=== PATIENT | female | born 1960 | race Caucasian/White ===

== ENCOUNTER 2017-06-19 13:00 | Outpatient (RCR) | payer MEDICARE, SELFPAY ==
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
--- NOTE | 2017-05-20 10:53 | HP.PTREVAL_ITS ---
Susu Walker, It has been my pleasure to treat NINA CLEVELAND over the last 6 visits for back and neck pain. Please see the progress note below for an update on the physical therapy plan of care! Subjective: Cortney has more pain in arms-8/10. Patient has injection past 2weeks . Symptoms worse with walking standing 5min.Patient has leave pain after tx Objective/Function: POSTURE: rounded shoulders head foward ,soft collar,left wrist brace. GAIT:mild foward posture head foward. PALAPTION: tender upper/ lower cervical and lumbar. NEURO: C/O PARATHESIA/TINGLING,reflexes C5-6-7 1/2, L4-5,L5-S1 1/3. MMT: BUE 3+/5 GROSSLY. CERVICAL ROM: flexion min loss , lateral flexion /rotation mod loss ,ext min less. LUMBAR ROM: flexion min loss ,ext mod loss. MMT: quads/hams 4-/5 hip 3+/5 ankle 4-/5. -SLR Plan Plan: CONT AQUATICS 2XWEEK FOR 4 WEEKS Goals Goal 1:: Decrease Aquatic therapy ex's to decrease palacios. Goal Time Frame: 4-6 Weeks Goal Progress: Progressing Goal 2:: Decrease pain cervical /lumbar legs /arms by 40% or greater to improve function and ADL''s Goal Time Frame: 4-6 Weeks Goal Progress: Progressing Goal 3:: Patient increase right arm romto improve self hygine 50% of the time Goal Time Frame: 4-6 Weeks Goal Progress: Progressing Goal 4:: Patient increase strength BLE by 1/2 grade to improve function with walking standing for ADL'S Goal Time Frame: 4-6 Weeks Goal Progress: Progressing Goal 5:: Patient to improve gait with for ADL'S community distances Goal Time Frame: 4-6 Weeks Goal Progress: Progressing Anticipated Interventions Patient/Client Instruction: Educate patient on: Condition, Plan of Care For the Purpose of:: To decrease pain, To increase ROM, To improve muscle performance and motor function, To improve ability to perform ADL's, To improve performance and independence with ADL's, To decrease level of supervision to perform tasks, To improve ability of physical actions for home/community/work/ leisure, To improve health of tissue, To decrease soft tissue restriction, To increase flexibility/ROM, To improve endurance, To improve safety with gait, To prevent re-injury, To improve ability to perform tasks related to life management Therapeutic Exercise to Include: Strength training, Body mechanics, Postural training, Flexibilty training, In an aquatic setting, Active ROM, Dynamic Lumbar Stabilization Comment: UE/LE For the Purpose of:: To decrease pain, To increase ROM, To improve nutrient delivery to tissue, To increase oxygenation perfusion, To improve muscle performance and motor function, To improve ability to perform ADL's, To increase tolerance to activity/condition/position, To improve performance and independence with ADL's, To improve ability of physical actions for home/ community/work/leisure, To improve gait and locomotor functions, To improve health of tissue, To decrease soft tissue restriction, To increase flexibility/ ROM, To improve balance, To improve safety with gait, To improve health and function, To improve ability to perform tasks related to life management Please do not hesitate to contact me at [phone] by phone or Fax: if you have questions or concerns regarding this new plan of care! Sincerely, Bandar Mariee PT,
--- NOTE | 2017-09-05 09:32 | HP.PT.NRP ---
HP - Discharge Summary (1) - Patient Information NINA CLEVELAND was seen in my office for initial evaluation on 04/18/17. The following Plan of Care was established for this patient: Initial Frequency: 2x /Week Initial Duration: 4 Weeks - Anticipated Interventions Patient/Client Instruction: Educate patient on: Condition, Plan of Care For the Purpose of:: To decrease pain, To increase ROM, To improve muscle performance and motor function, To improve ability to perform ADL's, To improve performance and independence with ADL's, To decrease level of supervision to perform tasks, To improve ability of physical actions for home/community/work/leisure, To improve health of tissue, To decrease soft tissue restriction, To increase flexibility/ROM, To improve endurance, To improve safety with gait, To prevent re-injury, To improve ability to perform tasks related to life management Therapeutic Exercise to Include: Strength training, Body mechanics, Postural training, Flexibilty training, In an aquatic setting, Active ROM, Dynamic Lumbar Stabilization For the Purpose of:: To decrease pain, To increase ROM, To improve nutrient delivery to tissue, To increase oxygenation perfusion, To improve muscle performance and motor function, To improve ability to perform ADL's, To increase tolerance to activity/condition/position, To improve performance and independence with ADL's, To improve ability of physical actions for home/community/work/leisure, To improve gait and locomotor functions, To improve health of tissue, To decrease soft tissue restriction, To increase flexibility/ROM, To improve balance, To improve safety with gait, To improve health and function, To improve ability to perform tasks related to life management This patient was last seen in our office 06/29/17. Pertinent comments regarding their Physical therapy will appear below: Patient seen for PT for Aquatic PT for neck and back pain treatment focused on lumbar/cervical ROM ,strengthening,DLS,postural ex's . Patient was progressing with decreasing pain with water ex's . Thus is d/c from PT. At this point I will be discontinuing this patient from physical therapy. I would be happy to see this patient again in the future if found appropriate by the physician. Thank you! Bandar Mariee, PT,
== END 2017-06-19 19:00 | disposition home or self-care (01) ==
LOC: PT 13:00
PROVIDERS: Family Provider Pediatrics; PCP Pediatrics; Visit Provider Anesthesiology Pain Medicine
DX: M54.9 Dorsalgia, unspecified (principal); M54.2 Cervicalgia
CPT/HCPCS: 97113; 97163; 97530; G8978; G8979

== ENCOUNTER 2017-12-24 13:49 | Emergency (ER) | payer MEDICARE, SELFPAY ==
[2017-12-24 13:51] VITALS: BP 109/79; PULSE 99; RESP 16; TEMP 37.2; O2SAT 93; BMI 32.5
--- NOTE | 2017-12-24 15:20 | RAD_ITS ---
STUDY: X-RAY CHEST REASON FOR EXAM: Female, 57 years old. Cough. Weakness. Shortness of breath. TECHNIQUE: PA and lateral views of the chest. COMPARISON: August 09, 2017. FINDINGS: Telemetry wires overlie the chest. There is elevation right hemidiaphragm. There is a stable granuloma in the lateral left midlung. There is chronic interstitial changes without new infiltrate or mass. There is no demonstrated pleural abnormality. Normal size heart. Normal mediastinum. Decreased hilar prominence. Normal visualized aortic arch and descending thoracic aorta. Normal visualized thoracic spine. Normal visualized ribs, clavicles, and shoulders. There is no demonstrated abnormality of the visualized soft tissue structures of the upper abdomen. RAD/Chest PA and Lateral IMPRESSION: 1. Chronic pulmonary changes without acute infiltrate or mass. 2. Stable elevation of right hemidiaphragm. 3. Reversal of the mild central vascular congestion seen on the prior study. Electronically Signed: Parth Jarquin DO at 16:35 EDT Tel [phone], Service support ,
[2017-12-24 15:30] VITALS: PULSE 76; RESP 18
[2017-12-24] MEDS: Ipratropium/Albuterol Sulfate 3 ML AMPUL.NEB INHALATION (15:30)
[2017-12-24 15:46] LABS: Absolute Lymphocyte Count 1.21 X10^3/ul (0.83-4.51); Basophil# 0.01 X10^3/uL; Basophil% 0.3 % (0-1); Eosinophils% 2.7 % (0-5); Hematocrit 36.3 % (37-47); Hemoglobin 11.2 g/dl (12.0-15.0); Lymphocyte # 1.21 X10^3/ul (4.0); Lymphocyte % 32.1 % (19-41); Mean Corp Hgb Conc 30.9 g/gl (32-36); Mean Corpuscular Hgb 27.9 pg (27.0-32.0); Mean Corpuscular Volume 90.5 fL (81-99); Mean Platelet Vol. 10.2 fl (6.2-12.0); Monocyte# 0.38 X10^3/uL; Monocyte% 10.1 % (0-10); Neutrophil # 2.04 X10^3/uL (2.7-7.7); Platelet Count 275 K/mm3 (150-450); RBC Distribution Width CV 18.5 % (11.6-14.6); RBC Distribution Width SD 60.2 fl (35.1-43.9); Red Blood Count 4.01 M/mm3 (4.2-5.4); White Blood Count 3.8 K/mm3 (4.4-11.0)
[2017-12-24 15:47] LABS: POSITIVE COUNT NO; POSITIVE DIFFERENTIAL NO; POSITIVE MORPHOLOGY NO
[2017-12-24 15:53] LABS: Anion Gap 7 (5-15); BUN 8 mg/dL (7-18); BUN/Creat Ratio 10.8 RATIO (10-20); Calcium,Total 8.4 mg/dL (8.5-10.1); Chloride 98 mmol/L (98-107); Creatinine, Serum 0.74 mg/dL (0.55-1.02); EST Glomerular Filtration Rate 86 mL/min (>60); Est Glom Filt Rate - Afr Amer 104 mL/min (>60); Estimated Creatinine Clearance 70.22 ml/min; Glucose 79 mg/dL (74-106); Potassium 3.2 mmol/L (3.5-5.1); Sodium Level 141 mmol/L (136-145)
[2017-12-24 16:04] VITALS: BP 93/60; PULSE 78; RESP 14; O2SAT 100
--- NOTE | 2017-12-24 16:18 | ED.VISSUMM ---
- ER Visit Summary Date of Service: 12/24/17 Chief Complaint: I need my potassium checked History of Present Illness: The patient is a [address] Stephenson. She reports that typically she is on 20 mEq of potassium twice daily. She ran out 5 days ago and was unable to get her prescription filled. She reports that she has had generalized weakness over the past 4-5 days. On review of systems patient claims a fever to 101?. She periodically has a cough that is nonproductive. She reports that she has mild shortness of breath. She denies dysuria. She has had frequency. She reports that she has a little bit of headache. Physical Examination: Vitals: Stable. Afebrile. General: Well-nourished and well-developed. Head: Normocephalic atraumatic. Neck: Supple, no lymphadenopathy. No JVD. Nontender. Cardiovascular: Regular rate and rhythm. No murmurs. Respiratory: No respiratory distress. Mild wheezing bilaterally with good air movement. Abdominal: Soft, nontender, nondistended, normal bowel sounds. No guarding, rebound, or peritoneal signs. Back: Nontender. Extremities: Nontender, no edema. Skin: Normal color, no rash. Neurologic: Alert and oriented ?3. Cranial nerves II through XII are intact. Normal strength and sensation. Psych: Normal affect. Test Results: CBC is marked for white count of 3.8 with an H&H of 11.2 and 36.3. Chem-7 is remarkable for potassium of 3.2, CO2 36, calcium of 8.4. Emergency Department Course and Treatment: Patient was given 40 mEq of K-Dur p.o. She is given albuterol Atrovent aerosol. She is resting comfortably. Treatment Plan: Patient be discharged instructions to take her potassium as previously prescribed. Follow-up with Dr. Stephenson in 1-2 days if not improving. Return to the emergency department for any worsening symptoms. Disposition: To home in improved and stable condition. Impression: 1. Mild hypokalemia. This note was generated with [employer] dictation software. It may contain incorrect words, spelling, and punctuation that were not noted in review of the chart prior to signing ED Disposition - Plan for ED Patient: Disposition: Home or Assisted Living Chief Complaint: Weakness Instructions: ED Potassium Deficiency Referrals: Carson Stephenson MD [Primary Care Provider] - 3-5 Days if not improving
[2017-12-24 16:26] LABS: Bacteria 0 SEEN /hpf (None Seen); Mucous, Urine 0 SEEN /hpf (<or=2+)
[2017-12-24 16:32] VITALS: BP 100/50; PULSE 89; RESP 15; O2SAT 93
[2017-12-24 16:40] LABS: Color, Urine Yellow (Yellow); Glucose, Dipstick Normal (Normal); Ketone-Dipstick Negative (Negative); Leukocyte Esterase-Dipstick 25 /ul (Negative); Nitrite-Dipstick Negative (Negative); Occult Blood-Urine 10 /ul (Negative); Protein-Dipstick Negative (Negative); Urine Bilirubin Dipstick Negative (Negative); Urine Clarity Sl. Cloudy (Clear); Urine Urobilinogen 1 mg/dl (Normal)
[2017-12-24 16:56] LABS: Calcium Oxalate Crystals Ur RARE /hpf (<or=2+); Red Blood Cells-Urine 0-5 SEEN /hpf (0-5); Squamous Epithelial Cells - UA 0-5 SEEN /hpf (5-10); White Blood Cells 0-5 SEEN /hpf (0-5)
[2017-12-24 17:34] VITALS: BP 104/68; PULSE 91; RESP 21; O2SAT 96
[2017-12-24 17:38] VITALS: BP 104/68; PULSE 92; RESP 28; O2SAT 94
== END 2017-12-24 17:58 | disposition home or self-care (01) ==
PROVIDERS: Emergency Provider Emergency Medicine; Family Provider Family Medicine; PCP Family Medicine
DX: E87.6 Hypokalemia (principal); R06.00 Dyspnea, unspecified; R05 Cough; R35.0 Frequency of micturition; R50.9 Fever, unspecified; R51 Headache; I10 Essential (primary) hypertension; D68.59 Other primary thrombophilia; G90.50 Complex regional pain syndrome I, unspecified; F17.200 Nicotine dependence, unspecified, uncomplicated; Z79.01 Long term (current) use of anticoagulants; Z79.899 Other long term (current) drug therapy
CPT/HCPCS: 71046; 80048; 81001; 85025; 94640; 99283; A4216

== ENCOUNTER 2018-01-01 11:11 | Inpatient (IN) | payer MEDICARE, SELFPAY ==
[2018-01-01] VITALS (18 sets, daily range): BP systolic 93–139; BP diastolic 50–95; PULSE 76–128; RESP 18–24; TEMP 36.9–39.5; O2SAT 88–98; BMI 33.1; BMI 33.2; BMI 33.3
--- NOTE | 2018-01-01 11:30 | EKG12_ITS ---
Test Reason : Blood Pressure : / mmHG Vent. Rate : 129 BPM Atrial Rate : 129 BPM P-R Int : 204 ms QRS Dur : 078 ms QT Int : 260 ms P-R-T Axes : 090 011 003 degrees QTc Int : 380 ms Sinus tachycardia Leftward axis Nonspecific T wave abnormality Abnormal ECG Confirmed by FAB CASTAÑEDA, ALE ([id number]), primer expeditor and drier BAYRON WILD ([id number]) on 01/03/2018 10:51:10 AM Referred By: LUL Confirmed By:ALE SANON MD
--- NOTE | 2018-01-01 11:30 | RAD_ITS ---
STUDY: X-RAY CHEST REASON FOR EXAM: Female, 57 years old. Fever, cough, shortness of breath for several days. History of COPD. TECHNIQUE: Portable chest AP upright COMPARISON: Chest x-ray 12/24/2017. FINDINGS: Bilateral perihilar/infrahilar infiltrates, larger and of greater density on the right. Right upper lobe suprahilar infiltrate, of intermediate density. These features are consistent with acute bilateral pneumonia. Chronic elevation of the right hemidiaphragm. No apparent effusion or pneumothorax. Normal cardiomediastinal silhouette, roz and pleural margins. No acute osseous or upper abdominal process. RAD/Chest 1 View (Portable) IMPRESSION: Bilateral multilobar pneumonia. Electronically Signed: Leopoldo Barton, at 12:04 EDT Tel , Service support ,
[2018-01-01] MEDS: Albuterol 2.5 MG/3 ML VIAL.NEB. INHALATION (11:52)
[2018-01-01] MEDS: Ipratropium/Albuterol Sulfate 3 ML AMPUL.NEB INHALATION ×2 (11:52→20:24)
[2018-01-01] MEDS: Acetaminophen 325 MG Tablet 650 MG PO (11:55)
[2018-01-01 11:57] LABS: Absolute Neutrophil Count 13.7 X10^3/uL (2.0-7.7); Basophil# 0.01 X10^3/uL; Basophil% 0.1 % (0-1); Differential Indicated SCAN CRITERIA MET; Eosinophil# 0.02 X10^3/uL; Eosinophils% 0.1 % (0-5); Hematocrit 38.8 % (37-47); Hemoglobin 11.4 g/dl (12.0-15.0); Lymphocyte % 1.4 % (19-41); Mean Corp Hgb Conc 29.4 g/gl (32-36); Mean Corpuscular Hgb 26.7 pg (27.0-32.0); Mean Corpuscular Volume 90.9 fL (81-99); Mean Platelet Vol. 10.8 fl (6.2-12.0); Monocyte# 0.41 X10^3/uL; Monocyte% 2.9 % (0-10); Neutrophil # 13.71 X10^3/uL (2.7-7.7); Neutrophil % 95.4 % (47-70); POSITIVE COUNT NO; POSITIVE DIFFERENTIAL YES; POSITIVE MORPHOLOGY NO; Platelet Count 356 K/mm3 (150-450); RBC Distribution Width CV 18.1 % (11.6-14.6); RBC Distribution Width SD 60.7 fl (35.1-43.9); Red Blood Count 4.27 M/mm3 (4.2-5.4); White Blood Count 14.4 K/mm3 (4.4-11.0)
[2018-01-01 12:00] LABS: International Normalized Ratio 1.2; Partial Thromboplast Time 28.8 Seconds (24.1-36.2); Prothrombin Time (Protime)PT. 15.2 SECONDS (11.7-14.9)
[2018-01-01] MEDS: Ceftriaxone 1 GM/50 ML BAG IV (12:05)
[2018-01-01 12:08] LABS: ALB/GLOB Ratio 0.8 RATIO (0.9-2.4); AST(SGOT) 21 U/L (15-37); Alanine Aminotransfer ALT/SGPT 13 U/L (13-56); Albumin, Serum 3.4 g/dL (3.2-5.0); Alkaline Phosphatase 105 U/L (45-117); Anion Gap 4 (5-15); BUN 8 mg/dL (7-18); Calcium,Total 8.3 mg/dL (8.5-10.1); Chloride 105 mmol/L (98-107); EST Glomerular Filtration Rate 79 mL/min (>60); Est Glom Filt Rate - Afr Amer 95 mL/min (>60); Estimated Creatinine Clearance 64.95 ml/min; Globulin 4.2 g/dL (2.2-4.2); Glucose 118 mg/dL (74-106); Potassium 4.2 mmol/L (3.5-5.1); Protein, Total 7.6 g/dL (6.4-8.2); Sodium Level 140 mmol/L (136-145)
[2018-01-01 12:25] LABS: Lactic Acid 1.8 mmol/L (0.4-2.0)
[2018-01-01 12:25] LABS: Allen Test POS; Base Excess 2 mmol/L (-2 to +2); Bicarbonate 26.9 mmol/L (22-26); Blood Gas Specimen Type ART; O2 Delivery Device NRB Mask; PO2 79 mmHG (75-100); SITE R Radial; SO2 95 % (95-99); Time Given 1210; Total Carbon Dioxide 28 mmol/L; pCO2 46.8 mmHg (35-45); pH 7.37 (7.35-7.45)
[2018-01-01 12:28] LABS: Differential Comment SCANNED
--- NOTE | 2018-01-01 12:37 | ED.DCSUM_ITS ---
- ER Visit Summary Date of Service: 01/01/18 Chief Complaint: Cough History of Present Illness: The patient is a 57 F who presents with chief complaint of I think I have pneumonia. The patient has a history of esophageal cancer with a partial esophagectomy. She has a history of frequent aspiration. About 1 week ago she aspirated but states I coughed it all up. Since that time she has developed shortness of breath increased cough and green sputum. She reports sharp left-sided chest pain. She reports fevers nausea and vomiting. Physical Examination: Temperature 101.7 heart rate 128 respiratory rate 24 normal blood pressure pulse ox 88% on room air while I was in the room the patient was hypoxic between 86 and 90% even on nasal cannula and was transitioned to a nonrebreather mask Heart is regular rhythm tachycardia Patient has bilateral rales and wheezing left greater than right Abdomen soft nontender Extremities nontender Alert Test Results: EKG shows sinus tachycardia at a rate of 129 with nonspecific T- wave changes. Chest x-ray shows bilateral multilobar pneumonia. Laboratory studies notable for white blood cell count 14.4. ABG shows normal pH and lactic acid is normal. Emergency Department Course and Treatment: Patient was empirically treated with IV Rocephin and Flagyl ordered shortly after arrival due to her history of aspiration. She was treated with IV fluids. She will be discussed with the hospitalist and admitted. Treatment Plan: [] Disposition: Admit Impression: Bilateral pneumonia Sepsis syndrome This note was generated with [employer] dictation software. It may contain incorrect words, spelling, and punctuation that were not noted in review of the chart prior to signing ED Disposition - Plan for ED Patient: Chief Complaint: Cough Referrals: Carson Stephenson MD [Primary Care Provider] -
[2018-01-01] MEDS: 0.9% Normal Saline 1,000 ML 999 ML IV (12:49)
[2018-01-01] MEDS: 0.9% Normal Saline 1,000 ML 100 ML IV (14:03)
[2018-01-01] MEDS: Bisacodyl 5 MG Tablet PO (14:54)
[2018-01-01] MEDS: oxyCODONE 5 MG Tablet PO (14:54)
[2018-01-01] MEDS: DULoxetine Hcl 60 MG Capsule PO (17:06)
[2018-01-01] MEDS: Rivaroxaban 20 MG Tablet PO (17:06)
[2018-01-01] MEDS: clonazePAM 0.5 MG Tablet PO ×2 (17:06→21:18)
[2018-01-01] MEDS: Multivitamins,Therapeutic Tablet 1 TABLET PO (17:06)
[2018-01-01] MEDS: Gabapentin 300 MG Capsule PO (17:06)
[2018-01-01] MEDS: Furosemide 40 MG Tablet PO (17:06)
[2018-01-01] MEDS: Budesonide Respules 0.5 MG/2 ML AMPUL.NEB. INHALATION (20:24)
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
[2018-01-01] MEDS: Gabapentin 600 MG Tablet PO (21:17)
[2018-01-01] MEDS: Magnesium Hydroxide 30 ML UDC PO (21:17)
[2018-01-01] MEDS: Amitriptyline 100 MG Tablet 200 MG PO (21:17)
[2018-01-01] MEDS: guaiFENesin 1,200 MG Tablet 1200 MG PO (21:18)
[2018-01-01] MEDS: Famotidine 20 MG Tablet PO (21:18)
[2018-01-01] MEDS: oxyCODONE HCl Cr 10 MG Tablet PO (21:18)
[2018-01-02] VITALS (16 sets, daily range): BP systolic 94–134; BP diastolic 53–68; PULSE 62–105; RESP 14–20; TEMP 37.2–37.7; O2SAT 92–94
[2018-01-02] MEDS: 0.9% Normal Saline 1,000 ML 100 ML IV ×3 (00:44→23:10)
[2018-01-02] MEDS: Ipratropium/Albuterol Sulfate 3 ML AMPUL.NEB INHALATION ×4 (01:45→19:16)
[2018-01-02 06:52] LABS: Hematocrit 30.8 % (37-47); Hemoglobin 9.1 g/dl (12.0-15.0); Mean Corp Hgb Conc 29.5 g/gl (32-36); Mean Corpuscular Hgb 27.8 pg (27.0-32.0); Mean Corpuscular Volume 94.2 fL (81-99); Mean Platelet Vol. 10.4 fl (6.2-12.0); Platelet Count 273 K/mm3 (150-450); RBC Distribution Width CV 18.5 % (11.6-14.6); RBC Distribution Width SD 61.7 fl (35.1-43.9); Red Blood Count 3.27 M/mm3 (4.2-5.4); White Blood Count 12.8 K/mm3 (4.4-11.0)
[2018-01-02 06:53] LABS: Scan Indicated on CBC? Y/N NO
[2018-01-02] MEDS: Budesonide Respules 0.5 MG/2 ML AMPUL.NEB. INHALATION ×2 (06:56→19:16)
[2018-01-02 07:08] LABS: Anion Gap 4 (5-15); BUN 11 mg/dL (7-18); BUN/Creat Ratio 22.6 RATIO (10-20); Calcium,Total 7.8 mg/dL (8.5-10.1); Chloride 110 mmol/L (98-107); Creatinine, Serum 0.49 mg/dL (0.55-1.02); EST Glomerular Filtration Rate 139 mL/min (>60); Est Glom Filt Rate - Afr Amer 169 mL/min (>60); Estimated Creatinine Clearance 106.05 ml/min; Glucose 95 mg/dL (74-106); Potassium 4.1 mmol/L (3.5-5.1); Sodium Level 144 mmol/L (136-145)
[2018-01-02] MEDS: Gabapentin 300 MG Capsule PO ×3 (08:18→17:17)
[2018-01-02] MEDS: Multivitamins,Therapeutic Tablet 1 TABLET PO (08:18)
[2018-01-02] MEDS: oxyCODONE 5 MG Tablet PO ×2 (08:18→17:17)
[2018-01-02] MEDS: Furosemide 80 MG Tablet PO (08:19)
[2018-01-02] MEDS: DULoxetine Hcl 60 MG Capsule PO (10:33)
[2018-01-02] MEDS: clonazePAM 0.5 MG Tablet PO ×4 (10:33→21:46)
[2018-01-02] MEDS: oxyCODONE HCl Cr 10 MG Tablet PO ×2 (10:33→21:46)
[2018-01-02] MEDS: Rivaroxaban 20 MG Tablet PO (10:34)
[2018-01-02] MEDS: Famotidine 20 MG Tablet PO ×2 (10:34→21:45)
[2018-01-02] MEDS: guaiFENesin 1,200 MG Tablet 1200 MG PO ×2 (10:34→21:46)
[2018-01-02] MEDS: Magnesium Hydroxide 30 ML UDC PO ×2 (10:38→21:45)
--- NOTE | 2018-01-02 12:52 | CASEMGMT ---
Face to Face with patient for initial transition planning/care coordination assessment. RN FILIBERTO introduced self and role at [facility], pt voices understanding and consents to assessment at this time. Pt is sitting up in bed in no distress at this time. Pt is A/O x4 at this time and answers all questions appropriately at this time. Care providers, pharmacy, and demographics verified. See attached link. Pt voices no further concerns/needs at this time. Advised pt to ask for CM if any further questions/concerns/needs arise, voices understanding. CM to follow for any further discharge planning/needs. [place]
--- NOTE | 2018-01-02 15:59 | PCM.PROGNOTE ---
Patient Problems: Active and Suspected Problems Aspiration pneumonia (Acute) History of esophageal cancer (Acute) Chronic upper back pain (Acute) Subjective: She feels somewhat better. Afebrile, except for low grade temp. Complaining of headache. +Discolored sputum. - Physical Exam General: Alert, Oriented x3, Cooperative HEENT: Atraumatic, PERRLA Oral: Moist Mucosa, No Gingival or Mucosal Lesions/ Ulcerations Neck: Supple, No JVD, Negative Carotid Bruits, Negative Hepatojugular Reflux, No Nodes, No Nuchal Rigidity Lungs: Rhonchi - Mid lung fileds bilaterally. Diffuse wheezing. Cardiovascular: Regular rate, Regular Rhythm, Normal S1, Normal S2, No murmurs, No Ectopic Activity Abdomen: Bowel Sounds Present, Soft, Non Tender, Non-Distended, No Hepato-splenomegaly Extremities: No clubbing, No cyanosis, No edema Skin: No rashes, No breakdown Musculoskeletal: No Tenderness to Palpation of Joints or Extremities, No Muscle Wasting Lymphatic: No Cervical, Supraclavicular, or Inguinal Adenopathy Neurological: Cranial nerves II-XII grossly intact, Neuro grossly intact Psych/Mental Status: Normal Affect Vital Signs Temp Pulse Resp BP Pulse Ox 99.8 F H 62 16 111/58 L 92 01/02/18 10:28 01/02/18 12:59 01/02/18 12:59 01/02/18 10:28 01/02/18 10:28 Oxygen Flow Rate (L/min) 4 Oxygen Delivery Method Nasal Cannula Weight: 190 lb 11.198 oz Body Mass Index (BMI) 33.2 Intake and Output for Last 24 Hours 12/31/17 01/01/18 01/02/18 23:59 23:59 23:59 Intake Total 1455 / 1455 1594 / 1594 Output Total 1600 / 1600 Balance 1455 / 1455 -6 / -6 Microbiology Past 72 Hours 01/01/18 14:00 Gram Stain - Final Sputum, Expectorated/Coughed Respiratory Culture - Preliminary Alpha Hemolytic Streptococcus 01/01/18 14:05 Legionella Antigen - Final Urine, Clean Catch 01/01/18 14:05 Streptococcus pneumoniae Antigen (M - Final Urine, Clean Catch Streptococcus pneumonia Ag Laboratory Tests Past 24 Hrs 01/02/18 01/02/18 06:00 06:00 WBC 12.8 H RBC 3.27 L Hgb 9.1 L Hct 30.8 L MCV 94.2 MCH 27.8 MCHC 29.5 L RDW 18.5 H RDW Differential 61.7 H Plt Count 273 MPV 10.4 Sodium 144 Potassium 4.1 Chloride 110 H Carbon Dioxide 30.0 Anion Gap 4 L BUN 11 Creatinine 0.49 L Estim Creat Clear Calc 106.05 Est GFR (MDRD) Af Amer 169 Est GFR (MDRD) Non-Af 139 BUN/Creatinine Ratio 22.6 H Glucose 95 Calcium 7.8 L Diagnostic Data Chest X-Ray 01/01/18 11:30 IMPRESSION: Bilateral multilobar pneumonia. Electronically Signed: Leopoldo Barton, at 12:04 EDT Tel , Service support , Medical Necessity - Tobacco Use Smoking Status: Current some day smoker Assessment/Plan Active and Suspected Problems Aspiration pneumonia (Acute) History of esophageal cancer (Acute) Chronic upper back pain (Acute) Patient is a 57 years old female with history of esophageal cancer, s/p resection, presents to ED with complaining of shortness of breath, cough, and fever for 2 days, admitted on 01/01/18. He has history of resection of esophageal cancer, and has problems with recurrent aspiration in the past. She presented to ED about one week ago, but CXR did not show any infiltrate at that time. CXR showed multilobe infiltrate this time with fever or 103.1 and WBC of 14.4. #1 Probable aspiration pneumonia. Rocephin and Flagyl give in ED. Urine strep antigen positive. Change to clindamycin IV. Blood culture +alpha hemolytic strep 1 out of 2. Continue bronchodilator, DuoNeb Q6 and albuterol MN prn. Oxygen supplement. Continue Current antibiotics. Repeat CBC in AM. #2 COPD. She uses nocturnal home oxygen. Bronchodilator and antibiotics as above. #3 History of coagulopathy and recurrent DVT/PE. Continue Xarelto. #4 Chronic back pain. Continue Neurontin and oxycodone ER 9 mg po bid. Add prn oxycodone IR. #5 History of esophageal cancer VTE prophylaxis: Xarelto po. GI prophylaxis: H2 frieda po. She is full code. Disposition: home in 2 to 3 days. Code Visit Inpatient E&M: 68338 Subs Hosp L2
--- NOTE | 2018-01-02 16:03 | PN_ITS ---
Patient Problems: Active and Suspected Problems Aspiration pneumonia (Acute) History of esophageal cancer (Acute) Chronic upper back pain (Acute) Subjective: She feels somewhat better. Afebrile, except for low grade temp. Complaining of headache. +Discolored sputum. - Physical Exam General: Alert, Oriented x3, Cooperative HEENT: Atraumatic, PERRLA Oral: Moist Mucosa, No Gingival or Mucosal Lesions/ Ulcerations Neck: Supple, No JVD, Negative Carotid Bruits, Negative Hepatojugular Reflux, No Nodes, No Nuchal Rigidity Lungs: Rhonchi - Mid lung fileds bilaterally. Diffuse wheezing. Cardiovascular: Regular rate, Regular Rhythm, Normal S1, Normal S2, No murmurs, No Ectopic Activity Abdomen: Bowel Sounds Present, Soft, Non Tender, Non-Distended, No Hepato- splenomegaly Extremities: No clubbing, No cyanosis, No edema Skin: No rashes, No breakdown Musculoskeletal: No Tenderness to Palpation of Joints or Extremities, No Muscle Wasting Lymphatic: No Cervical, Supraclavicular, or Inguinal Adenopathy Neurological: Cranial nerves II-XII grossly intact, Neuro grossly intact Psych/Mental Status: Normal Affect Vital Signs Temp Pulse Resp BP Pulse Ox 99.8 F H 62 16 111/58 L 92 01/02/18 10:28 01/02/18 12:59 01/02/18 12:59 01/02/18 10:28 01/02/18 10:28 Oxygen Flow Rate (L/min) 4 Oxygen Delivery Method Nasal Cannula Weight: 190 lb 11.198 oz Body Mass Index (BMI) 33.2 Intake and Output for Last 24 Hours 12/31/17 01/01/18 01/02/18 23:59 23:59 23:59 Intake Total 1455 / 1455 1594 / 1594 Output Total 1600 / 1600 Balance 1455 / 1455 -6 / -6 Microbiology Past 72 Hours 01/01/18 14:00 Gram Stain - Final Sputum, Expectorated/Coughed Respiratory Culture - Preliminary Alpha Hemolytic Streptococcus 01/01/18 14:05 Legionella Antigen - Final Urine, Clean Catch 01/01/18 14:05 Streptococcus pneumoniae Antigen (M - Final Urine, Clean Catch Streptococcus pneumonia Ag Laboratory Tests Past 24 Hrs 01/02/18 01/02/18 06:00 06:00 WBC 12.8 H RBC 3.27 L Hgb 9.1 L Hct 30.8 L MCV 94.2 MCH 27.8 MCHC 29.5 L RDW 18.5 H RDW Differential 61.7 H Plt Count 273 MPV 10.4 Sodium 144 Potassium 4.1 Chloride 110 H Carbon Dioxide 30.0 Anion Gap 4 L BUN 11 Creatinine 0.49 L Estim Creat Clear Calc 106.05 Est GFR (MDRD) Af Amer 169 Est GFR (MDRD) Non-Af 139 BUN/Creatinine Ratio 22.6 H Glucose 95 Calcium 7.8 L Diagnostic Data Chest X-Ray 01/01/18 11:30 IMPRESSION: Bilateral multilobar pneumonia. Electronically Signed: Leopoldo Barton, at 12:04 EDT Tel , Service support , Medical Necessity - Tobacco Use Smoking Status: Current some day smoker Assessment/Plan Active and Suspected Problems Aspiration pneumonia (Acute) History of esophageal cancer (Acute) Chronic upper back pain (Acute) Patient is a 57 years old female with history of esophageal cancer, s/ p resection, presents to ED with complaining of shortness of breath, cough, and fever for 2 days, admitted on 01/01/18. He has history of resection of esophageal cancer, and has problems with recurrent aspiration in the past. She presented to ED about one week ago, but CXR did not show any infiltrate at that time. CXR showed multilobe infiltrate this time with fever or 103.1 and WBC of 14.4. #1 Probable aspiration pneumonia. Rocephin and Flagyl give in ED. Urine strep antigen positive. Change to clindamycin IV. Blood culture +alpha hemolytic strep 1 out of 2. Continue bronchodilator, DuoNeb Q6 and albuterol [place] prn. Oxygen supplement. Continue Current antibiotics. Repeat CBC in AM. #2 COPD. She uses nocturnal home oxygen. Bronchodilator and antibiotics as above. #3 History of coagulopathy and recurrent DVT/PE. Continue Xarelto. #4 Chronic back pain. Continue Neurontin and oxycodone ER 9 mg po bid. Add prn oxycodone IR. #5 History of esophageal cancer VTE prophylaxis: Xarelto po. GI prophylaxis: H2 frieda po. She is full code. Disposition: home in 2 to 3 days. Code Visit Inpatient E&M: 32892 Subs Hosp L2
[2018-01-02] MEDS: Furosemide 40 MG Tablet PO (17:17)
[2018-01-02] MEDS: Acetaminophen 325 MG Tablet 650 MG PO (17:17)
[2018-01-02] MEDS: Amitriptyline 100 MG Tablet 200 MG PO (21:46)
[2018-01-02] MEDS: Clindamycin 600 MG/50 ML BAG 100 MG IV (21:47)
[2018-01-02] MEDS: Gabapentin 600 MG Tablet PO (21:53)
[2018-01-03] VITALS (27 sets, daily range): BP systolic 103–135; BP diastolic 53–69; PULSE 83–121; RESP 14–26; TEMP 36.2–37.4; O2SAT 90–97
--- NOTE | 2018-01-03 03:35 | NURSING ---
Pt. HR sustaining 120. VS 98.9, 119, 22, 77% on 4L NC. Placed pt. on 5L NC and pulse ox 81%. Then placed pt. on nonrebreather and pulse ox at 94% . Dr. Rae notified and respiratory therapy called to floor. RT talked to Dr. Rae as did this nurse. DC order on IVF. Orders obtained for ABGs. , PCXR,. Dr. Rae called back at 0422 to order IV cardizem 10 mg and agreed to have speech evaluation for possible aspiration. Keeping Pt. NPO until speech eval. Will monitor.
--- NOTE | 2018-01-03 04:05 | RAD_ITS ---
STUDY: X-RAY CHEST REASON FOR EXAM: Female, 57 years old. Shortness of breath, dyspnea TECHNIQUE: Single AP portable view of the chest. COMPARISON: 01/01/2018. 12/24/2017. FINDINGS: There are superimposed monitor leads. Persistent elevation of the right hemidiaphragm. Worsened aeration in the right upper lobe, stable opacification right base and left perihilar and infrahilar parenchyma. There is no demonstrated pleural abnormality. Normal size heart. Normal mediastinum and roz. Normal visualized pulmonary arteries. Normal visualized aortic arch and descending thoracic aorta. Obscured thoracic spine. Status post right acromioplasty. There is no demonstrated abnormality of the visualized soft tissue structures of the upper abdomen. RAD/Chest 1 View (Portable) IMPRESSION: Worsening of aeration in the right upper lobe. Bilateral perihilar airspace disease with moderate elevation of the right hemidiaphragm and in areas of hyperinflation otherwise stable. Electronically Signed: Mireya Hyde MD at 4:53 EDT , Service support ,
[2018-01-03] MEDS: 0.9% NaCl Peripheral Flush Adult/Peds IV ×3 (04:19→23:33)
[2018-01-03 04:26] LABS: Allen Test POS; Base Excess 6 mmol/L (-2 to +2); Blood Gas Specimen Type ART; O2 Delivery Device NRB Mask; PO2 74 mmHG (75-100); SITE L Radial; SO2 92 % (95-99); Time Given 410; Total Carbon Dioxide 34 mmol/L; pCO2 64.8 mmHg (35-45)
[2018-01-03] MEDS: Albuterol 2.5 MG/3 ML VIAL.NEB. INHALATION (04:26)
--- NOTE | 2018-01-03 04:38 | NURSING ---
RT spoke with Dr. Rae at this time. He is ordering Bipap at 12/6 titrate oxygen to maintain above 90%. Dr. Rae also stated to hold cardizem bolus until we see how she does with bipap.
--- NOTE | 2018-01-03 04:41 | EKG12_ITS ---
Test Reason : Blood Pressure : / mmHG Vent. Rate : 118 BPM Atrial Rate : 118 BPM P-R Int : 206 ms QRS Dur : 092 ms QT Int : 328 ms P-R-T Axes : 041 000 -08 degrees QTc Int : 459 ms Sinus tachycardia Nonspecific T wave abnormality Confirmed by FAB CASTAÑEDA, ALE ([id number]), restaurant expeditor BAYRON WILD ([id number]) on 01/08/2018 2:54:36 PM Referred By: Confirmed By:ALE SANON MD
--- NOTE | 2018-01-03 04:55 | NURSING ---
Dr. Rae here to evaluated pt. Stated to hold cardizem bolus for now until we see how bipap affects HR. HR [address] Rae ordered to give cardizem bolus if after 30 minutes pt. HR is 120 or higher.
--- NOTE | 2018-01-03 05:02 | PCM.HOSP.N ---
Hospitalist Note Nurse paged me for patient having respiratory distress, sinus tachycardia, tachypnea and worsening hypoxia. Patient heart rate in 120s, blood pressure 135/69, respiratory rate 22-26/min. Patient started desaturating on 4 L of oxygen nasal cannula and put on nonrebreather. ABG and chest x-ray portable ordered. Patient is being admitted for possible aspiration pneumonia with history of esophageal cancer status post resection so probably esophageal dysphagia. Patient also has COPD history. Chest x-ray showed multilevel infiltrate with fever and leukocytosis. Urine for strep requests positive. Patient on IV clindamycin. Chest x-ray shows multilobar infiltrate with worsening of aeration in right upper lobe. Overall, reported as stable opacification of right base and left perihilar and infrahilar parenchyma although overall it seems worsening infiltrate. On exam: Air entry severely diminished bilaterally, more on right side. Bilateral rhonchi and wheezing. Tachypnea and respiratory distress. ABG shows 7.30/65/74 on 100% rebreather. Patient was started on BiPAP After about half an hour Patient is feeling better. Heart rate around 114/min. Respiratory rate 20/min and pulse ox 92% on 40% BiPAP;/07/16. I feel because of tachypnea, respiratory distress, tachycardia and worsening infiltrate; I will broaden the antibiotic and add IV Levaquin. Started on IV Solu-Medrol, discontinue Pulmicort nebulization, bronchodilator 4 hourly and continue BiPAP. Pulmonary consult in morning..
[2018-01-03] MEDS: Clindamycin 600 MG/50 ML BAG 100 MG IV ×3 (05:20→23:33)
[2018-01-03 06:25] LABS: Hematocrit 31.1 % (37-47); Hemoglobin 9.2 g/dl (12.0-15.0); Mean Corp Hgb Conc 29.6 g/gl (32-36); Mean Corpuscular Hgb 27.7 pg (27.0-32.0); Mean Corpuscular Volume 93.7 fL (81-99); Mean Platelet Vol. 10.5 fl (6.2-12.0); Platelet Count 316 K/mm3 (150-450); RBC Distribution Width CV 18.1 % (11.6-14.6); RBC Distribution Width SD 59.9 fl (35.1-43.9); Red Blood Count 3.32 M/mm3 (4.2-5.4); White Blood Count 9.7 K/mm3 (4.4-11.0)
[2018-01-03 06:33] LABS: Scan Indicated on CBC? Y/N NO
[2018-01-03 06:42] LABS: Magnesium 2.6 mg/dL (1.6-2.6)
[2018-01-03 06:44] LABS: Anion Gap 5 (5-15); BUN 9 mg/dL (7-18); BUN/Creat Ratio 18.2 RATIO (10-20); Calcium,Total 8.1 mg/dL (8.5-10.1); Chloride 105 mmol/L (98-107); EST Glomerular Filtration Rate 137 mL/min (>60); Est Glom Filt Rate - Afr Amer 166 mL/min (>60); Estimated Creatinine Clearance 103.93 ml/min; Glucose 141 mg/dL (74-106); Potassium 4.1 mmol/L (3.5-5.1); Sodium Level 143 mmol/L (136-145)
[2018-01-03] MEDS: Ipratropium/Albuterol Sulfate 3 ML AMPUL.NEB INHALATION ×3 (07:13→19:31)
--- NOTE | 2018-01-03 07:27 | PCM.CONS.GEN ---
Reason for Consult Date of Consultation: 01/03/18 Reason for Consultation: Resp acidosis, on Bipap, Multilobar Asp pneumonia History of Present Illness: The patient is a 57-year-old female, with a history as outlined below, who initially presented to the emergency department on January 01 with cough and shortness of breath in the setting of a recent aspiration event. The patient reports that she currently follows with Dr. Florez at [facility]. She has a prolonged heavy tobacco use history, but has cut back to 5 cigarettes daily. She does report having previously been diagnosed with obstructive sleep apnea, but does not currently utilize any form of nocturnal Pap therapy. She also has a known prior history of esophageal cancer. She is currently anticoagulated due to a history of VTE. She does report utilizing supplemental oxygen intermittently in her home environment. On presentation to the emergency department, the patient was noted to be febrile with a temperature of 101.7?F. She was tachycardic and tachypnea, but remained hemodynamically stable. Laboratory evaluation revealed elevated white blood cell count to 14,000. Chemistry profile was largely unremarkable. Serum lactate was within normal limits. Plain film chest x-ray revealed evidence of bilateral multilobar pneumonia. The patient was treated with IV fluids and antibiotics. She was subsequently admitted to the progressive care unit for ongoing management. The patient has a history of right hemidiaphragm paralysis and COPD. Patient has a history of protein C deficiency and DVT. The patient was last admitted to the hospital in August 2017, during which time, she was treated for a COPD exacerbation due to pneumococcal pneumonia. The patient's current hospital course has been uncomplicated until the charge loader of January 03, at which time, the patient reportedly acutely decompensated from a respiratory standpoint, requiring escalation in her supplemental oxygen flow rate. Arterial blood gas that was obtained revealed a primary respiratory acidosis with a pH of 7.30 and a corresponding PCO2 of 65. 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) COPD (chronic obstructive pulmonary disease) (Chronic) History of deep venous thrombosis or pulmonary embolus (Chronic) on xarelto IVC filter protein C deficiency Protein C deficiency (Chronic) History of recurrent pneumonia (Chronic) DVT of proximal lower limb (Chronic) Lung mass (Chronic) Kidney stones (Chronic) Allergies celecoxib Allergy (Verified 01/01/18 11:14) Swelling naproxen Allergy (Verified 01/01/18 11:14) Swelling Penicillins Allergy (Verified 01/01/18 11:14) Hives pregabalin Allergy (Verified 01/01/18 11:14) Swelling Home Medications: Ambulatory Orders Medication Instructions Recorded Amitriptyline HCl [Elavil] 200 mg PO QHS 04/26/14 Duloxetine Hcl [Cymbalta] 60 mg PO DAILY 04/26/14 Gabapentin [Neurontin] 300 mg PO TID 04/26/14 Gabapentin [Neurontin] 600 mg PO QHS 04/26/14 Clonazepam [Klonopin] 0.5 mg PO 4X/DAY 12/13/14 Furosemide [Lasix] 80 mg PO BREAKFAST 02/04/16 Albuterol Aerosols [Ventolin 2.5 mg INHALATION Q6H PRN PRN 03/04/16 Aerosols] Fluticasone 110 Mcg [Flovent 110 1 puff INHALATION BID 03/04/16 Mcg] Ipratropium/Albuterol Respimat 2 puff INHALATION 4X/DAY PRN 03/04/16 [Combivent Respimat Inhal [place]] Multivitamin [Daily Multiple 1 each PO DAILY 03/04/16 Vitamin] Potassium Chloride [Klor-Con] 20 meq PO BID 03/04/16 Rivaroxaban [Xarelto] 20 mg PO DAILY 02/27/17 Furosemide [Lasix] 40 mg PO DINNER 06/12/17 Dextroamphetamine/Amphetamine 30 mg PO DAILY 08/09/17 [Adderall 30 mg Tablet] Magnesium Hydroxide [Milk Of 30 ml PO BID 08/09/17 Magnesia] Oxycodone Myristate [Xtampza ER] 9 mg PO BID 12/24/17 Surgical History: appendectomy, cholecystectomy, hysterectomy, tonsillectomy Psychiatric History: Anxiety 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 Denies: Head Aches, Sinus Congestion, Sinus Drainage Cardiovascular: Denies: Chest Pain, Palpitations Respiratory: Reports: Cough, Shortness of Breath, Wheezing Gastrointestinal: Denies: Abdominal Pain, Nausea, Vomiting Genitourinary: Denies: Dysuria Musculoskeletal: Denies: Joint Pain, Joint Tenderness Skin: Denies: Rash, Wounds Neurological: Denies: Numbness, Tingling, Focal weakness Psychiatric: Denies: Anxiety, Depression, Homicidal Ideations, Suicidal Ideations Hematologic/ Lymphatic: Denies: Easy Bruising, Easy Bleeding Patient Problems: Active and Suspected Problems Aspiration pneumonia (Acute) History of esophageal cancer (Acute) Chronic upper back pain (Acute) Objective: The patient's most recent lab work, culture data and imaging studies have all been personally reviewed. Blood cultures are currently pending. Legionella antigen was negative. Strep pneumoniae urinary antigen was positive. Sputum culture is growing Streptococcus. - Physical Exam General: Alert, Cooperative, - - Currently tolerating BiPAP without issue HEENT: Atraumatic, PERRLA, Normocephalic Oral: Dry Mucosa Neck: Supple, No Nodes, Trachea Midline Lungs: Diminished, Rhonchi, Wheezes Cardiovascular: Regular rate, Regular Rhythm, Normal S1, Normal S2, No murmurs Abdomen: Bowel Sounds Present, Soft, Non Tender Extremities: No clubbing, No cyanosis, No edema Skin: No rashes, No breakdown Musculoskeletal: No Muscle Wasting Lymphatic: No Cervical, Supraclavicular, or Inguinal Adenopathy Neurological: Neuro grossly intact Psych/Mental Status: Flat Affect Vital Signs Temp Pulse Resp BP Pulse Ox 98.8 F 107 H 20 H 128/63 H 94 01/03/18 05:44 01/03/18 05:44 01/03/18 05:44 01/03/18 05:44 01/03/18 05:44 Oxygen Flow Rate (L/min) 15 Oxygen Delivery Method Bi-pap Weight: 190 lb 11.198 oz Body Mass Index (BMI) 33.2 Intake and Output for Last 24 Hours 01/01/18 01/02/18 01/03/18 23:59 23:59 23:59 Intake Total 1455 / 1455 3680 / 3680 296 / 296 Output Total 3200 / 3200 0 / 0 Balance 1455 / 1455 480 / 480 296 / 296 Microbiology Past 72 Hours 01/01/18 14:00 Gram Stain - Final Sputum, Expectorated/Coughed Respiratory Culture - Preliminary Alpha Hemolytic Streptococcus 01/01/18 14:05 Legionella Antigen - Final Urine, Clean Catch 01/01/18 14:05 Streptococcus pneumoniae Antigen (M - Final Urine, Clean Catch Streptococcus pneumonia Ag Laboratory Tests Past 24 Hrs 01/03/18 01/03/18 01/03/18 04:20 05:50 05:50 WBC 9.7 RBC 3.32 L Hgb 9.2 L Hct 31.1 L MCV 93.7 MCH 27.7 MCHC 29.6 L RDW 18.1 H RDW Differential 59.9 H Plt Count 316 MPV 10.5 Specimen Type ART Sample Site L Radial pH 7.30 L Bicarbonate Actual 32.0 H POC Total CO2 34 Base Excess 6 H O2 Saturation 92 L ABG pCO2 64.8 H ABG pO2 74 L Rayray Test POS O2 Delivery Device NRB Mask Liter Flow 15.0 Blood Gas Notified Whom [facility] Blood Gas Notified Time 410 Sodium 143 Potassium 4.1 Chloride 105 Carbon Dioxide 33.0 H Anion Gap 5 BUN 9 Creatinine 0.50 L Estim Creat Clear Calc 103.93 Est GFR (MDRD) Af Amer 166 Est GFR (MDRD) Non-Af 137 BUN/Creatinine Ratio 18.2 Glucose 141 H Calcium 8.1 L Magnesium 01/03/18 05:50 WBC RBC Hgb Hct MCV MCH MCHC RDW RDW Differential Plt Count MPV Specimen Type Sample Site pH Bicarbonate Actual POC Total CO2 Base Excess O2 Saturation ABG pCO2 ABG pO2 Rayray Test O2 Delivery Device Liter Flow Blood Gas Notified Whom Blood Gas Notified Time Sodium Potassium Chloride Carbon Dioxide Anion Gap BUN Creatinine Estim Creat Clear Calc Est GFR (MDRD) Af Amer Est GFR (MDRD) Non-Af BUN/Creatinine Ratio Glucose Calcium Magnesium 2.6 Clinical Impression(s) from Imaging Studies Chest X-Ray 01/01/18 11:30 IMPRESSION: Bilateral multilobar pneumonia. Electronically Signed: Leopoldo Barton, at 12:04 EDT Tel , Service support , Chest X-Ray 01/03/18 04:05 IMPRESSION: Worsening of aeration in the right upper lobe. Bilateral perihilar airspace disease with moderate elevation of the right hemidiaphragm and in areas of hyperinflation otherwise stable. Electronically Signed: Mireya Barrett, MD at 4:53 EDT , Service support , Assessment/Plan Active and Suspected Problems Aspiration pneumonia (Acute) History of esophageal cancer (Acute) Chronic upper back pain (Acute) RECOMMENDATIONS: 1. Continue BiPAP therapy 12/6 cm of water with naps and nightly. 2. Wean supplemental oxygen to maintain saturations at or above 90% 3. Continue scheduled aerosol regimen, along with antibiotics and steroids. 4. Smoking cessation is strongly advised. 5. Discontinue sedating medications 6. Continue Xarelto 7. Encourage incentive spirometer use and mobilize patient as tolerated. 8. Obtain speech therapy evaluation IMPRESSIONS: 1. Acute on chronic combined respiratory failure 2/2 presumed COPD exacerbation due to pneumococcal pneumonia The patient was initially admitted to the hospital with concerns for aspiration pneumonia. Subsequent workup is revealed the presence of pneumococcal pneumonia. The patient is now on appropriate antibiotics. Her white count and fever curve are improving. She can be weaned from BiPAP therapy and transition to nasal cannula with a goal to maintain oxygen saturations at or above 90%. She has underlying COPD of unknown severity. She will be continued on scheduled aerosol treatments along with steroids for now. The patient will require close follow-up with her primary [employer] operations consultant, Dr. Florez at [facility], upon discharge. 2. Personal history of obstructive sleep apnea and tobacco dependence Smoking cessation is strongly advised. The patient has not been seen by her primary [employer] operations consultant for quite some time. It is highly advisable that the patient follow-up closely as an outpatient and undergo a repeat polysomnogram so that her underlying CELESTINA can be addressed. For now, the patient will be maintained on BiPAP with naps and nightly. 3. Recurrent VTE/protein C deficiency Continue Xarelto as ordered. 4. History of esophageal cancer and recurrent aspiration Recommend that the patient be made n.p.o. status until formal evaluation by speech therapy is completed. 5. Chronic pain/anxiety/depression/chronically elevated right hemidiaphragm Complicates care, management, recovery and prognosis. Recommend dose de-escalation/withholding of sedating medications. Encourage incentive spirometer use and mobilize patient as tolerated. This note was generated with [email or web address] software. It may contain incorrect words, spelling, and punctuation that were not noted in checking the note before signing. Code Visit Inpatient E&M: 15126 Init Hosp L3
--- NOTE | 2018-01-03 07:39 | CON.PCM_ITS ---
Reason for Consult Date of Consultation: 01/03/18 Reason for Consultation: Resp acidosis, on Bipap, Multilobar Asp pneumonia History of Present Illness: The patient is a 57-year-old female, with a history as outlined below, who initially presented to the emergency department on January 01 with cough and shortness of breath in the setting of a recent aspiration event. The patient reports that she currently follows with Dr. Florez at [facility]. She has a prolonged heavy tobacco use history, but has cut back to 5 cigarettes daily. She does report having previously been diagnosed with obstructive sleep apnea, but does not currently utilize any form of nocturnal Pap therapy. She also has a known prior history of esophageal cancer. She is currently anticoagulated due to a history of VTE. She does report utilizing supplemental oxygen intermittently in her home environment. On presentation to the emergency department, the patient was noted to be febrile with a temperature of 101.7?F. She was tachycardic and tachypnea, but remained hemodynamically stable. Laboratory evaluation revealed elevated white blood cell count to 14,000. Chemistry profile was largely unremarkable. Serum lactate was within normal limits. Plain film chest x-ray revealed evidence of bilateral multilobar pneumonia. The patient was treated with IV fluids and antibiotics. She was subsequently admitted to the progressive care unit for ongoing management. The patient has a history of right hemidiaphragm paralysis and COPD. Patient has a history of protein C deficiency and DVT. The patient was last admitted to the hospital in August 2017, during which time, she was treated for a COPD exacerbation due to pneumococcal pneumonia. The patient's current hospital course has been uncomplicated until the italian tutor of January 03, at which time, the patient reportedly acutely decompensated from a respiratory standpoint, requiring escalation in her supplemental oxygen flow rate. Arterial blood gas that was obtained revealed a primary respiratory acidosis with a pH of 7.30 and a corresponding PCO2 of 65. 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) COPD (chronic obstructive pulmonary disease) (Chronic) History of deep venous thrombosis or pulmonary embolus (Chronic) on xarelto IVC filter protein C deficiency Protein C deficiency (Chronic) History of recurrent pneumonia (Chronic) DVT of proximal lower limb (Chronic) Lung mass (Chronic) Kidney stones (Chronic) Allergies celecoxib Allergy (Verified 01/01/18 11:14) Swelling naproxen Allergy (Verified 01/01/18 11:14) Swelling Penicillins Allergy (Verified 01/01/18 11:14) Hives pregabalin Allergy (Verified 01/01/18 11:14) Swelling Home Medications: Ambulatory Orders Medication Instructions Recorded Amitriptyline HCl [Elavil] 200 mg PO QHS 04/26/14 Duloxetine Hcl [Cymbalta] 60 mg PO DAILY 04/26/14 Gabapentin [Neurontin] 300 mg PO TID 04/26/14 Gabapentin [Neurontin] 600 mg PO QHS 04/26/14 Clonazepam [Klonopin] 0.5 mg PO 4X/DAY 12/13/14 Furosemide [Lasix] 80 mg PO BREAKFAST 02/04/16 Albuterol Aerosols [Ventolin 2.5 mg INHALATION Q6H PRN PRN 03/04/16 Aerosols] Fluticasone 110 Mcg [Flovent 110 1 puff INHALATION BID 03/04/16 Mcg] Ipratropium/Albuterol Respimat 2 puff INHALATION 4X/DAY PRN 03/04/16 [Combivent Respimat Inhal Sandy] Multivitamin [Daily Multiple 1 each PO DAILY 03/04/16 Vitamin] Potassium Chloride [Klor-Con] 20 meq PO BID 03/04/16 Rivaroxaban [Xarelto] 20 mg PO DAILY 02/27/17 Furosemide [Lasix] 40 mg PO DINNER 06/12/17 Dextroamphetamine/Amphetamine 30 mg PO DAILY 08/09/17 [Adderall 30 mg Tablet] Magnesium Hydroxide [Milk Of 30 ml PO BID 08/09/17 Magnesia] Oxycodone Myristate [Xtampza ER] 9 mg PO BID 12/24/17 Surgical History: appendectomy, cholecystectomy, hysterectomy, tonsillectomy Psychiatric History: Anxiety DIRECTOR OF FIRST IMPRESSIONS History: endometriosis, uterine fibroids Smoking Status: Current some day smoker - *Family History Maternal History Items: - Paternal History Items: Cancer - Colon and lung cancer Review of Systems Constitutional: Denies: Chills, Fever Eyes: Denies: Blurred vision, Double vision HEENT: Reports: Difficulty Swallowing. Denies: Head Aches, Sinus Congestion, Sinus Drainage Cardiovascular: Denies: Chest Pain, Palpitations Respiratory: Reports: Cough, Shortness of Breath, Wheezing Gastrointestinal: Denies: Abdominal Pain, Nausea, Vomiting Genitourinary: Denies: Dysuria Musculoskeletal: Denies: Joint Pain, Joint Tenderness Skin: Denies: Rash, Wounds Neurological: Denies: Numbness, Tingling, Focal weakness Psychiatric: Denies: Anxiety, Depression, Homicidal Ideations, Suicidal Ideations Hematologic/ Lymphatic: Denies: Easy Bruising, Easy Bleeding Patient Problems: Active and Suspected Problems Aspiration pneumonia (Acute) History of esophageal cancer (Acute) Chronic upper back pain (Acute) Objective: The patient's most recent lab work, culture data and imaging studies have all been personally reviewed. Blood cultures are currently pending. Legionella antigen was negative. Strep pneumoniae urinary antigen was positive. Sputum culture is growing Streptococcus. - Physical Exam General: Alert, Cooperative, - - Currently tolerating BiPAP without issue HEENT: Atraumatic, PERRLA, Normocephalic Oral: Dry Mucosa Neck: Supple, No Nodes, Trachea Midline Lungs: Diminished, Rhonchi, Wheezes Cardiovascular: Regular rate, Regular Rhythm, Normal S1, Normal S2, No murmurs Abdomen: Bowel Sounds Present, Soft, Non Tender Extremities: No clubbing, No cyanosis, No edema Skin: No rashes, No breakdown Musculoskeletal: No Muscle Wasting Lymphatic: No Cervical, Supraclavicular, or Inguinal Adenopathy Neurological: Neuro grossly intact Psych/Mental Status: Flat Affect Vital Signs Temp Pulse Resp BP Pulse Ox 98.8 F 107 H 20 H 128/63 H 94 01/03/18 05:44 01/03/18 05:44 01/03/18 05:44 01/03/18 05:44 01/03/18 05:44 Oxygen Flow Rate (L/min) 15 Oxygen Delivery Method Bi-pap Weight: 190 lb 11.198 oz Body Mass Index (BMI) 33.2 Intake and Output for Last 24 Hours 01/01/18 01/02/18 01/03/18 23:59 23:59 23:59 Intake Total 1455 / 1455 3680 / 3680 296 / 296 Output Total 3200 / 3200 0 / 0 Balance 1455 / 1455 480 / 480 296 / 296 Microbiology Past 72 Hours 01/01/18 14:00 Gram Stain - Final Sputum, Expectorated/Coughed Respiratory Culture - Preliminary Alpha Hemolytic Streptococcus 01/01/18 14:05 Legionella Antigen - Final Urine, Clean Catch 01/01/18 14:05 Streptococcus pneumoniae Antigen (M - Final Urine, Clean Catch Streptococcus pneumonia Ag Laboratory Tests Past 24 Hrs 01/03/18 01/03/18 01/03/18 04:20 05:50 05:50 WBC 9.7 RBC 3.32 L Hgb 9.2 L Hct 31.1 L MCV 93.7 MCH 27.7 MCHC 29.6 L RDW 18.1 H RDW Differential 59.9 H Plt Count 316 MPV 10.5 Specimen Type ART Sample Site L Radial pH 7.30 L Bicarbonate Actual 32.0 H POC Total CO2 34 Base Excess 6 H O2 Saturation 92 L ABG pCO2 64.8 H ABG pO2 74 L Rayray Test POS O2 Delivery Device NRB Mask Liter Flow 15.0 Blood Gas Notified Whom [facility] Blood Gas Notified Time 410 Sodium 143 Potassium 4.1 Chloride 105 Carbon Dioxide 33.0 H Anion Gap 5 BUN 9 Creatinine 0.50 L Estim Creat Clear Calc 103.93 Est GFR (MDRD) Af Amer 166 Est GFR (MDRD) Non-Af 137 BUN/Creatinine Ratio 18.2 Glucose 141 H Calcium 8.1 L Magnesium 01/03/18 05:50 WBC RBC Hgb Hct MCV MCH MCHC RDW RDW Differential Plt Count MPV Specimen Type Sample Site pH Bicarbonate Actual POC Total CO2 Base Excess O2 Saturation ABG pCO2 ABG pO2 Rayray Test O2 Delivery Device Liter Flow Blood Gas Notified Whom Blood Gas Notified Time Sodium Potassium Chloride Carbon Dioxide Anion Gap BUN Creatinine Estim Creat Clear Calc Est GFR (MDRD) Af Amer Est GFR (MDRD) Non-Af BUN/Creatinine Ratio Glucose Calcium Magnesium 2.6 Clinical Impression(s) from Imaging Studies Chest X-Ray 01/01/18 11:30 IMPRESSION: Bilateral multilobar pneumonia. Electronically Signed: Leopoldo Barton, at 12:04 EDT Tel , Service support , Chest X-Ray 01/03/18 04:05 IMPRESSION: Worsening of aeration in the right upper lobe. Bilateral perihilar airspace disease with moderate elevation of the right hemidiaphragm and in areas of hyperinflation otherwise stable. Electronically Signed: Mireya Barrett, MD at 4:53 EDT , Service support , Assessment/Plan Active and Suspected Problems Aspiration pneumonia (Acute) History of esophageal cancer (Acute) Chronic upper back pain (Acute) RECOMMENDATIONS: 1. Continue BiPAP therapy 12/6 cm of water with naps and nightly. 2. Wean supplemental oxygen to maintain saturations at or above 90% 3. Continue scheduled aerosol regimen, along with antibiotics and steroids. 4. Smoking cessation is strongly advised. 5. Discontinue sedating medications 6. Continue Xarelto 7. Encourage incentive spirometer use and mobilize patient as tolerated. 8. Obtain speech therapy evaluation IMPRESSIONS: 1. Acute on chronic combined respiratory failure 2/2 presumed COPD exacerbation due to pneumococcal pneumonia The patient was initially admitted to the hospital with concerns for aspiration pneumonia. Subsequent workup is revealed the presence of pneumococcal pneumonia. The patient is now on appropriate antibiotics. Her white count and fever curve are improving. She can be weaned from BiPAP therapy and transition to nasal cannula with a goal to maintain oxygen saturations at or above 90%. She has underlying COPD of unknown severity. She will be continued on scheduled aerosol treatments along with steroids for now. The patient will require close follow-up with her primary electrician maintenance, Dr. Florez at [facility], upon discharge. 2. Personal history of obstructive sleep apnea and tobacco dependence Smoking cessation is strongly advised. The patient has not been seen by her primary electrician maintenance for quite some time. It is highly advisable that the patient follow-up closely as an outpatient and undergo a repeat polysomnogram so that her underlying CELESTINA can be addressed. For now, the patient will be maintained on BiPAP with naps and nightly. 3. Recurrent VTE/protein C deficiency Continue Xarelto as ordered. 4. History of esophageal cancer and recurrent aspiration Recommend that the patient be made n.p.o. status until formal evaluation by speech therapy is completed. 5. Chronic pain/anxiety/depression/chronically elevated right hemidiaphragm Complicates care, management, recovery and prognosis. Recommend dose de- escalation/withholding of sedating medications. Encourage incentive spirometer use and mobilize patient as tolerated. This note was generated with Opbeatation software. It may contain incorrect words, spelling, and punctuation that were not noted in checking the note before signing. Code Visit Inpatient E&M: 93306 Init Hosp L3
[2018-01-03] MEDS: Famotidine 20 MG Tablet PO ×3 (09:29→23:25)
[2018-01-03] MEDS: Rivaroxaban 20 MG Tablet PO (09:29)
[2018-01-03] MEDS: Furosemide 80 MG Tablet PO (09:30)
[2018-01-03] MEDS: Gabapentin 300 MG Capsule PO ×2 (09:30→18:27)
[2018-01-03] MEDS: guaiFENesin 1,200 MG Tablet 1200 MG PO ×2 (09:30→23:25)
[2018-01-03] MEDS: Multivitamins,Therapeutic Tablet 1 TABLET PO (09:30)
[2018-01-03] MEDS: DULoxetine Hcl 60 MG Capsule PO (09:30)
--- NOTE | 2018-01-03 14:00 | RAD_ITS ---
STUDY: X-RAY - ESOPHAGUS (BARIUM SWALLOW) WITH FLUOROSCOPY REASON FOR EXAM: Female, 57 years old. Dysphagia. TECHNIQUE: 24 view(s) of the esophagus were obtained following swallowing of barium. FLUOROSCOPY TIME (if supplied): (0:27) minutes/seconds COMPARISON: Comparison is made with prior study dated September 22, 2015. FINDINGS: There is no demonstrated esophageal foreign body. There is no demonstrated stricture or mucosal abnormality. There is a small hiatal hernia of the fundus of the stomach. No gastroesophageal reflux is seen at this time. The patient is status post gastric bypass surgery. There is atherosclerotic calcification of the aortic arch with tortuosity of the descending aorta. A filter is seen in the inferior vena cava. Normal visualized osseous structures of the thorax. RAD/Esophagus Only IMPRESSION: Small sliding hiatal hernia without gastroesophageal reflux. Evidence of prior gastric bypass surgery. Electronically Signed: Robinson Sharma MD at 14:22 EDT Tel [phone], Service support ,
--- NOTE | 2018-01-03 14:26 | NURSING ---
Discussed results of barium swallow study w/ Jagjit HERNANDEZ. Pt ok to resume regular diet with thin liquids.
[2018-01-03] MEDS: oxyCODONE HCl Cr 10 MG Tablet PO ×2 (14:42→23:34)
[2018-01-03] MEDS: Magnesium Hydroxide 30 ML UDC PO (14:45)
--- NOTE | 2018-01-03 18:18 | PCM.PROGNOTE ---
Patient Problems: Active and Suspected Problems Aspiration pneumonia (Acute) History of esophageal cancer (Acute) Chronic upper back pain (Acute) Subjective: Patient had acute respiratory failure during the night with tachypnea, hypoxia, and hypercapnia. BiPAP was applied, doing well this morning. Objective: - Physical Exam General: Alert, Oriented x3, Cooperative HEENT: Atraumatic, PERRLA Oral: Moist Mucosa, No Gingival or Mucosal Lesions/ Ulcerations Neck: Supple, No JVD, Negative Carotid Bruits, Negative Hepatojugular Reflux, No Nodes, No Nuchal Rigidity Lungs: Rhonchi - Mid lung fileds bilaterally. Diffuse wheezing. Cardiovascular: Regular rate, Regular Rhythm, Normal S1, Normal S2, No murmurs, No Ectopic Activity Abdomen: Bowel Sounds Present, Soft, Non Tender, Non-Distended, No Hepato-splenomegaly Extremities: No clubbing, No cyanosis, No edema Skin: No rashes, No breakdown Musculoskeletal: No Tenderness to Palpation of Joints or Extremities, No Muscle Wasting Lymphatic: No Cervical, Supraclavicular, or Inguinal Adenopathy Neurological: Cranial nerves II-XII grossly intact, Neuro grossly intact Psych/Mental Status: Normal Affect - Physical Exam Vital Signs Temp Pulse Resp BP Pulse Ox 98.7 F 90 20 H 105/53 L 90 01/03/18 17:07 01/03/18 17:07 01/03/18 17:07 01/03/18 17:07 01/03/18 17:07 Oxygen Flow Rate (L/min) 5 Oxygen Delivery Method Nasal Cannula Weight: 190 lb 11.198 oz Body Mass Index (BMI) 33.2 Intake and Output for Last 24 Hours 01/01/18 01/02/18 01/03/18 23:59 23:59 23:59 Intake Total 1455 / 1455 3680 / 3680 671 / 671 Output Total 3200 / 3200 1850 / 1850 Balance 1455 / 1455 480 / 480 -1179 / -1179 Microbiology Past 72 Hours 01/01/18 14:00 Gram Stain - Final Sputum, Expectorated/Coughed Respiratory Culture - Preliminary Alpha Hemolytic Streptococcus 01/01/18 14:05 Legionella Antigen - Final Urine, Clean Catch 01/01/18 14:05 Streptococcus pneumoniae Antigen (M - Final Urine, Clean Catch Streptococcus pneumonia Ag Laboratory Tests Past 24 Hrs 01/03/18 01/03/1801/03/18 04:20 05:50 05:50 WBC 9.7 RBC 3.32 L Hgb 9.2 L Hct 31.1 L MCV 93.7 MCH 27.7 MCHC 29.6 L RDW 18.1 H RDW Differential 59.9 H Plt Count 316 MPV 10.5 Specimen Type ART Sample Site L Radial pH 7.30 L Bicarbonate Actual 32.0 H POC Total CO2 34 Base Excess 6 H O2 Saturation 92 L ABG pCO2 64.8 H ABG pO2 74 L Rayray Test POS O2 Delivery Device NRB Mask Liter Flow 15.0 Blood Gas Notified Whom [facility]OS[facility] Blood Gas Notified Time 410 Sodium 143 Potassium 4.1 Chloride 105 Carbon Dioxide 33.0 H Anion Gap 5 BUN 9 Creatinine 0.50 L Estim Creat Clear Calc 103.93 Est GFR (MDRD) Af Amer 166 Est GFR (MDRD) Non-Af 137 BUN/Creatinine Ratio 18.2 Glucose 141 H Calcium 8.1 L Magnesium 01/03/18 05:50 WBC RBC Hgb Hct MCV MCH MCHC RDW RDW Differential Plt Count MPV Specimen Type Sample Site pH Bicarbonate Actual POC Total CO2 Base Excess O2 Saturation ABG pCO2 ABG pO2 Rayray Test O2 Delivery Device Liter Flow Blood Gas Notified Whom Blood Gas Notified Time Sodium Potassium Chloride Carbon Dioxide Anion Gap BUN Creatinine Estim Creat Clear Calc Est GFR (MDRD) Af Amer Est GFR (MDRD) Non-Af BUN/Creatinine Ratio Glucose Calcium Magnesium 2.6 Diagnostic Data Chest X-Ray 01/03/18 04:05 IMPRESSION: Worsening of aeration in the right upper lobe. Bilateral perihilar airspace disease with moderate elevation of the right hemidiaphragm and in areas of hyperinflation otherwise stable. Electronically Signed: Mireya Hyde MD at 4:53 EDT , Service support , Barium Swallow X-Ray 01/03/18 14:00 IMPRESSION: Small sliding hiatal hernia without gastroesophageal reflux. Evidence of prior gastric bypass surgery. Electronically Signed: Robinson Sharma MD at 14:22 EDT Tel [phone], Service support , Medical Necessity - Tobacco Use Smoking Status: Current some day smoker Assessment/Plan Active and Suspected Problems Aspiration pneumonia (Acute) History of esophageal cancer (Acute) Chronic upper back pain (Acute) Patient is a 57 years old female with history of esophageal cancer, s/p resection, presents to ED with complaining of shortness of breath, cough, and fever for 2 days, admitted on 01/01/18. He has history of resection of esophageal cancer, and has problems with recurrent aspiration in the past. She presented to ED about one week ago, but CXR did not show any infiltrate at that time. CXR showed multilobe infiltrate this time with fever or 103.1 and WBC of 14.4. Patient had an episode of acute respiratory failure with hypercapnia, hypoxia, and tachypnea (01/03). BiPAP was applied, she appears to be back to baseline. #1 Probable aspiration pneumonia. Rocephin and Flagyl give in ED. Urine strep antigen positive. Change to clindamycin IV. Blood culture +alpha hemolytic strep 1 out of 2. Continue bronchodilator, DuoNeb Q6 and albuterol [place] prn. Oxygen supplement. Barium swallow was done, which was unremarkable. Continue Current antibiotics. Repeat CBC in AM. #2 Acute combined hypoxic and hypercapnic respiratory failure. Pulmonary consulted. Continue above treatment. #3 COPD. She uses nocturnal home oxygen. Bronchodilator and antibiotics as above. #4 History of coagulopathy and recurrent DVT/PE. Continue Xarelto. #5 Chronic back pain. Continue Neurontin and oxycodone ER 9 mg po bid. Add prn oxycodone IR. #6 History of esophageal cancer VTE prophylaxis: Xarelto po. GI prophylaxis: H2 frieda po. She is full code. Disposition: home in 2 to 3 days. Code Visit Inpatient E&M: 29024 Subs Hosp L2
--- NOTE | 2018-01-03 18:23 | PN_ITS ---
Patient Problems: Active and Suspected Problems Aspiration pneumonia (Acute) History of esophageal cancer (Acute) Chronic upper back pain (Acute) Subjective: Patient had acute respiratory failure during the night with tachypnea, hypoxia, and hypercapnia. BiPAP was applied, doing well this morning. Objective: - Physical Exam General: Alert, Oriented x3, Cooperative HEENT: Atraumatic, PERRLA Oral: Moist Mucosa, No Gingival or Mucosal Lesions/ Ulcerations Neck: Supple, No JVD, Negative Carotid Bruits, Negative Hepatojugular Reflux, No Nodes, No Nuchal Rigidity Lungs: Rhonchi - Mid lung fileds bilaterally. Diffuse wheezing. Cardiovascular: Regular rate, Regular Rhythm, Normal S1, Normal S2, No murmurs, No Ectopic Activity Abdomen: Bowel Sounds Present, Soft, Non Tender, Non-Distended, No Hepato- splenomegaly Extremities: No clubbing, No cyanosis, No edema Skin: No rashes, No breakdown Musculoskeletal: No Tenderness to Palpation of Joints or Extremities, No Muscle Wasting Lymphatic: No Cervical, Supraclavicular, or Inguinal Adenopathy Neurological: Cranial nerves II-XII grossly intact, Neuro grossly intact Psych/Mental Status: Normal Affect - Physical Exam Vital Signs Temp Pulse Resp BP Pulse Ox 98.7 F 90 20 H 105/53 L 90 01/03/18 17:07 01/03/18 17:07 01/03/18 17:07 01/03/18 17:07 01/03/18 17:07 Oxygen Flow Rate (L/min) 5 Oxygen Delivery Method Nasal Cannula Weight: 190 lb 11.198 oz Body Mass Index (BMI) 33.2 Intake and Output for Last 24 Hours 01/01/18 01/02/18 01/03/18 23:59 23:59 23:59 Intake Total 1455 / 1455 3680 / 3680 671 / 671 Output Total 3200 / 3200 1850 / 1850 Balance 1455 / 1455 480 / 480 -1179 / -1179 Microbiology Past 72 Hours 01/01/18 14:00 Gram Stain - Final Sputum, Expectorated/Coughed Respiratory Culture - Preliminary Alpha Hemolytic Streptococcus 01/01/18 14:05 Legionella Antigen - Final Urine, Clean Catch 01/01/18 14:05 Streptococcus pneumoniae Antigen (M - Final Urine, Clean Catch Streptococcus pneumonia Ag Laboratory Tests Past 24 Hrs 01/03/18 01/03/1801/03/18 04:20 05:50 05:50 WBC 9.7 RBC 3.32 L Hgb 9.2 L Hct 31.1 L MCV 93.7 MCH 27.7 MCHC 29.6 L RDW 18.1 H RDW Differential 59.9 H Plt Count 316 MPV 10.5 Specimen Type ART Sample Site L Radial pH 7.30 L Bicarbonate Actual 32.0 H POC Total CO2 34 Base Excess 6 H O2 Saturation 92 L ABG pCO2 64.8 H ABG pO2 74 L Rayray Test POS O2 Delivery Device NRB Mask Liter Flow 15.0 Blood Gas Notified Whom [facility]OS[facility] Blood Gas Notified Time 410 Sodium 143 Potassium 4.1 Chloride 105 Carbon Dioxide 33.0 H Anion Gap 5 BUN 9 Creatinine 0.50 L Estim Creat Clear Calc 103.93 Est GFR (MDRD) Af Amer 166 Est GFR (MDRD) Non-Af 137 BUN/Creatinine Ratio 18.2 Glucose 141 H Calcium 8.1 L Magnesium 01/03/18 05:50 WBC RBC Hgb Hct MCV MCH MCHC RDW RDW Differential Plt Count MPV Specimen Type Sample Site pH Bicarbonate Actual POC Total CO2 Base Excess O2 Saturation ABG pCO2 ABG pO2 Rayray Test O2 Delivery Device Liter Flow Blood Gas Notified Whom Blood Gas Notified Time Sodium Potassium Chloride Carbon Dioxide Anion Gap BUN Creatinine Estim Creat Clear Calc Est GFR (MDRD) Af Amer Est GFR (MDRD) Non-Af BUN/Creatinine Ratio Glucose Calcium Magnesium 2.6 Diagnostic Data Chest X-Ray 01/03/18 04:05 IMPRESSION: Worsening of aeration in the right upper lobe. Bilateral perihilar airspace disease with moderate elevation of the right hemidiaphragm and in areas of hyperinflation otherwise stable. Electronically Signed: Mireya Hyde MD at 4:53 EDT , Service support , Barium Swallow X-Ray 01/03/18 14:00 IMPRESSION: Small sliding hiatal hernia without gastroesophageal reflux. Evidence of prior gastric bypass surgery. Electronically Signed: Robinson Sharma MD at 14:22 EDT Tel [phone], Service support , Medical Necessity - Tobacco Use Smoking Status: Current some day smoker Assessment/Plan Active and Suspected Problems Aspiration pneumonia (Acute) History of esophageal cancer (Acute) Chronic upper back pain (Acute) Patient is a 57 years old female with history of esophageal cancer, s/ p resection, presents to ED with complaining of shortness of breath, cough, and fever for 2 days, admitted on 01/01/18. He has history of resection of esophageal cancer, and has problems with recurrent aspiration in the past. She presented to ED about one week ago, but CXR did not show any infiltrate at that time. CXR showed multilobe infiltrate this time with fever or 103.1 and WBC of 14.4. Patient had an episode of acute respiratory failure with hypercapnia, hypoxia, and tachypnea (01/03). BiPAP was applied, she appears to be back to baseline. #1 Probable aspiration pneumonia. Rocephin and Flagyl give in ED. Urine strep antigen positive. Change to clindamycin IV. Blood culture +alpha hemolytic strep 1 out of 2. Continue bronchodilator, DuoNeb Q6 and albuterol [place] prn. Oxygen supplement. Barium swallow was done, which was unremarkable. Continue Current antibiotics. Repeat CBC in AM. #2 Acute combined hypoxic and hypercapnic respiratory failure. Pulmonary consulted. Continue above treatment. #3 COPD. She uses nocturnal home oxygen. Bronchodilator and antibiotics as above. #4 History of coagulopathy and recurrent DVT/PE. Continue Xarelto. #5 Chronic back pain. Continue Neurontin and oxycodone ER 9 mg po bid. Add prn oxycodone IR. #6 History of esophageal cancer VTE prophylaxis: Xarelto po. GI prophylaxis: H2 frieda po. She is full code. Disposition: home in 2 to 3 days. Code Visit Inpatient E&M: 38614 Subs Hosp L2
[2018-01-03] MEDS: clonazePAM 0.5 MG Tablet PO ×2 (18:27→23:33)
[2018-01-03] MEDS: Furosemide 40 MG Tablet PO (18:29)
[2018-01-03] MEDS: Acetaminophen 325 MG Tablet 650 MG PO (20:41)
[2018-01-03] MEDS: Gabapentin 600 MG Tablet PO (23:33)
[2018-01-04] VITALS (16 sets, daily range): BP systolic 106–111; BP diastolic 55–60; PULSE 82–112; RESP 14–22; TEMP 36.9–37.5; O2SAT 93–97
[2018-01-04] MEDS: oxyCODONE 5 MG Tablet PO (02:59)
[2018-01-04] MEDS: 0.9% NaCl Peripheral Flush Adult/Peds IV ×2 (05:42→21:22)
[2018-01-04] MEDS: Clindamycin 600 MG/50 ML BAG 100 MG IV ×3 (05:42→21:18)
[2018-01-04] MEDS: Acetaminophen 325 MG Tablet 650 MG PO ×2 (05:45→12:58)
[2018-01-04 06:18] LABS: Hemoglobin 9.4 g/dl (12.0-15.0); Mean Corp Hgb Conc 29.4 g/gl (32-36); Mean Corpuscular Hgb 27.3 pg (27.0-32.0); Mean Platelet Vol. 10.9 fl (6.2-12.0); Platelet Count 360 K/mm3 (150-450); RBC Distribution Width CV 17.4 % (11.6-14.6); RBC Distribution Width SD 57.5 fl (35.1-43.9); Red Blood Count 3.44 M/mm3 (4.2-5.4); White Blood Count 9.4 K/mm3 (4.4-11.0)
[2018-01-04 06:22] LABS: Scan Indicated on CBC? Y/N NO
[2018-01-04 06:34] LABS: Anion Gap 3 (5-15); BUN 13 mg/dL (7-18); BUN/Creat Ratio 30.2 RATIO (10-20); Calcium,Total 8.4 mg/dL (8.5-10.1); Chloride 103 mmol/L (98-107); Creatinine, Serum 0.43 mg/dL (0.55-1.02); EST Glomerular Filtration Rate 161 mL/min (>60); Est Glom Filt Rate - Afr Amer 195 mL/min (>60); Estimated Creatinine Clearance 120.84 ml/min; Glucose 129 mg/dL (74-106); Magnesium 2.4 mg/dL (1.6-2.6); Potassium 4.5 mmol/L (3.5-5.1); Sodium Level 139 mmol/L (136-145)
[2018-01-04] MEDS: Ipratropium/Albuterol Sulfate 3 ML AMPUL.NEB INHALATION ×4 (07:29→18:42)
[2018-01-04] MEDS: Multivitamins,Therapeutic Tablet 1 TABLET PO (08:12)
[2018-01-04] MEDS: Gabapentin 300 MG Capsule PO ×3 (08:13→17:06)
[2018-01-04] MEDS: Furosemide 80 MG Tablet PO (08:13)
--- NOTE | 2018-01-04 08:21 | PCM.PROGNOTE ---
Patient Problems: Active and Suspected Problems Aspiration pneumonia (Acute) History of esophageal cancer (Acute) Chronic upper back pain (Acute) Subjective: The patient was seen and examined at the bedside this morning. Events from the last 24 hours have been reviewed. The patient is currently afebrile, hemodynamically stable and maintaining appropriate oxygen saturations on 6 L/min via nasal cannula. The patient was seen by speech therapy and is currently recommended to be on a regular diet with thin liquids. The patient continues to experience shortness of breath. Objective: The patient's most recent lab work, culture data and imaging studies have all been personally reviewed. Blood cultures are currently pending. Legionella antigen was negative. Strep pneumoniae urinary antigen was positive. Sputum culture is growing Streptococcus. - Physical Exam General: Alert, Cooperative, No apparent distress HEENT: Atraumatic, PERRLA, Normocephalic Oral: No Gingival or Mucosal Lesions/ Ulcerations Neck: Supple, No Nodes, Trachea Midline Lungs: No rales, Diminished, Rhonchi, Wheezes Cardiovascular: Regular rate, Regular Rhythm, Normal S1, Normal S2, No murmurs Abdomen: Bowel Sounds Present, Soft, Non Tender, Non-Distended Extremities: No clubbing, No cyanosis, No edema Skin: No breakdown Musculoskeletal: No Tenderness to Palpation of Joints or Extremities Lymphatic: No Cervical, Supraclavicular, or Inguinal Adenopathy Neurological: Neuro grossly intact Psych/Mental Status: Normal Affect, Appropriate Vital Signs Temp Pulse Resp BP Pulse Ox 98.6 F 82 18 110/60 94 01/04/18 05:38 01/04/18 06:56 01/04/18 05:38 01/04/18 05:38 01/04/18 05:38 Oxygen Flow Rate (L/min) 6 Oxygen Delivery Method Nasal Cannula Weight: 190 lb 11.198 oz Body Mass Index (BMI) 33.2 Intake and Output for Last 24 Hours 01/02/18 01/03/18 01/04/18 23:59 23:59 23:59 Intake Total 3680 / 3680 1244 / 1244 293 / 293 Output Total 3200 / 3200 2225 / 2225 Balance 480 / 480 -981 / -981 293 / 293 Microbiology Past 72 Hours 01/01/18 14:00 Gram Stain - Final Sputum, Expectorated/Coughed Respiratory Culture - Final Streptococcus pneumoniae 01/01/18 14:05 Legionella Antigen - Final Urine, Clean Catch 01/01/18 14:05 Streptococcus pneumoniae Antigen (M - Final Urine, Clean Catch Streptococcus pneumonia Ag Laboratory Tests Past 24 Hrs 01/04/18 01/04/18 05:40 05:40 WBC 9.4 RBC 3.44 L Hgb 9.4 L Hct 32.0 L MCV 93.0 MCH 27.3 MCHC 29.4 L RDW 17.4 H RDW Differential 57.5 H Plt Count 360 MPV 10.9 Sodium 139 Potassium 4.5 Chloride 103 Carbon Dioxide 33.0 H Anion Gap 3 L BUN 13 Creatinine 0.43 L Estim Creat Clear Calc 120.84 Est GFR (MDRD) Af Amer 195 Est GFR (MDRD) Non-Af 161 BUN/Creatinine Ratio 30.2 H Glucose 129 H Calcium 8.4 L Magnesium 2.4 Clinical Impression(s) from Imaging Studies Chest X-Ray 01/01/18 11:30 IMPRESSION: Bilateral multilobar pneumonia. Electronically Signed: Leopoldo Barton at 12:04 EDT Tel , Service support , Chest X-Ray 01/03/18 04:05 IMPRESSION: Worsening of aeration in the right upper lobe. Bilateral perihilar airspace disease with moderate elevation of the right hemidiaphragm and in areas of hyperinflation otherwise stable. Electronically Signed: Mireya Hyde MD at 4:53 EDT , Service support , Barium Swallow X-Ray 01/03/18 14:00 IMPRESSION: Small sliding hiatal hernia without gastroesophageal reflux. Evidence of prior gastric bypass surgery. Electronically Signed: Robinson Sharma MD at 14:22 EDT Tel [phone], Service support , Medical Necessity - Tobacco Use Smoking Status: Current some day smoker Assessment/Plan Active and Suspected Problems Aspiration pneumonia (Acute) History of esophageal cancer (Acute) Chronic upper back pain (Acute) RECOMMENDATIONS: 1. Continue BiPAP therapy 12/6 cm of water with naps and nightly. 2. Wean supplemental oxygen to maintain saturations at or above 90% 3. Continue scheduled aerosol regimen, along with antibiotics and steroids. 4. Smoking cessation is strongly advised. 5. Discontinue sedating medications 6. Continue Xarelto 7. Encourage incentive spirometer use and mobilize patient as tolerated. IMPRESSIONS: 1. Acute on chronic combined respiratory failure 2/2 presumed COPD exacerbation due to pneumococcal pneumonia The patient was initially admitted to the hospital with concerns for aspiration pneumonia. Subsequent workup is revealed the presence of pneumococcal pneumonia. The patient is now on appropriate antibiotics. Her white count and fever curves are improved. She can be weaned from BiPAP therapy and transition to nasal cannula with a goal to maintain oxygen saturations at or above 90%. She has underlying COPD of unknown severity. She will be continued on scheduled aerosol treatments along with steroids for now. The patient will require close follow-up with her primary pole frame construction worker, Dr. Florez at [facility], upon discharge. 2. Personal history of obstructive sleep apnea and tobacco dependence Smoking cessation is strongly advised. The patient has not been seen by her primary pole frame construction worker for quite some time. It is highly advisable that the patient follow-up closely as an outpatient and undergo a repeat polysomnogram so that her underlying CELESTINA can be addressed. For now, the patient will be maintained on BiPAP with naps and nightly. 3. Recurrent VTE/protein C deficiency Continue Xarelto as ordered. 4. History of esophageal cancer and recurrent aspiration The patient has been evaluated by speech therapy with a diet initiated per their recommendations. 5. Chronic pain/anxiety/depression/chronically elevated right hemidiaphragm Complicates care, management, recovery and prognosis. Recommend dose de-escalation/withholding of sedating medications. Encourage incentive spirometer use and mobilize patient as tolerated. This note was generated with [employer] dictation software. It may contain incorrect words, spelling, and punctuation that were not noted in checking the note before signing. Code Visit Inpatient E&M: 47416 Subs Hosp L2
--- NOTE | 2018-01-04 08:27 | PN_ITS ---
Patient Problems: Active and Suspected Problems Aspiration pneumonia (Acute) History of esophageal cancer (Acute) Chronic upper back pain (Acute) Subjective: The patient was seen and examined at the bedside this morning. Events from the last 24 hours have been reviewed. The patient is currently afebrile, hemodynamically stable and maintaining appropriate oxygen saturations on 6 L/ min via nasal cannula. The patient was seen by speech therapy and is currently recommended to be on a regular diet with thin liquids. The patient continues to experience shortness of breath. Objective: The patient's most recent lab work, culture data and imaging studies have all been personally reviewed. Blood cultures are currently pending. Legionella antigen was negative. Strep pneumoniae urinary antigen was positive. Sputum culture is growing Streptococcus. - Physical Exam General: Alert, Cooperative, No apparent distress HEENT: Atraumatic, PERRLA, Normocephalic Oral: No Gingival or Mucosal Lesions/ Ulcerations Neck: Supple, No Nodes, Trachea Midline Lungs: No rales, Diminished, Rhonchi, Wheezes Cardiovascular: Regular rate, Regular Rhythm, Normal S1, Normal S2, No murmurs Abdomen: Bowel Sounds Present, Soft, Non Tender, Non-Distended Extremities: No clubbing, No cyanosis, No edema Skin: No breakdown Musculoskeletal: No Tenderness to Palpation of Joints or Extremities Lymphatic: No Cervical, Supraclavicular, or Inguinal Adenopathy Neurological: Neuro grossly intact Psych/Mental Status: Normal Affect, Appropriate Vital Signs Temp Pulse Resp BP Pulse Ox 98.6 F 82 18 110/60 94 01/04/18 05:38 01/04/18 06:56 01/04/18 05:38 01/04/18 05:38 01/04/18 05:38 Oxygen Flow Rate (L/min) 6 Oxygen Delivery Method Nasal Cannula Weight: 190 lb 11.198 oz Body Mass Index (BMI) 33.2 Intake and Output for Last 24 Hours 01/02/18 01/03/18 01/04/18 23:59 23:59 23:59 Intake Total 3680 / 3680 1244 / 1244 293 / 293 Output Total 3200 / 3200 2225 / 2225 Balance 480 / 480 -981 / -981 293 / 293 Microbiology Past 72 Hours 01/01/18 14:00 Gram Stain - Final Sputum, Expectorated/Coughed Respiratory Culture - Final Streptococcus pneumoniae 01/01/18 14:05 Legionella Antigen - Final Urine, Clean Catch 01/01/18 14:05 Streptococcus pneumoniae Antigen (M - Final Urine, Clean Catch Streptococcus pneumonia Ag Laboratory Tests Past 24 Hrs 01/04/18 01/04/18 05:40 05:40 WBC 9.4 RBC 3.44 L Hgb 9.4 L Hct 32.0 L MCV 93.0 MCH 27.3 MCHC 29.4 L RDW 17.4 H RDW Differential 57.5 H Plt Count 360 MPV 10.9 Sodium 139 Potassium 4.5 Chloride 103 Carbon Dioxide 33.0 H Anion Gap 3 L BUN 13 Creatinine 0.43 L Estim Creat Clear Calc 120.84 Est GFR (MDRD) Af Amer 195 Est GFR (MDRD) Non-Af 161 BUN/Creatinine Ratio 30.2 H Glucose 129 H Calcium 8.4 L Magnesium 2.4 Clinical Impression(s) from Imaging Studies Chest X-Ray 01/01/18 11:30 IMPRESSION: Bilateral multilobar pneumonia. Electronically Signed: Leopoldo Barton at 12:04 EDT Tel , Service support , Chest X-Ray 01/03/18 04:05 IMPRESSION: Worsening of aeration in the right upper lobe. Bilateral perihilar airspace disease with moderate elevation of the right hemidiaphragm and in areas of hyperinflation otherwise stable. Electronically Signed: Mireya Hyde MD at 4:53 EDT , Service support , Barium Swallow X-Ray 01/03/18 14:00 IMPRESSION: Small sliding hiatal hernia without gastroesophageal reflux. Evidence of prior gastric bypass surgery. Electronically Signed: Robinson Sharma MD at 14:22 EDT Tel [phone], Service support , Medical Necessity - Tobacco Use Smoking Status: Current some day smoker Assessment/Plan Active and Suspected Problems Aspiration pneumonia (Acute) History of esophageal cancer (Acute) Chronic upper back pain (Acute) RECOMMENDATIONS: 1. Continue BiPAP therapy 12/6 cm of water with naps and nightly. 2. Wean supplemental oxygen to maintain saturations at or above 90% 3. Continue scheduled aerosol regimen, along with antibiotics and steroids. 4. Smoking cessation is strongly advised. 5. Discontinue sedating medications 6. Continue Xarelto 7. Encourage incentive spirometer use and mobilize patient as tolerated. IMPRESSIONS: 1. Acute on chronic combined respiratory failure 2/2 presumed COPD exacerbation due to pneumococcal pneumonia The patient was initially admitted to the hospital with concerns for aspiration pneumonia. Subsequent workup is revealed the presence of pneumococcal pneumonia. The patient is now on appropriate antibiotics. Her white count and fever curves are improved. She can be weaned from BiPAP therapy and transition to nasal cannula with a goal to maintain oxygen saturations at or above 90%. She has underlying COPD of unknown severity. She will be continued on scheduled aerosol treatments along with steroids for now. The patient will require close follow-up with her primary registered appraiser, Dr. Florez at [facility], upon discharge. 2. Personal history of obstructive sleep apnea and tobacco dependence Smoking cessation is strongly advised. The patient has not been seen by her primary registered appraiser for quite some time. It is highly advisable that the patient follow-up closely as an outpatient and undergo a repeat polysomnogram so that her underlying CELESTINA can be addressed. For now, the patient will be maintained on BiPAP with naps and nightly. 3. Recurrent VTE/protein C deficiency Continue Xarelto as ordered. 4. History of esophageal cancer and recurrent aspiration The patient has been evaluated by speech therapy with a diet initiated per their recommendations. 5. Chronic pain/anxiety/depression/chronically elevated right hemidiaphragm Complicates care, management, recovery and prognosis. Recommend dose de- escalation/withholding of sedating medications. Encourage incentive spirometer use and mobilize patient as tolerated. This note was generated with [employer] dictation software. It may contain incorrect words, spelling, and punctuation that were not noted in checking the note before signing. Code Visit Inpatient E&M: 87225 Subs Hosp L2
[2018-01-04] MEDS: clonazePAM 0.5 MG Tablet PO ×4 (10:14→21:18)
[2018-01-04] MEDS: DULoxetine Hcl 60 MG Capsule PO (10:14)
[2018-01-04] MEDS: guaiFENesin 1,200 MG Tablet 1200 MG PO ×2 (10:14→21:19)
[2018-01-04] MEDS: oxyCODONE HCl Cr 10 MG Tablet PO ×2 (10:14→21:19)
[2018-01-04] MEDS: Rivaroxaban 20 MG Tablet PO (10:14)
[2018-01-04] MEDS: Magnesium Hydroxide 30 ML UDC PO ×2 (10:16→21:19)
[2018-01-04] MEDS: Furosemide 40 MG Tablet PO (17:06)
--- NOTE | 2018-01-04 20:00 | PN_ITS ---
Patient Problems: Active and Suspected Problems Aspiration pneumonia (Acute) History of esophageal cancer (Acute) Chronic upper back pain (Acute) Subjective: She is feeling better today. C/O hoarseness. Objective: - Physical Exam General: Alert, Oriented x3, Cooperative HEENT: Atraumatic, PERRLA Oral: Moist Mucosa, No Gingival or Mucosal Lesions/ Ulcerations Neck: Supple, No JVD, Negative Carotid Bruits, Negative Hepatojugular Reflux, No Nodes, No Nuchal Rigidity Lungs: Rhonchi - Mid lung fileds bilaterally. Diffuse wheezing. Cardiovascular: Regular rate, Regular Rhythm, Normal S1, Normal S2, No murmurs, No Ectopic Activity Abdomen: Bowel Sounds Present, Soft, Non Tender, Non-Distended, No Hepato- splenomegaly Extremities: No clubbing, No cyanosis, No edema Skin: No rashes, No breakdown Musculoskeletal: No Tenderness to Palpation of Joints or Extremities, No Muscle Wasting Lymphatic: No Cervical, Supraclavicular, or Inguinal Adenopathy Neurological: Cranial nerves II-XII grossly intact, Neuro grossly intact Psych/Mental Status: Normal Affect - Physical Exam Vital Signs Temp Pulse Resp BP Pulse Ox 98.4 F 112 H 18 111/57 L 95 01/04/18 15:50 01/04/18 18:51 01/04/18 18:43 01/04/18 15:50 01/04/18 15:50 Oxygen Flow Rate (L/min) 6 Oxygen Delivery Method Nasal Cannula Weight: 190 lb 11.198 oz Body Mass Index (BMI) 33.2 Intake and Output for Last 24 Hours 01/02/18 01/03/18 01/04/18 23:59 23:59 23:59 Intake Total 3680 / 3680 1244 / 1244 2375 / 2375 Output Total 3200 / 3200 2225 / 2225 1500 / 1500 Balance 480 / 480 -981 / -981 875 / 875 Microbiology Past 72 Hours 01/01/18 14:00 Gram Stain - Final Sputum, Expectorated/Coughed Respiratory Culture - Final Streptococcus pneumoniae Laboratory Tests Past 24 Hrs 01/04/18 01/04/18 05:40 05:40 WBC 9.4 RBC 3.44 L Hgb 9.4 L Hct 32.0 L MCV 93.0 MCH 27.3 MCHC 29.4 L RDW 17.4 H RDW Differential 57.5 H Plt Count 360 MPV 10.9 Sodium 139 Potassium 4.5 Chloride 103 Carbon Dioxide 33.0 H Anion Gap 3 L BUN 13 Creatinine 0.43 L Estim Creat Clear Calc 120.84 Est GFR (MDRD) Af Amer 195 Est GFR (MDRD) Non-Af 161 BUN/Creatinine Ratio 30.2 H Glucose 129 H Calcium 8.4 L Magnesium 2.4 Diagnostic Data Chest X-Ray 01/03/18 04:05 IMPRESSION: Worsening of aeration in the right upper lobe. Bilateral perihilar airspace disease with moderate elevation of the right hemidiaphragm and in areas of hyperinflation otherwise stable. Electronically Signed: Mireya Hyde MD at 4:53 EDT , Service support , Barium Swallow X-Ray 01/03/18 14:00 IMPRESSION: Small sliding hiatal hernia without gastroesophageal reflux. Evidence of prior gastric bypass surgery. Electronically Signed: Robinson Sharma MD at 14:22 EDT Tel [phone], Service support , Medical Necessity - Tobacco Use Smoking Status: Current some day smoker Assessment/Plan Active and Suspected Problems Aspiration pneumonia (Acute) History of esophageal cancer (Acute) Chronic upper back pain (Acute) Patient is a 57 years old female with history of esophageal cancer, s/ p resection, presents to ED with complaining of shortness of breath, cough, and fever for 2 days, admitted on 01/01/18. He has history of resection of esophageal cancer, and has problems with recurrent aspiration in the past. She presented to ED about one week ago, but CXR did not show any infiltrate at that time. CXR showed multilobe infiltrate this time with fever or 103.1 and WBC of 14.4. Patient had an episode of acute respiratory failure with hypercapnia, hypoxia, and tachypnea (01/03). BiPAP was applied, she appears to be back to baseline. #1 Probable aspiration pneumonia. Rocephin and Flagyl give in ED. Urine strep antigen positive. Change to clindamycin IV. Levaquin was added on 01/03. Blood culture +alpha hemolytic strep 1 out of 2. Continue bronchodilator, DuoNeb Q6 and albuterol [place] prn. Oxygen supplement. Barium swallow was done, which was unremarkable. Continue Current antibiotics. Repeat CBC in AM. #2 Acute combined hypoxic and hypercapnic respiratory failure. Pulmonary consulted. Continue above treatment. #3 COPD. She uses nocturnal home oxygen. Bronchodilator and antibiotics as above. #4 History of coagulopathy and recurrent DVT/PE. Continue Xarelto. #5 Chronic back pain. Continue Neurontin and oxycodone ER 9 mg po bid. Add prn oxycodone IR. #6 History of esophageal cancer VTE prophylaxis: Xarelto po. GI prophylaxis: H2 frieda po. She is full code. Disposition: home in 1 to 2 days. Code Visit Inpatient E&M: 32983 Subs Hosp L2
[2018-01-04] MEDS: Amitriptyline 100 MG Tablet 200 MG PO (21:18)
[2018-01-04] MEDS: Famotidine 20 MG Tablet PO (21:20)
[2018-01-04] MEDS: Gabapentin 600 MG Tablet PO (21:21)
[2018-01-05] VITALS (10 sets, daily range): BP systolic 93–107; BP diastolic 61–67; PULSE 80–110; RESP 14–20; TEMP 36.5–36.8; O2SAT 92–96
[2018-01-05] MEDS: Clindamycin 600 MG/50 ML BAG 100 MG IV ×2 (05:06→12:59)
[2018-01-05] MEDS: 0.9% NaCl Peripheral Flush Adult/Peds IV (05:06)
[2018-01-05 06:55] LABS: Hematocrit 30.1 % (37-47); Hemoglobin 9.2 g/dl (12.0-15.0); Mean Corp Hgb Conc 30.6 g/gl (32-36); Mean Corpuscular Hgb 28.2 pg (27.0-32.0); Mean Corpuscular Volume 92.3 fL (81-99); Mean Platelet Vol. 10.8 fl (6.2-12.0); Platelet Count 358 K/mm3 (150-450); RBC Distribution Width CV 17.6 % (11.6-14.6); RBC Distribution Width SD 57.7 fl (35.1-43.9); Red Blood Count 3.26 M/mm3 (4.2-5.4); White Blood Count 8.1 K/mm3 (4.4-11.0)
[2018-01-05 07:13] LABS: Scan Indicated on CBC? Y/N NO
[2018-01-05 07:23] LABS: Anion Gap 3 (5-15); BUN 15 mg/dL (7-18); BUN/Creat Ratio 30.5 RATIO (10-20); Calcium,Total 7.8 mg/dL (8.5-10.1); Chloride 103 mmol/L (98-107); Creatinine, Serum 0.49 mg/dL (0.55-1.02); EST Glomerular Filtration Rate 138 mL/min (>60); Est Glom Filt Rate - Afr Amer 167 mL/min (>60); Estimated Creatinine Clearance 106.05 ml/min; Glucose 154 mg/dL (74-106); Potassium 4.3 mmol/L (3.5-5.1); Sodium Level 138 mmol/L (136-145)
[2018-01-05] MEDS: Ipratropium/Albuterol Sulfate 3 ML AMPUL.NEB INHALATION ×2 (07:32→11:04)
[2018-01-05] MEDS: DULoxetine Hcl 60 MG Capsule PO (08:59)
[2018-01-05] MEDS: Furosemide 80 MG Tablet PO (08:59)
[2018-01-05] MEDS: oxyCODONE HCl Cr 10 MG Tablet PO (08:59)
[2018-01-05] MEDS: Famotidine 20 MG Tablet PO (08:59)
[2018-01-05] MEDS: Multivitamins,Therapeutic Tablet 1 TABLET PO (08:59)
[2018-01-05] MEDS: Rivaroxaban 20 MG Tablet PO (08:59)
[2018-01-05] MEDS: guaiFENesin 1,200 MG Tablet 1200 MG PO (09:00)
[2018-01-05] MEDS: Magnesium Hydroxide 30 ML UDC PO (09:00)
[2018-01-05] MEDS: clonazePAM 0.5 MG Tablet PO ×2 (09:00→12:59)
[2018-01-05] MEDS: Gabapentin 300 MG Capsule PO ×2 (09:00→12:59)
--- NOTE | 2018-01-05 09:27 | PCM.PROGNOTE ---
Patient Problems: Active and Suspected Problems Aspiration pneumonia (Acute) History of esophageal cancer (Acute) Chronic upper back pain (Acute) Subjective: The patient was seen and examined at the bedside this morning. Events from the last 24 hours have been reviewed. The patient is currently afebrile, hemodynamically stable and maintaining appropriate oxygen saturations on 3 L/min via nasal cannula. The patient has been tolerant of nocturnal Pap therapy. She does report subjective improvement in her breathing quality and cough. Objective: The patient's most recent lab work, culture data and imaging studies have all been personally reviewed. Blood cultures are currently pending. Legionella antigen was negative. Strep pneumoniae urinary antigen was positive. Sputum culture is growing Streptococcus. - Physical Exam General: Alert, Cooperative, No apparent distress HEENT: Atraumatic, PERRLA, Normocephalic Oral: No Gingival or Mucosal Lesions/ Ulcerations Neck: Supple, No Nodes, Trachea Midline Lungs: No wheeze, No rales, Diminished, Rhonchi Cardiovascular: Regular rate, Regular Rhythm, Normal S1, Normal S2, No murmurs Abdomen: Bowel Sounds Present, Soft, Non Tender, Non-Distended Extremities: No clubbing, No cyanosis, No edema Skin: No breakdown Musculoskeletal: No Tenderness to Palpation of Joints or Extremities, No Muscle Wasting Lymphatic: No Cervical, Supraclavicular, or Inguinal Adenopathy Neurological: Neuro grossly intact Psych/Mental Status: Normal Affect, Appropriate Vital Signs Temp Pulse Resp BP Pulse Ox 98.3 F 84 16 107/62 94 01/05/18 08:58 01/05/18 08:58 01/05/18 08:58 01/05/18 08:58 01/05/18 08:58 Oxygen Flow Rate (L/min) 3 Oxygen Delivery Method Nasal Cannula Weight: 190 lb 11.198 oz Body Mass Index (BMI) 33.2 Intake and Output for Last 24 Hours 01/03/18 01/04/18 01/05/18 23:59 23:59 23:59 Intake Total 1244 / 1244 3037 / 3037 122 / 122 Output Total 2225 / 2225 2300 / 2300 Balance -981 / -981 737 / 737 122 / 122 Microbiology Past 72 Hours 01/01/18 14:00 Gram Stain - Final Sputum, Expectorated/Coughed Respiratory Culture - Final Streptococcus pneumoniae Laboratory Tests Past 24 Hrs 01/05/18 01/05/18 05:48 05:48 WBC 8.1 RBC 3.26 L Hgb 9.2 L Hct 30.1 L MCV 92.3 MCH 28.2 MCHC 30.6 L RDW 17.6 H RDW Differential 57.7 H Plt Count 358 MPV 10.8 Sodium 138 Potassium 4.3 Chloride 103 Carbon Dioxide 32.0 Anion Gap 3 L BUN 15 Creatinine 0.49 L Estim Creat Clear Calc 106.05 Est GFR (MDRD) Af Amer 167 Est GFR (MDRD) Non-Af 138 BUN/Creatinine Ratio 30.5 H Glucose 154 H Calcium 7.8 L Clinical Impression(s) from Imaging Studies Chest X-Ray 01/01/18 11:30 IMPRESSION: Bilateral multilobar pneumonia. Electronically Signed: Leopoldo Barton at 12:04 EDT Tel , Service support , Chest X-Ray 01/03/18 04:05 IMPRESSION: Worsening of aeration in the right upper lobe. Bilateral perihilar airspace disease with moderate elevation of the right hemidiaphragm and in areas of hyperinflation otherwise stable. Electronically Signed: Mireya Hyde MD at 4:53 EDT , Service support , Barium Swallow X-Ray 01/03/18 14:00 IMPRESSION: Small sliding hiatal hernia without gastroesophageal reflux. Evidence of prior gastric bypass surgery. Electronically Signed: Robinson Sharma MD at 14:22 EDT Tel [phone], Service support , Medical Necessity - Tobacco Use Smoking Status: Current some day smoker Assessment/Plan Active and Suspected Problems Aspiration pneumonia (Acute) History of esophageal cancer (Acute) Chronic upper back pain (Acute) RECOMMENDATIONS: 1. Continue BiPAP therapy 12/6 cm of water with naps and nightly. 2. Wean supplemental oxygen to maintain saturations at or above 90% 3. Continue scheduled aerosol regimen, along with antibiotics and steroids. 4. Smoking cessation is strongly advised. 5. Discontinue sedating medications 6. Continue Xarelto 7. Encourage incentive spirometer use and mobilize patient as tolerated. IMPRESSIONS: 1. Acute on chronic combined respiratory failure 2/2 presumed COPD exacerbation due to pneumococcal pneumonia The patient was initially admitted to the hospital with concerns for aspiration pneumonia. Subsequent workup is revealed the presence of pneumococcal pneumonia. The patient is now on appropriate antibiotics. Her white count and fever curves are improved. She has underlying COPD of unknown severity. She will be continued on scheduled aerosol treatments along with steroids for now. The patient will require close follow-up with her primary lithographed plate inspector, Dr. Florez at [facility], upon discharge. 2. Personal history of obstructive sleep apnea and tobacco dependence Smoking cessation is strongly advised. The patient has not been seen by her primary lithographed plate inspector for quite some time. It is highly advisable that the patient follow-up closely as an outpatient and undergo a repeat polysomnogram so that her underlying CELESTINA can be addressed. For now, the patient will be maintained on BiPAP with naps and nightly. 3. Recurrent VTE/protein C deficiency Continue Xarelto as ordered. 4. History of esophageal cancer and recurrent aspiration The patient has been evaluated by speech therapy with a diet initiated per their recommendations. 5. Chronic pain/anxiety/depression/chronically elevated right hemidiaphragm Complicates care, management, recovery and prognosis. Recommend dose de-escalation/withholding of sedating medications. Encourage incentive spirometer use and mobilize patient as tolerated. This note was generated with [email or web address] dictation software. It may contain incorrect words, spelling, and punctuation that were not noted in checking the note before signing. Code Visit Inpatient E&M: 46471 Subs Hosp L2
--- NOTE | 2018-01-05 09:30 | PN_ITS ---
Patient Problems: Active and Suspected Problems Aspiration pneumonia (Acute) History of esophageal cancer (Acute) Chronic upper back pain (Acute) Subjective: The patient was seen and examined at the bedside this morning. Events from the last 24 hours have been reviewed. The patient is currently afebrile, hemodynamically stable and maintaining appropriate oxygen saturations on 3 L/ min via nasal cannula. The patient has been tolerant of nocturnal Pap therapy. She does report subjective improvement in her breathing quality and cough. Objective: The patient's most recent lab work, culture data and imaging studies have all been personally reviewed. Blood cultures are currently pending. Legionella antigen was negative. Strep pneumoniae urinary antigen was positive. Sputum culture is growing Streptococcus. - Physical Exam General: Alert, Cooperative, No apparent distress HEENT: Atraumatic, PERRLA, Normocephalic Oral: No Gingival or Mucosal Lesions/ Ulcerations Neck: Supple, No Nodes, Trachea Midline Lungs: No wheeze, No rales, Diminished, Rhonchi Cardiovascular: Regular rate, Regular Rhythm, Normal S1, Normal S2, No murmurs Abdomen: Bowel Sounds Present, Soft, Non Tender, Non-Distended Extremities: No clubbing, No cyanosis, No edema Skin: No breakdown Musculoskeletal: No Tenderness to Palpation of Joints or Extremities, No Muscle Wasting Lymphatic: No Cervical, Supraclavicular, or Inguinal Adenopathy Neurological: Neuro grossly intact Psych/Mental Status: Normal Affect, Appropriate Vital Signs Temp Pulse Resp BP Pulse Ox 98.3 F 84 16 107/62 94 01/05/18 08:58 01/05/18 08:58 01/05/18 08:58 01/05/18 08:58 01/05/18 08:58 Oxygen Flow Rate (L/min) 3 Oxygen Delivery Method Nasal Cannula Weight: 190 lb 11.198 oz Body Mass Index (BMI) 33.2 Intake and Output for Last 24 Hours 01/03/18 01/04/18 01/05/18 23:59 23:59 23:59 Intake Total 1244 / 1244 3037 / 3037 122 / 122 Output Total 2225 / 2225 2300 / 2300 Balance -981 / -981 737 / 737 122 / 122 Microbiology Past 72 Hours 01/01/18 14:00 Gram Stain - Final Sputum, Expectorated/Coughed Respiratory Culture - Final Streptococcus pneumoniae Laboratory Tests Past 24 Hrs 01/05/18 01/05/18 05:48 05:48 WBC 8.1 RBC 3.26 L Hgb 9.2 L Hct 30.1 L MCV 92.3 MCH 28.2 MCHC 30.6 L RDW 17.6 H RDW Differential 57.7 H Plt Count 358 MPV 10.8 Sodium 138 Potassium 4.3 Chloride 103 Carbon Dioxide 32.0 Anion Gap 3 L BUN 15 Creatinine 0.49 L Estim Creat Clear Calc 106.05 Est GFR (MDRD) Af Amer 167 Est GFR (MDRD) Non-Af 138 BUN/Creatinine Ratio 30.5 H Glucose 154 H Calcium 7.8 L Clinical Impression(s) from Imaging Studies Chest X-Ray 01/01/18 11:30 IMPRESSION: Bilateral multilobar pneumonia. Electronically Signed: Leopoldo Barton at 12:04 EDT Tel , Service support , Chest X-Ray 01/03/18 04:05 IMPRESSION: Worsening of aeration in the right upper lobe. Bilateral perihilar airspace disease with moderate elevation of the right hemidiaphragm and in areas of hyperinflation otherwise stable. Electronically Signed: Mireya Hyde MD at 4:53 EDT , Service support , Barium Swallow X-Ray 01/03/18 14:00 IMPRESSION: Small sliding hiatal hernia without gastroesophageal reflux. Evidence of prior gastric bypass surgery. Electronically Signed: Robinson Sharma MD at 14:22 EDT Tel [phone], Service support , Medical Necessity - Tobacco Use Smoking Status: Current some day smoker Assessment/Plan Active and Suspected Problems Aspiration pneumonia (Acute) History of esophageal cancer (Acute) Chronic upper back pain (Acute) RECOMMENDATIONS: 1. Continue BiPAP therapy 12/6 cm of water with naps and nightly. 2. Wean supplemental oxygen to maintain saturations at or above 90% 3. Continue scheduled aerosol regimen, along with antibiotics and steroids. 4. Smoking cessation is strongly advised. 5. Discontinue sedating medications 6. Continue Xarelto 7. Encourage incentive spirometer use and mobilize patient as tolerated. IMPRESSIONS: 1. Acute on chronic combined respiratory failure 2/2 presumed COPD exacerbation due to pneumococcal pneumonia The patient was initially admitted to the hospital with concerns for aspiration pneumonia. Subsequent workup is revealed the presence of pneumococcal pneumonia. The patient is now on appropriate antibiotics. Her white count and fever curves are improved. She has underlying COPD of unknown severity. She will be continued on scheduled aerosol treatments along with steroids for now. The patient will require close follow-up with her primary television news video editor, Dr. Florez at [facility], upon discharge. 2. Personal history of obstructive sleep apnea and tobacco dependence Smoking cessation is strongly advised. The patient has not been seen by her primary television news video editor for quite some time. It is highly advisable that the patient follow-up closely as an outpatient and undergo a repeat polysomnogram so that her underlying CELESTINA can be addressed. For now, the patient will be maintained on BiPAP with naps and nightly. 3. Recurrent VTE/protein C deficiency Continue Xarelto as ordered. 4. History of esophageal cancer and recurrent aspiration The patient has been evaluated by speech therapy with a diet initiated per their recommendations. 5. Chronic pain/anxiety/depression/chronically elevated right hemidiaphragm Complicates care, management, recovery and prognosis. Recommend dose de- escalation/withholding of sedating medications. Encourage incentive spirometer use and mobilize patient as tolerated. This note was generated with [employer] dictation software. It may contain incorrect words, spelling, and punctuation that were not noted in checking the note before signing. Code Visit Inpatient E&M: 02776 Subs Hosp L2
[2018-01-05] MEDS: Acetaminophen 325 MG Tablet 650 MG PO (12:59)
--- NOTE | 2018-01-05 14:19 | PCM.DC ---
- Discharge Diagnoses Current Active Problems: Current Active and Chronic Problems Aspiration pneumonia (Acute) History of esophageal cancer (Acute) Chronic upper back pain (Acute) You will use the following diet at home:: Other - Low sodium diet Discharge Activity: Return to Normal Activity Additional Instructions: Oxygen at night and as needed during daytime. Allergies/Adverse Reactions: Allergies celecoxib Allergy (Verified 01/01/18 11:14) Swelling naproxen Allergy (Verified 01/01/18 11:14) Swelling Penicillins Allergy (Verified 01/01/18 11:14) Hives pregabalin Allergy (Verified 01/01/18 11:14) Swelling Medications to take at Discharge Amitriptyline HCl [Elavil] 200 mg PO QHS 04/26/14 Duloxetine Hcl [Cymbalta] 60 mg PO DAILY 04/26/14 Gabapentin [Neurontin] 300 mg PO TID 04/26/14 Gabapentin [Neurontin] 600 mg PO QHS 04/26/14 Clonazepam [Klonopin] 0.5 mg PO 4X/DAY 12/13/14 Furosemide [Lasix] 80 mg PO BREAKFAST 02/04/16 Albuterol Aerosols [Ventolin Aerosols] 2.5 mg INHALATION Q6H PRN PRN 03/04/16 Fluticasone 110 Mcg [Flovent 110 Mcg] 1 puff INHALATION BID 03/04/16 Ipratropium/Albuterol Respimat [Combivent Respimat Inhal [place]] 2 puff INHALATION 4X/DAY PRN 03/04/16 Multivitamin [Daily Multiple Vitamin] 1 each PO DAILY 03/04/16 Potassium Chloride [Klor-Con] 20 meq PO BID 03/04/16 Rivaroxaban [Xarelto] 20 mg PO DAILY 02/27/17 Furosemide [Lasix] 40 mg PO DINNER 06/12/17 Dextroamphetamine/Amphetamine [Adderall 30 mg Tablet] 30 mg PO DAILY 08/09/17 Magnesium Hydroxide [Milk Of Magnesia] 30 ml PO BID 08/09/17 Oxycodone Myristate [Xtampza ER] 9 mg PO BID 12/24/17 Prednisone 10 mg PO UD #21 tab 01/05/18 levoFLOXacin tablet [Levaquin tablet] 750 mg PO DAILY #5 tab 01/05/18 The following prescriptions were given: levoFLOXacin tablet [Levaquin tablet] 750 mg PO DAILY #5 tab Prednisone 10 mg PO UD #21 tab Primary Care Physician: Carson Stephenson MD [Primary Care Provider] - Please follow up with your Primary Care Physician in: 5 to 7 days. Please Follow Up With: Franck Hurst, DO When: in 2 weeks
--- NOTE | 2018-01-05 14:22 | PCM.DC.SUM ---
Discharge Date and Diagnosis - Problem List Patient Problems: Active and Suspected Problems History of esophageal cancer (Acute) Chronic upper back pain (Acute) Pneumococcal pneumonia (streptococcus pneumoniae pneumonia) (Acute) Date of Admission: 01/01/18 Date of Discharge: 01/05/18 - Primary Discharge Diagnosis Active and Suspected Problems Probable Aspiration pneumonia (Acute) History of esophageal cancer (Acute) Chronic upper back pain (Acute) Acute combined respiratory failure with hypoxia and hypercapnia. 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 Bilateral perihilar airspace disease with moderate elevation of the right hemidiaphragm and in areas of hyperinflation otherwise stable. Electronically Signed: Mireya Hyde MD at 4:53 EDT , Service support , Barium Swallow X-Ray 01/03/18 14:00 IMPRESSION: Small sliding hiatal hernia without gastroesophageal reflux. Evidence of prior gastric bypass surgery. Electronically Signed: Robinson Sharma MD at 14:22 EDT Tel [phone], Service support , CLOTHING DESIGNER: Dr. Hurst, pulmonary. Operations: None Procedures: None Summary of Care Provided: Patient is a 57 years old female with history of esophageal cancer, s/p resection, presents to ED with complaining of shortness of breath, cough, and fever for 2 days, admitted on 01/01/18. He has history of resection of esophageal cancer, and has problems with recurrent aspiration in the past. She presented to ED about one week ago, but CXR did not show any infiltrate at that time. CXR showed multilobe infiltrate this time with fever or 103.1 and WBC of 14.4. Patient had an episode of acute respiratory failure with hypercapnia, hypoxia, and tachypnea (01/03). BiPAP was applied, she appears to be back to baseline. Etiology is not clear. Swallowing evaluation was done, which was unremarkable. Possibly due to respiratory depression with narcotic pain medication and benzodiazepine sedative effect. #1 pneumonia with streptococci. Rocephin and Flagyl give in ED. Urine strep antigen positive. Change to clindamycin IV. Levaquin was added on 01/03. Blood culture +alpha hemolytic strep 1 out of 2. Continue bronchodilator, DuoNeb Q6 and albuterol [place] prn. Oxygen supplement. Barium swallow was done, which was unremarkable. She is afebrile, WBC is normal. She has oxygen at home already. Continue to use QHS and should wear as needed during the day. Discharge with prednisone 10 mg po 4 tabs qd x 3d, 2 tabs po qd x 3d, then 1 tab po qd. Levaquin 750 mg po qd x 5 days. #2 Acute combined hypoxic and hypercapnic respiratory failure. Pulmonary consulted. Patient had an episode of acute respiratory failure with hypercapnia, hypoxia, and tachypnea (01/03). BiPAP was applied, she appears to be back to baseline. Etiology is not clear. Swallowing evaluation was done, which was unremarkable. Possibly due to respiratory depression with narcotic pain medication and benzodiazepine sedative effect. #3 COPD. She uses nocturnal home oxygen. Bronchodilator and antibiotics as above. #4 History of coagulopathy and recurrent DVT/PE. Continue Xarelto. #5 Chronic back pain. Continue Neurontin and oxycodone ER 9 mg po bid. Add prn oxycodone IR. #6 History of esophageal cancer VTE prophylaxis: Xarelto po. GI prophylaxis: H2 frieda po. She is full code. Disposition: home Discharge Activity: Return to Normal Activity Home Medications: Medications to take at Discharge Amitriptyline HCl [Elavil] 200 mg PO QHS 04/26/14 Duloxetine Hcl [Cymbalta] 60 mg PO DAILY 04/26/14 Gabapentin [Neurontin] 300 mg PO TID 04/26/14 Gabapentin [Neurontin] 600 mg PO QHS 04/26/14 Clonazepam [Klonopin] 0.5 mg PO 4X/DAY 05/04/15 Furosemide [Lasix] 80 mg PO BREAKFAST 02/04/16 Albuterol Aerosols [Ventolin Aerosols] 2.5 mg INHALATION Q6H PRN PRN 03/04/16 Fluticasone 110 Mcg [Flovent 110 Mcg] 1 puff INHALATION BID 03/04/16 Ipratropium/Albuterol Respimat [Combivent Respimat Inhal [place]] 2 puff INHALATION 4X/DAY PRN 03/04/16 Multivitamin [Daily Multiple Vitamin] 1 each PO DAILY 03/04/16 Potassium Chloride [Klor-Con] 20 meq PO BID 03/04/16 Rivaroxaban [Xarelto] 20 mg PO DAILY 02/27/17 Furosemide [Lasix] 40 mg PO DINNER 06/12/17 Dextroamphetamine/Amphetamine [Adderall 30 mg Tablet] 30 mg PO DAILY 08/09/17 Magnesium Hydroxide [Milk Of Magnesia] 30 ml PO BID 08/09/17 Oxycodone Myristate [Xtampza ER] 9 mg PO BID 12/24/17 Prednisone 10 mg PO UD #21 tab 01/05/18 levoFLOXacin tablet [Levaquin tablet] 750 mg PO DAILY #5 tab 01/05/18 Following Prescrptions Were Given to Patient: levoFLOXacin tablet [Levaquin tablet] 750 mg PO DAILY #5 tab Prednisone 10 mg PO UD #21 tab Primary Care Physician: Carson Stephenson MD [Primary Care Provider] - Please follow up with your Primary Care Physician in: 5 to 7 days. Please Follow Up With: Franck Hurst DO When: in 2 weeks Medical Necessity - Tobacco Use Smoking Status: Current some day smoker Meaningful Use Info Meaningful Use Diagnoses (Choose all that apply): None applicable Code Visit Inpatient E&M: 17977 Disch Hosp
--- NOTE | 2018-01-05 14:31 | DS.PCM_ITS ---
Discharge Date and Diagnosis - Problem List Patient Problems: Active and Suspected Problems History of esophageal cancer (Acute) Chronic upper back pain (Acute) Pneumococcal pneumonia (streptococcus pneumoniae pneumonia) (Acute) Date of Admission: 01/01/18 Date of Discharge: 01/05/18 - Primary Discharge Diagnosis Active and Suspected Problems Probable Aspiration pneumonia (Acute) History of esophageal cancer (Acute) Chronic upper back pain (Acute) Acute combined respiratory failure with hypoxia and hypercapnia. 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 Bilateral perihilar airspace disease with moderate elevation of the right hemidiaphragm and in areas of hyperinflation otherwise stable. Electronically Signed: Mireya Hyde MD at 4:53 EDT , Service support , Barium Swallow X-Ray 01/03/18 14:00 IMPRESSION: Small sliding hiatal hernia without gastroesophageal reflux. Evidence of prior gastric bypass surgery. Electronically Signed: Robinson Sharma MD at 14:22 EDT Tel [phone], Service support , PARKER: Dr. Hurst, pulmonary. Operations: None Procedures: None Summary of Care Provided: Patient is a 57 years old female with history of esophageal cancer, s/ p resection, presents to ED with complaining of shortness of breath, cough, and fever for 2 days, admitted on 01/01/18. He has history of resection of esophageal cancer, and has problems with recurrent aspiration in the past. She presented to ED about one week ago, but CXR did not show any infiltrate at that time. CXR showed multilobe infiltrate this time with fever or 103.1 and WBC of 14.4. Patient had an episode of acute respiratory failure with hypercapnia, hypoxia, and tachypnea (01/03). BiPAP was applied, she appears to be back to baseline. Etiology is not clear. Swallowing evaluation was done, which was unremarkable. Possibly due to respiratory depression with narcotic pain medication and benzodiazepine sedative effect. #1 pneumonia with streptococci. Rocephin and Flagyl give in ED. Urine strep antigen positive. Change to clindamycin IV. Levaquin was added on 01/03. Blood culture +alpha hemolytic strep 1 out of 2. Continue bronchodilator, DuoNeb Q6 and albuterol [place] prn. Oxygen supplement. Barium swallow was done, which was unremarkable. She is afebrile, WBC is normal. She has oxygen at home already. Continue to use QHS and should wear as needed during the day. Discharge with prednisone 10 mg po 4 tabs qd x 3d, 2 tabs po qd x 3d, then 1 tab po qd. Levaquin 750 mg po qd x 5 days. #2 Acute combined hypoxic and hypercapnic respiratory failure. Pulmonary consulted. Patient had an episode of acute respiratory failure with hypercapnia, hypoxia, and tachypnea (01/03). BiPAP was applied, she appears to be back to baseline. Etiology is not clear. Swallowing evaluation was done, which was unremarkable. Possibly due to respiratory depression with narcotic pain medication and benzodiazepine sedative effect. #3 COPD. She uses nocturnal home oxygen. Bronchodilator and antibiotics as above. #4 History of coagulopathy and recurrent DVT/PE. Continue Xarelto. #5 Chronic back pain. Continue Neurontin and oxycodone ER 9 mg po bid. Add prn oxycodone IR. #6 History of esophageal cancer VTE prophylaxis: Xarelto po. GI prophylaxis: H2 frieda po. She is full code. Disposition: home Discharge Activity: Return to Normal Activity Home Medications: Medications to take at Discharge Amitriptyline HCl [Elavil] 200 mg PO QHS 04/26/14 Duloxetine Hcl [Cymbalta] 60 mg PO DAILY 04/26/14 Gabapentin [Neurontin] 300 mg PO TID 04/26/14 Gabapentin [Neurontin] 600 mg PO QHS 04/26/14 Clonazepam [Klonopin] 0.5 mg PO 4X/DAY 05/04/15 Furosemide [Lasix] 80 mg PO BREAKFAST 02/04/16 Albuterol Aerosols [Ventolin Aerosols] 2.5 mg INHALATION Q6H PRN PRN 03/04/16 Fluticasone 110 Mcg [Flovent 110 Mcg] 1 puff INHALATION BID 03/04/16 Ipratropium/Albuterol Respimat [Combivent Respimat Inhal [place]] 2 puff INHALATION 4X/DAY PRN 03/04/16 Multivitamin [Daily Multiple Vitamin] 1 each PO DAILY 03/04/16 Potassium Chloride [Klor-Con] 20 meq PO BID 03/04/16 Rivaroxaban [Xarelto] 20 mg PO DAILY 02/27/17 Furosemide [Lasix] 40 mg PO DINNER 06/12/17 Dextroamphetamine/Amphetamine [Adderall 30 mg Tablet] 30 mg PO DAILY 08/09/17 Magnesium Hydroxide [Milk Of Magnesia] 30 ml PO BID 08/09/17 Oxycodone Myristate [Xtampza ER] 9 mg PO BID 12/24/17 Prednisone 10 mg PO UD #21 tab 01/05/18 levoFLOXacin tablet [Levaquin tablet] 750 mg PO DAILY #5 tab 01/05/18 Following Prescrptions Were Given to Patient: levoFLOXacin tablet [Levaquin tablet] 750 mg PO DAILY #5 tab Prednisone 10 mg PO UD #21 tab Primary Care Physician: Carson Stephenson MD [Primary Care Provider] - Please follow up with your Primary Care Physician in: 5 to 7 days. Please Follow Up With: Franck Hurst DO When: in 2 weeks Medical Necessity - Tobacco Use Smoking Status: Current some day smoker Meaningful Use Info Meaningful Use Diagnoses (Choose all that apply): None applicable Code Visit Inpatient E&M: 91260 Disch Hosp
--- NOTE | 2018-01-09 15:44 | CASEMGMT ---
CAROLINA DE LOS SANTOS Discharge F/U phone call Lace: 13 Strata: 4 Call date: 01/09/18 Discharge Date: 01/05/18 Time of Call: [id number] Attempted to reach pt without success and unable to leave message at this time d/t 'mailbox full.' [place] CAROLINA DE LOS SANTOS
== END 2018-01-05 14:46 | disposition home or self-care (01) | DRG 177 ==
LOC: ED 13:18 → PCU 13:33
PROVIDERS: Internal Medicine; Admitting Provider Hospitalist; Emergency Provider Emergency Medicine; Family Provider Family Medicine; PCP Family Medicine; Visit Provider Hospitalist
DX: J69.0 Pneumonitis due to inhalation of food and vomit (principal); J96.22 Acute and chronic respiratory failure with hypercapnia; J96.21 Acute and chronic respiratory failure with hypoxia; D68.9 Coagulation defect, unspecified; J44.0 Chronic obstructive pulmonary disease with (acute) lower respiratory infection; D68.59 Other primary thrombophilia; G90.529 Complex regional pain syndrome I of unspecified lower limb; E87.2 Acidosis; J44.1 Chronic obstructive pulmonary disease with (acute) exacerbation; J13 Pneumonia due to Streptococcus pneumoniae; F41.9 Anxiety disorder, unspecified; F32.9 Major depressive disorder, single episode, unspecified; M79.7 Fibromyalgia; K58.9 Irritable bowel syndrome, unspecified; I10 Essential (primary) hypertension; M54.6 Pain in thoracic spine; F17.200 Nicotine dependence, unspecified, uncomplicated; F60.4 Histrionic personality disorder; Z85.01 Personal history of malignant neoplasm of esophagus; Z86.711 Personal history of pulmonary embolism; Z86.718 Personal history of other venous thrombosis and embolism; Z99.81 Dependence on supplemental oxygen; Z79.01 Long term (current) use of anticoagulants; G47.33 Obstructive sleep apnea (adult) (pediatric)
CPT/HCPCS: 36415; 36600; 71045; 74220; 80048; 80053; 82803; 83605; 83735; 85025; 85027; 85610; 85730; 87040; 87070; 87077; 87186; 87205; 87449; 92611; 93005; 94002; 94003; 94640; 97802; 99285; 99406; J7030; A4216

== ENCOUNTER 2018-03-26 19:06 | Emergency (ER) | payer MEDICARE, SELFPAY ==
[2018-03-26 19:10] VITALS: BP 95/56; PULSE 102; RESP 20; TEMP 37.2; O2SAT 94; BMI 36.3
[2018-03-26] MEDS: HYDROmorphone 1 MG/ML Syringe IV (19:37)
[2018-03-26 19:54] VITALS: BP 96/67; PULSE 95; RESP 20; O2SAT 97
[2018-03-26 21:52] VITALS: BP 103/64; PULSE 84; RESP 16; O2SAT 97
--- NOTE | 2018-03-26 22:15 | ED.VISSUMM ---
- ER Visit Summary Date of Service: 03/26/18 Chief Complaint: Left hip pain History of Present Illness: The patient is a [address] Stephenson. Patient reports that she fell 3-4 weeks ago and landed on her left hip. She has not sought medical attention since that time. However, she reports that her hip is been popping out since then. Patient reports that in the past she had been able to reduce her hip and that today she is unable to. She reports she has pain is 10 out of 10 with movement and 7 out of 10 at rest. She describes this as sharp and aching. She reports that she has paresthesias in her toes that come and go. She denies any weakness or loss of function. She denies any other injuries or complaints. Physical Examination: Vitals: Stable. Afebrile. Neck: No vertebral tenderness. Full ROM without difficulty. Cleared by NEXUS criteria. Back: No vertebral tenderness. General: A&O x 3. NAD. Cardiovascular exam: Regular rate and rhythm, no murmur, rub or gallop. Respiratory exam: Chest nontender. No crepitus. Clear to auscultation bilaterally. No wheezes or stridor. Abdominal exam: Soft, nontender, nondistended, normal bowel sounds. No pain in RUQ or LUQ specifically. No peritoneal signs. Extremity: Soft tissue swelling and moderate tenderness palpation over the posterior portion of her greater trochanter. She has pain with internal and external rotation. There is no obvious deformity.. Test Results: Left hip/pelvis x-ray shows moderate to severe degenerative changes without fracture or dislocation. CT left hip shows no fracture dislocation. However, it shows a 1.3 cm calcified area lateral to the proximal femoral metaphysis which may represent a small focus of fat necrosis. Emergency Department Course and Treatment: Patient was given a dose of Dilaudid IV and is resting comfortably. She refused crutches. Treatment Plan: Had a prolonged discussion with the patient that this area of calcification is likely from the trauma 3-4 weeks ago. I feel it is very unlikely that her hip is actually dislocating and that she is able to reduce it. I suspect that she is moving this area of calcified fat necrosis. She will be discharged with Percocet for pain. Conservative measures. Instructed to follow-up with Dr. Blue in 1 week if not improving. Return to the emergency department for any worsening symptoms. Disposition: To home in improved and stable condition. Impression: 1. Calcified fat necrosis left hip. This note was generated with [employer] dictation software. It may contain incorrect words, spelling, and punctuation that were not noted in review of the chart prior to signing ED Disposition - Plan for ED Patient: Disposition: Home or Assisted Living Chief Complaint: Lower Extremity Injury Instructions: ED Contusion Hip Prescriptions: Hydrocodone/Acetaminophen [[place] 5-325 Tablet] 1 - 2 each PO 4X/DAY PRN PRN 3 Days #12 tablet PRN Reason: Pain Referrals: Audelia Blue DO [STAFF PHYSICIAN] - 10-14 Days if not better Additional Instructions: speak with Dr. Blue about further management of fat necrosis with calcium deposition.
[2018-03-26] MEDS: HYDROcodone Bitartrate/Apap 5/325 Tablet PO (22:42)
[2018-03-26 22:46] VITALS: BP 106/57; PULSE 86; RESP 20; O2SAT 98
--- NOTE | 2018-03-26 22:47 | ED.RN ---
THIS NURSE REVIEWED D/C INSTRUCTIONS WITH PT AND VISITOR. PT VERBALIZED UNDERSTANDING OF INSTRUCTIONS. PT ASSISTED TO AMBULATE TO BATHROOM. PT SLOW BUT STEADY WITH AMBULATION. PT IV D/C. IV CATHETER INTACT. PT TOLERATED WELL. PT DENIES FURTHER NEEDS OR QUESTIONS AT THIS TIME.
== END 2018-03-26 22:48 | disposition home or self-care (01) ==
LOC: ED 19:49
PROVIDERS: Emergency Provider Emergency Medicine; Family Provider Family Medicine; PCP Family Medicine
DX: M79.89 Other specified soft tissue disorders (principal); J44.9 Chronic obstructive pulmonary disease, unspecified; G90.50 Complex regional pain syndrome I, unspecified; G62.9 Polyneuropathy, unspecified; I73.9 Peripheral vascular disease, unspecified; Z90.49 Acquired absence of other specified parts of digestive tract; Z79.01 Long term (current) use of anticoagulants; Z79.899 Other long term (current) drug therapy; F17.200 Nicotine dependence, unspecified, uncomplicated
CPT/HCPCS: 72170; 73700; 96374; 99284; J7030

== ENCOUNTER 2018-04-24 18:49 | Emergency (ER) | payer MEDICARE, SELFPAY ==
[2018-04-24 18:50] VITALS: BP 107/78; PULSE 101; RESP 17; TEMP 36.7; O2SAT 94; BMI 31.8
--- NOTE | 2018-04-24 19:25 | RAD_ITS ---
STUDY: X-RAY CHEST REASON FOR EXAM: Female, 58 years old. Pain. TECHNIQUE: Inspiration and expiration views. COMPARISON: 01/03/2018. FINDINGS: The lungs are clear and expanded. No pneumothorax. Elevated right hemidiaphragm. Stable small calcified granuloma of the mid left lung. There is no demonstrated pleural abnormality. Normal size heart. Normal mediastinum and roz. Normal visualized pulmonary arteries. Normal visualized aortic arch and descending thoracic aorta. Normal visualized thoracic spine. Previous right shoulder surgery. There is no demonstrated abnormality of the visualized soft tissue structures of the upper abdomen. RAD/Chest Insp/Exp 2 View IMPRESSION: No acute chest disease. No evidence for pneumothorax. Electronically Signed: William Velasquez MD at 19:40 EDT , Service support ,
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
[2018-04-24] MEDS: HYDROcodone Bitartrate/Apap 5/325 Tablet PO (20:24)
[2018-04-24 20:28] VITALS: BP 97/45; PULSE 83; RESP 16; O2SAT 97
== END 2018-04-24 20:29 | disposition home or self-care (01) ==
PROVIDERS: Emergency Provider Emergency Medicine; Family Provider Family Medicine; PCP Family Medicine
DX: S20.212A Contusion of left front wall of thorax, initial encounter (principal); X58.XXXA Exposure to other specified factors, initial encounter; Y93.9 Activity, unspecified; Y92.9 Unspecified place or not applicable; J44.9 Chronic obstructive pulmonary disease, unspecified; I10 Essential (primary) hypertension; K58.9 Irritable bowel syndrome, unspecified; F32.9 Major depressive disorder, single episode, unspecified; F41.9 Anxiety disorder, unspecified; Z79.01 Long term (current) use of anticoagulants; Z79.899 Other long term (current) drug therapy; Z72.0 Tobacco use
CPT/HCPCS: 71046; 99283

== ENCOUNTER 2018-05-30 00:17 | Emergency (ER) | payer MEDICARE, SELFPAY ==
[2018-05-30 00:18] VITALS: BP 122/68; PULSE 100; RESP 18; TEMP 36.7; O2SAT 95; BMI 31.8
--- NOTE | 2018-05-30 00:23 | CT_ITS ---
STUDY: CT LUMBAR SPINE WITHOUT CONTRAST REASON FOR EXAM: Female, 58 years old. Low back pain status post fall RADIATION DOSAGE (If Supplied By Facility): CTDIvol = ( ) mGy, DLP = ( ) mGycm TECHNIQUE: The patient was scanned in a multi detector CT scanner. High resolution transaxial imaging was performed. Images were obtained from to . Sagittal and coronal images were reconstructed. # of Images: 406 Individualized dose optimization techniques were used for this CT. COMPARISON: None FINDINGS: Normal lumbar lordosis. Minimal levoscoliosis centered at L4. No vertebral body fracture. No pars defect mild loss of height with endplate change and spur formation noted within the intervertebral disc spaces at L3-4, L4-5, and L5 disc spaces. There is mild associated degenerative change, to a lesser degree, seen at L1-L2 and L2-L3. L1-2: Normal endplates. Normal disc height and morphology. Normal bilateral facet joints. Normal central canal and bilateral lateral recesses. Normal bilateral intervertebral neural foramina. L2-3: Normal endplates. Normal disc height and morphology. Normal bilateral facet joints. Normal central canal and bilateral lateral recesses. Normal bilateral intervertebral neural foramina. L3-4: Mild endplate change. Mild loss of disc height. Mild facet hypertrophy. No significant neural foraminal canal or spinal canal narrowing. L4-5: Mild endplate change. Mild to moderate facet hypertrophy. No neural foraminal canal narrowing. Mild spinal canal stenosis. L5-S1: Mild diffuse disc bulge. Moderate facet hypertrophy. No significant neural foraminal canal or spinal canal narrowing.. Normal visualized paraspinous soft tissue structures. Inferior vena caval filter is in place. CT/Spine Lumbar without Contrast IMPRESSION: 1. No evidence of acute injury to the lumbar spine. 2. Mild degenerative disc and facet disease of the lower lumbar spine. Electronically Signed: Fermín Sun MD at 1:36 EDT Tel , Service support ,
--- NOTE | 2018-05-30 00:23 | CT_ITS ---
STUDY: CT CERVICAL SPINE WITHOUT CONTRAST REASON FOR EXAM: Female, 58 years old. Neck pain status post fall RADIATION DOSAGE (If Supplied By Facility): CTDIvol = ( 25.93 ) mGy, DLP = ( 577.96 ) mGycm TECHNIQUE: High resolution transaxial imaging was performed without contrast material. Sagittal and coronal images were reconstructed. # of Images: 478 Individualized dose optimization techniques were used for this CT. COMPARISON: None FINDINGS: Normal craniovertebral junction. There are degenerative changes of the anterior atlantoaxial articulation. Normal odontoid process. Patient's head is mildly rotated to the right. Normal cervical lordosis. No vertebral body or posterior element fracture. There is preservation of the intervertebral disc spaces with mild annular calcification at C2-C3 and C5-C6. C2-3: Normal endplates. Normal disc height and morphology. Normal central canal and intervertebral neuroforamina. C3-4: Normal endplates. Normal disc height and morphology. Normal central canal and intervertebral neuroforamina. C4-5: Normal endplates. Normal disc height and morphology. Normal central canal and intervertebral neuroforamina. C5-6: Normal endplates. Normal disc height and morphology. Normal central canal and intervertebral neuroforamina. C6-7: Normal endplates. Normal disc height and morphology. Normal central canal and intervertebral neuroforamina. C7-T1: Normal endplates. Normal disc height and morphology. Normal central canal and intervertebral neuroforamina. Normal visualized soft tissue structures. Mild centrilobular groundglass infiltrate at the lung apices. CT/Spine Cervical without Contras IMPRESSION: 1. No evidence of acute injury to the cervical spine. 2. Mild centrilobular edema at the apices. Electronically Signed: Fermín Sun MD at 2:07 EDT Tel , Service support ,
--- NOTE | 2018-05-30 00:23 | RAD_ITS ---
STUDY: X-RAY - RIGHT CLAVICLE REASON FOR EXAM: Female, 58 years old. Right shoulder pain status post fall TECHNIQUE: 2 view(s) of the clavicle. # of Images: 2 COMPARISON: None. FINDINGS: Normal clavicle. Normal alignment of the acromioclavicular articulation. Normal visualized sternoclavicular articulation. Glenohumeral joint is in normal alignment. There is mild nonuniform joint space narrowing of the glenohumeral and acromioclavicular joints. Surgical clips overlying the glenoid suture anchors overlie the glenoid Normal visualized upper ribs and pulmonary apex. RAD/Clavicle IMPRESSION: 1. No evidence of acute injury to the right clavicle and shoulder. 2. 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
--- NOTE | 2018-05-30 00:23 | CT_ITS ---
STUDY: CT BRAIN WITHOUT CONTRAST REASON FOR EXAM: Female, 58 years old. Headache status post fall RADIATION DOSAGE (If Supplied By Facility): CTDIvol = ( 44.99 ) mGy, DLP = ( 779.24 ) mGycm TECHNIQUE: Transaxial CT imaging of the brain was performed without administration of intravenous contrast material. # of Images: 240 Individualized dose optimization techniques were used for this CT. COMPARISON: None. FINDINGS: Normal soft tissue structures. Normal calvarium. There is mild cerebral atrophy with widening of the extra-axial spaces and ventricular dilatation. There is mild bilateral periventricular and subcortical white matter hypoattenuation which is symmetric in distribution. Normal basal ganglia and thalami. Normal brainstem. Normal cerebellum. There is no intracranial hemorrhage. There are no findings of an acute ischemic infarction. Normal visualized paranasal sinuses. CT/Brain/Head without Contrast IMPRESSION: 1. No evidence of an acute intracranial abnormality. 2. Mild bilateral periventricular and subcortical white matter chronic small vessel disease with age appropriate cerebral atrophy. Electronically Signed: Fermín Sun MD at 1:31 EDT Tel , Service support ,
--- NOTE | 2018-05-30 00:23 | CT_ITS ---
STUDY: CT THORACIC SPINE WITHOUT CONTRAST REASON FOR EXAM: Female, 58 years old. Back pain status post fall RADIATION DOSAGE (If Supplied By Facility): CTDIvol = ( 27.32 ) mGy, DLP = ( 1155.84 ) mGycm TECHNIQUE: The patient was scanned in a multi detector CT scanner. High resolution imaging was performed. Sagittal and coronal images were reconstructed. # of Images: 444 Individualized dose optimization techniques were used for this CT. COMPARISON: None. FINDINGS: Normal visualized cervical spine. Mild exaggerated kyphosis of the thoracic spine. No significant scoliosis. No acute vertebral body fracture. No posterior element fracture. Mild loss of height with endplate change and spur formation noted within the intervertebral disc spaces throughout the thoracic spine. Visualized ribs are unremarkable. Patchy bilateral centrilobular groundglass opacities within the visualized lungs. No paraspinal soft tissue abnormality. CT/Spine Thoracic without Contras IMPRESSION: 1. No evidence of acute injury to the thoracic spine. 2. Multilevel degenerative disc disease 3. Mild centrilobular pulmonary edema. Electronically Signed: Fermín Sun MD at 2:10 EDT Tel , Service support ,
--- NOTE | 2018-05-30 00:23 | RAD_ITS ---
STUDY: X-RAY - RIGHT RADIUS AND ULNA REASON FOR EXAM: Female, 58 years old. Right forearm pain status post fall TECHNIQUE: AP and lateral view(s) of the forearm. # of Images: 2 COMPARISON: None. FINDINGS: There is no demonstrated soft tissue swelling. Normal visualized radius. Normal visualized ulna. Joints are in normal alignment. RAD/Forearm 2 Views IMPRESSION: Normal x-ray examination of the radius and ulna. Electronically Signed: Fermín Sun MD at 2:12 EDT Tel , Service support ,
[2018-05-30] MEDS: HYDROcodone Bitartrate/Apap 5/325 Tablet PO (00:30)
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
--- NOTE | 2018-05-30 02:20 | ED.DEP ---
ED Disposition - Plan for ED Patient: Disposition: Home or Assisted Living Chief Complaint: Fall Instructions: ED Mechanical Fall Referrals: Carson Stephenson MD [Primary Care Provider] -
[2018-05-30 02:33] VITALS: BP 108/71; PULSE 85; RESP 18; O2SAT 99
== END 2018-05-30 02:34 | disposition home or self-care (01) ==
PROVIDERS: Emergency Provider Emergency Medicine; Family Provider Family Medicine; PCP Family Medicine
DX: S09.90XA Unspecified injury of head, initial encounter (principal); S50.11XA Contusion of right forearm, initial encounter; S40.011A Contusion of right shoulder, initial encounter; S30.0XXA Contusion of lower back and pelvis, initial encounter; S20.229A Contusion of unspecified back wall of thorax, initial encounter; M54.2 Cervicalgia; R40.2410 Glasgow coma scale score 13-15, unspecified time; W10.9XXA Fall (on) (from) unspecified stairs and steps, initial encounter; Y93.9 Activity, unspecified; Y92.9 Unspecified place or not applicable; D68.59 Other primary thrombophilia; Z87.81 Personal history of (healed) traumatic fracture; Z79.01 Long term (current) use of anticoagulants; Z79.899 Other long term (current) drug therapy
CPT/HCPCS: 70450; 72125; 72128; 72131; 73000; 73090; 99283

== ENCOUNTER 2018-05-31 04:55 | Emergency (ER) | payer MEDICARE, SELFPAY ==
[2018-05-31 04:57] VITALS: BP 157/85; PULSE 94; RESP 20; TEMP 36.6; O2SAT 97; BMI 33.0
[2018-05-31 05:38] VITALS: BP 143/72; PULSE 78; RESP 18; O2SAT 98
--- NOTE | 2018-05-31 05:39 | ED.VISSUMM ---
- ER Visit Summary Date of Service: 05/31/18 Chief Complaint: Pain History of Present Illness: The patient is a 58 F who states that she fell downstairs yesterday. She was seen in the emergency department and had extensive radiologic imaging. Patient states that despite the Percocet that she gets from pain management she just is in severe pain to the point where she cannot breathe. She has bruising her back and pain in her clavicles. Please review prior medical history which includes fibromyalgia and personality disorder. Physical Examination: Afebrile vital signs are stable Patient has bilateral lower back purple contusions. She is diffusely tender throughout her body particularly over the clavicles. Lung sounds are clear and equal. Emergency Department Course and Treatment: The patient will receive a dose of Toradol and morphine. I do not see that the patient needs to be reimaged. I think the patient's histrionic personality is highly contributing to her report of excessive pain. Impression: 1. Back contusion 2. Generalized pain This note was generated with [employer] dictation software. It may contain incorrect words, spelling, and punctuation that were not noted in review of the chart prior to signing ED Disposition - Plan for ED Patient: Disposition: Home or Assisted Living Chief Complaint: Back Instructions: ED Low Back Pain Injury Referrals: Carson Stephenson MD [Primary Care Provider] - 3-5 Days if not improving
--- NOTE | 2018-05-31 05:43 | ED.DCSUM_ITS ---
- ER Visit Summary Date of Service: 05/31/18 Chief Complaint: Pain History of Present Illness: The patient is a 58 F who states that she fell downstairs yesterday. She was seen in the emergency department and had extensive radiologic imaging. Patient states that despite the Percocet that she gets from pain management she just is in severe pain to the point where she cannot breathe. She has bruising her back and pain in her clavicles. Please review prior medical history which includes fibromyalgia and personality disorder. Physical Examination: Afebrile vital signs are stable Patient has bilateral lower back purple contusions. She is diffusely tender throughout her body particularly over the clavicles. Lung sounds are clear and equal. Emergency Department Course and Treatment: The patient will receive a dose of Toradol and morphine. I do not see that the patient needs to be reimaged. I think the patient's histrionic personality is highly contributing to her report of excessive pain. Impression: 1. Back contusion 2. Generalized pain This note was generated with [employer] dictation software. It may contain incorrect words, spelling, and punctuation that were not noted in review of the chart fabienne or to signing ED Disposition - Plan for ED Patient: Disposition: Home or Assisted Living Chief Complaint: Back Instructions: ED Low Back Pain Injury Referrals: Carson Stephenson MD [Primary Care Provider] - 3-5 Days if not improving
[2018-05-31] MEDS: Morphine 2 MG/ML Syringe IM (05:53)
[2018-05-31] MEDS: Ketorolac 60 MG/2 ML Vial IM (05:53)
== END 2018-05-31 05:59 | disposition home or self-care (01) ==
PROVIDERS: Emergency Provider Emergency Medicine; Family Provider Family Medicine; PCP Family Medicine
DX: S30.0XXA Contusion of lower back and pelvis, initial encounter (principal); R52 Pain, unspecified; M25.511 Pain in right shoulder; M25.512 Pain in left shoulder; W10.9XXA Fall (on) (from) unspecified stairs and steps, initial encounter; Y93.9 Activity, unspecified; Y92.9 Unspecified place or not applicable; M79.7 Fibromyalgia; F60.9 Personality disorder, unspecified; Z79.01 Long term (current) use of anticoagulants; Z79.899 Other long term (current) drug therapy; Z72.0 Tobacco use
CPT/HCPCS: 96372; 99282

== ENCOUNTER 2018-06-16 01:06 | Emergency (ER) | payer MEDICARE, SELFPAY ==
[2018-06-16 01:08] VITALS: BP 110/77; PULSE 92; RESP 16; TEMP 36.7; O2SAT 96; BMI 32.5
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
--- NOTE | 2018-06-16 01:13 | RAD_ITS ---
STUDY: X-RAY - RIGHT RADIUS AND ULNA REASON FOR EXAM: Female, 58 years old. Fall. Right forearm pain TECHNIQUE: 1 view(s) of the forearm. COMPARISON: None. FINDINGS: There is no demonstrated soft tissue swelling. Normal visualized radius. Normal visualized ulna. RAD/Forearm 2 Views IMPRESSION: Normal x-ray examination of the radius and ulna. Electronically Signed: Lena Marion MD at 3:04 EST Tel , Service support ,
--- NOTE | 2018-06-16 01:13 | RAD_ITS ---
STUDY: X-RAY - RIGHT HAND REASON FOR EXAM: Female, 58 years old. Fall. Right hand pain TECHNIQUE: 3 view(s) of the hand. COMPARISON: None. FINDINGS: There is joint space narrowing of the radiocarpal articulation consistent with degenerative arthrosis. Normal distal radioulnar joint. Normal visualized carpal bones. There is degenerative joint disease of the scaphotrapezium / trapezoid articulation. The remainder of the carpal articulations are normal. There is degenerative arthrosis of the carpometacarpal (CMC) articulation of the thumb. Normal second through fifth carpometacarpal joints. Normal metacarpi. Normal metacarpophalangeal joint of the thumb. Normal interphalangeal joint of the thumb. Normal proximal and distal phalanges of the thumb. Normal metacarpophalangeal joints of the second through fifth fingers. Normal proximal and distal interphalangeal joints of the second through fifth fingers. Normal phalanges of the second through fifth fingers. The soft tissue structures are unremarkable. RAD/Hand Min 3 Views IMPRESSION: Degenerative joint disease of the hand and wrist, as described above. Electronically Signed: Lena Marion MD at 3:11 EST Tel , Service support ,
--- NOTE | 2018-06-16 01:18 | ED.DCSUM_ITS ---
- ER Visit Summary Date of Service: 06/16/18 Chief Complaint: Right upper extremity injury History of Present Illness: The patient is a 58 F presenting with right upper extremity injury. Patient states she slipped on a wet floor and caught herself with her right arm. She did not hit her head or lose consciousness. She complains of persistent pain right wrist and forearm. She denies other injuries. Physical Examination: Vitals are stable. Patient is afebrile. Alert no acute distress. HEENT exam is unremarkable. Neck is nontender Lungs are clear and equal bilaterally. Heart is regular rate and rhythm. Abdomen is soft nontender nondistended. Extremities diffuse right wrist tenderness, tenderness of fifth metacarpal; elbow and shoulder are nontender. Skin is warm and dry. No focal neurologic deficit. Remainder of exam is unremarkable. Emergency Department Course and Treatment: Ice pack was applied. She was given [place] x1. X-ray of the right hand, wrist, forearm show no acute fracture. She is given a Velcro wrist splint. She advised to follow-up with her pain management physician and her primary care physician. Advised return to ED if worsening complaints. Disposition: Discharge home Impression: Right upper extremity contusion status post mechanical fall This note was generated with [employer] dictation software. It may contain incorrect words, spelling, and punctuation that were not noted in review of the chart prior to signing ED Disposition - Plan for ED Patient: Chief Complaint: Upper Extremity Injury Instructions: ED Contusion Upper Ext Referrals: Carson Stephenson MD [Primary Care Provider] -
[2018-06-16] MEDS: HYDROcodone Bitartrate/Apap 5/325 Tablet PO (01:42)
--- NOTE | 2018-06-16 03:19 | ED.DEP ---
ED Disposition - Plan for ED Patient: Chief Complaint: Upper Extremity Injury Instructions: ED Contusion Upper Ext Referrals: Carson Stehpenson MD [Primary Care Provider] -
[2018-06-16 03:36] VITALS: BP 112/74; PULSE 75; RESP 16; O2SAT 96
== END 2018-06-16 03:49 | disposition home or self-care (01) ==
LOC: ED 01:28
PROVIDERS: Emergency Provider Emergency Medicine; Family Provider Family Medicine; PCP Family Medicine
DX: S40.021A Contusion of right upper arm, initial encounter (principal); W01.0XXA Fall on same level from slipping, tripping and stumbling without subsequent striking against object, initial encounter; Y93.9 Activity, unspecified; Y92.9 Unspecified place or not applicable; J44.9 Chronic obstructive pulmonary disease, unspecified; I10 Essential (primary) hypertension; M79.7 Fibromyalgia; K58.9 Irritable bowel syndrome, unspecified; F41.9 Anxiety disorder, unspecified; F32.9 Major depressive disorder, single episode, unspecified; Z85.01 Personal history of malignant neoplasm of esophagus; Z79.01 Long term (current) use of anticoagulants; Z79.899 Other long term (current) drug therapy; Z72.0 Tobacco use
CPT/HCPCS: 73090; 73110; 73130; 99282

== ENCOUNTER 2018-06-24 01:55 | Emergency (ER) | payer MEDICARE, SELFPAY ==
[2018-06-24 01:56] VITALS: BP 129/73; PULSE 91; RESP 16; TEMP 37.2; O2SAT 93; BMI 34.9
[2018-06-24] MEDS: Diphth,Pertuss(Acell),Tet Vac 0.5 ML Vial IM (02:32)
--- NOTE | 2018-06-24 02:40 | RAD_ITS ---
STUDY: X-RAY - LEFT HAND REASON FOR EXAM: Female, 58 years old. Laceration from glass to left palm between fourth and fifth metacarpal joints. TECHNIQUE: 3 view(s) of the hand. First second and third proximal digital rings were not removable. COMPARISON: None. FINDINGS: There is demineralization of osseous structures. Normal radiocarpal articulation. Normal distal radioulnar joint. Normal visualized carpal bones. Normal carpal articulations There is degenerative arthrosis of the carpometacarpal (CMC) articulation of the thumb. Normal second through fifth carpometacarpal joints. Normal metacarpi. There is degenerative arthrosis of the metacarpophalangeal (MCP) joints. Normal interphalangeal joint of the thumb. Normal proximal and distal phalanges of the thumb. Normal metacarpophalangeal joints of the second through fifth fingers. Normal proximal and distal interphalangeal joints of the second through fifth fingers. Normal phalanges of the second through fifth fingers. The soft tissue structures are unremarkable. RAD/Hand Min 3 Views IMPRESSION: There is no radiopaque foreign body. Degenerative changes and osteopenia. Electronically Signed: Mireya Hyde MD at 3:00 EST , Service support ,
--- NOTE | 2018-06-24 02:59 | ED.DCSUM_ITS ---
- ER Visit Summary Date of Service: 06/24/18 Chief Complaint: Left hand laceration History of Present Illness: The patient is a 58 F who presents with a left hand laceration. She was holding a glass. She states it was filled up with glass and she was trying to pack the glass down into the cup when it broke. This occurred about 20 minutes before mentation. She complains of some tingling in her fourth and fifth digits. Physical Examination: Afebrile vitals normal Heart regular rate There is a 1-1/2 cm laceration over the palm of the left hand in between and just proximal to the fourth and fifth MCP joints she has normal sensation to light touch objectively, active full range of motion, brisk capillary refill Test Results: Hand x-ray on my review shows no foreign body Emergency Department Course and Treatment: Laceration was anesthetized with local 1% lidocaine without epinephrine. The wound was cleansed and irrigated with sterile saline. Laceration was closed utilizing 3 simple interrupted 4?0 nonabsorbable sutures. Patient instructed on local wound care. She was given Tylenol for pain. She was advised to have sutures removed and 7-10 days. She was discharged. Treatment Plan: [] Disposition: Discharge Impression: Hand laceration This note was generated with [employer] dictation software. It may contain incorrect words, spelling, and punctuation that were not noted in review of the chart prior to signing ED Disposition - Plan for ED Patient: Chief Complaint: Laceration Referrals: Carson Stephenson MD [Primary Care Provider] -
--- NOTE | 2018-06-24 02:59 | ED.DEP ---
ED Disposition - Plan for ED Patient: Chief Complaint: Laceration Instructions: ED Laceration Hand Referrals: Carson Stephenson MD [Primary Care Provider] -
[2018-06-24] MEDS: Acetaminophen 325 MG Tablet 650 MG PO (03:29)
[2018-06-24 03:34] VITALS: RESP 16
== END 2018-06-24 03:35 | disposition home or self-care (01) ==
LOC: ED 02:42
PROVIDERS: Emergency Provider Emergency Medicine; Family Provider Family Medicine; PCP Family Medicine
DX: S61.412A Laceration without foreign body of left hand, initial encounter (principal); W25.XXXA Contact with sharp glass, initial encounter; Y93.9 Activity, unspecified; Y92.9 Unspecified place or not applicable; J44.9 Chronic obstructive pulmonary disease, unspecified; I10 Essential (primary) hypertension; Z86.718 Personal history of other venous thrombosis and embolism; Z90.49 Acquired absence of other specified parts of digestive tract; Z79.01 Long term (current) use of anticoagulants; Z79.899 Other long term (current) drug therapy; Z72.0 Tobacco use
CPT/HCPCS: 12001; 73130; 90715; 99284

== ENCOUNTER 2018-07-08 14:41 | Inpatient (IN) | payer MEDICARE, SELFPAY ==
[2018-07-08] VITALS (9 sets, daily range): BP systolic 89–114; BP diastolic 50–71; PULSE 72–83; RESP 16–20; TEMP 36.5–37.2; O2SAT 94–97; BMI 33.5
--- NOTE | 2018-07-08 19:40 | PCM.HP.STD ---
Problem List (1) Epidural pain pump trial Status: Acute (2) Chronic low back pain with sciatica Status: Chronic (3) Pneumococcal pneumonia (streptococcus pneumoniae pneumonia) Status: Resolved (4) Aspiration pneumonia Status: Resolved Qualifiers: (5) History of esophageal cancer Status: Chronic (6) Chronic upper back pain Status: Chronic (7) Sepsis Status: Resolved (8) History of hypertension Status: Chronic (9) History of fibromyalgia Status: Chronic (10) History of IBS Status: Chronic (11) Anxiety and depression Status: Chronic (12) Histrionic personality disorder Status: Chronic (13) RSD lower limb Status: Chronic (14) COPD (chronic obstructive pulmonary disease) Status: Chronic Qualifiers: (15) History of deep venous thrombosis or pulmonary embolus Status: Chronic Comment: on xarelto IVC filter protein C deficiency (16) CAP (community acquired pneumonia) Status: Acute (17) Protein C deficiency Status: Chronic (18) History of recurrent pneumonia Status: Chronic (19) 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 Walker was directly admitted for epidural morphine intrathecal pump trial. Patient has chronic neck pain, chronic back pain, sciatica in nature which radiates to the dorsum of feet, fibromyalgia and neuropathy pain. Patient had epidural pump put in today by Dr. Walker and then directly admitted on the floor. Patient with other chronic comorbidities include COPD and is on inhalers and nebulization and still smokes about 5 cigarettes every few days as per the patient. 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) COPD (chronic obstructive pulmonary disease) (Chronic) History of deep venous thrombosis or pulmonary embolus (Chronic) on xarelto IVC filter protein C deficiency Protein C deficiency (Chronic) History of recurrent pneumonia (Chronic) DVT of proximal lower limb (Chronic) Lung mass (Chronic) Kidney stones (Chronic) Allergies celecoxib Allergy (Verified 05/31/18 05:05) Swelling naproxen Allergy (Verified 05/31/18 05:05) Swelling Penicillins Allergy (Verified 05/31/18 05:05) Hives pregabalin Allergy (Verified 05/31/18 05:05) Swelling Home Medications: Ambulatory Orders Medication Instructions Recorded Amitriptyline HCl [Elavil] 200 mg PO QHS 04/26/14 Duloxetine Hcl [Cymbalta] 60 mg PO DAILY 04/26/14 Gabapentin [Neurontin] 300 mg PO 4X/DAY 04/26/14 Clonazepam [Klonopin] 0.5 mg PO 4X/DAY PRN 12/13/14 Furosemide [Lasix] 80 mg PO BREAKFAST 02/04/16 Albuterol Aerosols [Ventolin 2.5 mg INHALATION Q6H PRN PRN 03/04/16 Aerosols] Fluticasone 110 Mcg [Flovent 110 1 puff INHALATION BID 03/04/16 Mcg] Ipratropium/Albuterol Respimat 2 puff INHALATION 4X/DAY PRN 03/04/16 [Combivent Respimat Inhal [place]] Multivitamin [Daily Multiple 1 each PO DAILY 03/04/16 Vitamin] Potassium Chloride [Klor-Con] 20 meq PO BID 03/04/16 Rivaroxaban [Xarelto] 20 mg PO DAILY 02/27/17 Furosemide [Lasix] 40 mg PO DINNER 06/12/17 Dextroamphetamine/Amphetamine 30 mg PO DAILY 08/09/17 [Adderall 30 mg Tablet] Oxycodone HCl/Acetaminophen 1 tab PO Q8H 05/30/18 [Percocet 7.5-325 mg Tablet] Surgical History: appendectomy, cholecystectomy, hysterectomy, tonsillectomy Psychiatric History: Anxiety [employer] History: endometriosis, uterine fibroids Smoking Status: Current some day smoker - *Family History Maternal History Items: - Paternal History Items: Cancer - Colon and lung cancer Review of Systems Constitutional: Denies: Chills, Fever, Weight Change HEENT: Denies: Head Aches, Sinus Congestion, Sinus Drainage Cardiovascular: Denies: Chest Pain, Palpitations Respiratory: Reports: Cough - Chronic cough, COPD. Denies: Shortness of breath at rest, Sputum production Gastrointestinal: Denies: Abdominal Pain, Nausea, Vomiting Genitourinary: Denies: Dysuria Musculoskeletal: Denies: Joint Pain, Joint Tenderness Skin: Denies: Rash, Wounds Neurological: Denies: Numbness, Tingling, Focal weakness Psychiatric: Denies: Anxiety, Depression, Homicidal Ideations, Suicidal Ideations Hematologic/ Lymphatic: Denies: Easy Bruising, Easy Bleeding VTE Information - Inpt Only VTE Present on Admission: No VTE Mechan Device Prophylaxis: SCD's VTE Pharm Prophylaxis ordered?: No Reason prophylaxis not ordered:: Medical Contraindication - on epidural pain pump Patient Problems: Active and Suspected Problems Epidural pain pump trial (Acute) - Physical Exam General: Alert, Oriented x3, Cooperative HEENT: Atraumatic, PERRLA, EOMI, Normocephalic Oral: - - History of oral and pharyngeal dysphagia. Neck: Supple, No JVD, Negative Carotid Bruits Lungs: Clear to auscultation, Normal air movement Cardiovascular: Regular rate, No murmurs Abdomen: Bowel Sounds Present, Soft, Non Tender Extremities: Capillary Refill Less than 3 Seconds, Edema Skin: No rashes, No breakdown Musculoskeletal: Arthritic Changes, Muscle Wasting, Tenderness - Lower spine tenderness Neurological: Cranial nerves II-XII grossly intact, Deep Tendon Reflexes 2+/4 and Symmetrical, Neuro grossly intact Psych/Mental Status: Normal Affect, Appropriate Vital Signs Temp Pulse Resp BP Pulse Ox 97.7 F L 74 16 95/57 L 94 07/08/18 19:02 07/08/18 19:02 07/08/18 19:02 07/08/18 19:02 07/08/18 19:02 Oxygen Delivery Method Room Air Weight: 188 lb 14.978 oz Body Mass Index (BMI) 33.5 Intake and Output for Last 24 Hours 07/06/18 07/07/18 07/08/18 23:59 23:59 23:59 Intake Total 200 / 200 Balance 200 / 200 Assessment/Plan All Active Problems Epidural pain pump trial (Acute) Pneumococcal pneumonia (streptococcus pneumoniae pneumonia) (Resolved) Aspiration pneumonia (Resolved) Sepsis (Resolved) CAP (community acquired pneumonia) (Acute) Right middle lobe/bibasilar pneumonia (Acute) COPD exacerbation (Acute) Pneumococcal pneumonia (Acute) RSV bronchitis (Acute) History of Legionnaire's disease (Resolved) The patient is a 58 year old F with multiple comorbidities as listed above including chronic back pain on multiple opioid oral medications, being managed by Dr. Walker was directly admitted for epidural morphine intrathecal pump trial. Patient has chronic neck pain, chronic back pain, sciatica in nature which radiates to the dorsum of feet, fibromyalgia and neuropathy pain. Patient had epidural pump put in today by Dr. Walker and then directly admitted on the floor. Patient with other chronic comorbidities include COPD and is on inhalers and nebulization and still smokes about 5 cigarettes every few days as per the patient. [] 1. Chronic back pain with sciatica, cervical neck pain, chronic pain disorder on epidural intrathecal morphine pain trial: Intrathecal pain pump is being managed by Dr. Walker. 2. COPD: Stable. Patient is still a smoker smoking cessation advised. Continue Combivent inhaler, and fluticasone inhalation. 3. History of protein C deficiency and DVT of proximal lower limb: Patient is on Xarelto at home. Since patient has epidural pain pump, anticoagulant is contraindicated given risk of epidural hematoma. Bilateral SCDs. 4. History of esophageal cancer with dysphagia status post resection: Continue dysphagia diet. Multiple recurrent admissions for different reasons including aspiration pneumonia, and COPD exacerbations in the past. Other chronic comorbidities include histrionic personality disorder, reflex sympathetic dystrophy of lower extremity, neuropathic pain: Home medication reconciliation done. DVT prophylaxis: Bilateral SCDs. Please see above. Multiple comorbidities complicates the present care and expect difficult and delay recovery Code Visit Inpatient E&M: 87360 Init Hosp L3
[2018-07-08 19:56] LABS: Absolute Lymphocyte Count 0.91 X10^3/ul (0.83-4.51); Absolute Neutrophil Count 1.5 X10^3/uL (2.0-7.7); Basophil# 0.01 X10^3/uL; Basophil% 0.3 % (0-1); Eosinophil# 0.14 X10^3/uL; Eosinophils% 4.8 % (0-5); Hematocrit 29.8 % (37-47); Hemoglobin 9.2 g/dl (12.0-15.0); Lymphocyte # 0.91 X10^3/ul (4.0); Lymphocyte % 31.2 % (19-41); Mean Corp Hgb Conc 30.9 g/gl (32-36); Mean Corpuscular Hgb 27.7 pg (27.0-32.0); Mean Corpuscular Volume 89.8 fL (81-99); Mean Platelet Vol. 9.6 fl (6.2-12.0); Monocyte# 0.38 X10^3/uL; Neutrophil # 1.48 X10^3/uL (2.7-7.7); Neutrophil % 50.7 % (47-70); Platelet Count 206 K/mm3 (150-450); RBC Distribution Width CV 17.2 % (11.6-14.6); RBC Distribution Width SD 56.3 fl (35.1-43.9); Red Blood Count 3.32 M/mm3 (4.2-5.4); White Blood Count 2.9 K/mm3 (4.4-11.0)
[2018-07-08 20:24] LABS: ALB/GLOB Ratio 0.9 RATIO (0.9-2.4); AST(SGOT) 18 U/L (15-37); Alanine Aminotransfer ALT/SGPT 17 U/L (13-56); Alkaline Phosphatase 103 U/L (45-117); Anion Gap 5 (5-15); BUN 9 mg/dL (7-18); BUN/Creat Ratio 11.5 RATIO (10-20); Calcium,Total 8.1 mg/dL (8.5-10.1); Chloride 102 mmol/L (98-107); Creatinine, Serum 0.78 mg/dL (0.55-1.02); EST Glomerular Filtration Rate 81 mL/min (>60); Est Glom Filt Rate - Afr Amer 98 mL/min (>60); Estimated Creatinine Clearance 65.83 ml/min; Globulin 3.2 g/dL (2.2-4.2); Glucose 62 mg/dL (74-106); Potassium 2.9 mmol/L (3.5-5.1); Protein, Total 6.2 g/dL (6.4-8.2); Sodium Level 141 mmol/L (136-145)
[2018-07-08 20:27] LABS: POSITIVE COUNT NO; POSITIVE DIFFERENTIAL NO; POSITIVE MORPHOLOGY NO
[2018-07-08] MEDS: Famotidine 20 MG Tablet PO (21:39)
[2018-07-08] MEDS: Gabapentin 300 MG Capsule PO (21:40)
[2018-07-08] MEDS: Amitriptyline 100 MG Tablet 200 MG PO (21:40)
[2018-07-09] VITALS (25 sets, daily range): BP systolic 83–125; BP diastolic 53–87; PULSE 68–97; RESP 16–18; TEMP 36.5–37.3; O2SAT 92–100
[2018-07-09] MEDS: Gabapentin 300 MG Capsule PO ×4 (05:16→22:43)
[2018-07-09] MEDS: Budesonide Respules 0.5 MG/2 ML AMPUL.NEB. INHALATION ×2 (07:24→19:15)
--- NOTE | 2018-07-09 08:37 | PCM.PN.HOSP ---
Patient Problems: Active and Suspected Problems Epidural pain pump trial (Acute) Subjective: States that her pain is a little better controlled today. No CP or SOB, no lightheadedness or dizziness Vitals/I&O's: Vital Signs Temp Pulse Resp BP Pulse Ox 97.7 F L 73 18 103/63 92 07/09/18 07:52 07/09/18 07:52 07/09/18 07:52 07/09/18 07:52 07/09/18 07:59 Oxygen Flow Rate (L/min) 1 Oxygen Delivery Method Nasal Cannula Weight: 188 lb 14.978 oz Body Mass Index (BMI) 33.5 Intake and Output for Last 24 Hours 07/07/18 07/08/18 07/09/18 23:59 23:59 23:59 Intake Total 200 / 200 793.3 / 793.3 Balance 200 / 200 793.3 / 793.3 General: Alert, Oriented x3, Cooperative, No apparent distress HEENT: Atraumatic, EOMI, Normocephalic Oral: Moist Mucosa Neck: Supple, No JVD Lungs: Clear to auscultation, Normal air movement, No rhonchi, No wheeze, No rales Cardiovascular: Regular rate, Regular Rhythm, Normal S1, Normal S2, No murmurs Abdomen: Soft, Non Tender, Non-Distended, No Hepato-splenomegaly Extremities: No edema, Capillary Refill Less than 3 Seconds Skin: No rashes, No breakdown Neurological: Neuro grossly intact, Sensory exam intact to light touch and pain Psych/Mental Status: Normal Affect, Appropriate Laboratory Results 07/08/18 19:45: WBC 2.9 L, RBC 3.32 L, Hgb 9.2 L, Hct 29.8 L, MCV 89.8, MCH 27.7, MCHC 30.9 L, RDW 17.2 H, RDW Differential 56.3 H, Plt Count 206, MPV 9.6, Immature Gran % (Auto) 0.000, Neut % (Auto) 50.7, Lymph % (Auto) 31.2, [place] % (Auto) 13.0 H, Eos % (Auto) 4.8, Baso % (Auto) 0.3, Absolute Neuts (auto) 1.5 L, Absolute Lymphs (auto) 0.91, Total Counted Not Reportable 07/08/18 19:45: Sodium 141, Potassium 2.9 L, Chloride 102, Carbon Dioxide 34.0 H, Anion Gap 5, BUN 9, Creatinine 0.78, Estim Creat Clear Calc 65.83, Est GFR (MDRD) Af Amer 98, Est GFR (MDRD) Non-Af 81, BUN/Creatinine Ratio 11.5, Glucose 62 L, Calcium 8.1 L, Total Bilirubin 0.10 L, AST 18, ALT 17, Alkaline Phosphatase 103, Total Protein 6.2 L, Albumin 3.0 L, Globulin 3.2, Albumin/Globulin Ratio 0.9 Current Medications Albuterol Sulfate (Ventolin Aerosols) 2.5 mg INHALATION Q6H PRN PRN PRN Reason: WHEEZING Amitriptyline HCl (Elavil) 200 mg PO QHS [facility] Last Admin: 07/08/18 21:40 Dose: 200 mg Bisacodyl (Dulcolax) 10 mg RECTAL DAILY PRN PRN PRN Reason: Constipation Budesonide (Pulmicort Aerosol) 0.5 mg INHALATION Q12H.RT [facility] Last Admin: 07/09/18 07:24 Dose: 0.5 mg Clonazepam (Klonopin) 0.5 mg PO 4X/DAY PRN PRN Reason: ANXIETY Diphenhydramine HCl (Benadryl) 12.5 - 25 mg IV Q6H PRN PRN PRN Reason: ITCHING Diphenhydramine HCl (Benadryl) 12.5 - 25 mg PO Q6H PRN PRN PRN Reason: ITCHING Duloxetine HCl (Cymbalta) 60 mg PO DAILY [facility] Famotidine (Pepcid) 20 mg PO BID [facility] Last Admin: 07/08/18 21:39 Dose: 20 mg Furosemide (Lasix) 40 mg PO DINNER [facility] Furosemide (Lasix) 80 mg PO BREAKFAST [facility] Gabapentin (Neurontin) 300 mg PO 4X/DAYCM [facility] Last Admin: 07/09/18 05:16 Dose: 300 mg Morphine Sulfate 25 mg/ N/A 50 mls @ 0.1 mls/hr OPERA.SITE .Q48H [facility] Last Admin: 07/08/18 17:59 Dose: 0.1 mls/hr Multivitamins (Multivitamin) 1 tablet PO DAILY@0800 [facility] Ondansetron HCl (Zofran) 4 mg IV Q6H PRN PRN PRN Reason: NAUSEA Polyethylene Glycol (Miralax) 17 gm PO DAILY [facility] Potassium Chloride (K-Dur) 20 meq PO BIDCM [facility] Promethazine HCl (Phenergan) 12.5 mg IV Q6H PRN PRN PRN Reason: NAUSEA/VOMITING Psyllium Hydrophilic Mucilloid (Metamucil) 1 packet PO DAILY PRN PRN PRN Reason: CONSTIPATION Senna/Docusate Sodium (Senokot-S, Doris-Colace) 2 tablet PO BID PRN PRN Reason: constipation Sodium Chloride () 5 - 15 ml IV UD PRN PRN Reason: SALINE FLUSH Medical Necessity - Tobacco Use Smoking Status: Current some day smoker Assessment/Plan All Active Problems Epidural pain pump trial (Acute) Pneumococcal pneumonia (streptococcus pneumoniae pneumonia) (Resolved) Aspiration pneumonia (Resolved) Sepsis (Resolved) CAP (community acquired pneumonia) (Acute) Right middle lobe/bibasilar pneumonia (Acute) COPD exacerbation (Acute) Pneumococcal pneumonia (Acute) RSV bronchitis (Acute) History of Legionnaire's disease (Resolved) 1. Chronic back pain with sciatica/Cervical neck pain/Chronic pain/RSD/S/p epidural intrathecal morphine pump/Neuropathy - Pump is infusing - Consult to Dr. Walker placed will await recommendations - C/w Elavil, Gabapentin, and cymbalta 2. COPD - currently stable without exacerbation - c/w albuterol and budesonide 3. Protein C deficiency and h.o DVT - She is on Xarelto at home - Discontinued since recent epidural pump placement - Will follow Dr. Walker's recommendations on when to restart since he inserted the pump - SCDs for now 4. H/o esophageal cancer s/p resection - stable - c/w dysphagia diet DVT: SCDs Code Visit Inpatient E&M: 52989 Subs Hosp L2
--- NOTE | 2018-07-09 08:46 | PN_ITS ---
Patient Problems: Active and Suspected Problems Epidural pain pump trial (Acute) Subjective: States that her pain is a little better controlled today. No CP or SOB, no lightheadedness or dizziness Vitals/I&O's: Vital Signs Temp Pulse Resp BP Pulse Ox 97.7 F L 73 18 103/63 92 07/09/18 07:52 07/09/18 07:52 07/09/18 07:52 07/09/18 07:52 07/09/18 07:59 Oxygen Flow Rate (L/min) 1 Oxygen Delivery Method Nasal Cannula Weight: 188 lb 14.978 oz Body Mass Index (BMI) 33.5 Intake and Output for Last 24 Hours 07/07/18 07/08/18 07/09/18 23:59 23:59 23:59 Intake Total 200 / 200 793.3 / 793.3 Balance 200 / 200 793.3 / 793.3 General: Alert, Oriented x3, Cooperative, No apparent distress HEENT: Atraumatic, EOMI, Normocephalic Oral: Moist Mucosa Neck: Supple, No JVD Lungs: Clear to auscultation, Normal air movement, No rhonchi, No wheeze, No rales Cardiovascular: Regular rate, Regular Rhythm, Normal S1, Normal S2, No murmurs Abdomen: Soft, Non Tender, Non-Distended, No Hepato-splenomegaly Extremities: No edema, Capillary Refill Less than 3 Seconds Skin: No rashes, No breakdown Neurological: Neuro grossly intact, Sensory exam intact to light touch and pain Psych/Mental Status: Normal Affect, Appropriate Laboratory Results 07/08/18 19:45: WBC 2.9 L, RBC 3.32 L, Hgb 9.2 L, Hct 29.8 L, MCV 89.8, MCH 27.7, MCHC 30.9 L, RDW 17.2 H, RDW Differential 56.3 H, Plt Count 206, MPV 9.6, Immature Gran % (Auto) 0.000, Neut % (Auto) 50.7, Lymph % (Auto) 31.2, [place] % (Auto) 13.0 H, Eos % (Auto) 4.8, Baso % (Auto) 0.3, Absolute Neuts (auto) 1.5 L, Absolute Lymphs (auto) 0.91, Total Counted Not Reportable 07/08/18 19:45: Sodium 141, Potassium 2.9 L, Chloride 102, Carbon Dioxide 34.0 H , Anion Gap 5, BUN 9, Creatinine 0.78, Estim Creat Clear Calc 65.83, Est GFR (MDRD) Af Amer 98, Est GFR (MDRD) Non-Af 81, BUN/Creatinine Ratio 11.5, Glucose 62 L, Calcium 8.1 L, Total Bilirubin 0.10 L, AST 18, ALT 17, Alkaline Phosphatase 103, Total Protein 6.2 L, Albumin 3.0 L, Globulin 3.2, Albumin/Globulin Ratio 0.9 Current Medications Albuterol Sulfate (Ventolin Aerosols) 2.5 mg INHALATION Q6H PRN PRN PRN Reason: WHEEZING Amitriptyline HCl (Elavil) 200 mg PO QHS [facility] Last Admin: 07/08/18 21:40 Dose: 200 mg Bisacodyl (Dulcolax) 10 mg RECTAL DAILY PRN PRN PRN Reason: Constipation Budesonide (Pulmicort Aerosol) 0.5 mg INHALATION Q12H.RT [facility] Last Admin: 07/09/18 07:24 Dose: 0.5 mg Clonazepam (Klonopin) 0.5 mg PO 4X/DAY PRN PRN Reason: ANXIETY Diphenhydramine HCl (Benadryl) 12.5 - 25 mg IV Q6H PRN PRN PRN Reason: ITCHING Diphenhydramine HCl (Benadryl) 12.5 - 25 mg PO Q6H PRN PRN PRN Reason: ITCHING Duloxetine HCl (Cymbalta) 60 mg PO DAILY [facility] Famotidine (Pepcid) 20 mg PO BID [facility] Last Admin: 07/08/18 21:39 Dose: 20 mg Furosemide (Lasix) 40 mg PO DINNER [facility] Furosemide (Lasix) 80 mg PO BREAKFAST [facility] Gabapentin (Neurontin) 300 mg PO 4X/DAYCM [facility] Last Admin: 07/09/18 05:16 Dose: 300 mg Morphine Sulfate 25 mg/ N/A 50 mls @ 0.1 mls/hr OPERA.SITE .Q48H [facility] Last Admin: 07/08/18 17:59 Dose: 0.1 mls/hr Multivitamins (Multivitamin) 1 tablet PO DAILY@0800 [facility] Ondansetron HCl (Zofran) 4 mg IV Q6H PRN PRN PRN Reason: NAUSEA Polyethylene Glycol (Miralax) 17 gm PO DAILY [facility] Potassium Chloride (K-Dur) 20 meq PO BIDCM [facility] Promethazine HCl (Phenergan) 12.5 mg IV Q6H PRN PRN PRN Reason: NAUSEA/VOMITING Psyllium Hydrophilic Mucilloid (Metamucil) 1 packet PO DAILY PRN PRN PRN Reason: CONSTIPATION Senna/Docusate Sodium (Senokot-S, Doris-Colace) 2 tablet PO BID PRN PRN Reason: constipation Sodium Chloride () 5 - 15 ml IV UD PRN PRN Reason: SALINE FLUSH Medical Necessity - Tobacco Use Smoking Status: Current some day smoker Assessment/Plan All Active Problems Epidural pain pump trial (Acute) Pneumococcal pneumonia (streptococcus pneumoniae pneumonia) (Resolved) Aspiration pneumonia (Resolved) Sepsis (Resolved) CAP (community acquired pneumonia) (Acute) Right middle lobe/bibasilar pneumonia (Acute) COPD exacerbation (Acute) Pneumococcal pneumonia (Acute) RSV bronchitis (Acute) History of Legionnaire's disease (Resolved) 1. Chronic back pain with sciatica/Cervical neck pain/Chronic pain/RSD/S/p epidural intrathecal morphine pump/Neuropathy - Pump is infusing - Consult to Dr. Walker placed will await recommendations - C/w Elavil, Gabapentin, and cymbalta 2. COPD - currently stable without exacerbation - c/w albuterol and budesonide 3. Protein C deficiency and h.o DVT - She is on Xarelto at home - Discontinued since recent epidural pump placement - Will follow Dr. Walker's recommendations on when to restart since he inserted the pump - SCDs for now 4. H/o esophageal cancer s/p resection - stable - c/w dysphagia diet DVT: SCDs Code Visit Inpatient E&M: 49962 Subs Hosp L2
[2018-07-09] MEDS: Polyethylene Glycol 3350 17 GM PACKET PO (09:00)
[2018-07-09] MEDS: DULoxetine Hcl 60 MG Capsule PO (09:00)
[2018-07-09] MEDS: Multivitamins,Therapeutic Tablet 1 TABLET PO (09:00)
[2018-07-09] MEDS: Furosemide 40 MG Tablet 80 MG PO (09:00)
[2018-07-09] MEDS: Famotidine 20 MG Tablet PO ×2 (09:00→22:43)
--- NOTE | 2018-07-09 12:45 | CASEMGMT ---
RN FILIBERTO Face to Face with patient for initial transition planning/care coordination assessment. RN CM introduced self and role at [facility]. Patient lying in bed, alert and oriented. Patient willing to participate in assessment and is able to answer all questions appropriately. Care providers, pharmacy, and demographics verified. Patient wishes to discharge home, denies need for home health at this time. Patient states she has no further needs or concerns at this time. CM to follow for discharge planning needs that may arise. PCP: Sachin Specialists: Aaron Preferred Pharmacy: [facility] Insurance: [facility] Prescription Benefit: Yes Living Will/HPOA: Yes, Tha Anderson LNOK: and son Living Arrangements: Patient lives with and son in 2 story home. Patient states she is independent and able to navigate stairs. Transportation: Self/family DME/HHC: Patient states she has wheelchair, oxygen at night, and nebulizer at home. Disposition Plan: Patient to discharge home with family support and follow-up plans in place. Malika MORTENSEN, RN, CM
[2018-07-09] MEDS: Furosemide 40 MG Tablet PO (16:59)
[2018-07-09] MEDS: clonazePAM 0.5 MG Tablet PO ×2 (16:59→23:02)
--- NOTE | 2018-07-09 18:10 | NURSING ---
DR MARCUM'S OFFICE CALLED IN FOR PT UPDATE.
[2018-07-09] MEDS: Amitriptyline 100 MG Tablet 200 MG PO (22:43)
[2018-07-10 02:45] VITALS: BP 113/60; PULSE 83; RESP 18; TEMP 37.1; O2SAT 95
[2018-07-10 06:00] VITALS: BP 90/53; PULSE 73; RESP 18; TEMP 36.9; O2SAT 97
[2018-07-10 06:30] LABS: Absolute Lymphocyte Count 1.14 X10^3/ul (0.83-4.51); Absolute Neutrophil Count 1.2 X10^3/uL (2.0-7.7); Basophil# 0.01 X10^3/uL; Basophil% 0.4 % (0-1); Eosinophil# 0.19 X10^3/uL; Eosinophils% 6.9 % (0-5); Hematocrit 31.2 % (37-47); Hemoglobin 9.3 g/dl (12.0-15.0); Lymphocyte # 1.14 X10^3/ul (4.0); Lymphocyte % 41.2 % (19-41); Mean Corp Hgb Conc 29.8 g/gl (32-36); Mean Corpuscular Hgb 27.8 pg (27.0-32.0); Mean Corpuscular Volume 93.4 fL (81-99); Mean Platelet Vol. 10.2 fl (6.2-12.0); Monocyte# 0.26 X10^3/uL; Monocyte% 9.4 % (0-10); Neutrophil # 1.16 X10^3/uL (2.7-7.7); Neutrophil % 41.7 % (47-70); Platelet Count 230 K/mm3 (150-450); RBC Distribution Width CV 17.5 % (11.6-14.6); RBC Distribution Width SD 57.6 fl (35.1-43.9); Red Blood Count 3.34 M/mm3 (4.2-5.4); White Blood Count 2.8 K/mm3 (4.4-11.0)
[2018-07-10 06:36] LABS: Anion Gap 6 (5-15); BUN 12 mg/dL (7-18); BUN/Creat Ratio 17.4 RATIO (10-20); Chloride 105 mmol/L (98-107); Creatinine, Serum 0.69 mg/dL (0.55-1.02); EST Glomerular Filtration Rate 93 mL/min (>60); Est Glom Filt Rate - Afr Amer 113 mL/min (>60); Estimated Creatinine Clearance 74.41 ml/min; Glucose 77 mg/dL (74-106); Magnesium 2.4 mg/dL (1.6-2.6); Phosphorus 4.7 mg/dL (2.5-4.9); Potassium 3.7 mmol/L (3.5-5.1); Sodium Level 144 mmol/L (136-145)
[2018-07-10 06:37] LABS: POSITIVE COUNT NO; POSITIVE DIFFERENTIAL NO; POSITIVE MORPHOLOGY NO
[2018-07-10] MEDS: Budesonide Respules 0.5 MG/2 ML AMPUL.NEB. INHALATION (07:07)
[2018-07-10 07:15] VITALS: BP 99/67; PULSE 86; RESP 18; TEMP 37.1; O2SAT 93
[2018-07-10] MEDS: Multivitamins,Therapeutic Tablet 1 TABLET PO (07:50)
[2018-07-10] MEDS: Gabapentin 300 MG Capsule PO ×2 (07:51→11:13)
[2018-07-10] MEDS: Furosemide 40 MG Tablet 80 MG PO (07:51)
[2018-07-10 09:40] VITALS: RESP 18
[2018-07-10] MEDS: Polyethylene Glycol 3350 17 GM PACKET PO (09:47)
[2018-07-10] MEDS: Famotidine 20 MG Tablet PO (09:47)
[2018-07-10] MEDS: DULoxetine Hcl 60 MG Capsule PO (09:47)
--- NOTE | 2018-07-10 09:54 | DCINST_ITS ---
- Discharge Diagnoses Current Active Problems: Current Active and Chronic Problems Epidural pain pump trial (Acute) 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) You will use the following diet at home:: Regular Your food should be the consistency of: Regular Your liquids should be the consistency of: Regular/Thin Discharge Activity: May not drive while taking narcotic pain medications. Call your doctor if your incision/area has: Increased Pain/ Swelling, Foul Smelling Discharge, Swelling at the incision site Call your doctor if you observe: Fever of 101 or Higher, Inability to urinate, Inability to have a bowel movement, Shortness of breath, Dizziness, Fainting spells Allergies/Adverse Reactions: Allergies celecoxib Allergy (Verified 05/31/18 05:05) Swelling naproxen Allergy (Verified 05/31/18 05:05) Swelling Penicillins Allergy (Verified 05/31/18 05:05) Hives pregabalin Allergy (Verified 05/31/18 05:05) Swelling Medications to take at Discharge Amitriptyline HCl [Elavil] 200 mg PO QHS 04/26/14 Duloxetine Hcl [Cymbalta] 60 mg PO DAILY 04/26/14 Gabapentin [Neurontin] 300 mg PO 4X/DAY 04/26/14 Clonazepam [Klonopin] 0.5 mg PO 4X/DAY PRN 12/13/14 Furosemide [Lasix] 80 mg PO BREAKFAST 02/04/16 Albuterol Aerosols [Ventolin Aerosols] 2.5 mg INHALATION Q6H PRN PRN 03/04/16 Fluticasone 110 Mcg [Flovent 110 Mcg] 1 puff INHALATION BID 03/04/16 Ipratropium/Albuterol Respimat [Combivent Respimat Inhal [place]] 2 puff INHALATION 4X/DAY PRN 03/04/16 Multivitamin [Daily Multiple Vitamin] 1 each PO DAILY 03/04/16 Potassium Chloride [Klor-Con] 20 meq PO BID 03/04/16 Rivaroxaban [Xarelto] 20 mg PO DAILY 02/27/17 Furosemide [Lasix] 40 mg PO DINNER 06/12/17 Dextroamphetamine/Amphetamine [Adderall 30 mg Tablet] 30 mg PO DAILY 08/09/17 Oxycodone HCl/Acetaminophen [Percocet 7.5-325 mg Tablet] 1 tab PO Q8H 05/30/18 Primary Care Physician: Carson Stephenson MD [Primary Care Provider] - Please follow up with your Primary Care Physician in: In 3-5 days Test Results: Test results from this visit will be discussed in further detail at your follow- up appointment, if applicable. Please Follow Up With: Susu Walker MD - When previously scheduled
--- NOTE | 2018-07-10 10:01 | DS.PCM_ITS ---
Discharge Date and Diagnosis - Problem List Patient Problems: Active and Suspected Problems Epidural pain pump trial (Acute) Date of Admission: 07/08/18 Date of Discharge: 07/10/18 - Primary Discharge Diagnosis Active and Suspected Problems Epidural pain pump trial (Acute) - Secondary Discharge Diagnosis Chronic Problems 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) History of esophageal cancer (Chronic) Chronic upper back pain (Chronic) History of hypertension (Chronic) History of fibromyalgia (Chronic) History of IBS (Chronic) Anxiety and depression (Chronic) Histrionic personality disorder (Chronic) RSD lower limb (Chronic) COPD (chronic obstructive pulmonary disease) (Chronic) History of deep venous thrombosis or pulmonary embolus (Chronic) on xarelto IVC filter protein C deficiency Protein C deficiency (Chronic) History of recurrent pneumonia (Chronic) DVT of proximal lower limb (Chronic) Lung mass (Chronic) Kidney stones (Chronic) Hospital Course and Treatment Imaging Results: None Consults: Pain Management Operations: None Procedures: None Summary of Care Provided: Per HPI: The patient is a 58 year old F with multiple comorbidities as listed above including chronic back pain on multiple opioid oral medications, being managed by Dr. Walker was directly admitted for epidural morphine intrathecal pump trial. Patient has chronic neck pain, chronic back pain, sciatica in nature which radiates to the dorsum of feet, fibromyalgia and neuropathy pain. Patient had epidural pump put in today by Dr. Walker and then directly admitted on the floor. Patient with other chronic comorbidities include COPD and is on inhalers and nebulization and still smokes about 5 cigarettes every few days as per the patient. Vital Signs - 24 hr Temp Pulse Resp BP Pulse Ox 07/10/18 09:40 18 07/10/18 07:15 98.8 F 86 18 99/67 93 07/10/18 06:00 98.4 F 73 18 90/53 L 97 07/10/18 02:45 98.8 F 83 18 113/60 95 07/09/18 22:31 98.8 F 85 18 125/74 H 95 07/09/18 19:15 70 18 07/09/18 18:50 99.2 F H 97 18 101/62 93 07/09/18 18:11 99.0 F 93 18 106/64 92 07/09/18 17:09 99.0 F 86 18 109/66 93 07/09/18 16:00 99.0 F 85 18 112/55 L 93 07/09/18 15:59 18 07/09/18 15:00 99.1 F 81 18 113/87 H 96 07/09/18 14:00 98.6 F 80 18 90/65 96 07/09/18 13:00 98.8 F 83 18 95/63 96 07/09/18 12:00 98.0 F 90 18 122/81 H 98 07/09/18 11:05 98.2 F 80 18 99/59 L 94 07/09/18 10:11 98.1 F 83 18 95/59 L 100 07/09/18 10:00 18 General: Alert, Oriented x3, Cooperative, No apparent distress HEENT: Atraumatic, EOMI, Normocephalic Oral: Moist Mucosa Neck: Supple, No JVD Lungs: Clear to auscultation, Normal air movement, No rhonchi, No wheeze, No rales Cardiovascular: Regular rate, Regular Rhythm, Normal S1, Normal S2, No murmurs Abdomen: Soft, Non Tender, Non-Distended, No Hepato-splenomegaly Extremities: No edema, Capillary Refill Less than 3 Seconds Skin: No rashes, No breakdown Neurological: Neuro grossly intact, Sensory exam intact to light touch and pain Psych/Mental Status: Normal Affect, Appropriate Hospital Course: 1. Chronic back pain with sciatica/Cervical neck pain/Chronic pain/RSD/S/p epidural intrathecal morphine pump/Neuropathy - She was admitted after having an epidural pain pump inserted for better pain control. She was not having any relief so he had her admitted for further monitoring. The system ended up having a clog and when he adjusted it, she received the infusion like she was supposed to and had significant pain relief. The pump was removed on the day of discharge and she is to have a permanent pump placed in August. She is on Xarelto for protein C deficiency, so she is to wait for 48 hours prior to restarting her xarelto. 2. Her other medical diagnoses were evaluated and her home medications were continued where appropriate Patient Problems: Active and Suspected Problems Epidural pain pump trial (Acute) - Physical Exam Vital Signs Temp Pulse Resp BP Pulse Ox 98.8 F 86 18 99/67 93 07/10/18 07:15 07/10/18 07:15 07/10/18 09:40 07/10/18 07:15 07/10/18 07:15 Oxygen Flow Rate (L/min) 2 Oxygen Delivery Method Nasal Cannula Weight: 188 lb 14.978 oz Body Mass Index (BMI) 33.5 Intake and Output for Last 24 Hours 07/08/18 07/09/18 07/10/18 23:59 23:59 23:59 Intake Total 200 / 200 2073.3 / 2073.3 1240 / 1240 Balance 200 / 200 2073.3 / 2073.3 1240 / 1240 Laboratory Tests Past 24 Hrs 07/10/18 07/10/18 05:54 05:54 WBC 2.8 L RBC 3.34 L Hgb 9.3 L Hct 31.2 L MCV 93.4 MCH 27.8 MCHC 29.8 L RDW 17.5 H RDW Differential 57.6 H Plt Count 230 MPV 10.2 Immature Gran % (Auto) 0.400 Neut % (Auto) 41.7 L Lymph % (Auto) 41.2 H [place] % (Auto) 9.4 Eos % (Auto) 6.9 H Baso % (Auto) 0.4 Absolute Neuts (auto) 1.2 L Absolute Lymphs (auto) 1.14 Total Counted Not Reportable Sodium 144 Potassium 3.7 Chloride 105 Carbon Dioxide 33.0 H Anion Gap 6 BUN 12 Creatinine 0.69 Estim Creat Clear Calc 74.41 Est GFR (MDRD) Af Amer 113 Est GFR (MDRD) Non-Af 93 BUN/Creatinine Ratio 17.4 Glucose 77 Calcium 8.0 L Phosphorus 4.7 Magnesium 2.4 Discharge Activity: May not drive while taking narcotic pain medications. Call your doctor if your incision/area has: Increased Pain/ Swelling, Foul Smelling Discharge, Swelling at the incision site Call your doctor if you observe: Fever of 101 or Higher, Inability to urinate, Inability to have a bowel movement, Shortness of breath, Dizziness, Fainting spe lls Home Medications: Medications to take at Discharge Amitriptyline HCl [Elavil] 200 mg PO QHS 04/26/14 Duloxetine Hcl [Cymbalta] 60 mg PO DAILY 04/26/14 Gabapentin [Neurontin] 300 mg PO 4X/DAY 04/26/14 Clonazepam [Klonopin] 0.5 mg PO 4X/DAY PRN 12/13/14 Furosemide [Lasix] 80 mg PO BREAKFAST 02/04/16 Albuterol Aerosols [Ventolin Aerosols] 2.5 mg INHALATION Q6H PRN PRN 03/04/16 Fluticasone 110 Mcg [Flovent 110 Mcg] 1 puff INHALATION BID 03/04/16 Ipratropium/Albuterol Respimat [Combivent Respimat Inhal [place]] 2 puff INHALATION 4X/DAY PRN 03/04/16 Multivitamin [Daily Multiple Vitamin] 1 each PO DAILY 03/04/16 Potassium Chloride [Klor-Con] 20 meq PO BID 03/04/16 Rivaroxaban [Xarelto] 20 mg PO DAILY 02/27/17 Furosemide [Lasix] 40 mg PO DINNER 06/12/17 Dextroamphetamine/Amphetamine [Adderall 30 mg Tablet] 30 mg PO DAILY 08/09/17 Oxycodone HCl/Acetaminophen [Percocet 7.5-325 mg Tablet] 1 tab PO Q8H 05/30/18 Primary Care Physician: Carson Stephenson MD [Primary Care Provider] - Please follow up with your Primary Care Physician in: In 3-5 days Please Follow Up With: Susu Walker MD - When previously scheduled Disposition: Home Minutes spent on discharge:: 35 Patient Condition:: Good Medical Necessity - Tobacco Use Smoking Status: Current some day smoker Meaningful Use Info Meaningful Use Diagnoses (Choose all that apply): None applicable Code Visit Inpatient E&M: 62033 Disch Hosp
[2018-07-10 12:29] VITALS: BP 116/67; PULSE 87; RESP 17; TEMP 36.7; O2SAT 97
--- OUTSIDE RECORDS SUMMARY | 2018-09-03 06:45 | XMS RPT_ITS ---
:1960 Author Organization OHIP Support Name Relationship Address Phone POLA ANDERSON Unavailable [address] + [place] [address] ORLANDO ANDERSON Unavailable [address] + [place] [address] D Unavailable Unavailable Unavailable POLA ANDERSON Unavailable [address] + [place] [address] ANOOP ANDERSONON Unavailable [address] + [place] [address] D Unavailable Unavailable Unavailable POLA ANDERSON Unavailable [address] + [place] [address] MEGHA ORLANDO Unavailable [address] + [place] [address] D Unavailable Unavailable Unavailable POLA ANDERSON Unavailable [address] + [place] [address] ANOOP ANDERSONON Unavailable [address] + [place] [address] D Unavailable Unavailable Unavailable POLA ANDERSON Unavailable [address] + [place] [address] ANOOP ANDERSONON Unavailable [address] + [place] [address] D Unavailable Unavailable Unavailable POLA ANDERSON Unavailable [address] + [place] [address] ANOOP ANDERSONON Unavailable [address] + [place] [address] D Unavailable Unavailable Unavailable POLA ANDERSON Unavailable [address] + [place] [address] ANOOP ANDERSONON Unavailable [address] + [place] [address] D Unavailable Unavailable Unavailable POLA ANDERSON Unavailable [address] + [place] [address] MEGHA ORLANDO Unavailable [address] + [place] [address] D Unavailable Unavailable Unavailable POLA ANDERSON Unavailable [address] + [place] [address] MEGHA ORLANDO Unavailable [address] + [place] [address] D Unavailable Unavailable Unavailable POLA ANDERSON Unavailable [address] + [place] [address] MEGHA OLRANDO Unavailable [address] + [place] [address] D Unavailable Unavailable Unavailable POLA ANDERSON Unavailable [address] + [place] [address] MEGHA ORLANDO Unavailable [address] + [place] [address] D Unavailable Unavailable Unavailable POLA ANDERSON Unavailable [address] + [place] [address] MEGHA ORLANDO Unavailable [address] + [place] [address] D Unavailable Unavailable Unavailable POLA ANDERSON Unavailable [address] + [place] [address] MEGHA ORLANDO Unavailable [address] + [place] [address] D Unavailable Unavailable Unavailable POLA ANDERSON Unavailable [address] + [place] [address] MEGHA ORLANDO Unavailable [address] + [place] [address] D Unavailable Unavailable Unavailable POLA ANDERSON Unavailable [address] + [place] [address] MEGHA ORLANDO Unavailable [address] + [place] [address] D Unavailable Unavailable Unavailable POLA ANDERSON Unavailable [address] + [place] [address] MEGHA, ORLANDO Unavailable [address] + [place] [address] D Unavailable Unavailable Unavailable POLA ANDERSON Unavailable [address] + [place] [address] MEGHA, ORLANDO Unavailable [address] + [place] [address] D Unavailable Unavailable Unavailable MEGHA POLA Unavailable [address] + [place] [address] MEGHA, ORLANDO Unavailable [address] + [place] [address] D Unavailable Unavailable Unavailable MEGHA POLA Unavailable [address] + [place] [address] MEGHA ORLANDO Unavailable [address] + [place] [address] D Unavailable Unavailable Unavailable MEGHA POLA Unavailable [address] + [place] [address] MEGHA, ORLANDO Unavailable [address] + [place] [address] D Unavailable Unavailable Unavailable MEGHA POLA Unavailable [address] + [place] [address] MEGHA ORLANDO Unavailable [address] + [place] [address] D Unavailable Unavailable Unavailable MEGHA POLA Unavailable [address] + [place] [address] MEGHA ORLANDO Unavailable [address] + [place] [address] D Unavailable Unavailable Unavailable MEGHA POLA Unavailable [address] + [place] [address] MEGHA ORLANDO Unavailable [address] + [place] [address] D Unavailable Unavailable Unavailable POLA ANDERSON Unavailable [address] + [place] [address] MEGHA ORLANDO Unavailable [address] + [place] [address] D Unavailable Unavailable Unavailable POLA ANDERSON Unavailable [address] + [place] [address] MEGHA, ORLANDO Unavailable [address] + [place] [address] D Unavailable Unavailable Unavailable POLA ANDERSON Unavailable [address] + [place] [address] MEGHA, ORLANDO Unavailable [address] + [place] [address] D Unavailable Unavailable Unavailable MEGHA POLA Unavailable [address] [facility] + [place] [address] MEGHAORLANDO Unavailable [address] [phone] [place] [address] D Unavailable Unavailable Unavailable Care Team Providers Name Role Phone CARSON ELLIS Referring Unavailable JEANETTE BARTON (PA) Referring Unavailable CARSON ELLIS Attending Unavailable JEANETTE BARTON (PA) Referring Unavailable JEANETTE BARTON (PA) Attending Unavailable JEANETTE BARTON (PA) Referring Unavailable JEANETTE BARTON (ENOC) Attending Unavailable CARSON ELLIS A Referring Unavailable CARSON ELLIS A Referring Unavailable Basali, Ayman Referring Unavailable Sachin, Carson Primary Care Unavailable Basali, Ayman Consulting Unavailable Butch, Mohamud Admitting Unavailable Richy Maldonado Attending Unavailable Boyd Kingsley Attending Unavailable Imamura, Yoichi Referring Unavailable Imamura, Yoichi Admitting Unavailable Sachin, Carson Primary Care Unavailable Franck Hurst D.O. Consulting Unavailable [place]sil, [place] Attending Unavailable Imamura, Yoichi Consulting Unavailable Imamura, Yoichi Admitting Unavailable Franck Hurst D.O. Attending Unavailable Sachin, Carson Primary Care Unavailable Franck Hurst D.O. Consulting Unavailable Imamura, Yoichi Consulting Unavailable Imamura, Yoichi Admitting Unavailable Sachin, Carson Primary Care Unavailable Imamura, Yoichi Consulting Unavailable [place], [place] Attending Unavailable Imamura, Yoichi Admitting Unavailable Sachin, Carson Primary Care Unavailable Imamura, Yoichi Consulting Unavailable [place], [place] Attending Unavailable Sachin, Carson Primary Care Unavailable Imamura, Yoichi Admitting Unavailable Imamura, Yoichi Attending Unavailable Franck Hurst D.O. Consulting Unavailable Sachin, Carson Primary Care Unavailable Francis Segura Attending Unavailable Hieu Ferraro Attending Unavailable Lincoln Kaplan Attending Unavailable Lincoln Kaplan Attending Unavailable Butch, Mohamud Attending Unavailable Sachin, Carson Primary Care Unavailable Butch, Mohamud Admitting Unavailable Hieu Ferraro Attending Unavailable Butch, Mohamud Admitting Unavailable Richy Maldonado Attending Unavailable Basali, Ayman Referring Unavailable Sachin, Carson Primary Care Unavailable Basali, Ayman Consulting Unavailable Richy Maldonado Consulting Unavailable Butch, Mohamud Admitting Unavailable Butch, Mohamud Attending Unavailable Basali, Ayman Referring Unavailable Sachin, Carson Primary Care Unavailable Basali, Ayman Consulting Unavailable Butch, Mohamud Consulting Unavailable Sachin, Carson Primary Care Unavailable Dao Billy Attending Unavailable Sachin, Carson Primary Care Unavailable Kevon Rangel Attending Unavailable Sachin, Carson Primary Care Unavailable Rian Roy Attending Unavailable Butch, Mohamud Admitting Unavailable Richy Maldonado F Attending Unavailable Basali, Ayman Referring Unavailable Sachin, Carson Primary Care Unavailable Basali, Ayman Consulting Unavailable Carlos Enrique Maldonadoolas F Consulting Unavailable Sachin, Carson Primary Care Unavailable Ese Madrigal Attending [facility]available [facility] Unavailable Kyung Cazareso Attending Unavailable [facility] Primary Care Unavailable Francis Segura Attending Unavailable Imamura, Yoichi Admitting Unavailable Sachin, Carson Primary Care Unavailable Franck Hurst D.O. Consulting Unavailable [place], [place] Attending Unavailable Imamura, Yoichi Consulting Unavailable Imamura, Yoichi Admitting Unavailable Franck Hurst D.O. Attending Unavailable [facility] Unavailable Franck Hurst D.O. Consulting Unavailable Imamura, Yoichi Consulting Unavailable Imamura, Yoichi Admitting Unavailable Franck Hurst D.O. Attending Unavailable [facility] Unavailable Franck Hurst D.O. Consulting Unavailable Imamura, Yoichi Consulting Unavailable Imamura, Yoichi Admitting Un[facility] Unavailable Imamura, Yoichi Consulting Unavailable [place], [place] Attending Unavailable Basali, Ayman Attending Unavailable Basali, Ayman Referring Unavailable [facility] Unavailable PROBLEMS PROBLEMS DATE TYPE CONDITION / CODE ATTENDING STATUS SOURCE 04/24/2018 Unknown S22.32XA - Fracture Cazares, Desmond Active [facility] of one rib, left Community side, initial Hospital encounter for closed Repository fracture / S22.32XA(ICD-10) 03/26/2018 Unknown M79.89 - Other Francis Segura Active [place] specified soft tissue Community disorders / Hospital M79.89(ICD-10) Repository 02/14/2018 Unknown R00.0 - Tachycardia, Moodispaw, Boyd Active [facility] unspecified / Community R00.0(ICD-10) Hospital Repository 02/14/2018 Unknown I10 - Essential MoodBoyd stratton Active [facility] (primary) Community hypertension / Hospital I10(ICD-10) Repository 11/13/2017 Active Unknown / ALLIE Active [place] UNK(Unknown) JEANETTE (PA) Clinic Main [place] Repository 01/09/2017 Active Vitamin D deficiency, NA Active [place] unspecified / Clinic Main E55.9(ICD-10) [place] Repository 11/07/2016 Active Hypermagnesemia / NA Active [facility] E83.41(ICD-10) Clinic Main [place] Repository 05/17/2016 Active Vitamin a deficiency, NA Active [place] unspecified / Clinic Main E50.9(ICD-10) [place] Repository 12/18/2013 Active Deficiency of other NA Active [facility] specified B group Clinic Main vitamins / [place] E53.8(ICD-10) Repository 11/12/2017 Active Other custodial NA Active [facility] (current) drug Clinic Main therapy / [place] Z79.899(ICD-10) Repository 08/13/2017 Unknown J13 - Pneumonia due Hieu Ferraro Active [facility] to Streptococcus Community pneumoniae / Hospital J13(ICD-10) Repository PROCEDURES PROCEDURES No Procedure Records FoundRESULTS RESULTS SPINE 1 VIEW ANY Observed: 07/25/2018 Status: F Source: [place] LEVEL 4:41 PM [facility] REPOSITORY [facility] Imaging Services [address] [place] [address] Spine 1 View Any Level MR#: [id number] Acct: [id number] Name: EILEEN MULLER Rep #: [id number] : 1960 F 58 From: Brayan Villagomez MD PCP: Carson Ellis MD Status: [facility] Study: Spine 1 View Any Level Date of Exam: 07/25/18 Exam# [id number] Ordering Dr: Susu Walker MD STUDY: X-RAY - LUMBAR SPINE REASON FOR EXAM: Female, 58 years old. Pain pump insertion TECHNIQUE: Single fluoroscopic image view(s) of the lumbar spine were obtained. 21.3 seconds of fluoroscopy time. 10.52 mGy. COMPARISON: None FINDINGS: Single coned image of the thoracolumbar spine shows a procedural lead/wire extending to the lower thoracic spine. Exact level cannot be determined given coned view. RAD/Spine 1 View Any Level IMPRESSION: Fluoroscopic guidance for a pain pump insertion. Please see procedural report. Electronically Signed: Brayan Villagomez MD at 15:39 EST , Service support , CC: Susu Walker MD; Carson Ellis MD Cardiothoracic Icu Rn: Signed DISCHARGE SUMMARY Observed: 07/10/2018 Status: F Source: [place] 10:[address] [facility] REPOSITORY [facility] Medical Records Department [address] [place] [address] Discharge Summary 07/10/18 0954 MR#: [id number] Acct: [id number] Name: EILEEN MULLER Rep #: [id number] : 1960 58 From: Richy Maldonado MD PCP: Carson Ellis MD Status: [facility] Date and Diagnosis - Problem List Patient Problems: Active and Suspected Problems Epidural pain pump trial (Acute) Date of Admission: 07/08/18 Date of Discharge: 07/10/18 - Primary Discharge Diagnosis Active and Suspected Problems Epidural pain pump trial (Acute) - Secondary Discharge Diagnosis Chronic Problems 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) History of esophageal cancer (Chronic) Chronic upper back pain (Chronic) History of hypertension (Chronic) History of fibromyalgia (Chronic) History of IBS (Chronic) Anxiety and depression (Chronic) Histrionic personality disorder (Chronic) RSD lower limb (Chronic) COPD (chronic obstructive pulmonary disease) (Chronic) History of deep venous thrombosis or pulmonary embolus (Chronic) on xarelto IVC filter protein C deficiency Protein C deficiency (Chronic) History of recurrent pneumonia (Chronic) DVT of proximal lower limb (Chronic) Lung mass (Chronic) Kidney stones (Chronic) Hospital Course and Treatment Imaging Results: None Consults: Pain Management Operations: None Procedures: None Summary of Care Provided: Per HPI: The patient is a 58 year old F with multiple comorbidities as listed above including chronic back pain on multiple opioid oral medications, being managed by Dr. Walker was directly admitted for epidural morphine intrathecal pump trial. Patient has chronic neck pain, chronic back pain, sciatica in nature which radiates to the dorsum of feet, fibromyalgia and neuropathy pain. Patient had epidural pump put in today by Dr. Walker and then directly admitted on the floor. Patient with other chronic comorbidities include COPD and is on inhalers and nebulization and still smokes about 5 cigarettes every few days as per the patient. Vital Signs - 24 hr 07/10/18 09:40 18 07/10/18 07:15 98.8 F 86 18 99/67 93 07/10/18 06:00 98.4 F 73 18 90/53 L 97 07/10/18 02:45 98.8 F 83 18 113/60 95 General: Alert, Oriented x3, Cooperative, No apparent distress HEENT: Atraumatic, EOMI, Normocephalic Oral: Moist Mucosa Neck: Supple, No JVD Lungs: Clear to auscultation, Normal air movement, No rhonchi, No wheeze, No rales Cardiovascular: Regular rate, Regular Rhythm, Normal S1, Normal S2, No murmurs Abdomen: Soft, Non Tender, Non-Distended, No Hepato-splenomegaly Extremities: No edema, Capillary Refill Less than 3 Seconds Skin: No rashes, No breakdown Neurological: Neuro grossly intact, Sensory exam intact to light touch and pain Psych/Mental Status: Normal Affect, Appropriate Hospital Course: 1. Chronic back pain with sciatica/Cervical neck pain/Chronic pain/RSD/S/p epidural intrathecal morphine pump/Neuropathy - She was admitted after having an epidural pain pump inserted for better pain control. She was not having any relief so he had her admitted for further monitoring. The system ended up having a clog and when he adjusted it, she received the infusion like she was supposed to and had significant pain relief. The pump was removed on the day of discharge and she is to have a permanent pump placed in August. She is on Xarelto for protein C deficiency, so she is to wait for 48 hours prior to restarting her xarelto. 2. Her other medical diagnoses were evaluated and her home medications were continued where appropriate Patient Problems: Active and Suspected Problems Epidural pain pump trial (Acute) - Physical Exam Vital Signs Temp Pulse Resp BP Pulse Ox 98.8 F 86 18 99/67 93 07/10/18 07:15 07/10/18 07:15 07/10/18 09:40 07/10/18 07:15 07/10/18 07:15 Oxygen Flow Rate (L/min) 2 Oxygen Delivery Method Nasal Cannula Weight: 188 lb 14.978 oz Body Mass Index (BMI) 33.5 Intake and Output for Last 24 Hours Intake Total 200 / 200 2073.3 / 2073.3 1240 / 1240 Balance 200 / 200 2073.3 / 2073.3 1240 / 1240 Laboratory Tests Past 24 Hrs WBC 2.8 L RBC 3.34 L Hgb 9.3 L Hct 31.2 L MCV 93.4 MCH 27.8 MCHC 29.8 L RDW 17.5 H RDW Differential 57.6 H Discharge Activity: May not drive while taking narcotic pain medications. Call your doctor if your incision/area has: Increased Pain/ Swelling, Foul Smelling Discharge, Swelling at the incision site Call your doctor if you observe: Fever of 101 or Higher, Inability to urinate, Inability to have a bowel movement, Shortness of breath, Dizziness, Fainting spells Home Medications: Medications to take at Discharge Amitriptyline HCl [Elavil] 200 mg PO QHS 04/26/14 Duloxetine Hcl [Cymbalta] 60 mg PO DAILY 04/26/14 Gabapentin [Neurontin] 300 mg PO 4X/DAY 04/26/14 Clonazepam [Klonopin] 0.5 mg PO 4X/DAY PRN 12/13/14 Furosemide [Lasix] 80 mg PO BREAKFAST 02/04/16 Albuterol Aerosols [Ventolin Aerosols] 2.5 mg INHALATION Q6H PRN PRN 03/04/16 Fluticasone 110 Mcg [Flovent 110 Mcg] 1 puff INHALATION BID 03/04/16 Ipratropium/Albuterol Respimat [Combivent Respimat Inhal Riddle] 2 puff INHALATION 4X/DAY PRN 03/04/16 Multivitamin [Daily Multiple Vitamin] 1 each PO DAILY 03/04/16 Potassium Chloride [Klor-Con] 20 meq PO BID 03/04/16 Rivaroxaban [Xarelto] 20 mg PO DAILY 02/27/17 Furosemide [Lasix] 40 mg PO DINNER 06/12/17 Dextroamphetamine/Amphetamine [Adderall 30 mg Tablet] 30 mg PO DAILY 08/09/17 Oxycodone HCl/Acetaminophen [Percocet 7.5-325 mg Tablet] 1 tab PO Q8H 05/30/18 Primary Care Physician: Carson Ellis MD [Primary Care Provider] - Please follow up with your Primary Care Physician in: In 3- 5 days Please Follow Up With: Susu Walker MD - When previously scheduled Disposition: Home Minutes spent on discharge:: 35 Patient Condition:: Good Medical Necessity - Tobacco Use Smoking Status: Current some day smoker Meaningful Use Info Meaningful Use Diagnoses (Choose all that apply): None applicable Code Visit Inpatient E AND M: [id number] Disch Hosp 07/10/18 1003 <Electronically signed by Richy Maldonado MD> Date Richy Maldonado MD Cosigner Signature (if applicable): Date CC: Carson Ellis MD; Richy Maldonado MD Signed DISCHARGE INSTRUCTION Observed: 07/10/2018 Status: F Source: [place] 9:[address] [facility] REPOSITORY [facility] Medical Records Department [address] [place] [address] Instructions for Home/Discharge Instructions 07/10/18 0952 MR#: [id number] Acct: [id number] Name: EILEEN MULLER Rep #: [id number] : 1960 58 From: Richy Maldonado MD PCP: Carson Ellis MD Status: ADM IN - Discharge Diagnoses Current Active Problems: Current Active and Chronic Problems Epidural pain pump trial (Acute) 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) You will use the following diet at home:: Regular Your food should be the consistency of: Regular Your liquids should be the consistency of: Regular/Thin Discharge Activity: May not drive while taking narcotic pain medications. Call your doctor if your incision/area has: Increased Pain/ Swelling, Foul Smelling Discharge, Swelling at the incision site Call your doctor if you observe: Fever of 101 or Higher, Inability to urinate, Inability to have a bowel movement, Shortness of breath, Dizziness, Fainting spells Allergies/Adverse Reactions: Allergies celecoxib Allergy (Verified 05/31/18 05:05) Swelling naproxen Allergy (Verified 05/31/18 05:05) Swelling Penicillins Allergy (Verified 05/31/18 05:05) Hives pregabalin Allergy (Verified 05/31/18 05:05) Swelling Medications to take at Discharge Amitriptyline HCl [Elavil] 200 mg PO QHS 04/26/14 Duloxetine Hcl [Cymbalta] 60 mg PO DAILY 04/26/14 Gabapentin [Neurontin] 300 mg PO 4X/DAY 04/26/14 Clonazepam [Klonopin] 0.5 mg PO 4X/DAY PRN 12/13/14 Furosemide [Lasix] 80 mg PO BREAKFAST 02/04/16 Albuterol Aerosols [Ventolin Aerosols] 2.5 mg INHALATION Q6H PRN PRN 03/04/16 Fluticasone 110 Mcg [Flovent 110 Mcg] 1 puff INHALATION BID 03/04/16 Ipratropium/Albuterol Respimat [Combivent Respimat Inhal Riddle] 2 puff INHALATION 4X/DAY PRN 03/04/16 Multivitamin [Daily Multiple Vitamin] 1 each PO DAILY 03/04/16 Potassium Chloride [Klor-Con] 20 meq PO BID 03/04/16 Rivaroxaban [Xarelto] 20 mg PO DAILY 02/27/17 Furosemide [Lasix] 40 mg PO DINNER 06/12/17 Dextroamphetamine/Amphetamine [Adderall 30 mg Tablet] 30 mg PO DAILY 08/09/17 Oxycodone HCl/Acetaminophen [Percocet 7.5-325 mg Tablet] 1 tab PO Q8H 05/30/18 Primary Care Physician: Carson Ellis MD [Primary Care Provider] - Please follow up with your Primary Care Physician in: In 3- 5 days Test Results: Test results from this visit will be discussed in further detail at your follow-up appointment, if applicable. Please Follow Up With: Susu Walker MD - When previously scheduled 07/10/18 0954 <Electronically signed by Richy Maldonado MD> Date Richy Maldonado MD CC: Susu Walker MD; Carson Ellis MD BASIC METABOLIC Collected: 07/10/2018 Status: F Source: [place] PROFILE ([facility]) 5:[address] [facility] REPOSITORY TYPE CODE TESTS RESULT OUT OF RANGE REFERENCE UNITS LAB L501.0100 74-106 mg/dL Normal GLU 77 Result Comment: Please note revised GLUCOSE reference range effective 2017. LAB L501.1000 7-18 mg/dL Normal BUN 12 LAB L501.1100 0.55-1.02 mg/dL Normal CREAT,SERUM 0.69 Result Comment: The validity of the calculated GFR AND GFRAA in patients over 70 years has not been determined. Clinical correlation is essential. LAB L501.1110 >60 mL/min Normal EST GFR 93 Result Comment: Non- GFR Calc LAB L501.1115 >60 mL/min Normal EST GFR - AA 113 Result Comment: GFR Calc LAB L501.1255 ml/min Normal Estimated CRCL 74.41 LAB L501.1300 10-20 RATIO Normal BUN/CRE 17.4 LAB L501.2200 8.5-10 mg/dL Low .1 CA 8.0 LAB L501.5300 136-14 mmol/L Normal 5 NA 144 LAB L501.5600 3.5-5. mmol/L Normal 1 K 3.7 LAB L501.5900 98-107 mmol/L Normal CL 105 LAB L501.6100 21.0-3 mmol/L High 2.0 CO2 33.0 LAB L501.6200 5-15 Normal GAP 6 Performed By: #### L500.2500, L501.2300, L501.5200 #### [facility] [address] [place], [address] PHOSPHORUS Collected: 07/10/2018 Status: F Source: [place] 5:[address] [facility] REPOSITORY TYPE CODE TESTS RESULT OUT OF RANGE REFERENCE UNITS LAB L501.2300 2.5-4.9 mg/dL Normal PHOS 4.7 Performed By: #### L500.2500, L501.2300, L501.5200 #### [facility] [address] [place], [address] MAGNESIUM Collected: 07/10/2018 Status: F Source: [place] 5:[address] [facility] REPOSITORY TYPE CODE TESTS RESULT OUT OF RANGE REFERENCE UNITS LAB L501.5200 1.6-2.6 mg/dL Normal MG 2.4 Performed By: #### L500.2500, L501.2300, L501.5200 #### [facility] [address] [place], [address] CBC W/DIFF, AUTOMATED Collected: 07/10/2018 Status: F Source: [place] 5:[address] [facility] REPOSITORY TYPE CODE TESTS RESULT OUT OF RANGE REFERENCE UNITS LAB L100.1000 4.4-11.0 K/mm3 Low WBC 2.8 LAB L100.1200 4.2-5.4 M/mm3 Low RBC 3.34 LAB L100.1300 12.0-15.0 g/dl Low HGB 9.3 LAB L100.1400 37-47 % Low HCT 31.2 LAB L100.1500 81-99 fL Normal MCV 93.4 LAB L100.1600 27.0-32.0 pg Normal MCH 27.8 LAB L100.1700 32-36 g/gl Low MCHC 29.8 LAB L100.1810 11.6-14.6 % High RDW CV 17.5 LAB L100.1820 35.1-43.9 fl High RDW SD 57.6 LAB L100.1900 150-450 K/mm3 Normal PLT 230 LAB L100.2000 6.2-12.0 fl Normal MPV 10.2 LAB L100.2100 47-70 % Low NEUT% 41.7 LAB L100.2200 19-41 % High LY% 41.2 LAB L100.2300 0-10 % Normal MONO% 9.4 LAB L100.2400 0-5 % High EO% 6.9 LAB L100.2500 0-1 % Normal BASO% 0.4 LAB L100.2550 0.0-0.9 % Normal IM GRAN % 0.400 Result Comment: IG% - Immature Granulocytes (promyelocytes, myelocytes and metamyelocytes) > 1% indicates that a LEFT SHIFT is Present. LAB L100.2620 2.0-7.7 X10 3/uL Low Absolute Neut 1.2 LAB L100.2720 0.83-4.51 X10 3/ul Normal Absolute Lymph 1.14 Performed By: #### L100.0100 #### [facility] [address] [facility] [place], [address] HISTORY AND PHYSICAL Observed: 07/08/2018 Status: F Source: [place] EXAM 8:[address] [facility] REPOSITORY [facility] Medical Records Department [address] [place] [address] History and Physical 07/08/181939 MR#: [id number] Acct: [id number] Name: EILEEN MULLER Rep #: [id number] : 1960 58 From: Mohamud Rae MD PCP: Carson Ellis MD Status: ADM IN Y Location: [facility]3 [id number] Problem List (1) Epidural pain pump trial Status: Acute (2) Chronic low back pain with sciatica Status: Chronic (3) Pneumococcal pneumonia (streptococcus pneumoniae pneumonia) Status: Resolved (4) Aspiration pneumonia Status: Resolved Qualifiers: (5) History of esophageal cancer Status: Chronic (6) Chronic upper back pain Status: Chronic (7) Sepsis Status: Resolved (8) History of hypertension Status: Chronic (9) History of fibromyalgia Status: Chronic (10) History of IBS Status: Chronic (11) Anxiety and depression Status: Chronic (12) Histrionic personality disorder Status: Chronic (13) RSD lower limb Status: Chronic (14) COPD (chronic obstructive pulmonary disease) Status: Chronic Qualifiers: (15) History of deep venous thrombosis or pulmonary embolus Status: Chronic Comment: on xarelto IVC filter protein C deficiency (16) CAP (community acquired pneumonia) Status: Acute (17) Protein C deficiency Status: Chronic (18) History of recurrent pneumonia Status: Chronic (19) 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 BMSBuilding:Esther Koch MS.[facility] Repository 08/09/2017 [id number] Ambulatory BMSBuilding:Esther Koch MS.[facility] Repository 08/09/2017 [id number] Ambulatory BMSBuilding:Esther Koch MS.[facility] Repository 08/09/2017 [id number] Ambulatory BMSBuilding:Esther Koch MS.[facility] Repository 08/09/2017/08/12/19 [id number] [facility], Inpatient [address] ing:LJ3Jwoa: Repository MB981Xna: 1 PAYERS PAYERS ENCOUNTER GUARANTOR PAYER SUBSCRIBER SOURCE 07/25/2018 EILEEN LITTLE Primary EILEENYESI Koch [id number] N Insurance:MEDICARE CARTERDOB: [facility], [id number] [address]Hov: Number: Repository [id number] (HP) Date:2018-07-18 07/25/2018 Secondary NOT GIVENUNK Sheryl Insurance:SELF PAY [facility] Number: Effective Repository Date:2018-07-18 07/08/2018 EILEEN LITTLE Primary EILEEN Koch [id number] N Insurance:MEDICARE CARTERDOB: [facility] [id number] Hospital [place] [address]Xrx: Number: Repository [id number] (HP) Date:2018-07-08 07/08/2018 Secondary NOT GIVENUNK Sheryl Insurance:SELF PAY [facility] Number: Effective Repository Date:2018-07-08 07/08/2018 EILEEN LITTLE Primary EILEEN Koch [id number] N Insurance:MEDICARE CARTERDOB: [facility] [id number] [place] [address]Zpt: Number: Repository [id number] (HP) Date:2018-07-08 07/08/2018 Secondary NOT GIVENUNK Sheryl Insurance:SELF PAY [facility] Number: Effective Repository Date:2018-07-08 07/08/2018 EILEEN LITTLE Primary EILEEN Ramososter [id number] N Insurance:MEDICARE [facility] [id number] [place] [address]Upv: Number: Repository [id number] (HP) Date:2018-07-08 07/08/2018 Secondary NOT GIVENUNK [place] Insurance:SELF PAY [facility] Number: Effective Repository Date:2018-07-08 07/08/2018 EILEEN LITTLE Primary EILEEN Koch [id number] N Insurance:MEDICARE CARTERDOB: [facility] [place] [place] [facility] [id number] Hospital [place] [address]Air: Number: Repository [id number] (HP) Date:2018-07-08 07/08/2018 Secondary NOT GIVENUNK Sheryl Insurance:SELF PAY [facility] Number: Effective Repository Date:2018-07-08 06/24/2018 EILEEN LITTLE Primary EILEEN Koch [id number] N Insurance:MEDICARE CARTERDOB: [place] [place] [facility] [id number] [place] [address]Wcb: Number: Repository [id number] (HP) Date:2018-06-24 06/24/2018 Secondary NOT GIVENUNK Sheryl Insurance:SELF PAY [facility] Number: Effective Repository Date:2018-06-24 06/16/2018 EILEEN LITTLE Primary EILEEN Koch [id number] N Insurance:MEDICARE CARTERDOB: [place] [facility] [id number] [place] [address]Iaj: Number: Repository [id number] (HP) Date:2018-06-16 06/16/2018 Secondary NOT GIVENUNK Sheryl Insurance:SELF PAY [facility] Number: Effective Repository Date:2018-06-16 05/31/2018 EILEEN LITTLE Primary EILEEN Koch [id number] N Insurance:MEDICARE CARTERDOB: [place] [place] [facility] [id number] [place] [address]Zdl: Number: Repository [id number] (HP) Date:2018-05-31 05/31/2018 Secondary NOT GIVENUNK Sheryl Insurance:SELF PAY [facility] Number: Effective Repository Date:2018-05-31 05/30/2018 EILEEN LITTLE Primary EILEEN Koch [id number] N Insurance:MEDICARE CARTERDOB: [place] [place] [facility] [id number] Medical Center [address]Jjj: Number: Repository [id number] (HP) Date:2018-05-30 05/30/2018 Secondary NOT GIVENUNK Sheryl Insurance:SELF PAY [facility] Number: Effective Repository Date:2018-05-30 04/24/2018 EILEEN LITTLE Primary EILEEN LITTLE Sheryl [id number] N Insurance:MEDICARE CARTERDOB: [place] [facility] [id number] Medical Center [address]Xyq: Number: Repository [id number] (HP) Date:2018-04-24 04/24/2018 Secondary NOT GIVENUNK Sheryl Insurance:SELF PAY [facility] Number: Effective Repository Date:2018-04-24 03/26/2018 EILEEN LITTLE Primary EILEEN LITTLE [place] [id number] N Insurance:MEDICARE CARTERDOB: [facility] [id number] Medical Center [address]Rxx: Number: Repository [id number] (HP) Date:2018-03-26 03/26/2018 Secondary NOT GIVENUNK Sheryl Insurance:SELF PAY [facility] Number: Effective Repository Date:2018-03-26 01/03/2018 EILEEN LITTLE Primary EILEEN LITTLE [place] [id number] N Insurance:MEDICARE [facility] [id number] [place] [address]Bnw: Number: Repository [id number] (HP) Date:2018-01-01 01/03/2018 Secondary NOT GIVENUNK Sheryl Insurance:SELF PAY [facility] Number: Effective Repository Date:2018-01-03 01/01/2018 EILEEN LITTLE Primary EILEEN LITTLE [place] [id number] N Insurance:MEDICARE [facility] [id number] Medical Center [address]Lfh: Number: Repository [id number] (HP) Date:2018-01-01 01/01/2018 Secondary NOT GIVENUNK [place] Insurance:SELF PAY [facility] Number: Effective Repository Date:2018-01-01 01/01/2018 EILEEN LITTLE Primary EILEEN LITTLE [place] [id number] N Insurance:MEDICARE CARTERDOB: [place] [place] [facility] [id number] Medical Center [address]Xce: Number: Repository [id number] () Date:2018-01-01 01/01/2018 Secondary NOT GIVENUNK Sheryl Insurance:SELF PAY [facility] Number: Effective Repository Date:2018-01-01 01/01/2018 EILEEN LITTLE Primary EILEEN LITTLE Sheryl [id number] N Insurance:MEDICARE CARTERDOB: [place] [place] [facility] [id number] Medical Center [address]Jpk: Number: Repository [id number] () Date:2018-01-01 01/01/2018 Secondary NOT GIVENUNK [place] Insurance:SELF PAY [facility] Number: Effective Repository Date:2018-01-01 01/01/2018 EILEEN LITTLE Primary EILEEN LITTLE Sheryl [id number] N Insurance:MEDICARE CARTERDOB: [place] [place] [facility] [id number] Medical Center [address]Zmp: Number: Repository [id number] () Date:2018-01-01 01/01/2018 Secondary NOT GIVENUNK [place] Insurance:SELF PAY [facility] Number: Effective Repository Date:2018-01-01 01/01/2018 EILEEN LITTLE Primary EILEEN LITTLE [place] [id number] N Insurance:MEDICARE CARTERDOB: [place] [facility] [id number] Medical Center [address]Eie: Number: Repository [id number] () Date:2018-01-01 01/01/2018 Secondary NOT GIVENUNK [place] Insurance:SELF PAY [facility] Number: Effective Repository Date:2018-01-01 01/01/2018 EILEEN LITTLE Primary EILEEN LITTLE Sheryl [id number] N Insurance:MEDICARE CARTERDOB: [place] [place] [facility] [id number] Hospital [place] [address]Dxq: Number: Repository [id number] () Date:2018-01-01 01/01/2018 Secondary NOT GIVENUNK [place] Insurance:SELF PAY [facility] Number: Effective Repository Date:2018-01-01 01/01/2018 EILEEN LITTLE Primary EILEEN LITTLE Sheryl [id number] N Insurance:MEDICARE CARTERDOB: [place] [facility] [id number] Medical Center [address]Lmq: Number: Repository [id number] () Date:2018-01-01 01/01/2018 Secondary NOT GIVENUNK Sheryl Insurance:SELF PAY [facility] Number: Effective Repository Date:2018-01-01 01/01/2018 EILEEN LITTLE Primary EILEEN LITTLE [place] [id number] N Insurance:MEDICARE CARTERDOB: [place] [place] [facility] [id number] Medical Center [address]Egk: Number: Repository [id number] () Date:2018-01-01 01/01/2018 Secondary NOT GIVENUNK [place] Insurance:SELF PAY [facility] Number: Effective Repository Date:2018-01-01 01/01/2018 EILEEN LITTLE Primary EILEEN LITTLE Sheryl [id number] N Insurance:MEDICARE CARTERDOB: [place] [facility] [id number] Medical Center [address]Jcw: Number: Repository [id number] () Date:2018-01-01 01/01/2018 Secondary NOT GIVENUNK [place] Insurance:SELF PAY [facility] Number: Effective Repository Date:2018-01-01 12/24/2017 Eileen Little Primary EILEEN LITTLE [place] [id number] N Insurance:MEDICARE CARTERDOB: [place] [facility] [id number] Medical Center [address]Seh: Number: Repository [id number] (HP) Date:2017-12-24 12/24/2017 Secondary NOT GIVENUNK Sheryl Insurance:SELF PAY [facility] Number: Effective Repository Date:2017-12-24 08/09/2017 Eileen Little Primary EILEEN LITTLE [place] [id number] N Insurance:MEDICARE CARTERDOB: [place] [place] [facility] [id number] Medical Center [address]Rnw: Number: Repository [id number] (HP) Date:2017-08-09 08/09/2017 Secondary NOT GIVENUNK [place] Insurance:SELF PAY [facility] Number: Effective Repository Date:2017-08-09 08/09/2017 Eileen Little Primary EILEEN LITTLE [place] [id number] N Insurance:MEDICARE CARTERDOB: [facility] [id number] Medical Center [address]Eyy: Number: Repository [id number] () Date:2017-08-09 08/09/2017 Secondary NOT GIVENUNK [place] Insurance:SELF PAY [facility] Number: Effective Repository Date:2017-08-09 08/09/2017 Eileen Little Primary EILEEN LITTLE Sheryl [id number] N Insurance:MEDICARE CARTERDOB: [facility] [id number] Medical Center [address]Fdo: Number: Repository [id number] (HP) Date:2017-08-09 08/09/2017 Secondary NOT GIVENUNK Sheryl Insurance:SELF PAY [facility] Number: Effective Repository Date:2017-08-09 08/09/2017 Eileen Little Primary EILEEN LITTLE Sheryl [id number] N Insurance:MEDICARE CARTERDOB: [facility] [id number] Medical Center [address]Dig: Number: Repository [id number] (HP) Date:2017-08-09 08/09/2017 Secondary NOT GIVENUNK Sheryl Insurance:SELF PAY [facility] Number: Effective Repository Date:2017-08-09 08/09/2017 Eileen Little Primary EILEEN LITTLE [place] [id number] N Insurance:MEDICARE CARTERDOB[facility] [id number] Medical Center [address]Afm: Number: Repository [id number] (HP) Date:2017-08-09 08/09/2017 Secondary NOT GIVENUNK [place] Insurance:SELF PAY [facility] Number: Effective Repository Date:2017-08-09
== END 2018-07-10 12:50 | disposition home or self-care (01) | DRG 92 ==
PROVIDERS: Admitting Provider Internal Medicine; Family Provider Family Medicine; PCP Family Medicine; Referring Provider Anesthesiology Pain Medicine; Visit Provider Family Medicine
DX: G89.29 Other chronic pain (principal); G90.529 Complex regional pain syndrome I of unspecified lower limb; D68.59 Other primary thrombophilia; M54.40 Lumbago with sciatica, unspecified side; R13.10 Dysphagia, unspecified; J44.9 Chronic obstructive pulmonary disease, unspecified; F17.210 Nicotine dependence, cigarettes, uncomplicated; M54.2 Cervicalgia; M79.7 Fibromyalgia; Z85.01 Personal history of malignant neoplasm of esophagus; G62.9 Polyneuropathy, unspecified; Z79.01 Long term (current) use of anticoagulants; Z79.899 Other long term (current) drug therapy; Z86.718 Personal history of other venous thrombosis and embolism
CPT/HCPCS: 36415; 80048; 80053; 83735; 84100; 85025; 94640; 99406

== ENCOUNTER 2018-07-25 13:32 | Day surgery (SDC) | payer MEDICARE, SELFPAY ==
[2018-07-08 16:52] VITALS: BMI 33.5
[2018-07-25] VITALS (8 sets, daily range): BP systolic 89–110; BP diastolic 55–83; PULSE 54–79; RESP 16–18; TEMP 36.6–37.3; O2SAT 95–100; BMI 31.6
[2018-07-25] MEDS: Vancomycin IV 1,000 MG/200 ML BAG 200 MG IV (15:00)
--- NOTE | 2018-07-25 15:15 | RAD_ITS ---
STUDY: X-RAY - LUMBAR SPINE REASON FOR EXAM: Female, 58 years old. Pain pump insertion TECHNIQUE: Single fluoroscopic image view(s) of the lumbar spine were obtained. 21.3 seconds of fluoroscopy time. 10.52 mGy. COMPARISON: None FINDINGS: Single coned image of the thoracolumbar spine shows a procedural lead/wire extending to the lower thoracic spine. Exact level cannot be determined given coned view. RAD/Spine 1 View Any Level IMPRESSION: Fluoroscopic guidance for a pain pump insertion. Please see procedural report. Electronically Signed: Brayan Villagomze MD at 15:39 EST , Service support ,
[2018-07-25] MEDS: Bupiv/Epi 0.5% Mpf 30 ML Vial (16:45)
--- OUTSIDE RECORDS SUMMARY | 2018-10-29 03:58 | XMS RPT_ITS ---
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 BASIC METABOLIC Collected: 01/03/2018 Status: F Source: [place] PROFILE (BMP) 5:50 AM [facility] REPOSITORY TYPE CODE TESTS RESULT OUT [...] Normal 5 Performed By: #### L500.2500 #### [facility], [address] BLOOD GASES BY [facility] Collected: 01/03/2018 Status: F Source: [place] 4:20 AM [facility] REPOSITORY TYPE CODE TESTS RESULT OUT [...] ISTAT 92 Performed By: #### L9000.0800 #### [facility] [address] [facility] [place] [address] CHEST 1 VIEW Observed: 01/03/2018 Status: F Source: [place] (PORTABLE) 4:05 AM [facility] REPOSITORY [facility] Imaging Services [address] [place] [address] Chest 1 View (Portable) MR#: [id number] Acct: [id number] Name: EILEEN MULLER Rep #: [id number] : 1960 F 57 From: Mireya Hyde MD PCP: Carson Ellis MD Status: ADM IN Study: Chest 1 View (Portable) Date of Exam: 01/03/18 Exam# [id number] Ordering Dr: Mohamud Rae MD STUDY: X-RAY [...] CC: Carson Ellis MD; Mohamud Rae MD Test Data Developer: Signed CBC-COMPLETE BLOOD CNT Collected: 01/02/2018 Status: F Source: [place] NO DIFF 6:00 AM [facility] REPOSITORY TYPE CODE TESTS RESULT OUT [...] MPV 10.4 Performed By: #### L100.0500 #### [facility] [address] [place], [address] BASIC METABOLIC Collected: 01/02/2018 Status: F Source: [place] PROFILE (BMP) 6:00 AM [facility] REPOSITORY TYPE CODE TESTS RESULT OUT [...] GAP 4 Performed By: #### L500.2500 #### [facility] [address] [facility] 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 Code Visit Inpatient E AND M: 62491 Init Hosp L3 01/01/182 <Electronically signed by Timur Robles MD> Date Timur Robles MD Cosigner Signature: Date (if applicable) CC: Carson Ellis MD; Timur Robles M.D. Signed STREP Observed: 01/01/2018 Status: F Source: [place] PNEUMONIAE ANTIG(UR,CSF) 2:05 PM [facility] REPOSITORY S pneumo Ag URINE INTERPRETATION Positive [...] pneumonia Ag Performed By: #### M300.4600 #### [facility] [address] [facility] [place], [place], [address] Observed: 01/01/2018 Status: F Source: [place] LEGIONELLA ANTIGEN 2:05 PM [facility] URINE REPOSITORY Legionella, UR Legionella Antigen result interpretation: Negative Presumptive negative for Legionella pneumophila serogroup 1 antigen in urine, suggesting no recent or current infection. Legionella Ag, Urine Negative (See interpretation below) Performed By: #### M300.4500 #### [facility] [address] [facility] [place], [address] Observed: 01/01/2018 Status: F Source: [place] CULTURE, SPUTUM 2:00 PM [facility] REPOSITORY Order Date: 01/01/18 Has pt arrived? [...] 0.5 S (NF) indicates non-formulary drug at [facility]. Approval by Infectious Disease Specialist required before non-formulary drugs may be ordered and/or dispensed. * CLSI guidelines does not recommend testing of cephalosporins. This interpretation is deduced from Beta-lactam/penicillin results. Performed By: #### M100.0800 #### [facility] [address] [place], [address] EMERGENCY DEPARTMENT Observed: 01/01/2018 Status: F Source: [place] SUMMARY 12:41 PM [facility] REPOSITORY [facility] Medical Records Department [address] [place] [address] Emergency Department Summary 01/01/18 1235 MR#: [id number] Acct: [id number] Name: EILEEN MULLER Rep #: [id number] : 1960 57 From: Dao Billy MD [...] Sepsis syndrome This note was generated with UXFLIP dictation software. It may contain incorrect words, [...] problems, contact your Primary Care Provider. Call [facility] ([phone]) or report to the closest Emergency Room. Call 911 if necessary. 01/01/18 1241 <Electronically signed by Dao Billy MD> Date Dao Billy MD Cosigner Signature (If Indicated): Date CC: Carson Ellis MD BLOOD GASES BY [facility] Collected: 01/01/2018 Status: F Source: [place] 12:19 PM [facility] REPOSITORY TYPE CODE TESTS RESULT OUT [...] ISTAT 95 Performed By: #### L9000.0800 #### [facility] Point of Care [address] [place] [address] Observed: 01/01/2018 Status: F Source: [place] CULTURE, BLOOD (WB) 11:40 AM [facility] REPOSITORY BC No growth in 5 days. Performed By: #### M200.1000 #### [facility] [address] [place], [address] CHEST 1 VIEW Observed: 01/01/2018 Status: F Source: [place] (PORTABLE) 11:31 AM [facility] REPOSITORY [facility] Imaging Services [address] [place] [address] Chest 1 View (Portable) MR#: [id number] Acct: [id number] Name: EILEEN MULLER Rep #: [id number] : 1960 F 57 From: Leopoldo Barton MD PCP: Carson Ellis MD Status: REG ER Study: Chest 1 View (Portable) Date of Exam: 01/01/18 Exam# [id number] Ordering Dr: Dao Billy MD STUDY: X-RAY [...] CC: Carson Ellis MD; Dao Billy MD Test Data Developer: Signed CBC W/DIFF, AUTOMATED Collected: 01/01/2018 Status: F Source: [place] 11:30 AM [facility] REPOSITORY TYPE CODE TESTS RESULT OUT [...] COMMENT SCANNED Performed By: #### L100.0100 #### [facility] [address] [place], [address] PROTHROMBIN TIME W/INR Collected: 01/01/2018 Status: F Source: [place] 11:30 AM [facility] REPOSITORY TYPE CODE TESTS RESULT OUT OF RANGE REFERENCE UNITS LAB L300.4150 11.7-14.9 SECONDS High PROTIME 15.2 LAB L300.4200 Normal INR 1.2 Performed By: #### L300.3900, L300.4310 #### [facility] [address] [facility] [place], [address] PARTIAL THROMBOPLAST Collected: 01/01/2018 Status: F Source: [place] TIME 11:30 AM [facility] REPOSITORY TYPE CODE TESTS RESULT OUT OF RANGE REFERENCE UNITS LAB L300.4310 24.1-36.2 Seconds Normal PTT 28.8 Performed By: #### L300.3900, L300.4310 #### [facility] [address] [facility] [place], [place], [address] COMPREHENSIVE METABOLIC Collected: 01/01/2018 Status: F Source: [place] PROFIL 11:30 AM [facility] REPOSITORY TYPE CODE TESTS RESULT OUT [...] 4 GAP Performed By: #### L500.4050 #### [facility] [address] [place], [place], [address] LACTIC ACID Collected: 01/01/2018 Status: F Source: [place] 11:30 AM [facility] REPOSITORY Order Comment: Yes/No query for Sepsis Lactate Rule Y TYPE CODE TESTS RESULT OUT OF RANGE REFERENCE UNITS LAB L503.6005 0.4-2.0 mmol/L Normal LACTIC ACID 1.8 Performed By: #### L503.6005 #### [facility] [address] [place], [address] Observed: 01/01/2018 Status: F Source: [place] CULTURE, BLOOD (WB) 11:30 AM [facility] REPOSITORY BC No growth in 5 days. Performed By: #### M200.1000 #### [facility] [address] [place], [address] EMERGENCY DEPARTMENT Observed: 12/25/2017 Status: F Source: [place] SUMMARY 12:15 AM [facility] REPOSITORY [facility] Medical Records Department [address] [place] [address] Emergency Department Summary 12/24/17 1618 MR#: [id number] Acct: [id number] Name: EILEEN MULLER Rep #: [id number] : 1960 57 From: Francis Segura MD [...] Mild hypokalemia. This note was generated with UXFLIP dictation software. It may contain incorrect words, [...] your Primary Care Provider. Call [facility] ([phone]) or report to the closest Emergency Room. Call 911 if necessary. 12/25/17 0015 <Electronically signed by Francis Segura MD> Date Francis Segura MD Cosigner Signature (If Indicated): Date CC: Carson Ellis MD URINALYSIS, COMPLETE Collected: 12/24/2017 Status: F Source: [place] 4:15 PM [facility] REPOSITORY Order Comment: Order Date: 12/24/17 How [...] CRYSTAL RARE Performed By: #### L400.0001 #### [facility] [address] [place], [address] CBC W/DIFF, AUTOMATED Collected: 12/24/2017 Status: F Source: [place] 3:35 PM [facility] REPOSITORY TYPE CODE TESTS RESULT OUT [...] Lymph 1.21 Performed By: #### L100.0100 #### [facility] [address] [place], [address] BASIC METABOLIC Collected: 12/24/2017 Status: F Source: [place] PROFILE ([facility]) 3:35 PM [facility] REPOSITORY TYPE CODE TESTS RESULT OUT [...] GAP 7 Performed By: #### L500.2500 #### [facility] [address] [place], [address] CHEST PA AND LATERAL Observed: 12/24/2017 Status: F Source: [place] 3:21 PM [facility] REPOSITORY [facility] Imaging Services [address] [place] [address] Chest PA and Lateral MR#: [id number] Acct: [id number] Name: EILEEN MULLER Rep #: [id number] : 1960 F 57 From: Parth Jarquin DO PCP: Carson Ellis MD Status: REG ER Study: Chest PA and Lateral Date of Exam: 12/24/17 Exam# [id number] Ordering Dr: Francis Segura MD STUDY: X-RAY [...] Parth Jarquin DO at 16:35 EDT Tel [phone], Service support , CC: Carson Ellis MD; Francis Segura MD Test Data Developer: Signed PROGRESS Observed: 11/20/2017 Status: COMPLETED Source: [place] 9:51 AM [facility] REPOSITORY HNO ID: [id number] Author: Marquita Chauhan LPN Service: (none) Author Type: (none) Type: Progress Notes Filed: 11/20/2017 10:13 AM Note Text: Patient presents for B-12 injection. Denies any problems at this time. Patient instructed on any SE of medication, verbalized understanding and agreed to proceed with treatment. Tolerated injection well. Marquita Chauhan LPN CNNURSE Observed: 11/20/2017 Status: COMPLETED Source: [place] 9:45 AM [facility] Nurse Visit (FAMPWS) EILEEN MULLER ([id number]) 1960 F Date Time Provider Department 11/20/17 9:45 AM [place] NURSE FAMPWS During your visit today, we recorded the following information about you: Marquita Chauhan LPN 11/20/2017 10:13 AM Signed Patient presents for B-12 injection. Denies any problems at this time. Patient instructed on any SE of medication, verbalized understanding and agreed to proceed with treatment. Tolerated injection well. Marquita Chauhan LPN Referring Provider: JEANETTE BARTON) [[id number]] Allergies As of Date: 11/20/2017 Noted Allergy [...] Marquita Chauhan LPN 11/20/2017 10:12 AM >> MARQUITA CHAUHAN LPN SatNov 20, 2017 10:12 AM The patient is here for an injection of Vitamin B12 (Cyanocobalamin). Dose: 1000mcg/1ml Amount wasted: none. Route: Intramuscular Site: left deltoid [employer] Steward/Stewardess: [email or web address]. Lot #: [id number] Expiration Date: 04/11/2019 The date due for the next injection is one month Marquita Chauhan [facility] Problem List As Of Date 11/20/2017 Noted [...] 11/20/17 PROGRESS Observed: 11/13/2017 Status: COMPLETED Source: [place] 7:52 AM [facility] [place] REPOSITORY O ID: [id number] Author: Jeanette Barton (Pa) Service: (none) Author Type: Physician Barrer And Tacker Type: Progress Notes Filed: 11/13/2017 9:52 AM [...] - Chronic pain Dr. Couch pain mgmt [place], [place] - Dehydration - Depression - DVT (deep [...] Abs Lymph 1.00 - 4.00 k/uL 1.37 Davis% % 5.6 Abs Davis <0.87 k/uL 0.20 Eosin% % 4.2 Abs [...] to face was 30 min ENOC DUNBAR CNOV Observed: 11/13/2017 Status: COMPLETED Source: [place] 7:40 AM [facility] REPOSITORY [facility] EILEEN MULLER ([id number]) 1960 F Date Time Provider Department 11/13/17 [...] Date - Chronic pain Dr. Couch pain [place], [place] - Dehydration - Depression - DVT [...] Abs Lymph 1.00 - 4.00 k/uL 1.37 Davis% % 5.6 Abs Davis ANDlt;0.87 k/uL 0.20 Eosin% % 4.2 Abs [...] sooner as needed. Referring Provider: CARSON ELLIS [[id number]] Allergies As of Date: 11/13/2017 Noted Allergy [...] needed for Muscle Spasm.Disp: Rfl: GLENNA SCREENING [[id number]] Order #: [id number] FUTURE FECAL OCCULT BLOOD TEST [SQIFOBT] Order #: [id number] FUTURE nicotine (NICODERM) 21 mg/24 hrApply 1 Patch as directed every 24 hours.Disp: 42 PatchRfl: 0 CBC + DIFF [SQCBCDIF] Order #: [id number] FUTURE IRON + TIBC [SQIRON] Order #: [id number] FUTURE FOLATE SERUM [SQSERFOL] Order #: [id number] FUTURE cyanocobalamin 1,000 mcg/mL solnInject 1 ml [...] AND DIFFERENTIAL Collected: 11/12/2017 Status: F Source: [place] 8:44 AM [facility] REPOSITORY TYPE CODE TESTS RESULT OUT [...] k/uL Abs Lymph 1.37 LAB AMONO % Davis% 5.6 LAB AAMONO <0.87 k/uL Abs Davis 0.20 LAB AEOS % Eosin% 4.2 LAB AAEOS <0.46 k/uL Abs Eosin 0.15 LAB ABASO % Baso% 1.4 LAB AABASO <0.11 k/uL Abs Baso 0.05 LAB AUNRBC 0 /100 WBC NRBCs 0.0 LAB ABNRBC <0.01 k/uL Absolute nRBC <0.01 LAB DTYP DTYPE Auto Diff Performed By: #### CBCDIF, BMP, HBA1C #### [facility] [address] [place], [place] [address] BASIC METABOLIC PANL Collected: 11/12/2017 Status: F Source: [place] 8:44 AM [facility] REPOSITORY TYPE CODE TESTS RESULT OUT OF REFERENCE UNITS RANGE LAB GLU 74-99 mg/dL Glucose 96 Result Comment: The [place] Diabetes Association (ADA) provides guidance for cutoff [...] Standards of Medical Care in Diabetes 2016, [place] [employer] Association. Diabetes Care. 2016.39(Suppl 1). LAB [...] Performed By: #### CBCDIF, BMP, HBA1C #### [facility] [employer] [facility] [address] [place] [address] HEMOGLOBIN A1C Collected: 11/12/2017 Status: F Source: [place] 8:44 [facility] REPOSITORY TYPE CODE TESTS RESULT OUT OF REFERENCE UNITS RANGE LAB HGBA1C 4.3-5.6 % Hemoglobin A1c 5.6 LAB HBA0 mg/dL Est. Average Glucose 114 Result Comment: eAG: (Estimated average glucose) is a calculated value from HgbA1c and is billing customer service representative of the average blood glucose level in the last 2-3 month period. Performed By: #### CBCDIF, BMP, HBA1C #### [facility] [employer] [facility] [address] [place] [address] MAGNESIUM Collected: 11/12/2017 Status: F Source: [place] 8:44 [facility] REPOSITORY TYPE CODE TESTS RESULT OUT OF REFERENCE UNITS RANGE LAB MG 1.7-2.3 mg/dL High Magnesium 2.5 Performed By: #### MG1, B12, VITD, TEZ #### [facility] [employer] [facility] [address] [place] [address] VITAMIN B12 Collected: 11/12/2017 Status: F Source: [place] 8:44 [facility] REPOSITORY TYPE CODE TESTS RESULT OUT OF REFERENCE UNITS RANGE LAB B12 232-1245 pg/mL Low Vitamin B12 214 Performed By: #### MG1, B12, VITD, TEZ #### [facility] [employer] [address] [place], [place] [address] VITAMIN D 25 HYDROXY Collected: 11/12/2017 Status: F Source: [place] 8:44 [facility] REPOSITORY TYPE CODE TESTS RESULT OUT OF REFERENCE UNITS RANGE LAB VITD 31.0-80.0 ng/mL Low Vitamin D 25 29.0 Hydroxy Result Comment: Classification of 25 [place] Vitamin D status: Insufficiency/Moderate Deficiency: < or = 30 ng/mL Sufficiency/Optimal Levels: 31 to 80 ng/mL Toxicity: > 100 ng/mL Test performed by chemiluminescent immunoassay. Performed By: #### MG1, B12, VITD, TEZ #### [facility] [employer] [facility] [address] [place] [id number] VITAMIN A Collected: 11/12/2017 Status: F Source: [place] 8:44 [facility] TYPE CODE TESTS RESULT OUT OF REFERENCE UNITS RANGE LAB TEZ 0.30-1.20 mg/L Vitamin A 0.49 Result Comment: This test was developed and its performance characteristics determined by [facility]'s Rojelio Rios [facility] Pathology and Laboratory Medicine [place] ([facility]). It has not been cleared or approved by the FDA. -[facility] is regulated under CLIA as qualified to perform high-complexity testing. This test is used for clinical purposes. It should not be regarded as investigational or for research. Performed By: #### MG1, B12, VITD, TEZ #### [facility] [employer] [facility] [address] [place] [id number] CNPTOUTREACH Observed: 10/29/2017 Status: COMPLETED Source: [place] 12:00 [facility] REPOSITORY Patient Outreach (FAMPST) EILEEN MULLER ([id number]) 1960 F Date Time Provider Department 10/29/17 CARSON ELLIS FAMPST During your visit today, [...] [Z79.899] Order(s):BASIC METABOLIC PNL [SQBMP] Order #: [id number] FUTURE Prescriptions as of 10/29/2017 Sig: X [...] 05/23/18 LEEANNE Observed: 10/15/2017 Status: COMPLETED Source: [place] 12:00 AM [facility] REPOSITORY Patient Outreach (FAMPST) EILEEN MULELR ([id number]) 1960 F Date Time Provider Department 10/15/17 [facility] During your visit today, we recorded the [...] Assessed Visit Diagnosis:Medication management [Z79.899] Order(s):HGB A1C [XKLHQ5H] Order #: [id number] FUTURE CBC + DIFF [SQCBCDIF] Order #: [id number] FUTURE Prescriptions as of 10/15/2017 Sig: X [...] Encounter Status:Closed by RAFAT BUCK on 05/23/18 PROGRESS Observed: 10/09/2017 Status: COMPLETED Source: [place] 10:11 AM [facility] REPOSITORY HNO ID: [id number] Author: Zakia (Library Circulation Assistant) SAUNDRA Talley/REPERTOIRE MANAGER Service: (none) Author Type: Speech Language Pathologist Type: Progress Notes Filed: 10/09/2017 10:12 AM Note Text: No show for MBS with Speech CNTHERAPY Observed: 10/09/2017 Status: COMPLETED Source: [place] 12:00 AM [facility] REPOSITORY OT/PT/Speech Visit (TALKHB) EILEEN MULLER ([id number]) 1960 F Date Time Provider Department 10/09/17 ZAKIA TALLEY (REPERTOIRE MANAGER) TALKHB Date Time Provider Department Center 10/09/2017 556113-ODBHPAN, JOANN (REPERTOIRE MANAGER)TALKHB RADIO (MAIN Reason for Visit: Dysphagia [536] [...] instructed t* Progress Notes: Zakia Talley MA CCC-REPERTOIRE MANAGER, CCC/REPERTOIRE MANAGER 10/09/2017 10:12 AM Signed No show for MBS with Speech ALLERGIES ALLERGIES DATE TYPE / CODE NAME / CODE REACTION SEVERITY SOURCE 07/25/2018 Drug sertraline/[id number] Unknown Unknown [place] Allergy/416 615(RXNORM) [place] [id number]([facility]) Repository 07/23/2018 Drug Penicillins/T77211 Hives Unknown [place] Allergy/416 9126(RXNORM) [place] 546195([facility]) Repository 07/23/2018 Drug naproxen/[id number] Swelling Unknown [place] Allergy/416 0(RXNORM) [place] 457815([facility] ED [facility]) Repository 07/23/2018 Drug celecoxib/[id number] Swelling Unknown [place] Allergy/416 31(RXNORM) [place] 155062([facility]) Repository 07/23/2018 Drug pregabalin/Q684747 Swelling Unknown [place] Allergy/416 083(RXNORM) Community 553108([facility] ED [facility]) Repository 07/01/2017 DRUG SERTRALINE HCL SWELLING Low [facility] INGREDI/[address] [place] 534441(SNOM Repository ED CT) 07/01/2017 DRUG SERTRALINE HCL SWELLING [facility] INGREDI/419 [place] 434911(SNOM Repository ED CT) 07/12/2016 Drug PENICILLINS OTHER: SEE C Low [facility] Class/77479 [place] 1003(SNOMED Repository CT) 07/12/2016 Drug PENICILLINS OTHER: SEE [facility]/80040 [place] 1003(SNOMED Repository CT) 03/30/2015 DRUG SOAP RASH High [facility] INGREDI/419 [place] 473526(SNOM Repository ED CT) 12/18/2013 DRUG NAPROXEN SWELLING High [facility] INGREDI/419 [place] 248354(SNOM Repository ED CT) 10/23/2012 DRUG CELECOXIB SWELLING High [facility] INGREDI/419 [place] 864978(SNOM Repository ED CT) 10/23/2012 DRUG PREGABALIN SWELLING High [facility] INGREDI/419 [place] 455028(SNOM Repository ED CT) ENCOUNTERS ENCOUNTERS ADMIT/DISCHARGE ACCOUNT ADMITTING ENCOUNTER LOCATION SOURCE NUMBER CLASS 07/25/2018/07/25/20 [id number] Ambulatory [place] Sheryl 18 [facility] ing:SDCRoom: Repository [id number] 07/08/2018/07/10/20 [id number] Butch, Inpatient Sheryl Sheryl 18 Mohamud Encounter [facility] ing:ZD1Iwle: Repository [id number]: 1 07/08/2018 [id number] Butch, Ambulatory BMSBuilding:B Sheryl Mallory MS.[facility] Repository 07/08/2018 [id number] Butch, Ambulatory BMSBuilding:B Sheryl Mallory MS.[facility] Repository 07/08/2018 [id number] Butch, Ambulatory BMSBuilding:Esther Mallory MS.[facility] Repository 06/24/2018/06/24/20 [id number] Emergency [address] ing:ED Repository 06/16/2018/06/16/20 [id number] Emergency [address] ing:ED Repository 05/31/2018/05/31/20 [id number] Emergency [address] ing:ED Repository 05/30/2018/05/30/20 [id number] Emergency [address] ing:ED Repository 05/21/2018/05/22/20 [id number] Ambulatory [address] Repository 05/15/2018/05/15/20 [id number] Ambulatory [address] Repository 05/15/2018/05/16/20 [id number] Ambulatory [address] Repository 04/24/2018/04/24/20 [id number] Emergency [address] ing:ED Repository 03/26/2018/03/26/20 [id number] Emergency [address] ing:ED Repository 01/13/2018/01/14/20 [id number] Ambulatory [address] Repository 01/03/2018/01/06/20 [id number] Ambulatory BMSBuilding:W Sheryl 18 [facility] Repository 01/01/2018/01/06/20 [id number] Imamura, Inpatient [place] Sheryl 18 [facility] ing:PCURoom: Repository [id number]: 1 01/01/2018 [id number] Imamura, Ambulatory BMSBuilding:Esther Ding MS.[facility] Repository 01/01/2018 [id number] Imamura, Ambulatory BMSBuilding:Esther Ding MS.[facility] Repository 01/01/2018 [id number] Imamura, Ambulatory BMSBuilding:Esther Ding MS.[facility] Repository 01/01/2018 [id number] Imamura, Ambulatory BMSBuilding:Esther Ding [place] [place] 01/01/2018 [id number] Imamura, Ambulatory BMSBuilding:Esther Ding [place] [place] 01/01/2018 [id number] Imamura, Ambulatory BMSBuilding:Esther Ding MS.[facility] Repository 01/01/2018 [id number] Imamura, Ambulatory BMSBuilding:Esther Ding [facility] [place] 01/01/2018 [id number] Imamura, Ambulatory BMSBuilding:Esther Ding MS.[facility] Repository 12/24/2017/12/25/19 [id number] [facility] [address] [place] [address] ing:ED Repository 11/20/2017/11/22/19 [id number] Ambulatory [address] Repository 11/13/2017/11/15/19 [id number] Ambulatory [address] Repository 11/12/2017/11/13/19 [id number] Ambulatory [address] Repository PAYERS PAYERS ENCOUNTER GUARANTOR PAYER SUBSCRIBER SOURCE 07/25/2018 EILEEN LITTLE Primary EILEEN Koch [id number] N Insurance:MEDICARE CARTERDOB: [facility], PART A [facility] [id number] View [facility] [address]Aoe: Number: Repository [id number] (HP) Date:2018-07-18 07/25/2018 Secondary NOT GIVENUNK Sheryl Insurance:SELF PAY [facility] Number: Effective Repository Date:2018-07-18 07/08/2018 EILEEN LITTLE Primary EILEEN Perezoster [id number] N Insurance:MEDICARE CARTERDOB: [facility], PART A [facility] [id number] View Regional Medical Center [address]Ymw: Number: Repository [id number] (HP) Date:2018-07-08 07/08/2018 Secondary NOT GIVENUNK Sheryl Insurance:SELF PAY [facility] Number: Effective Repository Date:2018-07-08 07/08/2018 EILEEN LITTLE Primary EILEEN LITTLE [place] [id number] N Insurance:MEDICARE CARTERDOB: [facility] [place] PART [facility] [id number] View Regional Medical Center [address]Inq: Number: Repository [id number] (HP) Date:2018-07-08 07/08/2018 Secondary NOT GIVENUNK Sheryl Insurance:SELF PAY [facility] Number: Effective Repository Date:2018-07-08 07/08/2018 EILEEN LITTLE Primary EILEEN LITTLE [place] [id number] N Insurance:MEDICARE CARTERDOB: [facility] [id number] View Regional Medical Center [address]Ruo: Number: Repository [id number] (HP) Date:2018-07-08 07/08/2018 Secondary NOT GIVENUNK [place] Insurance:SELF PAY [facility] Number: Effective Repository Date:2018-07-08 07/08/2018 EILEEN LITTLE Primary EILEEN LITTLE [place] [id number] N Insurance:MEDICARE CARTERDOB: [facility] [id number] View Regional Medical Center [address]Wml: Number: Repository [id number] (HP) Date:2018-07-08 07/08/2018 Secondary NOT GIVENUNK Sheryl Insurance:SELF PAY [facility] Number: Effective Repository Date:2018-07-08 06/24/2018 EILEEN LITTLE Primary EILEEN LITTLE [place] [id number] N Insurance:MEDICARE CARTERDOB: [facility] [place], PART [facility] [id number] View Regional Medical Center [address]Qtk: Number: Repository [id number] (HP) Date:2018-06-24 06/24/2018 Secondary NOT GIVENUNK Sheryl Insurance:SELF PAY [facility] Number: Effective Repository Date:2018-06-24 06/16/2018 EILEEN GUTIERREZON Primary EILEEN LITTLE Sheryl [id number] N Insurance:MEDICARE CARTERDOB: [facility] [place], PART [facility] [id number] [facility] [place] [address]Cgn: Number: Repository [id number] () Date:2018-06-16 06/16/2018 Secondary NOT GIVENUNK [place] Insurance:SELF PAY [facility] Number: Effective Repository Date:2018-06-16 05/31/2018 EILEEN LITTLE Primary EILEEN LITTLE [place] [id number] N Insurance:MEDICARE CARTERDOB: [facility] [place], PART [facility] [id number] View Regional Medical Center [address]Zpf: Number: Repository [id number] () Date:2018-05-31 05/31/2018 Secondary NOT GIVENUNK [place] Insurance:SELF PAY [facility] Number: Effective Repository Date:2018-05-31 05/30/2018 EILEEN LITTLE Primary EILEEN LITTLE Sheryl [id number] N Insurance:MEDICARE CARTERDOB: [facility] [place], PART [facility] [id number] View Regional Medical Center [address]Ixm: Number: Repository [id number] () Date:2018-05-30 05/30/2018 Secondary NOT GIVENUNK Sheryl Insurance:SELF PAY [facility] Number: Effective Repository Date:2018-05-30 04/24/2018 EILEEN LITTLE Primary EILEEN LITTLE [place] [id number] N Insurance:MEDICARE CARTERDOB: [facility] [place], PART [facility] [id number] [place] [address]Cpe: Number: Repository [id number] (HP) Date:2018-04-24 04/24/2018 Secondary NOT GIVENUNK Sheryl Insurance:SELF PAY [facility] Number: Effective Repository Date:2018-04-24 03/26/2018 EILEEN LITTLE Primary EILEEN LITTLE [place] [id number] N Insurance:MEDICARE CARTERDOB: [facility] [place], PART A [facility] [id number] Hospital [place] [address]Ihb: Number: Repository [id number] () Date:2018-03-26 03/26/2018 Secondary NOT GIVENUNK Sheryl Insurance:SELF PAY [facility] Number: Effective Repository Date:2018-03-26 01/03/2018 EILEEN LITTLE Primary EILEEN LITTLE Sheryl [id number] N Insurance:MEDICARE CARTERDOB: [facility] [place], PART A [facility] [id number] View Regional Medical Center [address]Pzu: Number: Repository [id number] () Date:2018-01-01 01/03/2018 Secondary NOT GIVENUNK [place] Insurance:SELF PAY [facility] Number: Effective Repository Date:2018-01-03 01/01/2018 EILEEN LITTLE Primary EILEEN LITTLE Sheryl [id number] N Insurance:MEDICARE CARTERDOB: [facility] [place], PART A [facility] [id number] View Regional Medical Center [address]Gty: Number: Repository [id number] () Date:2018-01-01 01/01/2018 Secondary NOT GIVENUNK [place] Insurance:SELF PAY [facility] Number: Effective Repository Date:2018-01-01 01/01/2018 EILEEN LITTLE Primary EILEEN LITTLE Sheryl [id number] N Insurance:MEDICARE CARTERDOB: [facility] [place], PART [facility] [id number] View Regional Medical Center [address]Efc: Number: Repository [id number] (HP) Date:2018-01-01 01/01/2018 Secondary NOT GIVENUNK Sheryl Insurance:SELF PAY [facility] Number: Effective Repository Date:2018-01-01 01/01/2018 EILEEN LITTLE Primary EILEEN LITTLE [place] [id number] N Insurance:MEDICARE CARTERDOB: [facility] [place], PART [facility] [id number] View Regional Medical Center [address]Sgt: Number: Repository [id number] () Date:2018-01-01 01/01/2018 Secondary NOT GIVENUNK [place] Insurance:SELF PAY [facility] Number: Effective Repository Date:2018-01-01 01/01/2018 EILEEN LITTLE Primary EILEEN LITTLE Sheryl [id number] N Insurance:MEDICARE CARTERDOB: [facility] [place], PART [facility] [id number] View Regional Medical Center [address]Zvy: Number: Repository [id number] (HP) Date:2018-01-01 01/01/2018 Secondary NOT GIVENUNK Sheryl Insurance:SELF PAY [facility] Number: Effective Repository Date:2018-01-01 01/01/2018 EILEEN LITTLE Primary EILEEN LITTLE Sheryl [id number] N Insurance:MEDICARE CARTERDOB: [facility] [id number] View Regional Medical Center [address]Tgl: Number: Repository [id number] () Date:2018-01-01 01/01/2018 Secondary NOT GIVENUNK Sheryl Insurance:SELF PAY [facility] Number: Effective Repository Date:2018-01-01 01/01/2018 EILEEN LITTLE Primary EILEEN LITTLE [place] [id number] N Insurance:MEDICARE CARTERDOB: [facility] [id number] View Regional Medical Center [address]Lxi: Number: Repository [id number] (HP) Date:2018-01-01 01/01/2018 Secondary NOT GIVENUNK Sheryl Insurance:SELF PAY [facility] Number: Effective Repository Date:2018-01-01 01/01/2018 EILEEN LITTLE Primary EILEEN LITTLE [place] [id number] N Insurance:MEDICARE CARTERDOB: [facility] [id number] View Regional Medical Center [address]Aan: Number: Repository [id number] (HP) Date:2018-01-01 01/01/2018 Secondary NOT GIVENUNK Sheryl Insurance:SELF PAY [facility] Number: Effective Repository Date:2018-01-01 01/01/2018 EILEEN LITTLE Primary EILEEN LITTLE Sheryl [id number] N Insurance:MEDICARE CARTERDOB: [facility], PART A [facility] [id number] [place] [address]Vun: Number: Repository [id number] (HP) Date:2018-01-01 01/01/2018 Secondary NOT GIVENUNK [place] Insurance:SELF PAY [facility] Number: Effective Repository Date:2018-01-01 01/01/2018 EILEEN LITTLE Primary EILEEN LITTLE Sheryl [id number] N Insurance:MEDICARE CARTERDOB: [facility], PART A [facility] [id number] Hospital [place] [address]Xid: Number: Repository [id number] (HP) Date:2018-01-01 01/01/2018 Secondary NOT GIVENUNK Sheryl Insurance:SELF PAY [facility] Number: Effective Repository Date:2018-01-01 12/24/2017 Eileen Little Primary EILEEN LITTLE Sheryl [id number] N Insurance:MEDICARE CARTERDOB: [facility], PART A [facility] [id number] View Regional Medical Center [address]Zqa: Number: Repository [id number] (HP) Date:2017-12-24 12/24/2017 Secondary NOT GIVENUNK Sheryl Insurance:SELF PAY [facility] Number: Effective Repository Date:2017-12-24
== END 2018-07-25 19:40 | disposition home or self-care (01) ==
LOC: SDC 13:32 → AC 13:34
PROVIDERS: Family Provider Family Medicine; PCP Family Medicine; Referring Provider Anesthesiology Pain Medicine; Visit Provider Anesthesiology Pain Medicine
PROC: (CPT 62362; principal; 2018-07-25 14:45)
DX: Z45.42 Encounter for adjustment and management of neurostimulator (principal); G89.4 Chronic pain syndrome; M13.0 Polyarthritis, unspecified; Z86.718 Personal history of other venous thrombosis and embolism; Z79.01 Long term (current) use of anticoagulants; K58.9 Irritable bowel syndrome, unspecified; D68.59 Other primary thrombophilia; F41.9 Anxiety disorder, unspecified; F32.9 Major depressive disorder, single episode, unspecified; Z79.899 Other long term (current) drug therapy; I10 Essential (primary) hypertension; F17.210 Nicotine dependence, cigarettes, uncomplicated
CPT/HCPCS: 00300; 62362; 72020; 76000; J7120; J2405; J3490

== ENCOUNTER 2018-09-06 15:33 | Emergency (ER) | payer MEDICARE, SELFPAY ==
[2018-07-25 13:59] VITALS: BMI 31.6
[2018-09-06 15:34] VITALS: BP 150/83; PULSE 89; RESP 18; TEMP 36.8; O2SAT 96; BMI 32.6
--- NOTE | 2018-09-06 15:41 | EKG12_ITS ---
Test Reason : GENERAL ILLNESS Blood Pressure : / mmHG Vent. Rate : 084 BPM Atrial Rate : 084 BPM P-R Int : 168 ms QRS Dur : 092 ms QT Int : 390 ms P-R-T Axes : 028 -05 005 degrees QTc Int : 460 ms Normal sinus rhythm Normal ECG Confirmed by VADIM CASTAÑEDA, ADRIAN ([id number]), book editor BAYRON WILD ([id number]) on 09/09/2018 2:11:15 PM Referred By: VINAYAK Confirmed By:ADRIAN FIERRO MD
--- NOTE | 2018-09-06 15:41 | RAD_ITS ---
STUDY: X-RAY CHEST REASON FOR EXAM: Female, 58 years old. Shortness of breath, diffuse pain, nausea, vomiting, diarrhea, falls TECHNIQUE: AP COMPARISON: 04/24/2018 FINDINGS: There is elevation of the right hemidiaphragm. Linear fibrotic band or atelectasis adjacent to the right hilum is new since the prior study. Left lung is clear. No pleural effusion or pneumothorax seen. Granulomata in left midlung stable. Normal size heart. Normal mediastinum and roz. Normal visualized pulmonary arteries. There is atherosclerotic tortuosity of the aortic arch and descending thoracic aorta. There are operative changes of the right glenoid. Surgical clips project in the left upper abdomen. RAD/Chest 1 View (Portable) IMPRESSION: 1. No airspace consolidation. 2. Right perihilar atelectasis or scarring. Electronically Signed: Brayan Villagomez MD at 16:08 EST , Service support ,
--- NOTE | 2018-09-06 16:01 | ED.DCSUM_ITS ---
- ER Visit Summary Date of Service: 09/06/18 Chief Complaint: [] Fall right side pain, concern pain pump is not helping her generalized pain History of Present Illness: The patient is a 58 F [] has a long history of back pain neck pain extremity related to her prior injury where she required multiple surgeries and a lot of surgery in her left leg and she indicates that she believes her left leg was reattached to her body since that time she has had a pain pump installed from the right lower quadrant she slipped the other day 3 or 4 days ago struck her right side of her body and since that time she had generalized sense of fatigue, had a sense of copious diarrhea, and a sense that her diffuse pain is not improved with the pain pump, she is also allowed to take oral Tylenol as a rescue medicine for pain pump does not controlling her diffuse whole body pain, she indicates she is scheduled to undergo operative reassessment of the pain pump sometime the next few weeks, with regards to the diarrhea it has been quite copious no blood watery no antibiotics no exposures to individuals were ill or tainted food no vomiting When I asked her about the fall she has pain over her right lateral chest wall margin, no rales Physical Examination: [] All vitals are within normal range General, no distress resting comfortably HEENT is generally unremarkable The neck is supple no adenopathy Cardiovascular, regular rate and rhythm Lungs, clear bilateral she has a nonspecific pain diffusely over the right side of chest is no crepitance subcu air of the breath sounds are normal Abdomen, soft nontender, there is a metallic device in the right lower quad quadrant that is slightly mobile this area is minimally tender there is no obvious fluctuance or fluid there is no contusion or bruising no drainage Extremities, no clubbing cyanosis or edema Neurologic, awake alert answering questions appropriately moving all 4 extremities full range of motion she indicates she has pain in her back chronically her lower leg chronically she indicates 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 Schneider her pain management physician discussed the case in detail he agrees with screening labs CT pain management he will see her in the office if the studies are unremarkable she is feeling well on Saturday Patient screening labs are generally unremarkable her hemoglobin is 9 she has had hemoglobins that range in the past, her chest x-ray CT abdomen and pelvis are unremarkable with no acute gross abnormalities please see those reports, again we did have a discussion with Dr. Schneider as above I explained the above the patient she is comfortable discharge home she will see him for further management and also follow-up with her outpatient providers for her diarrhea please note she had no vomiting or diarrhea while she is in the has been in the emergency department Treatment Plan: [] Disposition: [] Home stable Impression: [] Diffuse pain syndrome diarrhea concern related to neurostimulator function This note was generated with [employer] dictation software. It may contain incorrect words, spelling, and punctuation that were not noted in review of the chart prior to signing ED Disposition - Plan for ED Patient: Chief Complaint: General Illness Referrals: Carson Stephenson MD [Primary Care Provider] -
--- NOTE | 2018-09-06 16:01 | CT_ITS ---
STUDY: CT ABDOMEN AND PELVIS WITHOUT CONTRAST REASON FOR EXAM: Female, 58 years old. Pain RADIATION DOSAGE (If Supplied By Facility): CTDIvol = ( 11.48 ) mGy, DLP = ( 665.48 ) mGycm TECHNIQUE: Transaxial images were obtained from the dome of the diaphragm to the symphysis pubis without oral contrast, and without intravenous contrast. Sagittal and coronal images were reconstructed. Individualized dose optimization techniques were used for this CT. COMPARISON: None. FINDINGS: Mild atelectasis in the lung bases. The visualized portions of the heart are within normal limits. No hepatic or splenic masses. Normal gallbladder and extrahepatic biliary system. There are multiple benign calcified granulomata of the spleen and liver. Normal pancreas. Normal bilateral adrenal glands. Normal right kidney. There is a 1.1 cm calcification of the left kidney. There are operative changes in the upper abdomen. Normal small intestine. Normal colon. The appendix is visualized and appears normal. Normal abdominal aorta. There is an IVC filter in place. Normal retroperitoneum. Normal urinary bladder. Operative changes of the anterior abdominal wall. There is a hemangioma of L1. Mild degenerative changes of the lumbar spine. There is a neurostimulator device of the right lower abdominal wall CT/Abdomen/Pelvis without Cont IMPRESSION: 1. No hydronephrosis. 2. Nonobstructing left renal calculus. 3. Chronic changes, as above. Electronically Signed: Brayan Villagomez MD at 17:52 EST , Service support ,
[2018-09-06 16:36] LABS: Absolute Lymphocyte Count 0.61 X10^3/ul (0.83-4.51); Absolute Neutrophil Count 2.5 X10^3/uL (2.0-7.7); Basophil# 0.03 X10^3/uL; Basophil% 0.9 % (0-1); Eosinophil# 0.04 X10^3/uL; Eosinophils% 1.1 % (0-5); Hematocrit 29.8 % (37-47); Lymphocyte # 0.61 X10^3/ul (4.0); Lymphocyte % 17.4 % (19-41); Mean Corp Hgb Conc 30.2 g/gl (32-36); Mean Corpuscular Hgb 25.4 pg (27.0-32.0); Mean Corpuscular Volume 83.9 fL (81-99); Mean Platelet Vol. 10.2 fl (6.2-12.0); Monocyte# 0.35 X10^3/uL; Neutrophil # 2.47 X10^3/uL (2.7-7.7); Neutrophil % 70.6 % (47-70); Platelet Count 249 K/mm3 (150-450); RBC Distribution Width CV 17.2 % (11.6-14.6); RBC Distribution Width SD 53.8 fl (35.1-43.9); Red Blood Count 3.55 M/mm3 (4.2-5.4); White Blood Count 3.5 K/mm3 (4.4-11.0)
[2018-09-06 16:40] LABS: POSITIVE COUNT NO; POSITIVE DIFFERENTIAL NO; POSITIVE MORPHOLOGY NO
[2018-09-06 16:59] LABS: AST(SGOT) 19 U/L (15-37); Alanine Aminotransfer ALT/SGPT 20 U/L (13-56); Alkaline Phosphatase 108 U/L (45-117); Anion Gap 7 (5-15); BUN 7 mg/dL (7-18); BUN/Creat Ratio 12.6 RATIO (10-20); Bilirubin, Direct 0.09 mg/dL (0.00-0.30); Calcium,Total 8.3 mg/dL (8.5-10.1); Chloride 106 mmol/L (98-107); Creatinine, Serum 0.56 mg/dL (0.55-1.02); EST Glomerular Filtration Rate 120 mL/min (>60); Est Glom Filt Rate - Afr Amer 145 mL/min (>60); Estimated Creatinine Clearance 95.71 ml/min; Globulin 3.6 g/dL (2.2-4.2); Glucose 92 mg/dL (74-106); Lipase 104 U/L (73-393); Protein, Total 6.6 g/dL (6.4-8.2); Sodium Level 143 mmol/L (136-145)
[2018-09-06 17:13] LABS: BNP,B-Type NATRIURETIC PEPTIDE 162.5 pg/mL (0-100)
[2018-09-06 17:30] LABS: Bacteria 0 SEEN /hpf (None Seen); Mucous, Urine 0 SEEN /hpf (<or=2+); White Blood Cells 0 SEEN /hpf (0-5)
[2018-09-06 17:31] LABS: Color, Urine Straw (Yellow); Glucose, Dipstick Normal (Normal); Ketone-Dipstick Negative (Negative); Leukocyte Esterase-Dipstick Negative /ul (Negative); Nitrite-Dipstick Negative (Negative); Occult Blood-Urine 50 /ul (Negative); Protein-Dipstick Negative (Negative); Specific Gravity, Urine 1.015 (1.002-1.030); Urine Bilirubin Dipstick Negative (Negative); Urine Clarity Clear (Clear); Urine Urobilinogen Normal (Normal)
[2018-09-06 18:02] LABS: Squamous Epithelial Cells - UA 0-5 SEEN /hpf (5-10)
[2018-09-06 18:04] LABS: Red Blood Cells-Urine 0-5 SEEN /hpf (0-5)
[2018-09-06 18:05] VITALS: BP 127/76
--- NOTE | 2018-09-06 18:15 | ED.DEP ---
ED Disposition - Plan for ED Patient: Chief Complaint: General Illness Instructions: Abdominal Pain, ED Diarrhea Viral Prescriptions: Hydrocodone Bitart/Apap 5-325 [[place] 5MG-325MG] 1 tab PO Q4H PRN PRN 2 Days #7 tab PRN Reason: Pain Referrals: Carson Stephenson MD [Primary Care Provider] - Additional Instructions: Follow-up with your pain management physician and all of your outpatient providers for further management of your symptoms
[2018-09-06] MEDS: Ketorolac 30 MG/ML Syringe IV (18:38)
[2018-09-06 18:55] VITALS: PULSE 78; RESP 18; O2SAT 98
== END 2018-09-06 18:55 | disposition home or self-care (01) ==
PROVIDERS: Emergency Provider Emergency Medicine; Family Provider Family Medicine; PCP Family Medicine
DX: G89.4 Chronic pain syndrome (principal); R19.7 Diarrhea, unspecified; Z97.8 Presence of other specified devices; R07.89 Other chest pain; W01.0XXA Fall on same level from slipping, tripping and stumbling without subsequent striking against object, initial encounter; Y93.9 Activity, unspecified; Y92.9 Unspecified place or not applicable; Z79.01 Long term (current) use of anticoagulants; Z79.899 Other long term (current) drug therapy; R06.02 Shortness of breath
CPT/HCPCS: 71045; 74176; 80048; 80076; 81001; 83690; 83880; 84484; 85025; 93005; 96374; 99285; A4216

== ENCOUNTER 2018-12-03 20:36 | Emergency (ER) | payer MEDICARE, SELFPAY ==
[2018-12-03 20:37] VITALS: BP 140/87; PULSE 95; PULSE 96; RESP 17; TEMP 36.3; O2SAT 97; BMI 33.1
--- NOTE | 2018-12-03 21:08 | RAD_ITS ---
STUDY: X-RAY CHEST REASON FOR EXAM: Female, 58 years old. Cough. Dizziness. TECHNIQUE: PA and lateral views of the chest. COMPARISON: September 06, 2018. FINDINGS: There is continued elevation right hemidiaphragm with right basilar atelectasis. There is coarsened interstitial markings throughout the remainder of the lungs without new mass or infiltrate. Stable granuloma in the periphery of the left midlung. There is no demonstrated pleural abnormality. Normal size heart. Normal mediastinum and roz. Normal visualized pulmonary arteries. There is atherosclerotic calcification of the aortic arch with tortuosity. There is demineralization of the osseous structures. Multiple suture anchors in the right humeral head. There are surgical clips in left upper quadrant of the abdomen as well as an IVC filter in the right abdomen. RAD/Chest PA and Lateral IMPRESSION: No acute cardiopulmonary disease or major interval change. Electronically Signed: Parth Jarquin DO at 21:33 EDT Tel [phone], Service support ,
[2018-12-03 21:26] LABS: Absolute Lymphocyte Count 1.69 X10^3/ul (0.83-4.51); Basophil# 0.05 X10^3/uL; Basophil% 0.9 % (0-1); Eosinophil# 0.12 X10^3/uL; Eosinophils% 2.2 % (0-5); Hematocrit 33.3 % (37-47); Hemoglobin 10.4 g/dl (12.0-15.0); Lymphocyte # 1.69 X10^3/ul (4.0); Lymphocyte % 31.6 % (19-41); Mean Corp Hgb Conc 31.2 g/gl (32-36); Mean Corpuscular Hgb 25.6 pg (27.0-32.0); Mean Platelet Vol. 10.7 fl (6.2-12.0); Monocyte# 0.53 X10^3/uL; Monocyte% 9.9 % (0-10); Neutrophil # 2.95 X10^3/uL (2.7-7.7); Neutrophil % 55.2 % (47-70); Platelet Count 287 K/mm3 (150-450); RBC Distribution Width CV 20.3 % (11.6-14.6); Red Blood Count 4.06 M/mm3 (4.2-5.4); White Blood Count 5.4 K/mm3 (4.4-11.0)
[2018-12-03] MEDS: 0.9% Normal Saline 1,000 ML 1000 ML IV (21:27)
[2018-12-03 21:28] LABS: Differential Indicated SCAN CRITERIA MET; POSITIVE COUNT NO; POSITIVE DIFFERENTIAL NO; POSITIVE MORPHOLOGY YES
[2018-12-03 21:47] LABS: Differential Comment SCANNED
[2018-12-03 21:48] LABS: Anion Gap 4 (5-15); BUN 11 mg/dL (7-18); BUN/Creat Ratio 15.1 RATIO (10-20); Calcium,Total 8.7 mg/dL (8.5-10.1); Chloride 103 mmol/L (98-107); Creatinine, Serum 0.73 mg/dL (0.55-1.02); EST Glomerular Filtration Rate 87 mL/min (>60); Est Glom Filt Rate - Afr Amer 106 mL/min (>60); Estimated Creatinine Clearance 73.42 ml/min; Glucose 91 mg/dL (74-106); Potassium 4.2 mmol/L (3.5-5.1); Sodium Level 138 mmol/L (136-145)
--- NOTE | 2018-12-03 22:09 | ED.RN ---
A EKG STRIP WAS PRINTED FOR DR. BLANCO JUST TO DOUBLE CHECK THE RHYTHM. HE SAID THAT IT WAS NORMAL SINUS RHYTHM.
[2018-12-03 22:13] VITALS: BP 113/73; PULSE 77; RESP 17; O2SAT 94
--- NOTE | 2018-12-03 23:10 | ED.VISSUMM ---
- ER Visit Summary Date of Service: 12/03/18 Chief Complaint: Cough History of Present Illness: The patient is a [address] Kingsley, Dr. Stephenson, and Dr. Walker. She reports that she has a cough began approximately 2 weeks ago. Is productive of white/maguire sputum. There is been no blood in the sputum. She does report the cough is actually improving. Patient reports that she has had chest pain for the past 2 days. The constant pain she states that the rate begins in her back and radiates into her chest, jaw, and neck. It is a constant pain that waxes and wanes. Zeta 10 hours and 5-10 currently. It is increased with walking or coughing. Decreased with oxygen or relaxing. She reports that she has had a fever to 99.8 degrees. Physical Examination: Vitals: Stable. Afebrile. General: Well-nourished and well-developed. Head: Normocephalic atraumatic. Neck: Supple, no lymphadenopathy. No JVD. Nontender. Cardiovascular: Regular rate and rhythm. No murmurs. Respiratory: No respiratory distress. Clear to auscultation bilaterally. Moderate tenderness palpation over the costochondral margin bilaterally does reproduce her pain. Abdominal: Soft, nontender, nondistended, normal bowel sounds. No guarding, rebound, or peritoneal signs. Back: Nontender. Extremities: Nontender, no edema. Skin: Normal color, no rash. Neurologic: Alert and oriented ?3. Cranial nerves II through XII are intact. Normal strength and sensation. Psych: Normal affect. Test Results: Chest x-ray shows chronic changes. No acute disease. CBC is marked for an H&H of 10.4 33.3. Chem-7 is normal. Troponin is negative. EKG shows no acute changes. Emergency Department Course and Treatment: Patient was treated with prednisone. She is resting comfortably. Treatment Plan: Had a prolonged discussion with patient that I suspect her pain is muscle skeletal from her cough. She will be discharged with 5-day burst of prednisone. Instructed to follow-up with her primary care physician in 3-5 days if not improving. Return to the emergency department for any worsening symptoms. Disposition: To home in improved and stable condition. Impression: 1. URI. 2. COPD. 3. Musculoskeletal chest pain. This note was generated with Dragon dictation software. It may contain incorrect words, spelling, and punctuation that were not noted in review of the chart prior to signing ED Disposition - Plan for ED Patient: Disposition: Home or Assisted Living Instructions: ED Chest Pain Atypical Unkn Cause Prescriptions: Prednisone [Deltasone] 40 mg PO DAILY #10 tablet Referrals: Carson Stephenson MD [Primary Care Provider] - 1 Week if not improving
[2018-12-03 23:16] VITALS: BP 111/70; PULSE 86; RESP 18; O2SAT 96
[2018-12-03] MEDS: predniSONE 20 MG Tablet 40 MG PO (23:16)
== END 2018-12-03 23:21 | disposition home or self-care (01) ==
LOC: ED 21:19
PROVIDERS: Emergency Provider Emergency Medicine; Family Provider Family Medicine; PCP Family Medicine
DX: J06.9 Acute upper respiratory infection, unspecified (principal); J44.9 Chronic obstructive pulmonary disease, unspecified; R07.9 Chest pain, unspecified; F17.200 Nicotine dependence, unspecified, uncomplicated
CPT/HCPCS: 71046; 80048; 84484; 85025; 93005; 96360; 96361; 99285; J7030; A4216

== ENCOUNTER 2019-01-09 08:27 | Day surgery (SDC) | payer MEDICARE, SELFPAY ==
[2019-01-09] VITALS (9 sets, daily range): BP systolic 91–148; BP diastolic 68–89; PULSE 77–91; RESP 15–18; TEMP 36.2–36.6; O2SAT 92–99; BMI 33.7
--- NOTE | 2019-01-09 09:55 | RAD_ITS ---
PROCEDURE: Pain pump revision. DATE OF EXAMINATION: January 09, 2019. INDICATION: Female, 58 years old. Pain. FLUOROSCOPY TIME (if supplied): (1:10) minutes/seconds. Single coned-down lateral view of the thoracolumbar spine was obtained intraoperatively. Imaging provided for pain pump revision. RAD/Lumbar Spine 2 or 3 Views IMPRESSION: Intraoperative imaging provided for pain pump revision. Electronically Signed: Robinson Sharma, at 13:41 EDT , Service support ,
[2019-01-09] MEDS: Cefazolin 2 GM in 0.9% Normal Saline 100 ML IV (10:43)
[2019-01-09] MEDS: Bupivacaine 0.25% 30 ML Vial (12:00)
== END 2019-01-09 14:52 | disposition home or self-care (01) ==
LOC: SDC 08:27 → AC 08:28
PROVIDERS: Family Provider Family Medicine; PCP Family Medicine; Referring Provider Anesthesiology Pain Medicine; Visit Provider Anesthesiology Pain Medicine
PROC: (CPT 62362; principal; 2019-01-09 09:40)
DX: Z45.42 Encounter for adjustment and management of neurostimulator (principal); G89.4 Chronic pain syndrome; M06.9 Rheumatoid arthritis, unspecified; D68.59 Other primary thrombophilia; K58.9 Irritable bowel syndrome, unspecified; D64.9 Anemia, unspecified; Z79.899 Other long term (current) drug therapy; F17.210 Nicotine dependence, cigarettes, uncomplicated
CPT/HCPCS: 00300; 62362; 72100; 76000; J7120; J3490

== ENCOUNTER → 2019-07-08 11:50 | Outpatient (CLI) | payer MEDICARE, SELFPAY ==
[2019-01-09 09:01] VITALS: BMI 33.7
--- NOTE | 2019-07-08 12:10 | RAD_ITS ---
STUDY: X-RAY - LUMBAR SPINE REASON FOR EXAM: Female, 59 years old. TECHNIQUE: view(s) of the lumbar spine were obtained. COMPARISON: None FINDINGS: Normal lumbar lordosis. There is no substantial scoliosis. There is a normal alignment of the vertebrae. Normal vertebral bodies and endplates. Normal disc space heights. Mild hypertrophic changes seen in the lumbar spine The soft tissue structures are unremarkable. There is IVC filter in place. There is 1 cm stone superimposing the left kidney. RAD/Lumbar Spine 2 or 3 Views IMPRESSION: Normal x-ray examination of the lumbar spine. Electronically Signed: Jesse Valdez, at 15:27 EST Tel , Service support ,
== END ==
LOC: RAD 11:52
PROVIDERS: Family Provider Family Medicine; PCP Family Medicine; Referring Provider Anesthesiology Pain Medicine; Visit Provider Anesthesiology Pain Medicine
DX: M54.5 Low back pain (principal); W19.XXXA Unspecified fall, initial encounter
CPT/HCPCS: 72100

== ENCOUNTER 2019-12-15 14:22 | Observation (INO) | payer MEDICARE, SELFPAY ==
[2019-01-09 09:01] VITALS: BMI 33.7
[2019-12-15] VITALS (10 sets, daily range): BP systolic 104–148; BP diastolic 64–81; PULSE 77–105; RESP 18–26; TEMP 36.4–36.8; O2SAT 89–100; BMI 36.7; BMI 36.6
--- NOTE | 2019-12-15 14:41 | EKG12_ITS ---
Test Reason : RIB PAIN Blood Pressure : / mmHG Vent. Rate : 098 BPM Atrial Rate : 098 BPM P-R Int : 146 ms QRS Dur : 090 ms QT Int : 352 ms P-R-T Axes : 037 004 024 degrees QTc Int : 449 ms Normal sinus rhythm Normal ECG Confirmed by ALBERT HOLDER ([id number]), school photograph editor GAUDENCIO YOUNG ([id number]) on 12/17/2019 3:04:58 PM Referred By: FELY Confirmed By:ALBERT HOLDER
--- NOTE | 2019-12-15 14:43 | ED.VISSUMM ---
- ER Visit Summary Date of Service: 12/15/19 Chief Complaint: Shortness of breath History of Present Illness: The patient is a 59 F presenting with shortness of breath and cough. Patient states that she has had the symptoms for the past 5 days. She has had productive cough, fever, and shortness of breath. She was started on Levaquin by her primary care physician 5 days ago. She finished antibiotics today. When she called the office she was advised to come to the ED because she is still not improving after finishing the course of antibiotics. On arrival to the ED her pulse ox was 84% on room air. She does wear home O2. She complains of rib pain when coughing. Denies recent travel. Denies sick contacts. Physical Examination: Vitals are stable. Heart rate 105. Pulse ox 96% on nasal cannula. Patient is afebrile. Alert no acute distress. HEENT exam is unremarkable. Neck is supple. Lungs are clear and equal bilaterally. Heart is regular rate and rhythm. Abdomen is soft nontender nondistended. Extremities are unremarkable. Skin is warm and dry. No focal neurologic deficit. Remainder of exam is unremarkable. Emergency Department Course and Treatment: EKG is sinus rhythm rate of 98 with no acute ischemic changes. Patient states that she did have oxygen in the car but walked from the car to triage without oxygen. Her oxygen saturation is 96% on her normal 2 L. She states she has not been taking her Xarelto due to expense, she does have a ramy filter in place. CBC normal except hemoglobin 11.7. Chemistries normal. Troponin is negative. Chest x-ray shows no acute process. CTA chest shows technically inadequate exam as above. Inadequate opacification of the pulmonary arteries. Pulmonary emboli are not excluded. Probable chronic pulmonary disease with areas of interstitial fibrosis and scattered nodular scarring but recommend follow-up in 6-12 months. Atelectasis or infiltrate in the right lower lobe. Patient continues to feel short of breath. She finished a course of oral antibiotics. She was given Solu-Medrol IV. Discussed with hospitalist for admission. Disposition: Admission Impression: COPD exacerbation This note was generated with Betterment dictation software. It may contain incorrect words, spelling, and punctuation that were not noted in review of the chart prior to signing ED Disposition - Plan for ED Patient: Referrals: Carson Stephenson MD [Primary Care Provider] -
--- NOTE | 2019-12-15 15:10 | RAD_ITS ---
STUDY: X-RAY CHEST REASON FOR EXAM: Female, 59 years old. SOB, COUGH AND FEVER TECHNIQUE: Single AP portable view of the chest. COMPARISON: Comparison is made with prior study dated December 03, 2018. FINDINGS: EKG electrodes are seen. Stable elevation of the right hemidiaphragm with blunting of the right costophrenic angle. Scattered calcified granulomas. No acute infiltrate is seen. Normal size heart. Normal mediastinum and roz. Normal visualized pulmonary arteries. There is atherosclerotic calcification of the aortic arch with tortuosity. Normal visualized thoracic spine. Once again, multiple suture anchors are seen overlying the right humeral head most likely secondary to prior rotator cuff surgery. Surgical clips are seen in the left upper quadrant. RAD/Chest 1 View (Portable) IMPRESSION: No acute abnormality is seen Electronically Signed: Robinson Sharma, at 15:27 EDT , Service support ,
[2019-12-15 15:22] LABS: Absolute Neutrophil Count 3.2 X10^3/uL (2.0-7.7); Basophil# 0.02 X10^3/uL; Basophil% 0.4 % (0-1); Eosinophil# 0.16 X10^3/uL; Eosinophils% 2.9 % (0-5); Hemoglobin 11.7 g/dL (12.0-15.0); Lymphocyte % 27.2 % (19-41); Mean Corp Hgb Conc 31.6 g/dL (32-36); Mean Corpuscular Hgb 29.1 pg (27.0-32.0); Mean Platelet Vol. 10.3 fl (6.2-12.0); Monocyte# 0.55 X10^3/uL; NRBC Flagged by Analyzer 0 % (0-5); Neutrophil # 3.23 X10^3/uL (2.7-7.7); Neutrophil % 58.6 % (47-70); Platelet Count 268 K/mm3 (150-450); RBC Distribution Width CV 15.1 % (11.6-14.6); RBC Distribution Width SD 51.4 fl (35.1-43.9); Red Blood Count 4.02 M/mm3 (4.2-5.4); White Blood Count 5.5 K/mm3 (4.4-11.0)
[2019-12-15 15:34] LABS: Bacteria 0 SEEN /hpf (None Seen); Mucous, Urine 0 SEEN /hpf (<or=2+); Red Blood Cells-Urine 0 SEEN /hpf (0-5)
[2019-12-15 15:40] LABS: Color, Urine Yellow (Yellow); Glucose, Dipstick Normal (Normal); Ketone-Dipstick Negative (Negative); Leukocyte Esterase-Dipstick 25 /ul (Negative); Nitrite-Dipstick Negative (Negative); Occult Blood-Urine Negative /ul (Negative); Protein-Dipstick Negative (Negative); Urine Bilirubin Dipstick Negative (Negative); Urine Clarity Sl. Cloudy (Clear); Urine Urobilinogen Normal (Normal)
[2019-12-15 15:41] LABS: Anion Gap 4 (5-15); BUN 12 mg/dL (7-18); BUN/Creat Ratio 16.3 RATIO (10-20); Calcium,Total 8.6 mg/dL (8.5-10.1); Chloride 101 mmol/L (98-107); Creatinine, Serum 0.74 mg/dL (0.55-1.02); EST Glomerular Filtration Rate 86 mL/min (>60); Est Glom Filt Rate - Afr Amer 104 mL/min (>60); Estimated Creatinine Clearance 71.56 ml/min; Glucose 91 mg/dL (74-106); Sodium Level 138 mmol/L (136-145)
[2019-12-15 15:50] LABS: Lactic Acid 1.6 mmol/L (0.4-1.9)
--- NOTE | 2019-12-15 15:50 | CT_ITS ---
STUDY: CTA CHEST REASON FOR EXAM: Female, 59 years old. FEVER,COUGH,SHORT OF BREATH X 5 DAYS, COPD, RADIATION DOSAGE (If Supplied By Facility): CTDIvol = ( 11.52 ) mGy, DLP = ( 373.69 ) mGycm TECHNIQUE: The examination was performed with the intravenous administration of IV 100mL Isovue-370. Post-processing of the angiographic images was performed, with multiplanar reformation and 3D reconstruction. Individualized dose optimization techniques were used for this CT. COMPARISON: None. FINDINGS: There is limited enhancement of the main pulmonary artery and right and left pulmonary arteries. There is limited enhancement of the bilateral peripheral pulmonary arteries. Specifically, most of the contrast is seen in the right brachiocephalic vein and SVC, and the aorta is enhanced greater than the pulmonary arteries. This indicates a much too broad contrast bolus with improper timing. Pulmonary emboli cannot be excluded beyond the pulmonary trunk. Normal thoracic aorta and visualized great vessels. There is no demonstrated aortic dissection. Normal heart and pericardium. There are calcifications of the coronary arteries. Normal mediastinum. Normal hilar regions. Normal visualized trachea and bronchi. The lungs are under expanded. There is elevation of the right hemidiaphragm. There are scattered poorly defined small opacities throughout the lungs with a nodular pattern, many which are similar to previous exam. These are most likely small focal areas of scarring. Probable scattered interstitial fibrosis. There is atelectasis or infiltrate in the right lower lobe along with probable bronchitis. No effusions. There are degenerative changes of thoracic spine. No acute abnormality in the visualized upper abdomen. CT/CTA Chest W/WO Contrast IMPRESSION: Technically inadequate exam as above. Inadequate opacification of the pulmonary arteries. Pulmonary emboli are not excluded. Probable chronic pulmonary disease with areas of interstitial fibrosis and scattered nodular scarring but recommend follow-up in 6-12 months. Atelectasis or infiltrate in the right lower lobe. Electronically Signed: William Velasquez MD at 17:21 EDT , Service support ,
[2019-12-15 15:55] LABS: Calcium Oxalate Crystals Ur 3+ /hpf (<or=2+); Squamous Epithelial Cells - UA 0-5 SEEN /hpf (5-10); White Blood Cells 0-5 SEEN /hpf (0-5)
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
[2019-12-15 18:45] LABS: International Normalized Ratio 1.1; Prothrombin Time (Protime)PT. 13.3 SECONDS (11.7-14.9)
[2019-12-15] MEDS: MethylPREDNISolone 125 MG/2 ML Vial IV (19:04)
[2019-12-15] MEDS: 0.9% Saline Lock 10 ML Syringe IV ×3 (19:05→22:29)
--- NOTE | 2019-12-15 19:34 | NURSING ---
spoke with ed charge coordinator to check if odh called for covid test, rn will check and let this nurse know
--- NOTE | 2019-12-15 19:44 | NURSING ---
cps notified of orders for resp panel and covid order. ER signed form for OD approval in chart.called nursing supervisor aluminum fabrication for additional air scrubber for pt room
[2019-12-15] MEDS: Ceftriaxone 1 GM/50 ML BAG IV (20:40)
[2019-12-15] MEDS: cycloBENZAPRine HCl 5 MG TABLET PO (20:44)
[2019-12-15] MEDS: Gabapentin 300 MG Capsule 600 MG PO (20:45)
[2019-12-15] MEDS: Ipratropium/Albuterol Sulfate 3 ML AMPUL.NEB INHALATION (20:45)
[2019-12-15] MEDS: Amitriptyline 100 MG Tablet 200 MG PO (20:45)
[2019-12-15] MEDS: HYDROcodone Bitartrate/Apap 5/325 Tablet PO (22:29)
[2019-12-16] VITALS (8 sets, daily range): BP systolic 94–117; BP diastolic 59–72; PULSE 80–106; RESP 16–20; TEMP 36.3–37; O2SAT 87–95
[2019-12-16] MEDS: Ipratropium/Albuterol Sulfate 3 ML AMPUL.NEB INHALATION ×3 (01:45→10:57)
[2019-12-16] MEDS: 0.9% Saline Lock 10 ML Syringe IV ×2 (06:32→08:21)
[2019-12-16 06:45] LABS: Absolute Lymphocyte Count 0.51 X10^3/uL (0.83-4.51); Absolute Neutrophil Count 2.6 X10^3/uL (2.0-7.7); Basophil# 0.02 X10^3/uL; Basophil% 0.6 % (0-1); Hematocrit 36.6 % (37-47); Hemoglobin 11.2 g/dL (12.0-15.0); Lymphocyte # 0.51 X10^3/ul (4.0); Lymphocyte % 15.5 % (19-41); Mean Corp Hgb Conc 30.6 g/dL (32-36); Mean Corpuscular Hgb 28.5 pg (27.0-32.0); Mean Corpuscular Volume 93.1 fL (81-99); Monocyte# 0.11 X10^3/uL; Monocyte% 3.3 % (0-10); NRBC Flagged by Analyzer 0 % (0-5); Neutrophil # 2.61 X10^3/uL (2.7-7.7); Neutrophil % 79.4 % (47-70); POSITIVE DIFFERENTIAL YES; Platelet Count 259 K/mm3 (150-450); RBC Distribution Width CV 14.6 % (11.6-14.6); RBC Distribution Width SD 50.8 fl (35.1-43.9); Red Blood Count 3.93 M/mm3 (4.2-5.4); White Blood Count 3.3 K/mm3 (4.4-11.0)
[2019-12-16 06:59] LABS: ALB/GLOB Ratio 0.7 RATIO (0.9-2.4); AST(SGOT) 10 U/L (15-37); Alanine Aminotransfer ALT/SGPT 12 U/L (13-56); Albumin, Serum 2.8 g/dL (3.2-5.0); Alkaline Phosphatase 105 U/L (45-117); Anion Gap 5 (5-15); BUN 12 mg/dL (7-18); Calcium,Total 8.8 mg/dL (8.5-10.1); Chloride 98 mmol/L (98-107); Creatinine, Serum 0.67 mg/dL (0.55-1.02); EST Glomerular Filtration Rate 96 mL/min (>60); Est Glom Filt Rate - Afr Amer 117 mL/min (>60); Estimated Creatinine Clearance 79.03 ml/min; Globulin 3.9 g/dL (2.2-4.2); Glucose 172 mg/dL (74-106); Potassium 4.4 mmol/L (3.5-5.1); Protein, Total 6.7 g/dL (6.4-8.2); Sodium Level 136 mmol/L (136-145)
[2019-12-16 07:09] LABS: International Normalized Ratio 1.1; Prothrombin Time (Protime)PT. 13.7 SECONDS (11.7-14.9)
[2019-12-16 07:16] LABS: Differential Indicated SCAN CRITERIA MET
[2019-12-16 07:20] LABS: Differential Comment SCANNED
[2019-12-16] MEDS: Furosemide 40 MG Tablet 80 MG PO (08:18)
[2019-12-16] MEDS: DULoxetine Hcl 60 MG Capsule PO (08:19)
[2019-12-16] MEDS: cycloBENZAPRine HCl 5 MG TABLET PO (08:19)
[2019-12-16] MEDS: Gabapentin 300 MG Capsule PO (08:19)
--- NOTE | 2019-12-16 11:38 | DCINST_ITS ---
- Discharge Diagnoses Current Active Problems: Current Active and Chronic Problems Chronic respiratory failure with hypoxia (Chronic) You will use the following diet at home:: Cardiac Your food should be the consistency of: Regular Your liquids should be the consistency of: Regular/Thin Discharge Activity: Return to Normal Activity Additional Instructions: You need your INR checked in 3 days, and further instructions regarding warfarin and lovenox depending on the results. Speak to your PCP in order to obtain this test. If you develop blood in your sputum again you must stop taking warfarin and lovenox and call your doctor immediately. Allergies/Adverse Reactions: Allergies celecoxib Allergy (Verified 01/08/19 12:06) Swelling naproxen Allergy (Verified 01/08/19 12:06) Swelling Penicillins Allergy (Verified 01/08/19 12:06) Hives pregabalin Allergy (Verified 01/08/19 12:06) Swelling sertraline Allergy (Verified 01/08/19 12:06) Unknown Medications to take at Discharge Amitriptyline HCl [Elavil] 200 mg PO QHS 04/26/14 Duloxetine Hcl [Cymbalta] 60 mg PO DAILY 04/26/14 Gabapentin [Neurontin] 300 mg PO TID 04/26/14 Clonazepam [Klonopin] 0.5 mg PO 4X/DAY PRN 12/13/14 Furosemide [Lasix] 80 mg PO BREAKFAST 02/04/16 Ipratropium/Albuterol Respimat [Combivent Respimat Inhal [place]] 2 puff INHALATION 4X/DAY PRN 03/04/16 Furosemide [Lasix] 40 mg PO DINNER 06/12/17 Dextroamphetamine/Amphetamine [Adderall 30 mg Tablet] 30 mg PO DAILY 08/09/17 Benzonatate [Tessalon Perle] 100 mg PO TID PRN PRN 12/15/19 Cyclobenzaprine HCl 5 mg PO BID 12/15/19 Gabapentin [Neurontin] 600 mg PO QHS 12/15/19 Potassium Chloride [Klor-Con M20] 20 meq PO BID 12/15/19 Acetaminophen [Tylenol Tablet] 650 mg PO Q6H PRN PRN tablet 12/16/19 Azithromycin [Zithromax] 500 mg PO DAILY #2 tab 12/16/19 Cefdinir [Omnicef [equiv]] 300 mg PO Q12H #8 cap 12/16/19 Enoxaparin Sodium [Lovenox] 60 mg SQ DAILY 7 Days #7 syringe 12/16/19 Prednisone 10 mg PO DAILY #30 tab 12/16/19 Warfarin [Coumadin] 5 mg PO DAILY #30 tab 12/16/19 The following prescriptions were given: Warfarin [Coumadin] 5 mg PO DAILY #30 tab Transmission Status: Pending to [facility] Enoxaparin Sodium [Lovenox] 60 mg SQ DAILY 7 Days #7 syringe Transmission Status: Pending to [facility] Cefdinir [Omnicef [equiv]] 300 mg PO Q12H #8 cap Transmission Status: Pending to [facility] Prednisone 10 mg PO DAILY #30 tab Prescription Printed Azithromycin [Zithromax] 500 mg PO DAILY #2 tab Transmission Status: Pending to [facility] Primary Care Physician: Carson Stephenson MD [Primary Care Provider] - Please follow up with your Primary Care Physician in: 1 week Test Results: Test results from this visit will be discussed in further detail at your follow- up appointment, if applicable. 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
--- NOTE | 2019-12-16 12:27 | CASEMGMT ---
RN FILIBERTO HOOKER INSPECTOR CM called pt in her room and ssessment completed via phone conversation. Care providers, pharmacy, and demographics verified/updated at this time. PCP: Dr Stephenson Specialists: Dr Walker--pain mgmt, Dr Dinah Nelson--pulmonology [facility], Dr Masters--psychiatry, Dr Andujar--GI @ [facility] Preferred Pharmacy: [facility] Retail Insurance: [employer] MCR Prescription Benefit: Yes. Pt has not been taking Xarelto d/t high cost. Pt states It's anywhere from $50-100/month and I can't afford that. Per Devante STUBBS, plan is for pt to d/c home on Warfarin w/Lovenox bridge. Call placed to [facility] Retail pharmacy for yuen check. Lovenox cost is $42.22. Total cost for all meds prescribed at d/c is $76.21. Pt made aware and states this is affordable. Pt states she is very familiar with giving herself injections and is comfortable w/this. Living Will/HPOA: Has both LW and HCPOA, who is her , Tha. Copies of both on E-file @ [facility] LNOK: , Tha Living Arrangements: Lives with her in 3-story home. Has difficulty with the stairs and assists. They are moving into a new home within the next week or so, which will be a one-story home. is supportive and assists with bathing/dressing and any other needs she may have. Transportation: Pt states drives self and states no transportation concerns at this time. also drives and will be taking pt home @ d/c DME: States has the following DME: O2 @ 2-3 L/M continuously through [employer]. Has concentrator and portability. Pt states she would like smaller tanks. [place] advised her to contact [facility] to discuss this with them. Provided with list of local DME companies in case [facility] does not have smaller portable tanks. Pt voices appreciation. Pt also has a nebulizer Pt states no need for further DME at this time. HHC/SNF: No history of either. Denies needs for HHC. Pt wishes to return home and states has no concerns with going home at time of discharge. CM to follow for home oxygen needs and any further discharge planning/needs. Pt voices no further concerns/needs at this time. Advised pt to ask for CM if any further questions/concerns/needs arise. Voices understanding. Call placed to pt's per pt's request. He was made aware of cost of new meds @ d/c of $76.21 and states this is affordable. He was advised of [facility] Retail pharmacy curb-side for medication pick-up. and pt both made aware that Warfarin prescription is for 30-days and that she will need to follow-up with her PCP for refills. PLAN: Home w/spousal support and discharge plans in place. Kulwant MORTENSEN RN CM
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
== END 2019-12-16 13:40 | disposition home or self-care (01) ==
LOC: ED 16:04 → MS2 18:54
PROVIDERS: Physician Assistant; Admitting Provider Hospitalist; Emergency Provider Emergency Medicine; PCP Family Medicine; Visit Provider Internal Medicine
DX: J44.1 Chronic obstructive pulmonary disease with (acute) exacerbation (principal); J96.11 Chronic respiratory failure with hypoxia; D68.59 Other primary thrombophilia; K58.9 Irritable bowel syndrome, unspecified; G90.529 Complex regional pain syndrome I of unspecified lower limb; M79.7 Fibromyalgia; F41.9 Anxiety disorder, unspecified; F32.9 Major depressive disorder, single episode, unspecified; I10 Essential (primary) hypertension; F60.4 Histrionic personality disorder; J98.6 Disorders of diaphragm; F17.210 Nicotine dependence, cigarettes, uncomplicated; Z86.711 Personal history of pulmonary embolism; Z79.899 Other long term (current) drug therapy; Z85.01 Personal history of malignant neoplasm of esophagus; Z86.718 Personal history of other venous thrombosis and embolism
CPT/HCPCS: 36415; 71045; 71275; 80048; 80053; 81001; 83605; 84484; 85025; 85610; 87040; 87449; 87633; 87635; 93005; 94640; 94667; 94668; 96365; 96367; 96375; 96376; 99218; 99251; 99285; G2023; Q9967; A4216; G0378; G0463; U0002; U0004

== ENCOUNTER → 2019-12-24 | Outpatient (CLI) | payer MEDICARE, SELFPAY ==
[2019-12-15 18:42] VITALS: BMI 36.6
[2019-12-24 14:51] LABS: International Normalized Ratio 1.3; Prothrombin Time (Protime)PT. 15.5 SECONDS (11.7-14.9)
== END | disposition home or self-care (01) ==
LOC: LABSPEC 14:32
PROVIDERS: PCP Family Medicine; Referring Provider Family Medicine; Visit Provider Family Medicine
DX: D68.59 Other primary thrombophilia (principal); Z79.01 Long term (current) use of anticoagulants; Z86.718 Personal history of other venous thrombosis and embolism
CPT/HCPCS: 85610

== ENCOUNTER → 2020-01-20 | Outpatient (CLI) | payer MEDICARE, SELFPAY ==
[2019-12-15 18:42] VITALS: BMI 36.6
== END | disposition home or self-care (01) ==
PROVIDERS: PCP Family Medicine; Referring Provider Family Medicine; Visit Provider Family Medicine
DX: D68.59 Other primary thrombophilia (principal); Z86.718 Personal history of other venous thrombosis and embolism; Z79.01 Long term (current) use of anticoagulants
CPT/HCPCS: 85610

== ENCOUNTER → 2020-01-22 | Outpatient (CLI) | payer MEDICARE, SELFPAY ==
[2019-12-15 18:42] VITALS: BMI 36.6
[2020-01-22 12:46] LABS: International Normalized Ratio 1.6; Prothrombin Time (Protime)PT. 18.1 SECONDS (11.7-14.9)
== END | disposition home or self-care (01) ==
LOC: LABSPEC 12:18
PROVIDERS: PCP Family Medicine; Referring Provider Family Medicine; Visit Provider Family Medicine
DX: D68.59 Other primary thrombophilia (principal); Z86.718 Personal history of other venous thrombosis and embolism; Z79.01 Long term (current) use of anticoagulants
CPT/HCPCS: 85610

== ENCOUNTER → 2020-01-26 | Outpatient (CLI) | payer MEDICARE, SELFPAY ==
[2019-12-15 18:42] VITALS: BMI 36.6
[2020-01-26 10:53] LABS: International Normalized Ratio 2.6; Prothrombin Time (Protime)PT. 27.1 SECONDS (11.7-14.9)
== END | disposition home or self-care (01) ==
LOC: LABSPEC 10:17
PROVIDERS: PCP Family Medicine; Referring Provider Family Medicine; Visit Provider Family Medicine
DX: D68.59 Other primary thrombophilia (principal); Z86.718 Personal history of other venous thrombosis and embolism; Z79.01 Long term (current) use of anticoagulants
CPT/HCPCS: 85610

== ENCOUNTER → 2020-02-04 | Outpatient (CLI) | payer MEDICARE, SELFPAY ==
[2019-12-15 18:42] VITALS: BMI 36.6
[2020-02-04 08:49] LABS: International Normalized Ratio 2.7; Prothrombin Time (Protime)PT. 28.6 SECONDS (11.7-14.9)
== END | disposition home or self-care (01) ==
LOC: LABSPEC 08:29
PROVIDERS: PCP Family Medicine; Referring Provider Family Medicine; Visit Provider Family Medicine
DX: D68.59 Other primary thrombophilia (principal); Z79.01 Long term (current) use of anticoagulants; Z86.718 Personal history of other venous thrombosis and embolism
CPT/HCPCS: 85610

== ENCOUNTER → 2020-02-11 | Outpatient (CLI) | payer MEDICARE, SELFPAY ==
[2019-12-15 18:42] VITALS: BMI 36.6
[2020-02-11 14:47] LABS: International Normalized Ratio 1.8; Prothrombin Time (Protime)PT. 20.6 SECONDS (11.7-14.9)
== END | disposition home or self-care (01) ==
LOC: LABSPEC 14:00
PROVIDERS: PCP Family Medicine; Referring Provider Family Medicine; Visit Provider Family Medicine
DX: D68.59 Other primary thrombophilia (principal); Z86.718 Personal history of other venous thrombosis and embolism; Z79.01 Long term (current) use of anticoagulants
CPT/HCPCS: 85610

== ENCOUNTER → 2020-02-19 | Outpatient (CLI) | payer MEDICARE, SELFPAY ==
[2019-12-15 18:42] VITALS: BMI 36.6
[2020-02-19 11:20] LABS: International Normalized Ratio 1.5; Prothrombin Time (Protime)PT. 17.3 SECONDS (11.7-14.9)
== END | disposition home or self-care (01) ==
LOC: LABSPEC 10:45
PROVIDERS: PCP Family Medicine; Referring Provider Family Medicine; Visit Provider Family Medicine
DX: D68.59 Other primary thrombophilia (principal); Z79.01 Long term (current) use of anticoagulants; Z86.718 Personal history of other venous thrombosis and embolism
CPT/HCPCS: 85610

== ENCOUNTER → 2020-02-26 12:09 | Outpatient (CLI) | payer MEDICARE, SELFPAY ==
[2019-12-15 18:42] VITALS: BMI 36.6
[2020-02-26 12:30] LABS: Prothrombin Time (Protime)PT. 21.9 SECONDS (11.7-14.9)
== END ==
PROVIDERS: PCP Family Medicine; Referring Provider Family Medicine; Visit Provider Family Medicine
DX: Z86.718 Personal history of other venous thrombosis and embolism (principal); Z79.01 Long term (current) use of anticoagulants; D68.59 Other primary thrombophilia
CPT/HCPCS: 85610

== ENCOUNTER → 2020-03-15 11:56 | Outpatient (CLI) | payer MEDICARE, SELFPAY ==
[2019-12-15 18:42] VITALS: BMI 36.6
[2020-03-15 12:15] LABS: International Normalized Ratio 1.8; Prothrombin Time (Protime)PT. 20.7 SECONDS (11.7-14.9)
== END ==
PROVIDERS: PCP Family Medicine; Referring Provider Family Medicine; Visit Provider Family Medicine
DX: D68.59 Other primary thrombophilia (principal); Z86.718 Personal history of other venous thrombosis and embolism; Z79.01 Long term (current) use of anticoagulants
CPT/HCPCS: 85610

== ENCOUNTER 2020-03-26 19:17 | Emergency (ER) | payer MEDICARE, SELFPAY ==
[2019-12-15 18:42] VITALS: BMI 36.6
[2020-03-26 19:18] VITALS: BP 129/87; PULSE 97; RESP 20; TEMP 37.2; O2SAT 87; BMI 36.4
--- NOTE | 2020-03-26 20:00 | EKG12_ITS ---
Test Reason : Blood Pressure : / mmHG Vent. Rate : 075 BPM Atrial Rate : 075 BPM P-R Int : 156 ms QRS Dur : 092 ms QT Int : 396 ms P-R-T Axes : 040 011 029 degrees QTc Int : 442 ms Normal sinus rhythm Low voltage QRS Borderline ECG Confirmed by ADRIAN FIERRO MD ([id number]), multimedia editor GAUDENCIO YOUNG ([id number]) on 03/28/2020 2:40:49 PM Referred By: SENDY Confirmed By:ADRIAN FIERRO MD
--- NOTE | 2020-03-26 20:02 | ED.VIS.DYS ---
History of Present Illness Chief Complaint: Fever Informant: Patient Onset: 11-14 Timing: Intermittent Quality: Dyspnea on exertion, Wheezing Current Severity: Mild Maximum Severity: Moderate Worsened by: Coughing, Exertion, Lying flat Relieved by: Albuterol, Oxygen, Rest Associated Symptoms: Bloody Sputum, Cough, Fever, Rhinorrhea. Negative for: Sore throat Chest Pain: Aching - Only when coughing Narrative: Patient states she has COPD and is on 3-4 L of oxygen at home, she has been coughing for the last 4 or 5 days, now bringing up small amount of blood, she states she is on warfarin because of blood clots in the past. She is concerned that she has pneumonia, as this has been the case in the past when she is coughing up blood. She denies bleeding from anywhere else. Patient presents during the national coronavirus emergency declaration/pandemic. She denies any known contact with anyone infected with COVID-19. She denies traveling out of the immediate area recently. She was actually tested for COVID-19 a couple months ago and was negative. States she had some nausea, vomited once or twice, with some diarrhea earlier in the week, but her had the same illness, but most of that is gone, just some residual diarrhea. Her is better. He does not have the respiratory illness. - Past Medical History (1) Fibromyalgia Status: Chronic (2) Hypertension Status: Chronic (3) Anxiety and depression Status: Chronic (4) COPD (chronic obstructive pulmonary disease) Status: Chronic (5) Chronic low back pain with sciatica Status: Chronic (6) Chronic respiratory failure with hypoxia Status: Chronic (7) Chronic upper back pain Status: Chronic (8) DVT of proximal lower limb Status: Chronic (9) History of IBS Status: Chronic (10) Kidney stones Status: Chronic (11) Protein C deficiency Status: Chronic (12) RSD lower limb Status: Chronic Past Medical History - Allergies and Home Meds Allergies/Adverse Reactions: Allergies celecoxib Allergy (Verified 03/26/20 19:22) Swelling naproxen Allergy (Verified 03/26/20 19:22) Swelling Penicillins Allergy (Verified 03/26/20 19:22) Hives pregabalin Allergy (Verified 03/26/20 19:22) Swelling sertraline Allergy (Verified 03/26/20 19:22) Unknown Primary Care Physician: Carson Stephenson MD [Primary Care Provider] - 3-5 Days (Return to the ER if getting worse) Surgical History: appendectomy, cholecystectomy, hysterectomy, tonsillectomy Lives: Spouse/ Significant Other Smoking Status: Current every day smoker - Family History Maternal Family History: Reports: - Paternal Family History: Reports: Cancer Review of Systems General: Reports: Chills, Fever, Malaise. Denies: Sweats Eyes: Denies: Visual changes - bilaterally, Diplopia ENT: Denies: Rhinorrhea, Sore throat Cardiovascular: Reports: Chest pain - Only when coughing, throughout all my ribs. Denies: Palpitations Respiratory: Reports: Dyspnea, Cough, Sputum - With minor hemoptysis, Dyspnea on exertion, Orthopnea Gastrointestinal: Reports: Nausea - Resolved, Diarrhea. Denies: Abdominal pain, Melena, Hematochezia Genitourinary: Denies: Dysuria, Hematuria, Frequency Musculoskeletal: Reports: Myalgias, Neck pain, Back pain, Extremity Pain - Chronic leg pain, no different. Denies: Swelling Skin: Denies: Rash, Wounds Neurological: Reports: Headache - mild. Denies: Weakness, Numbness Physical Exam Vital Signs/Narrative: Vital Signs Temp Pulse Resp BP Pulse Ox 03/26/20 19:18 98.9 F 97 20 H 129/87 H 87 Inital Vital Signs reviewed: Yes General: Well nourished, Well developed, No Acute Distress - Conversive in full sentences Head: Normocephalic, Atraumatic Eyes: Perrl, EOMI ENT: Moist mucous membranes, No rhinorrhea Neck: Supple, Nontender, No lymphadenopathy, No JVD Cardiovascular: Regular rate, Regular rhythm, No murmurs Respiratory: No distress, Chest nontender, Rales - Left base, Wheezing Abdomen: Soft, Nontender, Nondistended, Normal bowel sounds Back: Nontender, Normal Inspection. Negative for: CVA tenderness Extremities: Nontender, No edema Skin: Normal color, No rash, No Trauma Neurological: Alert, Oriented x3, Cranial nerves II-XII grossly intact, Normal Strength, Normal Sensation Psychological: Normal affect, Normal Mood Diagnostic/Tx/Re-eval Impressions Chest X-Ray 03/26/20 20:23 IMPRESSION: Possible left lung pneumonia versus hilar disease. Refer to CT chest with contrast. Electronically Signed: Tamy Wynn, at 20:37 EDT Tel , Service support , Chest CT 03/26/20 22:04 IMPRESSION: Moderate to marked widespread bilateral pulmonary opacities worse on the left including in the left perihilar region. Findings most consistent with nonspecific multifocal pneumonia. Electronically Signed: William Velasquez MD at 22:31 EDT , Service support , 03/26/20 20:23 Chest 1 View (Portable) [RAD] Stat 03/26/20 22:04 CT Chest [Chest WITH Contrast] [CT] Stat Laboratory Results 03/26/20 03/26/20 03/26/20 20:20 20:20 20:20 WBC 7.1 RBC 3.73 L Hgb 10.3 L Hct 34.7 L MCV 93.0 MCH 27.6 MCHC 29.7 L RDW Std Deviation 54.4 H RDW Coeff of Sean 15.9 H Plt Count 213 MPV 10.5 Immature Gran % (Auto) 0.300 Neut % (Auto) 76.5 H Lymph % (Auto) 14.2 L [place] % (Auto) 7.5 Eos % (Auto) 1.1 Baso % (Auto) 0.4 Absolute Neuts (auto) 5.4 Absolute Lymphs (auto) 1.01 Nucleated RBC % 0 PT INR Sodium 139 Potassium 3.5 Chloride 102 Carbon Dioxide 34.0 H Anion Gap 3 L BUN 9 Creatinine 0.57 Estim Creat Clear Calc 91.77 Est GFR (MDRD) Af Amer 139 Est GFR (MDRD) Non-Af 115 BUN/Creatinine Ratio 15.7 Glucose 113 H Lactic Acid 0.7 Calcium 8.2 L Troponin I < 0.015 03/26/20 20:20 WBC RBC Hgb Hct MCV MCH MCHC RDW Std Deviation RDW Coeff of Sean Plt Count MPV Immature Gran % (Auto) Neut % (Auto) Lymph % (Auto) [place] % (Auto) Eos % (Auto) Baso % (Auto) Absolute Neuts (auto) Absolute Lymphs (auto) Nucleated RBC % PT 14.5 INR 1.2 Sodium Potassium Chloride Carbon Dioxide Anion Gap BUN Creatinine Estim Creat Clear Calc Est GFR (MDRD) Af Amer Est GFR (MDRD) Non-Af BUN/Creatinine Ratio Glucose Lactic Acid Calcium Troponin I - Rhythm Strip Rhythm Strip: Sinus Rhythm Rate: 75 Ectopy: None - EKG Initial EKG Interpretation: Sinus Rhythm, No Acute Injury Pattern - Relatively low voltage, otherwise normal EKG Treatment - Dyspnea: Antibiotics, Steroid - Medical Decision Making As above, chest x-ray concerning for possible pneumonia versus noninfectious perihilar disease. An IV contrasted CT was recommended. Her INR is a little subtherapeutic 1.2, and I chose to have a CT with contrast performed as opposed to CT angiogram, I thought it would be more beneficial as I think the chances of a pulmonary embolus causing the symptoms are much lower. The CT is consistent with infectious disease, which is more consistent with the patient's presentation as well. She is offered admission but declined and prefers to go home if safe. She has been having oxygen saturations at 99% on her home oxygen, and with ambulation she did very well and was not very dyspneic, not hypoxic, and feels good about going home. She was given IV Levaquin here, as well as a prescription for that, we performed a COVID-19 swab and sent that out which will return in 3 to 5 days and the patient was given appropriate quarantine and follow-up instructions with regards to her doctor and test results. She was given Solu-Medrol as well as a prescription for prednisone too. Of note, she states the diarrhea is gone, she has had legionnaires disease before, which is in the differential but less likely, Levaquin should cover that. ED Disposition - Plan for ED Patient: Disposition: Home or Assisted Living Diagnosis: Pneumonia, COPD with exacerbation, Subtherapeutic international normalized ratio (INR) Instructions: ED COPD Flare, ED PNEUMONITIS Adult Prescriptions: Levofloxacin [Levaquin] 750 mg PO QHS #4 tab Prescription Printed Prednisone 10 mg PO UD #33 tab Prescription Printed Referrals: Carson Stephenson MD [Primary Care Provider] - 3-5 Days (Return to the ER if getting worse) Additional Instructions: You were tested for COVID-19, however it is sent to an offsite laboratory, and will likely take 3-5 days to come back. Reference the pamphlet including with your discharge papers for information on setting up an online portal account to check the results yourself. On your next dose of Coumadin, double your dose. Your INR was 1.2 today. He will need a follow-up INR test, discussed with your doctor.
[2020-03-26] MEDS: Acetaminophen 325 MG Tablet 650 MG PO (20:14)
--- NOTE | 2020-03-26 20:23 | RAD_ITS ---
STUDY: X-RAY CHEST REASON FOR EXAM: Female, 60 years old. sob with fever TECHNIQUE: Frontal view of the chest COMPARISON: Dec 14 2025 FINDINGS: There are predominantly left-sided irregular somewhat linear opacities emanating from the hilum. There is mild right perihilar opacity. There is chronic ablation of the right hemidiaphragm. Cardiac size is normal. There are no pleural effusions, pneumothorax or pulmonary edema. There are surgical clips in the left upper quadrant. RAD/Chest 1 View (Portable) IMPRESSION: Possible left lung pneumonia versus hilar disease. Refer to CT chest with contrast. Electronically Signed: Tamy Wynn, at 20:37 EDT Tel , Service support ,
[2020-03-26 20:32] LABS: Absolute Lymphocyte Count 1.01 X10^3/uL (0.83-4.51); Absolute Neutrophil Count 5.4 X10^3/uL (2.0-7.7); Basophil# 0.03 X10^3/uL; Basophil% 0.4 % (0-1); Eosinophil# 0.08 X10^3/uL; Eosinophils% 1.1 % (0-5); Hematocrit 34.7 % (37-47); Hemoglobin 10.3 g/dL (12.0-15.0); Lymphocyte # 1.01 X10^3/ul (4.0); Lymphocyte % 14.2 % (19-41); Mean Corp Hgb Conc 29.7 g/dL (32-36); Mean Corpuscular Hgb 27.6 pg (27.0-32.0); Mean Platelet Vol. 10.5 fl (6.2-12.0); Monocyte# 0.53 X10^3/uL; Monocyte% 7.5 % (0-10); NRBC Flagged by Analyzer 0 % (0-5); Neutrophil # 5.44 X10^3/uL (2.7-7.7); Neutrophil % 76.5 % (47-70); Platelet Count 213 K/mm3 (150-450); RBC Distribution Width CV 15.9 % (11.6-14.6); RBC Distribution Width SD 54.4 fl (35.1-43.9); Red Blood Count 3.73 M/mm3 (4.2-5.4); White Blood Count 7.1 K/mm3 (4.4-11.0)
[2020-03-26 20:41] LABS: International Normalized Ratio 1.2; Prothrombin Time (Protime)PT. 14.5 SECONDS (11.7-14.9)
[2020-03-26 20:45] VITALS: PULSE 75; RESP 24
[2020-03-26] MEDS: Ipratropium/Albuterol Sulfate 3 ML AMPUL.NEB INHALATION (20:45)
[2020-03-26 20:53] LABS: Anion Gap 3 (5-15); BUN 9 mg/dL (7-18); BUN/Creat Ratio 15.7 RATIO (10-20); Calcium,Total 8.2 mg/dL (8.5-10.1); Chloride 102 mmol/L (98-107); Creatinine, Serum 0.57 mg/dL (0.55-1.02); EST Glomerular Filtration Rate 115 mL/min (>60); Est Glom Filt Rate - Afr Amer 139 mL/min (>60); Estimated Creatinine Clearance 91.77 ml/min; Glucose 113 mg/dL (74-106); Potassium 3.5 mmol/L (3.5-5.1); Sodium Level 139 mmol/L (136-145)
[2020-03-26 20:58] VITALS: BP 104/69; PULSE 74; RESP 18; TEMP 37.1; O2SAT 97
[2020-03-26 21:27] LABS: Lactic Acid 0.7 mmol/L (0.4-1.9)
--- NOTE | 2020-03-26 22:04 | CT_ITS ---
STUDY: CT CHEST WITH CONTRAST REASON FOR EXAM: Female, 60 years old. FEVER. HX OF PNEUMONIA. HTN AND COPD. HAS ESOPHAGEAL CA. RADIATION DOSAGE (If Supplied By Facility): CTDIvol = ( 16.87 ) mGy, DLP = ( 620.00 ) mGycm TECHNIQUE: Transaxial imaging was performed following intravenous administration of IV 100mL Isovue-300. Individualized dose optimization techniques were used for this CT. COMPARISON: 12/15/2019. FINDINGS: Moderate lung volumes. Elevated right hemidiaphragm. Moderate to marked widespread bilateral focal pulmonary opacities, irregular in shape, worse on the left. The findings suggest areas of atelectasis and/or multifocal infiltrate. No suspicious nodules or masses. No effusions. Normal heart and pericardium. Normal mediastinum. Soft tissue density in and around the left hilum, most consistent with adjacent perihilar infiltrate, but a neoplastic process cannot be excluded. Normal enhanced pulmonary arteries. Normal aorta arch and descending thoracic aorta. There is a small hiatal hernia and postsurgical changes around the esophagogastric junction. There are multi-level degenerative changes of the thoracic spine. Stable probable hemangioma in the body of L1. There is no demonstrated abnormality of the visualized upper abdomen. CT/Chest WITH Contrast IMPRESSION: Moderate to marked widespread bilateral pulmonary opacities worse on the left including in the left perihilar region. Findings most consistent with nonspecific multifocal pneumonia. Electronically Signed: William Velasquez MD at 22:31 EDT , Service support ,
[2020-03-26 22:29] VITALS: BP 106/62; PULSE 69; RESP 15; O2SAT 100
[2020-03-26 23:30] VITALS: O2SAT 100
[2020-03-27] MEDS: levoFLOXacin IV 750 MG/150 ML BAG 100 MG IV (00:08)
[2020-03-27] MEDS: MethylPREDNISolone 125 MG/2 ML Vial IV (00:08)
[2020-03-27 00:13] VITALS: BP 104/67; PULSE 75; RESP 20; O2SAT 100
[2020-03-27 01:52] VITALS: BP 107/62; PULSE 80; RESP 18; O2SAT 100
== END 2020-03-27 01:58 | disposition home or self-care (01) ==
PROVIDERS: Emergency Provider Emergency Medicine; PCP Family Medicine
DX: J44.0 Chronic obstructive pulmonary disease with (acute) lower respiratory infection (principal); J18.9 Pneumonia, unspecified organism; R79.1 Abnormal coagulation profile; I10 Essential (primary) hypertension; K58.9 Irritable bowel syndrome, unspecified; M79.7 Fibromyalgia; F32.9 Major depressive disorder, single episode, unspecified; F41.9 Anxiety disorder, unspecified; D68.59 Other primary thrombophilia; G90.529 Complex regional pain syndrome I of unspecified lower limb; Z87.01 Personal history of pneumonia (recurrent); Z86.718 Personal history of other venous thrombosis and embolism; Z87.442 Personal history of urinary calculi; Z99.81 Dependence on supplemental oxygen; Z79.01 Long term (current) use of anticoagulants; Z79.899 Other long term (current) drug therapy; F17.200 Nicotine dependence, unspecified, uncomplicated
CPT/HCPCS: 71045; 71260; 80048; 83605; 84484; 85025; 85610; 87635; 93005; 94640; 96361; 96365; 96366; 96375; 99284; J7030; J7050; Q9967; A4216; U0003

== ENCOUNTER 2020-03-28 22:21 | Emergency (ER) | payer MEDICARE, SELFPAY ==
[2020-03-28 22:22] VITALS: BP 121/66; PULSE 97; RESP 22; TEMP 37.4; O2SAT 96; BMI 39.0
--- NOTE | 2020-03-28 23:07 | RAD_ITS ---
STUDY: X-RAY - PELVIS AND LEFT HIP REASON FOR EXAM: Female, 60 years old. chronic lt hip pain -- increased pain today TECHNIQUE: 2 views of the pelvis and hip. COMPARISON: 03/26/2018 FINDINGS: There is a non-specific bowel gas pattern. Pain pump on the right. IVC filter. Left lower quadrant clips. Normal bilateral iliac wings, sacroiliac joints and visualized sacrum. Normal bilateral superior and inferior pubic rami. Normal pubic symphysis. Normal bilateral ischial tuberosities. Normal visualized femoral head. Normal acetabulum. Normal hip joint. RAD/HIP, UNI W/ Pelvis 2-3 Views IMPRESSION: No significant osseous abnormality is evident. Electronically Signed: Benedict Ray MD at 0:09 EDT Tel , Service support ,
--- NOTE | 2020-03-28 23:08 | ED.VIS.GEN ---
History of Present Illness Chief Complaint: Lower Extremity Injury Informant: Patient Narrative: She stated she started having pain in her left hip approximately a few hours ago at home. She stated this is happened in the past where she gets a flareup of left hip pain. No previous surgery to this hip. She stated she was taking a shower when it came on. It is a sharp and aching pain. Worse by movement. Relieved with nothing. She does have a chronic morphine pump secondary to RSD and chronic pain. She sees Dr. Walker. Patient stated she does not think she did anything to bring this on. She is also on a blood thinner for DVT in the past. Current severity is moderate. - Past Medical History (1) Anxiety and depression Status: Chronic (2) COPD (chronic obstructive pulmonary disease) Status: Chronic (3) Chronic low back pain with sciatica Status: Chronic (4) Chronic respiratory failure with hypoxia Status: Chronic (5) Chronic upper back pain Status: Chronic (6) DVT of proximal lower limb Status: Chronic (7) Fibromyalgia Status: Chronic (8) History of IBS Status: Chronic (9) History of deep venous thrombosis or pulmonary embolus Status: Chronic Comment: on xarelto IVC filter protein C deficiency (10) History of esophageal cancer Status: Chronic (11) History of fibromyalgia Status: Chronic (12) History of hypertension Status: Chronic (13) History of recurrent pneumonia Status: Chronic (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 (15) Hypertension Status: Chronic (16) Kidney stones Status: Chronic (17) Lung mass Status: Chronic (18) Protein C deficiency Status: Chronic (19) RSD lower limb Status: Chronic Past Medical History - Allergies and Home Meds Allergies/Adverse Reactions: Allergies celecoxib Allergy (Verified 03/28/20 22:22) Swelling naproxen Allergy (Verified 03/28/20 22:22) Swelling Penicillins Allergy (Verified 03/28/20 22:22) Hives pregabalin Allergy (Verified 03/28/20 22:22) Swelling sertraline Allergy (Verified 03/28/20 22:22) Unknown Primary Care Physician: Carson Stephenson MD [Primary Care Provider] - Prior records reviewed: Yes Past Medical History: - - See problem list Surgical History: appendectomy, cholecystectomy, hysterectomy, tonsillectomy Lives: With Family Smoking Status: Current every day smoker Alcohol: None Drugs: None - Family History Maternal Family History: Reports: - Paternal Family History: Reports: Cancer Review of Systems General: Denies: Chills, Fever, Sweats Eyes: Denies: Visual changes - bilaterally, Diplopia ENT: Denies: Rhinorrhea, Sore throat Cardiovascular: Denies: Chest pain, Palpitations Respiratory: Denies: Dyspnea, Cough, Dyspnea on exertion Gastrointestinal: Denies: Abdominal pain, Nausea, Vomiting, Diarrhea, Melena, Hematochezia Genitourinary: Denies: Dysuria, Hematuria, Frequency Musculoskeletal: Reports: Extremity Pain. Denies: Back pain Skin: Denies: Rash, Wounds Neurological: Denies: Headache, Weakness, Numbness Physical Exam Vital Signs/Narrative: Vital Signs Temp Pulse Resp BP Pulse Ox 03/28/20 22:22 99.3 F H 97 22 H 121/66 H 96 General: Well nourished, Well developed, No Acute Distress Head: Normocephalic, Atraumatic Eyes: Perrl, EOMI ENT: Moist mucous membranes, No rhinorrhea Neck: Supple, Nontender Cardiovascular: Regular rate, Regular rhythm, No murmurs Respiratory: No distress, CTA bilaterally, Chest nontender Abdomen: Soft, Nontender, Nondistended, Normal bowel sounds Back: Nontender, Normal Inspection Extremities: No edema, Tenderness - Tenderness in the left hip diffusely. No swelling or deformity or redness or warmth. Decreased range of motion secondary to pain Skin: Normal color, No rash Neurological: Alert, Oriented x3, Cranial nerves II-XII grossly intact, Normal Strength, Normal Sensation Psychological: Normal affect, Normal Mood Diagnostic/Tx/Re-eval - Medical Decision Making Patient was recently seen in the hospital and had a work-up for possible COVID versus pneumonia. She is on antibiotics and stated she is getting better. Her coronavirus studies are pending. She is here for nonrelated left hip pain. Patient given injection of morphine for pain. X-ray obtained of the left hip. 3- for acute fracture. There is mild arthritic changes. Patient did feel better after morphine. I feel she can be discharged home to follow-up as an outpatient. She has a wheelchair at home. This may be arthritis bursitis versus possible hip strain. I do not feel she has an emergency cause of her symptoms ED Disposition - Plan for ED Patient: Disposition: Home or Assisted Living Diagnosis: Left hip pain Instructions: How Your Hip Works Referrals: Carson Stephenson MD [Primary Care Provider] -
[2020-03-28] MEDS: Morphine 4 MG/ML Syringe IM (23:19)
[2020-03-29 00:37] VITALS: RESP 16
== END 2020-03-29 00:39 | disposition home or self-care (01) ==
PROVIDERS: Emergency Provider Emergency Medicine; PCP Family Medicine
DX: M25.552 Pain in left hip (principal); I10 Essential (primary) hypertension; F32.9 Major depressive disorder, single episode, unspecified; F41.9 Anxiety disorder, unspecified; M79.7 Fibromyalgia; K58.9 Irritable bowel syndrome, unspecified; J44.9 Chronic obstructive pulmonary disease, unspecified; D68.59 Other primary thrombophilia; G90.529 Complex regional pain syndrome I of unspecified lower limb; Z97.8 Presence of other specified devices; Z85.01 Personal history of malignant neoplasm of esophagus; Z87.01 Personal history of pneumonia (recurrent); Z87.442 Personal history of urinary calculi; Z86.718 Personal history of other venous thrombosis and embolism; Z86.711 Personal history of pulmonary embolism; Z79.01 Long term (current) use of anticoagulants; Z79.899 Other long term (current) drug therapy; F17.200 Nicotine dependence, unspecified, uncomplicated
CPT/HCPCS: 73502; 96372; 99284

== ENCOUNTER 2020-04-11 11:04 | Observation (INO) | payer MEDICARE, SELFPAY ==
[2020-04-11] VITALS (8 sets, daily range): BP systolic 101–163; BP diastolic 67–73; PULSE 70–103; RESP 18; TEMP 36.1–37; O2SAT 93–97; BMI 36.0; BMI 36.9
--- NOTE | 2020-04-11 11:30 | RAD_ITS ---
STUDY: X-RAY - PELVIS AND LEFT HIP REASON FOR EXAM: Female, 60 years old. PAIN W/ ROM TECHNIQUE: 3 views of the pelvis and hip. COMPARISON: Comparison is made with prior study dated 03/28/2020. FINDINGS: There is a non-specific bowel gas pattern. Normal visualized soft tissue structures. Normal bilateral iliac wings, sacroiliac joints and visualized sacrum. Normal bilateral superior and inferior pubic rami. Normal pubic symphysis. Normal bilateral ischial tuberosities. Normal visualized femoral head. Normal acetabulum. There is mild articular joint space narrowing of the hip. RAD/HIP, UNI W/ Pelvis 2-3 Views IMPRESSION: No acute abnormality is seen. Electronically Signed: Robinson Sharma, at 12:37 EDT , Service support ,
[2020-04-11] MEDS: Ondansetron 4 MG/2 ML Vial IV (11:49)
[2020-04-11] MEDS: morphine 8 MG/ML Syringe IV (11:49)
--- NOTE | 2020-04-11 12:24 | ED.DCSUM_ITS ---
- ER Visit Summary Date of Service: 04/11/20 Chief Complaint: Left hip pain History of Present Illness: The patient is a 60 F presenting with left hip pain. This has been a chronic issue for her but has been much worse over the past week. She sees Dr. Walker in pain management. She has a morphine pain pump in place. She was recently started on tramadol for this pain. She was seen in the ED 2 weeks ago for similar complaints and had x-rays at that time. No recent fall. Family states her pain has been uncontrolled for the past week and a half. She denies fever or other complaints. Physical Examination: Vitals are stable. Patient is afebrile. Alert no acute distress. HEENT exam is unremarkable. Neck is supple. Lungs are clear and equal bilaterally. Heart is regular rate and rhythm. Abdomen is soft nontender nondistended. Extremities diffuse left hip tenderness with no erythema or warmth. Normal DP/PT pulses. Skin is warm and dry. No focal neurologic deficit. Remainder of exam is unremarkable. Emergency Department Course and Treatment: Patient is given morphine, Zofran IV with improvement while laying still. Left hip x-ray shows no acute abnormality is seen. With any range of motion patient screams in pain. She is not able to stand. Discussed with the hospitalist for admission. Disposition: Admission Impression: Left hip pain, inability to ambulate This note was generated with [employer] dictation software. It may contain incorrect words, spelling, and punctuation that were not noted in review of the chart prior to signing ED Disposition - Plan for ED Patient: Referrals: Carson Stephenson MD [Primary Care Provider] -
--- NOTE | 2020-04-11 13:09 | HP.PCM_ITS ---
Problem List (1) Fibromyalgia Status: Chronic (2) Hypertension Status: Chronic (3) Chronic low back pain with sciatica Status: Chronic (4) Anxiety and depression Status: Chronic (5) Histrionic personality disorder Status: Chronic (6) COPD (chronic obstructive pulmonary disease) Status: Chronic Qualifiers: (7) DVT of proximal lower limb Status: Chronic (8) Kidney stones Status: Chronic History of Present Illness Date of Admission: 04/11/20 Chief Complaint: Left hip pain. The patient is a 60 year old F with past medical history as mentioned above presented to the emergency room because of left hip pain. Her symptoms started around 1 week ago with left hip pain, sharp pain, comes on mainly upon standing or moving, it goes up to 10 out of 10 in severity, aggravated by any type of movement, alleviated with rest and when she lays flat and without associated symptoms. She denied any recent trauma or mechanical fall. She does have a his tory of chronic pain syndrome with fibromyalgia and she has morphine pump implanted and she has been on tramadol. Recently, she was evaluated by Dr. Walker started him on tramadol. On March 28, 2020, she came to the emergency department because of left hip pain, had x-ray of the pelvis and left hip and showed no acute fractures. In the emergency department, her blood pressure was slight elevated, other vital signs were stable. Routine blood work was remarkable for chronic anemia with stable hemoglobin, otherwise normal. X-ray of the pelvis and left hip showed no acute fractures again. She is being admitted for intractable left hip pain for evaluation and treatment. 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) Chronic respiratory failure with hypoxia (Chronic) History of esophageal cancer (Chronic) Chronic upper back pain (Chronic) History of hypertension (Chronic) History of fibromyalgia (Chronic) History of IBS (Chronic) Anxiety and depression (Chronic) Histrionic personality disorder (Chronic) RSD lower limb (Chronic) COPD (chronic obstructive pulmonary disease) (Chronic) History of deep venous thrombosis or pulmonary embolus (Chronic) on xarelto IVC filter protein C deficiency Protein C deficiency (Chronic) History of recurrent pneumonia (Chronic) DVT of proximal lower limb (Chronic) Lung mass (Chronic) Kidney stones (Chronic) Allergies celecoxib Allergy (Verified 04/11/20 11:04) Swelling naproxen Allergy (Verified 04/11/20 11:04) Swelling Penicillins Allergy (Verified 04/11/20 11:04) Hives pregabalin Allergy (Verified 04/11/20 11:04) Swelling sertraline Allergy (Verified 04/11/20 11:04) Unknown Home Medications: Ambulatory Orders Medication Instructions Recorded Amitriptyline HCl [Elavil] 200 mg PO QHS 04/26/14 Gabapentin [Neurontin] 300 mg PO TID 04/26/14 Clonazepam [Klonopin] 0.5 mg PO 4X/DAY PRN 12/13/14 Furosemide [Lasix] 80 mg PO BREAKFAST 02/04/16 Furosemide [Lasix] 40 mg PO DINNER 06/12/17 Dextroamphetamine/Amphetamine 30 mg PO DAILY 08/09/17 [Adderall 30 mg Tablet] Cyclobenzaprine HCl 5 mg PO BID 12/15/19 Gabapentin [Neurontin] 600 mg PO QHS 12/15/19 Potassium Chloride [Klor-Con M20] 20 meq PO BID 12/15/19 Acetaminophen [Tylenol Tablet] 650 mg PO Q6H PRN PRN tab 12/16/19 Warfarin [Coumadin] 5 mg PO DAILY #30 tab 12/16/19 Levofloxacin [Levaquin] 750 mg PO QHS #4 tab 03/26/20 Prednisone 10 mg PO UD #33 tab 03/26/20 Tramadol HCl [Ultram] 50 mg PO 4X/DAY 04/11/20 Surgical History: appendectomy, cholecystectomy, hysterectomy, tonsillectomy Psychiatric History: Anxiety [employer] History: endometriosis, uterine fibroids Smoking Status: Current every day smoker Alcohol: None Drugs: None - *Family History Maternal History Items: No pertinent history, - Paternal History Items: Cancer Review of Systems Constitutional: Reports: Anorexia, Weakness. Denies: Chills, Fever Eyes: Denies: Blurred vision, Double vision, Drainage, Redness HEENT: Denies: Difficulty Hearing, Ear Pain, Eye Pain, Nasal Congestion, Sore Throat Cardiovascular: Denies: Chest Pain, Chest Tightness, Edema, Heaviness, Palpitations, Syncope Respiratory: Denies: Cough, Pleuritic Pain, Shortness of Breath, Sputum p roduction, Wheezing Gastrointestinal: Denies: Abdominal Pain, Constipation, Diarrhea, Hematochezia, Nausea, Vomiting Genitourinary: Denies: Dysuria, Frequency, Hematuria Musculoskeletal: Reports: Back Pain. Denies: Arm Pain, Foot Pain Skin: Denies: Dryness, Rash Neurological: Denies: Balance problems, Change in Speech, Slurred speech, Confusion, Incoordination, Numbness Psychiatric: Reports: Anxiety, Depression Endocrine: Denies: Change in Body Habitus, Polydipsia, Polyuria VTE Information - Inpt Only VTE Present on Admission: No VTE Mechan Device Prophylaxis: None VTE Pharm Prophylaxis ordered?: No - Physical Exam Vitals/I&O's: Vital Signs Temp Pulse Resp BP Pulse Ox 97 F L 103 H 18 163/73 H 93 04/11/20 11:05 04/11/20 11:05 04/11/20 11:05 04/11/20 11:05 04/11/20 11:05 Weight: 210 lb Body Mass Index (BMI) 36.0 General: Alert, Oriented x3, Cooperative, No apparent distress HEENT: Atraumatic, PERRLA, EOMI, Normocephalic Oral: Moist Mucosa, No Gingival or Mucosal Lesions/ Ulcerations Neck: Supple, No JVD, Negative Carotid Bruits, Trachea Midline, Thyroid Normal Size and Texture Lungs: Clear to auscultation, Normal air movement, No rhonchi, No wheeze, No rales, Diminished Cardiovascular: Regular rate, Regular Rhythm, Normal S1, Normal S2, PMI Normal Abdomen: Bowel Sounds Present, Soft, Non Tender, Non-Distended, No Hepato- splenomegaly Extremities: No clubbing, No cyanosis, No edema Skin: No rashes, No breakdown Lymphatic: No Cervical, Supraclavicular, or Inguinal Adenopathy Neurological: Cranial nerves II-XII grossly intact, Motor Exam 5/5 strength throughout Psych/Mental Status: Normal Affect, Appropriate, Alert and oriented to time, place, person, mood and affect Clinical Impression(s) from Imaging Studies Hip/Pelvis X-Ray 04/11/20 11:30 IMPRESSION: No acute abnormality is seen. Electronically Signed: Robinson Sharma, at 12:37 EDT , Service support , Assessment/Plan This is a 60 years old female patient presented to the emergency room because of intractable left hip pain, had x-ray of the pelvis and left hip today and 2 weeks ago that showed no acute fractures and she is being admitted for evaluation and treatment. #1 intractable left hip pain: Unclear etiology. X-ray was done today as well as on March 26, 2020 and showed no acute fractures. Patient still complaining of significant left hip pain. Plan: Admit to [facility] floor observation, IV Dilaudid PRN for pain, OxyIR PRN for pain, Tylenol PRN, gentle IV fluids for hydration, Zofran PRN, CT scan left hip to rule out acute fractures, PT OT evaluation and treatment. #2 COPD/chronic respiratory failure: Stable, currently on oxygen at 1 L. Denied any worsening shortness of breath. Recently, she was treated with Levaquin for pneumonia and she tested negative for COVID-19. Plan: Chest x-ray, albuterol PRN. #3 chronic anemia: Hemoglobin and hematocrit are stable at baseline. Plan to monitor. #4 history of protein C deficiency/chronic DVTs/status post IVC filter: INR is 1.7, continue Coumadin, recheck INR tomorrow morning. #5 chronic pain syndrome/fibromyalgia: She is on morphine pump implanted, continue amitriptyline, gabapentin and tramadol, IV Dilaudid PRN as above as well as OxyIR PRN. #6 anxiety/depression/personality disorder: Continue Klonopin, Adderall. #7 hypertension: Blood pressure stable, continue Lasix. #8 history of esophageal cancer: Status post treatment, in remission. #9 DVT prophylaxis: On Coumadin, INR is 1.7. This note was generated with [employer] dictation software. It may contain incorrect words, spelling, and punctuation that were not noted in checking the note before signing. OBSV E&M: 51174 Initial observation care L2
[2020-04-11 13:18] LABS: Absolute Lymphocyte Count 1.43 X10^3/uL (0.83-4.51); Absolute Neutrophil Count 2.9 X10^3/uL (2.0-7.7); Basophil# 0.04 X10^3/uL; Basophil% 0.8 % (0-1); Eosinophil# 0.09 X10^3/uL; Eosinophils% 1.8 % (0-5); Hematocrit 35.7 % (37-47); Hemoglobin 10.7 g/dL (12.0-15.0); Lymphocyte # 1.43 X10^3/ul (4.0); Lymphocyte % 28.7 % (19-41); Mean Corpuscular Hgb 27.4 pg (27.0-32.0); Mean Corpuscular Volume 91.5 fL (81-99); Mean Platelet Vol. 10.2 fl (6.2-12.0); Monocyte# 0.48 X10^3/uL; Monocyte% 9.6 % (0-10); NRBC Flagged by Analyzer 0 % (0-5); Neutrophil # 2.93 X10^3/uL (2.7-7.7); Neutrophil % 58.7 % (47-70); Platelet Count 347 K/mm3 (150-450); RBC Distribution Width CV 16.4 % (11.6-14.6); RBC Distribution Width SD 55.5 fl (35.1-43.9)
[2020-04-11 13:25] LABS: International Normalized Ratio 1.7
[2020-04-11 13:31] LABS: Anion Gap 3 (5-15); BUN 15 mg/dL (7-18); BUN/Creat Ratio 24.5 RATIO (10-20); Calcium,Total 8.2 mg/dL (8.5-10.1); Chloride 99 mmol/L (98-107); Creatinine, Serum 0.61 mg/dL (0.55-1.02); EST Glomerular Filtration Rate 106 mL/min (>60); Est Glom Filt Rate - Afr Amer 128 mL/min (>60); Estimated Creatinine Clearance 85.75 ml/min; Glucose 91 mg/dL (74-106); Potassium 4.2 mmol/L (3.5-5.1); Sodium Level 140 mmol/L (136-145)
--- NOTE | 2020-04-11 14:52 | CT_ITS ---
INDICATION: intractable left hip pain EXAMINATION: CT LEFT HIP - CT Lower Extremity W/O Contrast Injection TECHNIQUE: Routine noncontrast bone CT protocol was performed of the left hip. 2-D reformats were performed by the technologist. A radiation dose optimization technique was used for this scan. IV Contrast dosage and agent: None. COMPARISON: 03/26/2018. FINDINGS: No soft tissue swelling or gas. Subcutaneous calcification is noted of the proximal thigh laterally possibly an injection granuloma or related to previous trauma. No radiopaque foreign body. No acute fracture or subluxation. Normal alignment. Slightly narrowed hip joint space. Mild degenerative cystic changes at the femoral head. Degenerative lower lumbar changes. CT/Extremity Lower without Contra IMPRESSION: No acute bony injury. Stable degenerative changes. Electronically Signed: Brayden Bull DO at 21:40 EDT Tel [phone], Service support ,
[2020-04-11] MEDS: traMADol 50 MG Tablet PO ×3 (15:27→21:53)
[2020-04-11] MEDS: HYDROmorphone 1 MG/ML Syringe IV ×2 (15:28→23:01)
[2020-04-11] MEDS: 0.9% Saline Lock 10 ML Syringe IV ×2 (15:28→17:30)
--- NOTE | 2020-04-11 16:10 | RAD_ITS ---
STUDY: X-RAY CHEST REASON FOR EXAM: Female, 60 years old. Recent pneumonia TECHNIQUE: Frontal view COMPARISON: 03/26/2020 FINDINGS: Elevated right hemidiaphragm. The lungs are clear and expanded. Previously noted left pulmonary infiltrate has significantly reduced. Probable left mid lung granuloma. Normal size heart. Normal mediastinum and roz. Normal visualized pulmonary arteries. Calcified aortic arch and descending thoracic aorta. Normal visualized thoracic spine. Normal visualized ribs, clavicles, and shoulders. There is no demonstrated abnormality of the visualized soft tissue structures of the upper abdomen. RAD/Chest 1 View (Portable) IMPRESSION: Elevated right hemidiaphragm. Significantly reduced left infiltrate. Electronically Signed: Brayden Bull DO at 17:33 EDT Tel [phone], Service support ,
[2020-04-11] MEDS: 0.9% Normal Saline 1,000 ML 75 ML IV (17:30)
[2020-04-11] MEDS: oxyCODONE 5 MG Tablet PO (17:35)
[2020-04-11] MEDS: Gabapentin 300 MG Capsule PO (17:36)
[2020-04-11] MEDS: Furosemide 40 MG Tablet PO (17:36)
[2020-04-11] MEDS: Warfarin 2.5 MG, Warfarin 10 MG 12.5 MG PO (17:37)
[2020-04-11] MEDS: cycloBENZAPRine HCl 5 MG TABLET PO (21:49)
[2020-04-11] MEDS: Amitriptyline 100 MG Tablet 200 MG PO (21:49)
[2020-04-11] MEDS: Gabapentin 600 MG Tablet PO (21:50)
[2020-04-11] MEDS: Zolpidem Tartrate 5 MG Tablet PO (21:53)
[2020-04-12] VITALS (8 sets, daily range): BP systolic 110–120; BP diastolic 66–68; PULSE 70–97; RESP 18–19; TEMP 36.6; O2SAT 89–95
[2020-04-12] MEDS: HYDROmorphone 1 MG/ML Syringe IV (05:29)
[2020-04-12] MEDS: Senna/Docusate Sodium 1 Tablet 2 TABLET PO (05:29)
[2020-04-12] MEDS: Polyethylene Glycol 3350 17 GM PACKET PO (05:58)
[2020-04-12] MEDS: 0.9% Saline Lock 10 ML Syringe IV (06:58)
[2020-04-12] MEDS: oxyCODONE 5 MG Tablet PO ×2 (07:01→11:28)
[2020-04-12] MEDS: Budesonide Respules 0.5 MG/2 ML AMPUL.NEB. INHALATION (07:07)
[2020-04-12] MEDS: Ipratropium/Albuterol Sulfate 3 ML AMPUL.NEB INHALATION ×2 (07:07→11:35)
[2020-04-12 08:03] LABS: International Normalized Ratio 1.5; Prothrombin Time (Protime)PT. 17.3 SECONDS (11.7-14.9)
[2020-04-12] MEDS: Furosemide 40 MG Tablet 80 MG PO (08:04)
[2020-04-12] MEDS: Gabapentin 300 MG Capsule PO ×2 (08:04→11:28)
--- NOTE | 2020-04-12 08:14 | PCM.DC ---
You will use the following diet at home:: Cardiac Your food should be the consistency of: Regular Discharge Activity: Return to Normal Activity, May not drive while taking narcotic pain medications. Weight Bearing Status: Weight bearing as tolerated Call your doctor if you observe: Fever of 101 or Higher, Shortness of breath, Dizziness, Fainting spells, Chest pain, Increased palpitations (irregular heartbeat), Uncontrolled pain Additional Instructions: You will need referral to orthopedic surgery as outpatient. This can be done by your PCP. Allergies/Adverse Reactions: Allergies celecoxib Allergy (Verified 04/11/20 14:59) Swelling of arms/legs naproxen Allergy (Verified 04/11/20 14:59) Swelling arms/legs Penicillins Allergy (Verified 04/11/20 14:59) Hives/facial swelling pregabalin Allergy (Verified 04/11/20 14:59) Swelling arms/swelling sertraline Allergy (Verified 04/11/20 14:59) Swelling Medications to take at Discharge Amitriptyline HCl [Elavil] 200 mg PO QHS 04/26/14 Gabapentin [Neurontin] 300 mg PO TIDCM 04/26/14 Clonazepam [Klonopin] 0.5 mg PO 4X/DAY PRN 12/13/14 Furosemide [Lasix] 80 mg PO BREAKFAST 02/04/16 Furosemide [Lasix] 40 mg PO DINNER 06/12/17 Dextroamphetamine/Amphetamine [Adderall 30 mg Tablet] 30 mg PO DAILY 08/09/17 Cyclobenzaprine HCl 5 mg PO BID PRN 12/15/19 Gabapentin [Neurontin] 600 mg PO QHS 12/15/19 Potassium Chloride [Klor-Con M20] 20 meq PO BID 12/15/19 Acetaminophen [Tylenol Tablet] 650 mg PO Q6H PRN PRN tab 12/16/19 Budesonide Aerosol [Pulmicort Respules] 0.5 mg INHALATION BID 04/11/20 Duloxetine HCl 60 mg PO DAILY 04/11/20 Ergocalciferol [Vitamin D] 50,000 unit PO VAUGHN 04/11/20 Ipratropium/Albuterol Sulfate [Iprat-Albut 0.5-3(2.5) mg/3 ml] 3 ml IH 4X/DAY 04/11/20 No122/Iron/Folic Acid [ Multi Tablet] 1 ea PO DAILY 04/11/20 Tramadol HCl [Ultram] 50 mg PO 4X/DAY 04/11/20 Vitamin A 10,000 unit PO DAILY 04/11/20 Warfarin [Coumadin] 10 mg PO FR 04/11/20 Warfarin [Coumadin] 12.5 mg PO SUMOTUWETHSA 04/11/20 Oxycodone [Oxyir] 5 mg PO Q8H PRN PRN #20 tablet 04/12/20 The following prescriptions were given: Oxycodone [Oxyir] 5 mg PO Q8H PRN PRN #20 tablet PRN Reason: Pain Score 4-5/10 Transmission Status: Sent to [facility] Primary Care Physician: Carson Stephenson MD [Primary Care Provider] - Please follow up with your Primary Care Physician in: 1-2 weeks. Test Results: Test results from this visit will be discussed in further detail at your follow-up appointment, if applicable.
[2020-04-12] MEDS: traMADol 50 MG Tablet PO (10:41)
[2020-04-12] MEDS: cycloBENZAPRine HCl 5 MG TABLET PO (10:42)
--- NOTE | 2020-04-12 11:11 | PCM.DC.SUM ---
Discharge Date and Diagnosis Date of Admission: 04/11/20 Date of Discharge: 04/12/20 - Primary Discharge Diagnosis Acute Problems: Intractable left hip pain, attributed to osteoarthritis, no acute fractures. 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) Chronic respiratory failure with hypoxia (Chronic) History of esophageal cancer (Chronic) Chronic upper back pain (Chronic) History of IBS (Chronic) Anxiety and depression (Chronic) Histrionic personality disorder (Chronic) RSD lower limb (Chronic) COPD (chronic obstructive pulmonary disease) (Chronic) History of deep venous thrombosis or pulmonary embolus (Chronic) on xarelto IVC filter protein C deficiency Protein C deficiency (Chronic) History of recurrent pneumonia (Chronic) DVT of proximal lower limb (Chronic) Lung mass (Chronic) Kidney stones (Chronic) Hospital Course and Treatment Imaging Results: Clinical Impression(s) from Imaging Studies Hip/Pelvis X-Ray 04/11/20 11:30 IMPRESSION: No acute abnormality is seen. Electronically Signed: Robinson Sharma at 12:37 EDT , Service support , Lower Extremity CT 04/11/20 14:52 IMPRESSION: No acute bony injury. Stable degenerative changes. Electronically Signed: Brayden Bull DO at 21:40 EDT Tel [phone], Service support , Chest X-Ray 04/11/20 16:10 IMPRESSION: Elevated right hemidiaphragm. Significantly reduced left infiltrate. Electronically Signed: Brayden Bull DO at 17:33 EDT Tel [phone], Service support , Operations: None Procedures: None Summary of Care Provided: Patient seen and examined on the day of discharge and appeared to be stable to be discharged home. Left hip pain has been getting better with pain medications. She is feeling better. Her vital signs are stable. The patient is a 60 year old F presented to the emergency room because of intractable left hip pain. She had no mechanical fall or trauma. This left hip pain has been going on for almost 2 weeks. Patient came to the emergency department 2 weeks ago, had x-ray of the pelvis and left hip that showed no acute fractures. She returned back to the emergency department yesterday because of intractable pain and screaming upon ambulation. X-ray of the hip and pelvis done again and showed no acute fractures. Her routine blood work was stable at her baseline. She was admitted, started on IV Dilaudid and OxyIR PRN for pain. CT scan of the left hip done and showed no acute fractures or dislocations, revealed stable degenerative changes. Patient had recent pneumonia for which chest x-ray repeated and showed improving lung infiltrate. Patient completed course of Levaquin as outpatient. She has been afebrile, no leukocytosis and remains on room air. Patient discharged home in a stable condition, discharged on OxyIR PRN for pain, recommended referral to orthopedic surgery as outpatient, recommended physical therapy as outpatient as well. - Physical Exam Vitals/I&O's: Vital Signs Temp Pulse Resp BP Pulse Ox 97.9 F 90 18 110/68 95 04/12/20 08:00 04/12/20 08:00 04/12/20 08:00 04/12/20 08:00 04/12/20 08:00 Oxygen Flow Rate (L/min) 2 Oxygen Delivery Method Nasal Cannula Weight: 215 lb 2.738 oz Body Mass Index (BMI) 36.9 Intake and Output for Last 24 Hours 04/10/20 04/11/20 04/12/20 23:59 23:59 23:59 Intake Total 360 / 2220 3110 / 3110 Output Total 2900 / 2900 Balance 360 / 320 210 / 210 General: Alert, Oriented x3, Cooperative, No apparent distress HEENT: Atraumatic, PERRLA, EOMI, Normocephalic Oral: Moist Mucosa, No Gingival or Mucosal Lesions/ Ulcerations Neck: Supple, No JVD, Negative Carotid Bruits, Trachea Midline, Thyroid Normal Size and Texture Lungs: Clear to auscultation, No rhonchi, No wheeze, No rales, Diminished Cardiovascular: Regular rate, Regular Rhythm, Normal S1, Normal S2, PMI Normal Abdomen: Bowel Sounds Present, Soft, Non Tender, Non-Distended, No Hepato-splenomegaly Extremities: No clubbing, No cyanosis, No edema Skin: No rashes, No breakdown Lymphatic: No Cervical, Supraclavicular, or Inguinal Adenopathy Neurological: Cranial nerves II-XII grossly intact, Neuro grossly intact Psych/Mental Status: Normal Affect, Appropriate Laboratory Results 04/11/20 13:11: WBC 5.0, RBC 3.90 L, Hgb 10.7 L, Hct 35.7 L, MCV 91.5, MCH 27.4, MCHC 30.0 L, RDW Std Deviation 55.5 H, RDW Coeff of Sean 16.4 H, Plt Count 347, MPV 10.2, Immature Gran % (Auto) 0.400, Neut % (Auto) 58.7, Lymph % (Auto) 28.7, [place] % (Auto) 9.6, Eos % (Auto) 1.8, Baso % (Auto) 0.8, Absolute Neuts (auto) 2.9, Absolute Lymphs (auto) 1.43, Nucleated RBC % 0 04/11/20 13:11: Sodium 140, Potassium 4.2, Chloride 99, Carbon Dioxide 38.0 H, Anion Gap 3 L, BUN 15, Creatinine 0.61, Estim Creat Clear Calc 85.75, Est GFR (MDRD) Af Amer 128, Est GFR (MDRD) Non-Af 106, BUN/Creatinine Ratio 24.5 H, Glucose 91, Calcium 8.2 L 04/11/20 13:11: PT 19.0 H, INR 1.7 04/12/20 07:03: PT 17.3 H, INR 1.5 Current Medications Acetaminophen (Tylenol) 650 mg PO Q6H PRN PRN PRN Reason: Pain Score 1-10/Temp > 100.7 F Albuterol/Ipratropium (Duoneb) 3 ml INHALATION Q4HWA.RT DANNA Amitriptyline HCl (Elavil) 200 mg PO QHS DANNA Last Admin: 04/11/20 21:49 Dose: 200 mg Documented by: Budesonide (Pulmicort Aerosol) 0.5 mg INHALATION BID.RT ADNNA Last Admin: 04/12/20 07:07 Dose: 0.5 mg Documented by: Clonazepam (Klonopin) 0.5 mg PO 4X/DAY PRN PRN Reason: ANXIETY Cyclobenzaprine HCl (Cyclobenzaprine Hcl) 5 mg PO BID DANNA Last Admin: 04/12/20 10:42 Dose: 5 mg Documented by: Furosemide (Lasix) 40 mg PO DINNER [facility] Last Admin: 04/11/20 17:36 Dose: 40 mg Documented by: Furosemide (Lasix) 80 mg PO BREAKFAST [facility] Last Admin: 04/12/20 08:04 Dose: 80 mg Documented by: Gabapentin (Neurontin) 300 mg PO TIDCM [facility] Last Admin: 04/12/20 08:04 Dose: 300 mg Documented by: Gabapentin (Neurontin) 600 mg PO QHS [facility] Last Admin: 04/11/20 21:50 Dose: 600 mg Documented by: Hydromorphone HCl (Dilaudid Inj) 1 mg IV Q4H PRN PRN PRN Reason: Pain Score 6-10/10 Last Admin: 04/12/20 05:29 Dose: 1 mg Documented by: Nutritional Formula (Lactose Free) (Ensure Enlive) 120 ml PO 4X/DAY [facility] Last Admin: 04/12/20 10:47 Dose: 120 ml Documented by: Ondansetron HCl (Zofran) 4 mg IV Q8H PRN PRN PRN Reason: NAUSEA/VOMITING Oxycodone HCl (Oxyir) 5 mg PO Q4H PRN PRN PRN Reason: Pain Score 4-5/10 Last Admin: 04/12/20 07:01 Dose: 5 mg Documented by: Polyethylene Glycol (Miralax) 17 gm PO DAILY [facility] Last Admin: 04/12/20 05:58 Dose: 17 gm Documented by: Senna/Docusate Sodium (Senokot-S, Doris-Colace) 2 tablet PO BID PRN PRN PRN Reason: Constipation Last Admin: 04/12/20 05:29 Dose: 2 tablet Documented by: Sodium Chloride () 10 - 40 ml IV UD PRN PRN Reason: SALINE FLUSH Last Admin: 04/12/20 06:58 Dose: 10 ml Documented by: Tramadol HCl (Ultram) 50 mg PO 4X/DAY [facility] Last Admin: 04/12/20 10:41 Dose: 50 mg Documented by: Warfarin Sodium (Jantoven) 10 mg PO Fr@1700 [facility] Warfarin Sodium 2.5 mg/ (Warfarin Sodium 10 mg) 12.5 mg PO SuMoTuWeThSa@1700 [facility] Last Admin: 04/11/20 17:37 Dose: 12.5 mg Documented by: Zolpidem Tartrate (Ambien (Generic)) 5 mg PO QHS PRN PRN PRN Reason: INSOMNIA Last Admin: 04/11/20 21:53 Dose: 5 mg Documented by: Discharge Activity: Return to Normal Activity, May not drive while taking narcotic pain medications. Weight Bearing Status: Weight bearing as tolerated Call your doctor if you observe: Fever of 101 or Higher, Shortness of breath, Dizziness, Fainting spells, Chest pain, Increased palpitations (irregular heartbeat), Uncontrolled pain Home Medications: Medications to take at Discharge Amitriptyline HCl [Elavil] 200 mg PO QHS 04/26/14 Gabapentin [Neurontin] 300 mg PO TIDCM 04/26/14 Clonazepam [Klonopin] 0.5 mg PO 4X/DAY PRN 12/13/14 Furosemide [Lasix] 80 mg PO BREAKFAST 02/04/16 Furosemide [Lasix] 40 mg PO DINNER 06/12/17 Dextroamphetamine/Amphetamine [Adderall 30 mg Tablet] 30 mg PO DAILY 08/09/17 Cyclobenzaprine HCl 5 mg PO BID PRN 12/15/19 Gabapentin [Neurontin] 600 mg PO QHS 12/15/19 Potassium Chloride [Klor-Con M20] 20 meq PO BID 12/15/19 Acetaminophen [Tylenol Tablet] 650 mg PO Q6H PRN PRN tab 12/16/19 Budesonide Aerosol [Pulmicort Respules] 0.5 mg INHALATION BID 04/11/20 Duloxetine HCl 60 mg PO DAILY 04/11/20 Ergocalciferol [Vitamin D] 50,000 unit PO VAUGHN 04/11/20 Ipratropium/Albuterol Sulfate [Iprat-Albut 0.5-3(2.5) mg/3 ml] 3 ml IH 4X/DAY 04/11/20 No122/Iron/Folic Acid [ Multi Tablet] 1 ea PO DAILY 04/11/20 Tramadol HCl [Ultram] 50 mg PO 4X/DAY 04/11/20 Vitamin A 10,000 unit PO DAILY 04/11/20 Warfarin [Coumadin] 10 mg PO FR 04/11/20 Warfarin [Coumadin] 12.5 mg PO SUMOTUWETHSA 04/11/20 Oxycodone [Oxyir] 5 mg PO Q8H PRN PRN #20 tab 04/12/20 Following Prescriptions Were Given to Patient: Oxycodone [Oxyir] 5 mg PO Q8H PRN PRN #20 tab PRN Reason: Pain Score 4-5/10 Transmission Status: Received by [id number] #[id number] Primary Care Physician: Carson Stephenson MD [Primary Care Provider] - Please follow up with your Primary Care Physician in: 1-2 weeks. Disposition: Home Minutes spent on discharge:: 27 Patient Condition:: Stable Medical Necessity - Tobacco Use Smoking Status: Light Smoker (<10/day) Tobacco Use: Cigarettes Meaningful Use Info Meaningful Use Diagnoses (Choose all that apply): None applicable OBSV E&M: 82564 Observation care discharge
--- NOTE | 2020-04-12 11:51 | CASEMGMT ---
CAROLINA DE LOS SANTOS in to discuss discharge needs with patient and . Patient would like outpatient therapy. Script received from hospitalist and provided to patient. CAROLINA DE LOS SANTOS instructed patient to take script to outpatient therapy center of choice to schedule appointment. Patient and voiced understanding. No further questions or concerns at this time.
== END 2020-04-12 12:02 | disposition home or self-care (01) ==
LOC: ED 12:51 → MS3 13:32
PROVIDERS: Admitting Provider Hospitalist; Emergency Provider Emergency Medicine; PCP Family Medicine; Visit Provider Hospitalist
DX: M16.12 Unilateral primary osteoarthritis, left hip (principal); M79.7 Fibromyalgia; J96.11 Chronic respiratory failure with hypoxia; J44.9 Chronic obstructive pulmonary disease, unspecified; F41.9 Anxiety disorder, unspecified; F32.9 Major depressive disorder, single episode, unspecified; D68.59 Other primary thrombophilia; D64.9 Anemia, unspecified; K58.9 Irritable bowel syndrome, unspecified; F17.210 Nicotine dependence, cigarettes, uncomplicated; I10 Essential (primary) hypertension; G89.4 Chronic pain syndrome; Z79.899 Other long term (current) drug therapy; Z86.718 Personal history of other venous thrombosis and embolism; Z79.01 Long term (current) use of anticoagulants; Z85.01 Personal history of malignant neoplasm of esophagus
CPT/HCPCS: 36415; 71045; 73502; 73700; 80048; 85025; 85610; 94640; 96361; 96374; 96375; 96376; 97162; 97166; 97802; 99218; 99251; 99284; 99406; J7030; A4216; G0378; G0463; J2405

== ENCOUNTER 2020-04-15 00:35 | Inpatient (IN) | payer MEDICARE, SELFPAY ==
[2020-04-11 14:56] VITALS: BMI 36.9
[2020-04-15] VITALS (14 sets, daily range): BP systolic 102–133; BP diastolic 55–76; PULSE 81–104; RESP 16–24; TEMP 36.2–37.2; O2SAT 90–99; BMI 39.4; BMI 38.6
--- NOTE | 2020-04-15 01:16 | RAD_ITS ---
HISTORY: FEVER AND COUGH EXAM: XR Chest 1 View COMPARISON: April 11, 2020 FINDINGS: LINES/DEVICES: None. LUNGS: There are chronic interstitial changes. No pneumothorax. No consolidation or effusion. MEDIASTINUM AND CARDIOVASCULAR STRUCTURES: Cardiac silhouette not enlarged. Central airways and mediastinal contour are unremarkable. Athersclerotic plaque within the aortic arch. Chronic elevation of the right hemidiaphragm is similar. Clips within the left upper quadrant and right upper quadrant remain BONES AND SOFT TISSUES: Thoracic spondylosis. Anchoring devices on the anterior right glenoid likely from glenoid labral repair RAD/Chest 1 View (Portable) IMPRESSION: Chronic interestitial changes. No radiographic evidence of acute cardiopulmonary disease. Chronic changes to the right lung base with chronic elevation of the right hemidiaphragm at 0311 Reported and signed by: Dawit Cid MD Electronically Signed: Dawit Cid MD at 3:10 EDT Tel , Service support ,
--- NOTE | 2020-04-15 01:48 | ED.DCSUM_ITS ---
- ER Visit Summary Date of Service: 04/15/20 Chief Complaint: Left hip pain History of Present Illness: The patient is a 60 F presenting with left hip pain. Patient was recently admitted for similar complaint on April 11. She was discharged the next day. She states she has severe pain in her left hip which has been chronic over the past several months. She sees Dr. Tucker in pain management. She has a pain pump in place. She was discharged from the hospital on oxycodone. She had a follow-up appointment with Dr. Walker today but missed this due to fever. She states she has had a fever up to 101. She has had a cough productive of sputum. She has associated shortness of breath. She denies chest pain. She states she is having difficulty ambulating due to her chronic hip pain. Physical Examination: Vitals are stable. Temperature 99. Alert no acute distress. Pulse ox 95% on nasal cannula HEENT exam is unremarkable. Neck is supple. Lungs are diminished bilaterally. Heart is regular rate and rhythm. Abdomen is soft nontender nondistended. Extremities left hip tenderness with painful range of motion Skin is warm and dry. No focal neurologic deficit. Remainder of exam is unremarkable. Emergency Department Course and Treatment: Patient was given morphine, Zofran IV. CBC shows white count 15.4, hemoglobin 9.8. Chemistries show glucose 138. INR 1.2. Urinalysis shows 0-5 white blood cells, 0 red cells. Lactic acid is normal. Chest x-ray shows chronic interestitial changes. No radiographic evidence of acute cardiopulmonary disease. Chronic changes to the right lung base with chronic elevation of the right hemidiaphragm. Discussed with hospitalist. Due to her febrile illness and productive cough, COVID test was ordered. She does have a subtherapeutic INR and has reported hemoptysis. CTA chest was obtained and shows no pulmonary embolism, aortic aneurysm, or aortic dissection. Worsening multi lobar airspace disease consistent with worsening pneumonia. No pulmonary embolism. Hepatomegaly. Patient was given Levaquin IV. COVID is negative. Patient will be admitted. Disposition: Admission Impression: Left hip pain, inability to ambulate, febrile illness This note was generated with [employer] software. It may contain incorrect words, spelling, and punctuation that were not noted in review of the chart prior to signing ED Disposition - Plan for ED Patient:
[2020-04-15 02:02] LABS: Absolute Neutrophil Count 13.2 X10^3/uL (2.0-7.7); Basophil# 0.05 X10^3/uL; Basophil% 0.3 % (0-1); Eosinophil# 0.08 X10^3/uL; Eosinophils% 0.5 % (0-5); Hematocrit 33.5 % (37-47); Hemoglobin 9.8 g/dL (12.0-15.0); Lymphocyte % 8.4 % (19-41); Mean Corp Hgb Conc 29.3 g/dL (32-36); Mean Corpuscular Hgb 27.3 pg (27.0-32.0); Mean Corpuscular Volume 93.3 fL (81-99); Mean Platelet Vol. 10.3 fl (6.2-12.0); Monocyte# 0.75 X10^3/uL; Monocyte% 4.9 % (0-10); NRBC Flagged by Analyzer 0 % (0-5); Neutrophil % 85.5 % (47-70); Platelet Count 280 K/mm3 (150-450); RBC Distribution Width CV 16.7 % (11.6-14.6); RBC Distribution Width SD 56.6 fl (35.1-43.9); Red Blood Count 3.59 M/mm3 (4.2-5.4); White Blood Count 15.4 K/mm3 (4.4-11.0)
[2020-04-15] MEDS: Ondansetron 4 MG/2 ML Vial IV (02:07)
[2020-04-15] MEDS: Morphine 4 MG/ML Syringe IV (02:07)
[2020-04-15 02:13] LABS: International Normalized Ratio 1.2; Prothrombin Time (Protime)PT. 14.6 SECONDS (11.7-14.9)
[2020-04-15 02:15] LABS: Bacteria 0 SEEN /hpf (None Seen); Mucous, Urine 0 SEEN /hpf (<or=2+); Red Blood Cells-Urine 0 SEEN /hpf (0-5)
[2020-04-15 02:16] LABS: Anion Gap 1 (5-15); BUN 12 mg/dL (7-18); BUN/Creat Ratio 17.4 RATIO (10-20); Calcium,Total 8.3 mg/dL (8.5-10.1); Chloride 99 mmol/L (98-107); Creatinine, Serum 0.69 mg/dL (0.55-1.02); EST Glomerular Filtration Rate 93 mL/min (>60); Est Glom Filt Rate - Afr Amer 112 mL/min (>60); Estimated Creatinine Clearance 75.81 ml/min; Glucose 138 mg/dL (74-106); Potassium 3.5 mmol/L (3.5-5.1); Sodium Level 137 mmol/L (136-145)
[2020-04-15 02:16] LABS: Color, Urine Yellow (Yellow); Glucose, Dipstick Normal (Normal); Ketone-Dipstick Negative (Negative); Leukocyte Esterase-Dipstick 500 /ul (Negative); Nitrite-Dipstick Negative (Negative); Occult Blood-Urine Negative /ul (Negative); Protein-Dipstick Negative (Negative); Urine Bilirubin Dipstick Negative (Negative); Urine Clarity Clear (Clear); Urine Urobilinogen Normal (Normal)
[2020-04-15 02:21] LABS: Squamous Epithelial Cells - UA 0-5 SEEN /hpf (5-10); White Blood Cells 0-5 SEEN /hpf (0-5)
[2020-04-15 02:38] LABS: Lactic Acid 1.4 mmol/L (0.4-1.9)
--- NOTE | 2020-04-15 03:48 | PCM.HP.STD ---
Problem List (1) Left hip pain Status: Acute (2) Fibromyalgia Status: Chronic (3) Hypertension Status: Chronic (4) Chronic low back pain with sciatica Status: Chronic (5) Chronic respiratory failure with hypoxia Status: Chronic (6) History of esophageal cancer Status: Chronic (7) Chronic upper back pain Status: Chronic (8) History of IBS Status: Chronic (9) Anxiety and depression Status: Chronic (10) Histrionic personality disorder Status: Chronic (11) RSD lower limb Status: Chronic (12) COPD (chronic obstructive pulmonary disease) Status: Chronic Qualifiers: (13) History of deep venous thrombosis or pulmonary embolus Status: Chronic Comment: on xarelto IVC filter protein C deficiency (14) Protein C deficiency Status: Chronic (15) History of recurrent pneumonia Status: Chronic (16) DVT of proximal lower limb Status: Chronic (17) Lung mass Status: Chronic (18) Kidney stones Status: Chronic History of Present Illness Date of Admission: 04/15/20 Chief Complaint: Left hip pain The patient is a 60 year old F with a significant history of chronic left hip pain; histrionic disorder and hypertension who presents emergency department with excruciating left hip pain that is been going on for about 1 and half weeks. She described the pain as sharp, stabbing, and burning. The pain goes down to her left feet. The pain improves with lying still and the pain is aggravated with walking and standing. Patient supposed to going to see Dr. Walker, pain specialist. Reportedly she was going to fill her pain pump. However because she developed a temperature of 101 Fahrenheit she could not go for her appointment at pain management. Further patient reports of a productive cough. She thinks that there is blood in her sputum. Of note patient was recently admitted on 04/11/2020 and discharged on 04/12/2020. During the hospitalization she was managed for intractable left hip pain. 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) Chronic respiratory failure with hypoxia (Chronic) History of esophageal cancer (Chronic) Chronic upper back pain (Chronic) History of IBS (Chronic) Anxiety and depression (Chronic) Histrionic personality disorder (Chronic) RSD lower limb (Chronic) COPD (chronic obstructive pulmonary disease) (Chronic) History of deep venous thrombosis or pulmonary embolus (Chronic) on xarelto IVC filter protein C deficiency Protein C deficiency (Chronic) History of recurrent pneumonia (Chronic) DVT of proximal lower limb (Chronic) Lung mass (Chronic) Kidney stones (Chronic) Allergies celecoxib Allergy (Verified 04/15/20 00:40) Swelling of arms/legs naproxen Allergy (Verified 04/15/20 00:40) Swelling arms/legs Penicillins Allergy (Verified 04/15/20 00:40) Hives/facial swelling pregabalin Allergy (Verified 04/15/20 00:40) Swelling arms/swelling sertraline Allergy (Verified 04/15/20 00:40) Swelling Home Medications: Ambulatory Orders Medication Instructions Recorded Amitriptyline HCl [Elavil] 200 mg PO QHS 04/26/14 Gabapentin [Neurontin] 300 mg PO TIDCM 04/26/14 Clonazepam [Klonopin] 0.5 mg PO 4X/DAY PRN 12/13/14 Furosemide [Lasix] 80 mg PO BREAKFAST 02/04/16 Furosemide [Lasix] 40 mg PO DINNER 06/12/17 Dextroamphetamine/Amphetamine 30 mg PO DAILY 08/09/17 [Adderall 30 mg Tablet] Cyclobenzaprine HCl 5 mg PO BID PRN 12/15/19 Gabapentin [Neurontin] 600 mg PO QHS 12/15/19 Potassium Chloride [Klor-Con M20] 20 meq PO BID 12/15/19 Acetaminophen [Tylenol Tablet] 650 mg PO Q6H PRN PRN tab 12/16/19 Budesonide Aerosol [Pulmicort 0.5 mg INHALATION BID 04/11/20 Respules] Duloxetine HCl 60 mg PO DAILY 04/11/20 Ergocalciferol [Vitamin D] 50,000 unit PO VAUGHN 04/11/20 Ipratropium/Albuterol Sulfate 3 ml IH 4X/DAY 04/11/20 [Iprat-Albut 0.5-3(2.5) mg/3 ml] No122/Iron/Folic Acid 1 ea PO DAILY 04/11/20 [ Multi Tablet] Tramadol HCl [Ultram] 50 mg PO 4X/DAY 04/11/20 Vitamin A 10,000 unit PO DAILY 04/11/20 Warfarin [Coumadin] 10 mg PO FR 04/11/20 Warfarin [Coumadin] 12.5 mg PO SUMOTUWETHSA 04/11/20 Oxycodone [Oxyir] 5 mg PO Q8H PRN PRN #20 tab 04/12/20 Surgical History: appendectomy, cholecystectomy, hysterectomy, tonsillectomy Psychiatric History: Anxiety [employer] History: endometriosis, uterine fibroids Smoking Status: Current every day smoker - *Family History Maternal History Items: No pertinent history, - Paternal History Items: Cancer Review of Systems Constitutional: Reports: Chills, Fever. Denies: Weight Change HEENT: Denies: Head Aches, Sinus Congestion, Sinus Drainage Cardiovascular: Denies: Chest Pain, Palpitations Respiratory: Reports: Cough, Sputum production, Wheezing Gastrointestinal: Denies: Abdominal Pain, Nausea, Vomiting Genitourinary: Denies: Dysuria Musculoskeletal: Reports: Joint Pain, Joint Tenderness Skin: Denies: Rash, Wounds Neurological: Denies: Numbness, Tingling, Focal weakness Psychiatric: Denies: Anxiety, Depression, Homicidal Ideations, Suicidal Ideations Hematologic/ Lymphatic: Denies: Easy Bruising, Easy Bleeding VTE Information - Inpt Only VTE Present on Admission: No VTE Mechan Device Prophylaxis: None VTE Pharm Prophylaxis ordered?: No Reason prophylaxis not ordered:: Treatment Not Indicated - Coumadin for history of DVT escalated; and with Lovenox bridge. Patient Problems: Active and Suspected Problems Left hip pain (Acute) - Physical Exam Vitals/I&O's: Vital Signs Temp Pulse Resp BP Pulse Ox 99.0 F 91 18 123/76 H 93 04/15/20 00:37 04/15/20 02:50 04/15/20 02:50 04/15/20 02:50 04/15/20 02:50 Oxygen Flow Rate (L/min) 4 Oxygen Delivery Method Nasal Cannula Weight: 104.4 kg Body Mass Index (BMI) 39.4 General: Alert, Oriented x3, Cooperative HEENT: Atraumatic, PERRLA, EOMI, Normocephalic Neck: Supple, No JVD, Negative Carotid Bruits Lungs: Clear to auscultation, Normal air movement Cardiovascular: Regular rate, No murmurs Abdomen: Bowel Sounds Present, Soft, Non Tender Extremities: No edema, Capillary Refill Less than 3 Seconds, Tenderness - Left hip Skin: No rashes, No breakdown Musculoskeletal: Tenderness - Left hip Neurological: Cranial nerves II-XII grossly intact Psych/Mental Status: Anxious, - - Dramatic Laboratory Results 04/15/20 01:56: WBC 15.4 H, RBC 3.59 L, Hgb 9.8 L, Hct 33.5 L, MCV 93.3, MCH 27.3, MCHC 29.3 L, RDW Std Deviation 56.6 H, RDW Coeff of Sean 16.7 H, Plt Count 280, MPV 10.3, Immature Gran % (Auto) 0.400, Neut % (Auto) 85.5 H, Lymph % (Auto) 8.4 L, [place] % (Auto) 4.9, Eos % (Auto) 0.5, Baso % (Auto) 0.3, Absolute Neuts (auto) 13.2 H, Absolute Lymphs (auto) 1.30, Nucleated RBC % 0 04/15/20 01:56: PT 14.6, INR 1.2 04/15/20 01:56: Sodium 137, Potassium 3.5, Chloride 99, Carbon Dioxide 37.0 H, Anion Gap 1 L, BUN 12, Creatinine 0.69, Estim Creat Clear Calc 75.81, Est GFR (MDRD) Af Amer 112, Est GFR (MDRD) Non-Af 93, BUN/Creatinine Ratio 17.4, Glucose 138 H, Calcium 8.3 L 04/15/20 02:05: Lactic Acid 1.4 04/15/20 02:10: Urine Color Yellow, Urine Clarity Clear, Urine pH 6.0, Ur Specific [place] 1.020, Urine Protein Negative, Urine Glucose (UA) Normal, Urine Ketones Negative, Urine Occult Blood Negative, Urine Nitrite Negative, Urine Bilirubin Negative, Urine Urobilinogen Normal, Ur Leukocyte Esterase 500 H, Urine RBC 0 SEEN, Urine WBC 0-5 SEEN, Ur Squamous Epith Cells 0-5 SEEN, Urine Bacteria 0 SEEN, Urine Mucus 0 SEEN Assessment/Plan All Active Problems Left hip pain (Acute) The patient is a 60 year old F with a significant history of chronic left hip pain; histrionic disorder and hypertension who presents to emergency department with excruciating left hip pain that is been going on for about 1 and half weeks; with a productive cough and found to have CT chest findings of multilobar airspace disease; and if subtherapeutic INR. Intractable left hip pain Oxycodone PRN ordered. Bowel protocol and antiemetics in place. PT and OT to work with patient. Consider discussing case with Dr. Walker since patient is a known patient of Dr. Walker, Pneumonia Gram-positive or gram-negative. Reportedly patient completed a course of Levaquin outpatient. Chest CT done on this presentation showed worsening multi lobar airspace disease consistent with worsening pneumonia. Levaquin was ordered at emergency department. Per discharge summary on 04/12/2020 patient recently received Levaquin. Will change antibiotics to aztreonam and azithromycin. Of note patient has many allergies. Blood cultures x2 was obtained in the emergency department. Breathing treatment continued Sputum culture ordered Strep pneumonia antigen and Legionella urine antigen ordered Mucinex p.o. ordered. History of protein C deficiency/chronic DVTs/status post IVC filter: Although patient reports possible Hemoptysis his sputum at the emergency department appeared without any clear indication of hemoptysis. INR subtherapeutic on presentation. Escalate Coumadin dose. Bridged with Lovenox. Daily PT/INR. DVT Prophylaxis Coumadin escalated and Lovenox bridge for history of DVT but subtherapeutic INR. Inpatient E&M: 79145 Init Hosp L3
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
[2020-04-15 05:09] LABS: Probe Check PASS; Specimen Processing Control PASS
[2020-04-15] MEDS: oxyCODONE 5 MG Tablet PO (06:36)
[2020-04-15] MEDS: Gabapentin 300 MG Capsule PO ×3 (08:20→17:26)
[2020-04-15] MEDS: clonazePAM 0.5 MG Tablet PO (08:20)
[2020-04-15] MEDS: guaiFENesin 1,200 MG Tablet 1200 MG PO ×2 (08:20→22:41)
[2020-04-15] MEDS: Furosemide 80 MG Tablet PO (08:20)
[2020-04-15] MEDS: DULoxetine Hcl 60 MG Capsule PO (08:20)
[2020-04-15] MEDS: Prenatal Vits Tablet 1 TABLET PO (08:21)
[2020-04-15] MEDS: Enoxaparin 120 MG/0.8 ML Syringe 105 MG SC ×2 (09:13→22:41)
[2020-04-15] MEDS: levoFLOXacin IV 750 MG/150 ML BAG 100 MG IV (09:18)
[2020-04-15] MEDS: HYDROmorphone 0.5 MG/0.5 ML SYRINGE IV ×4 (09:18→22:32)
[2020-04-15] MEDS: Acetaminophen 325 MG Tablet 650 MG PO ×2 (11:02→20:31)
[2020-04-15] MEDS: Budesonide Respules 0.5 MG/2 ML AMPUL.NEB. INHALATION ×2 (11:10→19:41)
[2020-04-15] MEDS: Ipratropium/Albuterol Sulfate 3 ML AMPUL.NEB INHALATION ×3 (11:10→19:40)
--- NOTE | 2020-04-15 15:05 | NURSING ---
came into room and stated that he is taking her home. that insurance is not paying for anything after a few hours. case management notified and explained to pt and that she is an inpatient and insurance will pay for her stay. that if they leave that it would be ama. pt and agreed to stay and have her pneumonia treated. pt also informed that dr quinones was called and stated that her pain pump is working fine. that he will not be seeing her today and ortho has been consulted to see her for her hip pain. pt agreeable with care.
[2020-04-15] MEDS: Furosemide 40 MG Tablet PO (17:26)
--- NOTE | 2020-04-15 18:23 | CASEMGMT ---
Social Work Note ABIGAIL received call from patient advocate stating pt's Tha was at [facility] and was requesting information on community resources. SW in to speak with pt and pt's Tha. SW introduced self and role at [facility]. Pt is alert and orientated x3. ABIGAIL educated pt and Tha on resources including Palliative Care, [facility] and [facility] on Wheels. Pt and Tha agreeable to referrals being sent to [facility] and [facility] Care but denied [facility] referral. Pt and Tha denied additional needs and concerns at this time. ABIGAIL faxed referral to [facility]. ABIGAIL faxed referral to Palliative Care and called [facility] and made Palliative Referral. Malika Landis SAMPLE ROOM SUPERVISOR, LOGISTICS SUPPLY OFFICER
--- NOTE | 2020-04-15 21:00 | RAD_ITS ---
HISTORY: Low back pain. 3 views of the lumbar spine. Of the patient's 118 previous studies performed at this institution alone, the most recent comparison x-ray of the lumbar spine is dated July 08, 2019. Findings: An IVC filter remains in place. Left upper quadrant surgical clips remain. 2 surgical clips adjacent to the left inferior aspect of the SI joint remain. 5 [id number] lumbar vertebral bodies. Minimal levoscoliosis. Degenerative disc disease. Facet arthropathy. Preservation of vertebral body height within the lumbar spine. Mild wedging to the T11 vertebral body was present on the previous study as well. Both femoral heads are well-seated within their respective acetabula. RAD/Lumbar Spine 2 or 3 Views IMPRESSION: Chronic degenerative disc disease and facet arthropathy to a similar degree of severity at the previous study of July 08, 2019. at 2139 Reported and signed by: Dawit Cid MD Electronically Signed: Dawit Cid MD at 23:57 EDT Tel , Service support ,
[2020-04-15] MEDS: 0.9% Saline Lock 10 ML Syringe IV (22:32)
[2020-04-15] MEDS: Gabapentin 600 MG Tablet PO (22:41)
[2020-04-15] MEDS: Amitriptyline 100 MG Tablet 200 MG PO (22:41)
[2020-04-16] VITALS (11 sets, daily range): BP systolic 110–134; BP diastolic 61–73; PULSE 89–103; RESP 16–20; TEMP 36.9–37.7; O2SAT 91–97
[2020-04-16] MEDS: Ipratropium/Albuterol Sulfate 3 ML AMPUL.NEB INHALATION ×4 (04:09→19:17)
[2020-04-16] MEDS: oxyCODONE 5 MG Tablet PO ×4 (04:32→17:49)
[2020-04-16] MEDS: Budesonide Respules 0.5 MG/2 ML AMPUL.NEB. INHALATION ×2 (07:14→19:17)
[2020-04-16 08:23] LABS: Anion Gap 1 (5-15); BUN 9 mg/dL (7-18); BUN/Creat Ratio 17.6 RATIO (10-20); Calcium,Total 8.1 mg/dL (8.5-10.1); Chloride 96 mmol/L (98-107); Creatinine, Serum 0.51 mg/dL (0.55-1.02); EST Glomerular Filtration Rate 131 mL/min (>60); Est Glom Filt Rate - Afr Amer 158 mL/min (>60); Estimated Creatinine Clearance 102.56 ml/min; Glucose 97 mg/dL (74-106); Potassium 3.8 mmol/L (3.5-5.1); Sodium Level 136 mmol/L (136-145)
[2020-04-16 08:28] LABS: Absolute Lymphocyte Count 1.06 X10^3/uL (0.83-4.51); Absolute Neutrophil Count 5.3 X10^3/uL (2.0-7.7); Basophil# 0.02 X10^3/uL; Basophil% 0.3 % (0-1); Eosinophil# 0.09 X10^3/uL; Eosinophils% 1.3 % (0-5); Hematocrit 31.8 % (37-47); Hemoglobin 9.2 g/dL (12.0-15.0); Lymphocyte # 1.06 X10^3/ul (4.0); Lymphocyte % 15.2 % (19-41); Mean Corp Hgb Conc 28.9 g/dL (32-36); Mean Corpuscular Hgb 27.5 pg (27.0-32.0); Mean Corpuscular Volume 95.2 fL (81-99); Monocyte# 0.47 X10^3/uL; Monocyte% 6.7 % (0-10); NRBC Flagged by Analyzer 0 % (0-5); Neutrophil % 76.1 % (47-70); Platelet Count 248 K/mm3 (150-450); RBC Distribution Width CV 16.9 % (11.6-14.6); RBC Distribution Width SD 58.6 fl (35.1-43.9); Red Blood Count 3.34 M/mm3 (4.2-5.4)
[2020-04-16] MEDS: clonazePAM 0.5 MG Tablet PO ×2 (08:41→13:27)
[2020-04-16 08:42] LABS: International Normalized Ratio 1.2; Prothrombin Time (Protime)PT. 14.8 SECONDS (11.7-14.9)
--- NOTE | 2020-04-16 08:42 | PN_ITS ---
Patient Problems: Active and Suspected Problems Left hip pain (Acute) Subjective: Chief complaint: Follow-up after admission for intractable left hip pain and pneumonia. Patient seen and examined. No acute events overnight. This morning, she is feeling little bit better. She was able to ambulate to the bathroom, left hip pain is getting better. She still complaining of cough with sputum stained with some blood, pink in color. Still short of breath and on oxygen. Denied fever chills. She has been afebrile, heart rate and blood pressure are stable, pulse ox is 94% on 4 L. - Physical Exam Vitals/I&O's: Vital Signs Temp Pulse Resp BP Pulse Ox 99.4 F H 93 16 134/73 H 93 04/16/20 04:26 04/16/20 07:14 04/16/20 07:14 04/16/20 04:26 04/16/20 07:14 Oxygen Flow Rate (L/min) 4 Oxygen Delivery Method Nasal Cannula Weight: 224 lb 13.944 oz Body Mass Index (BMI) 38.6 Intake and Output for Last 24 Hours 04/14/20 04/15/20 04/16/20 23:59 23:59 23:59 Intake Total 2220.5 / 2220.5 284.5 / 284.5 Balance 2220.5 / 2220.5 284.5 / 284.5 General: Alert, Oriented x3, No apparent distress HEENT: Atraumatic, PERRLA, EOMI, Normocephalic Oral: Moist Mucosa, No Gingival or Mucosal Lesions/ Ulcerations Neck: Supple, No JVD, Negative Carotid Bruits, Trachea Midline, Thyroid Normal Size and Texture Lungs: Diminished, Rales, Rhonchi, Wheezes, - - Decreased breath sounds bilateral, bilateral basilar crackles, occasional rhonchi, wheezes. Cardiovascular: Regular rate, Regular Rhythm, Normal S1, Normal S2, PMI Normal Abdomen: Bowel Sounds Present, Soft, Non Tender, Non-Distended, No Hepato- splenomegaly Extremities: No clubbing, No cyanosis, No edema Skin: No rashes, No breakdown Lymphatic: No Cervical, Supraclavicular, or Inguinal Adenopathy Neurological: Cranial nerves II-XII grossly intact, Motor Exam 5/5 strength throughout Psych/Mental Status: Normal Affect, Impulsive, Alert and oriented to time, place, person, mood and affect Microbiology Past 72 Hours 04/15/20 02:10 Urine, Clean Catch Streptococcus pneumoniae Antigen (M - Final 04/15/20 02:10 Urine, Clean Catch Legionella Antigen - Final Laboratory Results 04/16/20 07:34: WBC 7.0, RBC 3.34 L, Hgb 9.2 L, Hct 31.8 L, MCV 95.2, MCH 27.5, MCHC 28.9 L, RDW Std Deviation 58.6 H, RDW Coeff of Sean 16.9 H, Plt Count 248, MPV 11.0, Immature Gran % (Auto) 0.400, Neut % (Auto) 76.1 H, Lymph % (Auto) 15.2 L, Davison % (Auto) 6.7, Eos % (Auto) 1.3, Baso % (Auto) 0.3, Absolute Neuts (auto) 5.3, Absolute Lymphs (auto) 1.06, Nucleated RBC % 0 04/16/20 07:34: PT Pending, INR Pending 04/16/20 07:34: Sodium 136, Potassium 3.8, Chloride 96 L, Carbon Dioxide 39.0 H, Anion Gap 1 L, BUN 9, Creatinine 0.51 L, Estim Creat Clear Calc 102.56, Est GFR (MDRD) Af Amer 158, Est GFR (MDRD) Non-Af 131, BUN/Creatinine Ratio 17.6, Glucose 97, Calcium 8.1 L Clinical Impression(s) from Imaging Studies Chest X-Ray 04/15/20 01:16 IMPRESSION: Chronic interestitial changes. No radiographic evidence of acute cardiopulmonary disease. Chronic changes to the right lung base with chronic elevation of the right hemidiaphragm at 0311 Reported and signed by: Dawit Cid MD Electronically Signed: Dawit Cid MD at 3:10 EDT Tel , Service support , Chest CTA 04/15/20 04:12 IMPRESSION: No pulmonary embolism, aortic aneurysm, or aortic dissection. Worsening multi lobar airspace disease consistent with worsening pneumonia. No pulmonary embolism. Hepatomegaly. Individualized dose optimization techniques were used for this CT. at 0516 Reported and signed by: Dawit Cid MD Electronically Signed: Dawit Cid MD at 5:15 EDT Tel , Service support , Lumbar Spine X-Ray 04/15/20 21:00 IMPRESSION: Chronic degenerative disc disease and facet arthropathy to a similar degree of severity at the previous study of July 08, 2019. at 2359 Reported and signed by: Dawit Cid MD Electronically Signed: Dawit Cid MD at 23:57 EDT Tel , Service support , Current Medications Acetaminophen (Tylenol) 650 mg PO Q6H PRN PRN PRN Reason: Pain Score 1-10/Temp > 100.7 F Last Admin: 04/15/20 20:31 Dose: 650 mg Documented by: Albuterol/Ipratropium (Duoneb) 3 ml INHALATION 4X/DAY [facility] Last Admin: 04/16/20 04:09 Dose: 3 ml Documented by: Amitriptyline HCl (Elavil) 200 mg PO QHS [facility] Last Admin: 04/15/20 22:41 Dose: 200 mg Documented by: Budesonide (Pulmicort Aerosol) 0.5 mg INHALATION BID [facility] Last Admin: 04/16/20 07:14 Dose: 0.5 mg Documented by: Clonazepam (Klonopin) 0.5 mg PO 4X/DAY PRN PRN PRN Reason: ANXIETY Last Admin: 04/16/20 08:41 Dose: 0.5 mg Documented by: Cyclobenzaprine HCl (Cyclobenzaprine Hcl) 5 mg PO BID PRN PRN PRN Reason: SPASMS Duloxetine HCl (Cymbalta) 60 mg PO DAILY [facility] Last Admin: 04/15/20 08:20 Dose: 60 mg Documented by: Enoxaparin Sodium (Lovenox) 105 mg SC Q12 [facility] Last Admin: 04/15/20 22:41 Dose: 105 mg Documented by: Ergocalciferol (Vitamin D) 50,000 unit PO VAUGHN [facility] Furosemide (Lasix) 40 mg PO DINNER [facility] Last Admin: 04/15/20 17:26 Dose: 40 mg Documented by: Furosemide (Lasix) 80 mg PO BREAKFAST [facility] Last Admin: 04/15/20 08:20 Dose: 80 mg Documented by: Gabapentin (Neurontin) 300 mg PO TIDCM [facility] Last Admin: 04/15/20 17:26 Dose: 300 mg Documented by: Gabapentin (Neurontin) 600 mg PO QHS [facility] Last Admin: 04/15/20 22:41 Dose: 600 mg Documented by: Guaifenesin (Mucinex) 1,200 mg PO BID [facility] Last Admin: 04/15/20 22:41 Dose: 1,200 mg Documented by: Hydromorphone HCl (Dilaudid Inj) 0.5 mg IV Q3H PRN PRN PRN Reason: Pain Score 6-10/10 Last Admin: 04/15/20 22:32 Dose: 0.5 mg Documented by: Aztreonam 2 gm/ Sodium (Chloride) 100 mls @ 150 mls/hr IV Q8 [facility] Last Infusion: 04/16/20 05:48 Dose: Infused Documented by: Azithromycin 500 mg/ Dextrose 255 mls @ 250 mls/hr IV Q24 [facility] Last Infusion: 04/15/20 09:15 Dose: Infused Documented by: Sodium Chloride () 250 mls @ 15 mls/hr IV .[id number] PRN PRN Reason: Saline Flush Last Infusion: 04/16/20 05:48 Dose: 15 mls/hr Documented by: Ondansetron HCl (Zofran) 4 mg IV Q8H PRN PRN PRN Reason: NAUSEA/VOMITING Oxycodone HCl (Oxyir) 5 mg PO Q4H PRN PRN PRN Reason: Pain Score 4-5/10 Last Admin: 04/16/20 08:40 Dose: 5 mg Documented by: Potassium Chloride (K-Dur) 20 meq PO BIDCM [facility] Last Admin: 04/15/20 17:26 Dose: 20 meq Documented by: Multivit/Folic Acid/Iron (Prenatabs Fa) 1 tablet PO DAILY [facility] Last Admin: 04/15/20 08:21 Dose: 1 tablet Documented by: Sodium Chloride () 10 - 40 ml IV UD PRN PRN Reason: SALINE FLUSH Last Admin: 04/15/20 22:32 Dose: 10 ml Documented by: Warfarin Sodium (Jantoven) 10 mg PO Fr@1700 [facility] Last Admin: 04/15/20 17:25 Dose: 10 mg Documented by: Warfarin Sodium (Coumadin (Pbkc)) 7.5 mg PO SuMoTuWeThSa@1700 [facility] Warfarin Sodium (Jantoven) 5 mg PO SuMoTuWeThSa@1700 [facility] Medical Necessity - Tobacco Use Smoking Status: Current every day smoker Assessment/Plan All Active Problems Left hip pain (Acute) This is a 60 years old female patient presented to the emergency room because of recurrent intractable left hip pain as well as productive cough, shortness of breath and fever and she was found to have worsening multilobar airspace disease consistent with worsening pneumonia on CTA chest and she was admitted for treatment. #1 Acute bilateral worsening community-acquired pneumonia: In the setting of recent history of pneumonia that was treated as outpatient with Levaquin. CTA chest reviewed, no PE or dissection, worsening multilobar airspace disease. Patient is on IV Zithromax and IV Azactam as well as bronchodilators. Pneumococcal and Legionella antigen were negative. Blood and sputum cultures are pending. She has been afebrile, blood pressure and heart rate are stable, pulse ox is 94% on 4 L. Leukocytosis resolved. Plan to continue same treatment, ambulate, encourage incentive spirometer. #2 intractable recurrent left hip pain: Unclear etiology, multiple x-rays and CT scan left hip done and showed no fractures, revealed degenerative changes. Patient has a history of chronic back pain, on morphine pump. X-ray of the pelvis and left hip done again and showed no fractures. Orthopedic surgery consulted and stated no fractures or infection on the left hip. Her symptoms could be due to a radiculopathy. Patient is on IV Dilaudid and OxyIR PRN for pain, pain is getting better. Plan: MRI lumbar spine without contrast. #3 COPD/chronic respiratory failure: She is on bronchodilators and IV antibiotics. She is on 4 L of oxygen. Today, patient mentioned that she never been on oxygen at home but apparently, she has been. Chart reviewed and it was recommended that patient has been on oxygen at 2 to 3 L at home at baseline. Plan to continue bronchodilators, wean off oxygen as tolerated. #4 chronic anemia: Hemoglobin has been anywhere between 9 to 11 g/dL. Today's hemoglobin is 9.2 g/dL. Hemoglobin and hematocrit are stable at baseline. Plan to monitor. #5 history of protein C deficiency/chronic DVTs/status post IVC filter: INR is 1.2. She is on Coumadin and subcu Lovenox twice daily for bridging. Her INR still 1.2, subtherapeutic. Plan to continue sentiment, recheck INR tomorrow morning. #6 chronic pain syndrome/fibromyalgia: She is on morphine pump implanted, continue amitriptyline, gabapentin and tramadol, IV Dilaudid PRN as above as well as OxyIR PRN. Yesterday, I spoke with Dr. Walker and he stated that her morphine pump has enough morphine in it for the few next months. #7 anxiety/depression/personality disorder: Continue Klonopin, Adderall. #8 hypertension: Blood pressure stable, continue Lasix. #9 history of esophageal cancer: Status post treatment, in remission. #10 DVT prophylaxis: On subcu Lovenox twice daily and Coumadin, INR is 1.2. This note was generated with [employer] dictation software. It may contain incorrect words, spelling, and punctuation that were not noted in checking the note before signing. Inpatient E&M: 55520 [facility] Hosp L2
[2020-04-16] MEDS: Gabapentin 300 MG Capsule PO ×3 (08:43→16:38)
[2020-04-16] MEDS: Furosemide 80 MG Tablet PO (08:45)
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
[2020-04-16] MEDS: guaiFENesin 1,200 MG Tablet 1200 MG PO ×2 (09:04→21:40)
[2020-04-16] MEDS: Enoxaparin 120 MG/0.8 ML Syringe 105 MG SC ×2 (09:04→21:40)
[2020-04-16] MEDS: Prenatal Vits Tablet 1 TABLET PO (09:04)
[2020-04-16] MEDS: DULoxetine Hcl 60 MG Capsule PO (09:04)
--- NOTE | 2020-04-16 09:22 | MRI_ITS ---
STUDY: MRI LUMBAR SPINE WITHOUT CONTRAST REASON FOR EXAM: Female, 60 years old. Radiculopathy chronic low back pain left leg pain TECHNIQUE: Standardized fat and water weighted pulse sequences were obtained in the sagittal and axial planes. COMPARISON: 30 May 2018 FINDINGS: lumbar spine is intact and aligned. There are subchondral marrow and endplate degenerative changes and a benign L1 hemangioma. Marrow, paraspinous soft tissues and SI joints are unremarkable. BMI is elevated. Conus medullaris terminates at the appropriate level with unremarkable cauda equina. There is mild L2-L3 thecal sac stenosis. Remainder of the levels have patent thecal sac. Lateral recesses are patent. Foramina are patent at all levels. MRI/Spine Lumbar (Routine) IMPRESSION: 1. Mild spondylotic L2-L3 thecal sac stenosis. 2. Elevated BMI. Electronically Signed: Tamy Wynn, at 16:59 EDT Tel , Service support ,
[2020-04-16] MEDS: HYDROmorphone 0.5 MG/0.5 ML SYRINGE IV ×2 (10:42→20:25)
[2020-04-16] MEDS: 0.9% Saline Lock 10 ML Syringe IV ×3 (13:34→21:39)
--- NOTE | 2020-04-16 15:35 | CM.UR ---
RN CM [employer]PECT[employer] CM met face to face with patient to perform CM assessment. Patient verb understanding of purpose and consents to assessment. Care providers, pharmacy, and demographics verified/updated at this time. PCP: Dr Stephenson Specialists: Dr Walker--pain mgmt, Dr Dinah Nelson--pulmonology [facility], Dr Masters--psychiatry, Dr Andujar--GI @ [facility] Preferred Pharmacy: [facility] Prescription Benefit: Yes. States no problem affording her medications. States has some issues with her 's though. States they have used [employer] before for assistance. Living Will/HPOA: Has both LW and HCPOA, who is her , Tha. Copies of both are scanned into medical record. LNOK: , Tha Living Arrangements: Her and have moved into a 1 story appt so that she doesn't have to worry about stairs. is supportive and assists with bathing/dressing and any other needs she may have. Transportation: Pt states drives self at times (not as much as before). Denies transportation concerns at this time. also drives and will be taking pt home @ d/c DME: Has home O2 @ 2-3 L/M continuously through [employer]. Has concentrator and portability. Patient complained of portable tanks beint too big/heavy. We have educated her in the past to talk to her oxygen supplier and her Pulmonary physician to see if she can get something smaller or maybe a portable concentrator. reinforced this. States she is aware and did talk to oxygen supplier but has not talked to pulmonary to see if she qualified/physician will order different portability. zer Patient states she also has a wheelchair and nebulizer. Denies need for further DME at this time. HHC/SNF: No history of either. Denies needs for HHC. Pt wishes to return home and states has no concerns with going home at time of discharge. CM to follow any needs that may arise. Advised patient to ask for CM if any further questions/concerns/needs arise. Voices understanding. PLAN: Home w/spousal support. . Blanca Toure RN, [facility].
[2020-04-16] MEDS: Furosemide 40 MG Tablet PO (16:38)
[2020-04-16] MEDS: Gabapentin 600 MG Tablet PO (21:40)
[2020-04-16] MEDS: Amitriptyline 100 MG Tablet 200 MG PO (21:41)
[2020-04-16] MEDS: Acetaminophen 325 MG Tablet 650 MG PO (21:47)
[2020-04-17] VITALS (9 sets, daily range): BP systolic 107–125; BP diastolic 45–80; PULSE 81–98; RESP 16–20; TEMP 36.5–37.1; O2SAT 91–98
[2020-04-17] MEDS: HYDROmorphone 0.5 MG/0.5 ML SYRINGE IV ×2 (03:36→20:32)
[2020-04-17] MEDS: Ipratropium/Albuterol Sulfate 3 ML AMPUL.NEB INHALATION ×4 (04:01→19:09)
[2020-04-17] MEDS: oxyCODONE 5 MG Tablet PO ×3 (05:39→18:12)
[2020-04-17 06:16] LABS: International Normalized Ratio 1.2
[2020-04-17] MEDS: Budesonide Respules 0.5 MG/2 ML AMPUL.NEB. INHALATION ×2 (07:32→19:09)
[2020-04-17] MEDS: Furosemide 80 MG Tablet PO (07:49)
[2020-04-17] MEDS: Gabapentin 300 MG Capsule PO ×3 (07:49→17:44)
[2020-04-17] MEDS: clonazePAM 0.5 MG Tablet PO ×2 (08:02→17:54)
--- NOTE | 2020-04-17 08:02 | PCM.PROGNOTE ---
Patient Problems: Active and Suspected Problems Left hip pain (Acute) Subjective: Chief complaint: Follow-up after admission for intractable left hip pain and pneumonia. Patient seen and examined. No acute events overnight. Today, she is feeling better. Shortness of breath has been improving, still having some cough with sputum. Left hip pain has been improving and she was able to ambulate. All over and according to her, she is doing better. She is afebrile, blood pressure and heart rate are stable, pulse ox is 94% on 2 L. Today, patient admitted that she is on home oxygen at 2 to 3 L. - Physical Exam Vitals/I&O's: Vital Signs Temp Pulse Resp BP Pulse Ox 97.7 F L 93 20 H 125/80 H 94 04/17/20 02:30 04/17/20 04:01 04/17/20 04:01 04/17/20 02:30 04/17/20 02:30 Oxygen Flow Rate (L/min) 2 Oxygen Delivery Method Nasal Cannula Weight: 224 lb 13.944 oz Body Mass Index (BMI) 38.6 Intake and Output for Last 24 Hours 04/15/20 04/16/20 04/17/20 23:59 23:59 23:59 Intake Total 2220.5 / 2220.5 817.5 / 817.5 209.25 / 209.25 Balance 2220.5 / 2220.5 817.5 / 817.5 209.25 / 209.25 General: Alert, Oriented x3, Cooperative, No apparent distress HEENT: Atraumatic, PERRLA, EOMI, Normocephalic Oral: Moist Mucosa, No Gingival or Mucosal Lesions/ Ulcerations Neck: Supple, No JVD, Negative Carotid Bruits, Trachea Midline, Thyroid Normal Size and Texture Lungs: Diminished, Rales, Rhonchi, Wheezes, - - Decreased breath sounds bilateral, bilateral rhonchi, wheezes. Cardiovascular: Regular rate, Regular Rhythm, Normal S1, Normal S2, PMI Normal Abdomen: Bowel Sounds Present, Soft, Non Tender, Non-Distended, No Hepato-splenomegaly Extremities: No clubbing, No cyanosis, No edema Skin: No rashes, No breakdown Lymphatic: No Cervical, Supraclavicular, or Inguinal Adenopathy Neurological: Cranial nerves II-XII grossly intact, Neuro grossly intact Psych/Mental Status: Normal Affect, Appropriate, Alert and oriented to time, place, person, mood and affect Microbiology Past 72 Hours 04/15/20 04:15 Blood Culture (Wb) - Left Hand Blood Culture - Preliminary No growth in 48 hours. 04/15/20 05:20 Blood Culture (Wb) - Anticubital Right Blood Culture - Preliminary No growth in 48 hours. 04/16/20 04:58 Sputum, Expectorated/Coughed Gram Stain - Final 04/15/20 02:10 Urine, Clean Catch Streptococcus pneumoniae Antigen (M - Final 04/15/20 02:10 Urine, Clean Catch Legionella Antigen - Final Laboratory Results 04/16/20 07:34: WBC 7.0, RBC 3.34 L, Hgb 9.2 L, Hct 31.8 L, MCV 95.2, MCH 27.5, MCHC 28.9 L, RDW Std Deviation 58.6 H, RDW Coeff of Sean 16.9 H, Plt Count 248, MPV 11.0, Immature Gran % (Auto) 0.400, Neut % (Auto) 76.1 H, Lymph % (Auto) 15.2 L, Rolette % (Auto) 6.7, Eos % (Auto) 1.3, Baso % (Auto) 0.3, Absolute Neuts (auto) 5.3, Absolute Lymphs (auto) 1.06, Nucleated RBC % 0 04/16/20 07:34: PT 14.8, INR 1.2 04/16/20 07:34: Sodium 136, Potassium 3.8, Chloride 96 L, Carbon Dioxide 39.0 H, Anion Gap 1 L, BUN 9, Creatinine 0.51 L, Estim Creat Clear Calc 102.56, Est GFR (MDRD) Af Amer 158, Est GFR (MDRD) Non-Af 131, BUN/Creatinine Ratio 17.6, Glucose 97, Calcium 8.1 L 04/17/20 05:34: PT 15.0 H, INR 1.2 Clinical Impression(s) from Imaging Studies Lumbar Spine MRI 04/16/20 09:22 IMPRESSION: 1. Mild spondylotic L2-L3 thecal sac stenosis. 2. Elevated BMI. Electronically Signed: Tamy Wynn, at 16:59 EDT Tel , Service support , Current Medications Acetaminophen (Tylenol) 650 mg PO Q6H PRN PRN PRN Reason: Pain Score 1-10/Temp > 100.7 F Last Admin: 04/16/20 21:47 Dose: 650 mg Documented by: Albuterol/Ipratropium (Duoneb) 3 ml INHALATION 4X/DAY [facility] Last Admin: 04/17/20 04:16 Dose: Not Given Documented by: Amitriptyline HCl (Elavil) 200 mg PO QHS [facility] Last Admin: 04/16/20 21:41 Dose: 200 mg Documented by: Budesonide (Pulmicort Aerosol) 0.5 mg INHALATION BID [facility] Last Admin: 04/17/20 07:32 Dose: 0.5 mg Documented by: Clonazepam (Klonopin) 0.5 mg PO 4X/DAY PRN PRN PRN Reason: ANXIETY Last Admin: 04/17/20 08:02 Dose: 0.5 mg Documented by: Cyclobenzaprine HCl (Cyclobenzaprine Hcl) 5 mg PO BID PRN PRN PRN Reason: SPASMS Duloxetine HCl (Cymbalta) 60 mg PO DAILY [facility] Last Admin: 04/16/20 09:04 Dose: 60 mg Documented by: Enoxaparin Sodium (Lovenox) 105 mg SC Q12 [facility] Last Admin: 04/16/20 21:40 Dose: 105 mg Documented by: Ergocalciferol (Vitamin D) 50,000 unit PO VAUGHN [facility] Furosemide (Lasix) 40 mg PO DINNER [facility] Last Admin: 04/16/20 16:38 Dose: 40 mg Documented by: Furosemide (Lasix) 80 mg PO BREAKFAST [facility] Last Admin: 04/17/20 07:49 Dose: 80 mg Documented by: Gabapentin (Neurontin) 300 mg PO TIDCM [facility] Last Admin: 04/17/20 07:49 Dose: 300 mg Documented by: Gabapentin (Neurontin) 600 mg PO QHS [facility] Last Admin: 04/16/20 21:40 Dose: 600 mg Documented by: Guaifenesin (Mucinex) 1,200 mg PO BID [facility] Last Admin: 04/16/20 21:40 Dose: 1,200 mg Documented by: Hydromorphone HCl (Dilaudid Inj) 0.5 mg IV Q3H PRN PRN PRN Reason: Pain Score 6-10/10 Last Admin: 04/17/20 03:36 Dose: 0.5 mg Documented by: Aztreonam 2 gm/ Sodium (Chloride) 100 mls @ 150 mls/hr IV Q8 [facility] Last Infusion: 04/17/20 06:17 Dose: Infused Documented by: Azithromycin 500 mg/ Dextrose 255 mls @ 250 mls/hr IV Q24 [facility] Last Infusion: 04/16/20 10:03 Dose: Infused Documented by: Sodium Chloride () 250 mls @ 15 mls/hr IV .[id number] PRN PRN Reason: Saline Flush Last Infusion: 04/17/20 06:17 Dose: 15 mls/hr Documented by: Ondansetron HCl (Zofran) 4 mg IV Q8H PRN PRN PRN Reason: NAUSEA/VOMITING Oxycodone HCl (Oxyir) 5 mg PO Q4H PRN PRN PRN Reason: Pain Score 4-5/10 Last Admin: 04/17/20 05:39 Dose: 5 mg Documented by: Potassium Chloride (K-Dur) 20 meq PO BIDCM [facility] Last Admin: 04/17/20 07:50 Dose: 20 meq Documented by: Multivit/Folic Acid/Iron (Prenatabs Fa) 1 tablet PO DAILY [facility] Last Admin: 04/16/20 09:04 Dose: 1 tablet Documented by: Sodium Chloride () 10 - 40 ml IV UD PRN PRN Reason: SALINE FLUSH Last Admin: 04/16/20 21:39 Dose: 10 ml Documented by: Warfarin Sodium (Jantoven) 10 mg PO Fr@1700 [facility] Last Admin: 04/15/20 17:25 Dose: 10 mg Documented by: Warfarin Sodium (Coumadin (Pbkc)) 7.5 mg PO SuMoTuWeThSa@1700 [facility] Last Admin: 04/16/20 16:43 Dose: 7.5 mg Documented by: Warfarin Sodium (Jantoven) 5 mg PO SuMoTuWeThSa@1700 [facility] Last Admin: 04/16/20 16:38 Dose: 5 mg Documented by: Medical Necessity - Tobacco Use Smoking Status: Current every day smoker Assessment/Plan All Active Problems Left hip pain (Acute) This is a 60 years old female patient presented to the emergency room because of recurrent intractable left hip pain as well as productive cough, shortness of breath and fever and she was found to have worsening multilobar airspace disease consistent with worsening pneumonia on CTA chest and she was admitted for treatment. #1 Acute bilateral worsening community-acquired pneumonia: She is on IV azithromycin and aztreonam. She remained afebrile, leukocytosis resolved. She had recent history of pneumonia that was treated as outpatient with Levaquin. Pneumococcal and Legionella antigen were negative. Blood culture showed no growth in 48 hours. Sputum culture is pending. Plan to continue same treatment, ambulate, encourage incentive spirometer. #2 intractable recurrent left hip pain: Unclear etiology, multiple x-rays and CT scan left hip done and showed no fractures, revealed degenerative changes. Orthopedic surgery consulted, stated that there is no fracture, no plan for interventions. MRI lumbar spine done because we thought that her pain could be due to referred pain from her back. MRI lumbar spine revealed mild spondylitic L2-L3 thecal sac stenosis, otherwise unremarkable. Her left hip pain is getting better with the current medication regimen. Plan to ambulate, PT OT. #3 COPD/chronic respiratory failure: She is on bronchodilators and IV antibiotics. Today, she is down to 2 L of oxygen, feeling better. She is on home oxygen at 2 to 3 L. Plan to continue bronchodilators, wean off oxygen as tolerated. #4 chronic anemia: Hemoglobin has been anywhere between 9 to 11 g/dL. Yesterday's hemoglobin is 9.2 g/dL. Hemoglobin and hematocrit are stable at baseline. Plan to repeat CBC tomorrow morning. #5 history of protein C deficiency/chronic DVTs/status post IVC filter: INR still subtherapeutic at 1.2. She is on Coumadin and subcu Lovenox twice daily for bridging. Continue same treatment, recheck INR tomorrow morning. #6 chronic pain syndrome/fibromyalgia: Currently, her pain is stable. She is on morphine pump implanted, continue amitriptyline, gabapentin and tramadol, IV Dilaudid PRN as above as well as OxyIR PRN. I spoke with Dr. Walker and he stated that her morphine pump has enough morphine in it for the few next months. #7 anxiety/depression/personality disorder: Continue Klonopin, Adderall. #8 hypertension: Blood pressure stable, continue Lasix. #9 history of esophageal cancer: Status post treatment, in remission. #10 DVT prophylaxis: On subcu Lovenox twice daily and Coumadin, INR is 1.2. This note was generated with [employer] dictation software. It may contain incorrect words, spelling, and punctuation that were not noted in checking the note before signing. Inpatient E&M: 73885 Subs Hosp L2
--- NOTE | 2020-04-17 08:09 | PCM.PN.ORT ---
Patient Problems: Active and Suspected Problems Left hip pain (Acute) Subjective: Pain doing about the same as yesterday - Physical Exam Vitals/I&O's: Vital Signs Temp Pulse Resp BP Pulse Ox 97.7 F L 93 20 H 125/80 H 94 04/17/20 02:30 04/17/20 04:01 04/17/20 04:01 04/17/20 02:30 04/17/20 02:30 Oxygen Flow Rate (L/min) 2 Oxygen Delivery Method Nasal Cannula Weight: 224 lb 13.944 oz Body Mass Index (BMI) 38.6 Intake and Output for Last 24 Hours 04/15/20 04/16/20 04/17/20 23:59 23:59 23:59 Intake Total 2220.5 / 2220.5 817.5 / 817.5 209.25 / 209.25 Balance 2220.5 / 2220.5 817.5 / 817.5 209.25 / 209.25 General: Alert, Cooperative, No apparent distress Extremities: - - Nation unchanged with no sign of infection swelling erythema ecchymosis Microbiology Past 72 Hours 04/15/20 04:15 Blood Culture (Wb) - Left Hand Blood Culture - Preliminary No growth in 48 hours. 04/15/20 05:20 Blood Culture (Wb) - Anticubital Right Blood Culture - Preliminary No growth in 48 hours. 04/16/20 04:58 Sputum, Expectorated/Coughed Gram Stain - Final 04/15/20 02:10 Urine, Clean Catch Streptococcus pneumoniae Antigen (M - Final 04/15/20 02:10 Urine, Clean Catch Legionella Antigen - Final Laboratory Results 04/16/20 07:34: WBC 7.0, RBC 3.34 L, Hgb 9.2 L, Hct 31.8 L, MCV 95.2, MCH 27.5, MCHC 28.9 L, RDW Std Deviation 58.6 H, RDW Coeff of Sean 16.9 H, Plt Count 248, MPV 11.0, Immature Gran % (Auto) 0.400, Neut % (Auto) 76.1 H, Lymph % (Auto) 15.2 L, Atkinson % (Auto) 6.7, Eos % (Auto) 1.3, Baso % (Auto) 0.3, Absolute Neuts (auto) 5.3, Absolute Lymphs (auto) 1.06, Nucleated RBC % 0 04/16/20 07:34: PT 14.8, INR 1.2 04/16/20 07:34: Sodium 136, Potassium 3.8, Chloride 96 L, Carbon Dioxide 39.0 H, Anion Gap 1 L, BUN 9, Creatinine 0.51 L, Estim Creat Clear Calc 102.56, Est GFR (MDRD) Af Amer 158, Est GFR (MDRD) Non-Af 131, BUN/Creatinine Ratio 17.6, Glucose 97, Calcium 8.1 L 04/17/20 05:34: PT 15.0 H, INR 1.2 Current Medications Acetaminophen (Tylenol) 650 mg PO Q6H PRN PRN PRN Reason: Pain Score 1-10/Temp > 100.7 F Last Admin: 04/16/20 21:47 Dose: 650 mg Documented by: Albuterol/Ipratropium (Duoneb) 3 ml INHALATION 4X/DAY [facility] Last Admin: 04/17/20 04:16 Dose: Not Given Documented by: Amitriptyline HCl (Elavil) 200 mg PO QHS [facility] Last Admin: 04/16/20 21:41 Dose: 200 mg Documented by: Budesonide (Pulmicort Aerosol) 0.5 mg INHALATION BID [facility] Last Admin: 04/17/20 07:32 Dose: 0.5 mg Documented by: Clonazepam (Klonopin) 0.5 mg PO 4X/DAY PRN PRN PRN Reason: ANXIETY Last Admin: 04/17/20 08:02 Dose: 0.5 mg Documented by: Cyclobenzaprine HCl (Cyclobenzaprine Hcl) 5 mg PO BID PRN PRN PRN Reason: SPASMS Duloxetine HCl (Cymbalta) 60 mg PO DAILY [facility] Last Admin: 04/16/20 09:04 Dose: 60 mg Documented by: Enoxaparin Sodium (Lovenox) 105 mg SC Q12 [facility] Last Admin: 04/16/20 21:40 Dose: 105 mg Documented by: Ergocalciferol (Vitamin D) 50,000 unit PO VAUGHN [facility] Furosemide (Lasix) 40 mg PO DINNER [facility] Last Admin: 04/16/20 16:38 Dose: 40 mg Documented by: Furosemide (Lasix) 80 mg PO BREAKFAST [facility] Last Admin: 04/17/20 07:49 Dose: 80 mg Documented by: Gabapentin (Neurontin) 300 mg PO TIDCM [facility] Last Admin: 04/17/20 07:49 Dose: 300 mg Documented by: Gabapentin (Neurontin) 600 mg PO QHS [facility] Last Admin: 04/16/20 21:40 Dose: 600 mg Documented by: Guaifenesin (Mucinex) 1,200 mg PO BID [facility] Last Admin: 04/16/20 21:40 Dose: 1,200 mg Documented by: Hydromorphone HCl (Dilaudid Inj) 0.5 mg IV Q3H PRN PRN PRN Reason: Pain Score 6-10/10 Last Admin: 04/17/20 03:36 Dose: 0.5 mg Documented by: Aztreonam 2 gm/ Sodium (Chloride) 100 mls @ 150 mls/hr IV Q8 [facility] Last Infusion: 04/17/20 06:17 Dose: Infused Documented by: Azithromycin 500 mg/ Dextrose 255 mls @ 250 mls/hr IV Q24 [facility] Last Infusion: 04/16/20 10:03 Dose: Infused Documented by: Sodium Chloride () 250 mls @ 15 mls/hr IV .[id number] PRN PRN Reason: Saline Flush Last Infusion: 04/17/20 06:17 Dose: 15 mls/hr Documented by: Ondansetron HCl (Zofran) 4 mg IV Q8H PRN PRN PRN Reason: NAUSEA/VOMITING Oxycodone HCl (Oxyir) 5 mg PO Q4H PRN PRN PRN Reason: Pain Score 4-5/10 Last Admin: 04/17/20 05:39 Dose: 5 mg Documented by: Potassium Chloride (K-Dur) 20 meq PO BIDCM [facility] Last Admin: 04/17/20 07:50 Dose: 20 meq Documented by: Multivit/Folic Acid/Iron (Prenatabs Fa) 1 tablet PO DAILY [facility] Last Admin: 04/16/20 09:04 Dose: 1 tablet Documented by: Sodium Chloride () 10 - 40 ml IV UD PRN PRN Reason: SALINE FLUSH Last Admin: 04/16/20 21:39 Dose: 10 ml Documented by: Warfarin Sodium (Jantoven) 10 mg PO Fr@1700 [facility] Last Admin: 04/15/20 17:25 Dose: 10 mg Documented by: Warfarin Sodium (Coumadin (Pbkc)) 7.5 mg PO SuMoTuWeThSa@1700 [facility] Last Admin: 04/16/20 16:43 Dose: 7.5 mg Documented by: Warfarin Sodium (Jantoven) 5 mg PO SuMoTuWeThSa@1700 [facility] Last Admin: 04/16/20 16:38 Dose: 5 mg Documented by: Medical Necessity - Tobacco Use Smoking Status: Current every day smoker Assessment/Plan All Active Problems Left hip pain (Acute) MRI lumbar spine does not reveal any mass infection or stenosis that would be to explain her radicular symptoms and intractable pain next step would be MRI of the left hip which could be prefomed on a nonemergent timeline.
[2020-04-17] MEDS: DULoxetine Hcl 60 MG Capsule PO (08:13)
[2020-04-17] MEDS: Prenatal Vits Tablet 1 TABLET PO (08:13)
[2020-04-17] MEDS: guaiFENesin 1,200 MG Tablet 1200 MG PO ×2 (08:13→21:50)
[2020-04-17] MEDS: Enoxaparin 120 MG/0.8 ML Syringe 105 MG SC ×2 (09:46→21:50)
[2020-04-17] MEDS: 0.9% Saline Lock 10 ML Syringe IV ×3 (14:11→21:49)
[2020-04-17] MEDS: Furosemide 40 MG Tablet PO (17:44)
[2020-04-17] MEDS: Acetaminophen 325 MG Tablet 650 MG PO (18:14)
[2020-04-17] MEDS: Amitriptyline 100 MG Tablet 200 MG PO (21:49)
[2020-04-17] MEDS: Gabapentin 600 MG Tablet PO (21:50)
[2020-04-18] VITALS (8 sets, daily range): BP systolic 94–128; BP diastolic 54–66; PULSE 62–95; RESP 16–20; TEMP 36.6–37.1; O2SAT 90–97
[2020-04-18] MEDS: Acetaminophen 325 MG Tablet 650 MG PO ×2 (04:30→10:41)
[2020-04-18] MEDS: oxyCODONE 5 MG Tablet PO ×2 (04:30→19:57)
[2020-04-18] MEDS: 0.9% Saline Lock 10 ML Syringe IV ×2 (06:01→08:39)
[2020-04-18 06:08] LABS: Absolute Lymphocyte Count 0.66 X10^3/uL (0.83-4.51); Absolute Neutrophil Count 4.3 X10^3/uL (2.0-7.7); Basophil# 0.01 X10^3/uL; Basophil% 0.2 % (0-1); Eosinophils% 1.8 % (0-5); Hematocrit 30.8 % (37-47); Lymphocyte # 0.66 X10^3/ul (4.0); Lymphocyte % 11.7 % (19-41); Mean Corp Hgb Conc 29.2 g/dL (32-36); Mean Corpuscular Hgb 27.2 pg (27.0-32.0); Mean Corpuscular Volume 93.1 fL (81-99); Mean Platelet Vol. 10.6 fl (6.2-12.0); Monocyte# 0.59 X10^3/uL; Monocyte% 10.4 % (0-10); NRBC Flagged by Analyzer 0 % (0-5); Neutrophil # 4.28 X10^3/uL (2.7-7.7); Neutrophil % 75.5 % (47-70); Platelet Count 231 K/mm3 (150-450); RBC Distribution Width CV 17.2 % (11.6-14.6); RBC Distribution Width SD 56.4 fl (35.1-43.9); Red Blood Count 3.31 M/mm3 (4.2-5.4); White Blood Count 5.7 K/mm3 (4.4-11.0)
[2020-04-18 06:10] LABS: International Normalized Ratio 1.6; Prothrombin Time (Protime)PT. 18.4 SECONDS (11.7-14.9)
[2020-04-18 06:43] LABS: Anion Gap 2 (5-15); BUN 9 mg/dL (7-18); Calcium,Total 8.3 mg/dL (8.5-10.1); Chloride 97 mmol/L (98-107); Creatinine, Serum 0.41 mg/dL (0.55-1.02); EST Glomerular Filtration Rate 169 mL/min (>60); Est Glom Filt Rate - Afr Amer 204 mL/min (>60); Estimated Creatinine Clearance 127.58 ml/min; Glucose 91 mg/dL (74-106); Potassium 3.5 mmol/L (3.5-5.1); Sodium Level 138 mmol/L (136-145)
[2020-04-18] MEDS: Budesonide Respules 0.5 MG/2 ML AMPUL.NEB. INHALATION ×2 (07:41→19:17)
[2020-04-18] MEDS: Ipratropium/Albuterol Sulfate 3 ML AMPUL.NEB INHALATION ×3 (07:42→19:17)
--- NOTE | 2020-04-18 08:03 | PCM.PROGNOTE ---
Patient Problems: Active and Suspected Problems Left hip pain (Acute) Subjective: Chief complaint: Follow-up after admission for intractable left hip pain and pneumonia. Patient seen and examined. No acute events overnight. Her symptoms continue to improve slowly. Shortness of breath has been getting better, still complaining of productive cough with thick dark sputum. Denied fever or chills. Left hip pain is getting better, has been able to ambulate. She is afebrile, blood pressure and heart rate are stable, pulse ox is 95% on 3 L. - Physical Exam Vitals/I&O's: Vital Signs Temp Pulse Resp BP Pulse Ox 98.7 F 89 18 109/64 95 04/18/20 02:26 04/18/20 02:26 04/18/20 02:26 04/18/20 02:26 04/18/20 02:26 Oxygen Flow Rate (L/min) 3 Oxygen Delivery Method Nasal Cannula Weight: 224 lb 13.944 oz Body Mass Index (BMI) 38.6 Intake and Output for Last 24 Hours 04/16/20 04/17/20 04/18/20 23:59 23:59 23:59 Intake Total 817.5 / 817.5 748.50 / 748.50 100 / 100 Balance 817.5 / 817.5 748.50 / 748.50 100 / 100 General: Alert, Oriented x3, Cooperative, No apparent distress HEENT: Atraumatic, PERRLA, EOMI, Normocephalic Oral: Moist Mucosa, No Gingival or Mucosal Lesions/ Ulcerations Neck: Supple, No JVD, Negative Carotid Bruits, Trachea Midline, Thyroid Normal Size and Texture Lungs: No rhonchi, Diminished, Rales, Wheezes, - - Decreased result bilateral, bilateral expiratory wheezes, basilar crackles. Cardiovascular: Regular rate, Regular Rhythm, Normal S1, Normal S2, PMI Normal Abdomen: Bowel Sounds Present, Soft, Non Tender, Non-Distended, No Hepato-splenomegaly Extremities: No clubbing, No cyanosis, No edema Skin: No rashes, No breakdown Lymphatic: No Cervical, Supraclavicular, or Inguinal Adenopathy Neurological: Cranial nerves II-XII grossly intact, Neuro grossly intact Psych/Mental Status: Normal Affect, Appropriate, Alert and oriented to time, place, person, mood and affect Microbiology Past 72 Hours 04/16/20 04:58 Sputum, Expectorated/Coughed Gram Stain - Final 04/16/20 04:58 Sputum, Expectorated/Coughed Respiratory Culture - Preliminary Staphylococcus species 04/15/20 04:15 Blood Culture (Wb) - Left Hand Blood Culture - Preliminary No growth in 48 hours. 04/15/20 05:20 Blood Culture (Wb) - Anticubital Right Blood Culture - Preliminary No growth in 48 hours. 04/15/20 02:10 Urine, Clean Catch Streptococcus pneumoniae Antigen (M - Final 04/15/20 02:10 Urine, Clean Catch Legionella Antigen - Final Laboratory Results 04/18/20 05:40: PT 18.4 H, INR 1.6 04/18/20 05:40: WBC 5.7, RBC 3.31 L, Hgb 9.0 L, Hct 30.8 L, MCV 93.1, MCH 27.2, MCHC 29.2 L, RDW Std Deviation 56.4 H, RDW Coeff of Sean 17.2 H, Plt Count 231, MPV 10.6, Immature Gran % (Auto) 0.400, Neut % (Auto) 75.5 H, Lymph % (Auto) 11.7 L, Rapides % (Auto) 10.4 H, Eos % (Auto) 1.8, Baso % (Auto) 0.2, Absolute Neuts (auto) 4.3, Absolute Lymphs (auto) 0.66 L, Nucleated RBC % 0 04/18/20 05:40: Sodium 138, Potassium 3.5, Chloride 97 L, Carbon Dioxide 39.0 H, Anion Gap 2 L, BUN 9, Creatinine 0.41 L, Estim Creat Clear Calc 127.58, Est GFR (MDRD) Af Amer 204, Est GFR (MDRD) Non-Af 169, BUN/Creatinine Ratio 22.0 H, Glucose 91, Calcium 8.3 L Current Medications Acetaminophen (Tylenol) 650 mg PO Q6H PRN PRN PRN Reason: Pain Score 1-10/Temp > 100.7 F Last Admin: 04/18/20 04:30 Dose: 650 mg Documented by: Albuterol/Ipratropium (Duoneb) 3 ml INHALATION 4X/DAY DANNA Last Admin: 04/18/20 07:42 Dose: 3 ml Documented by: Amitriptyline HCl (Elavil) 200 mg PO QHS [facility] Last Admin: 04/17/20 21:49 Dose: 200 mg Documented by: Budesonide (Pulmicort Aerosol) 0.5 mg INHALATION BID [facility] Last Admin: 04/18/20 07:41 Dose: 0.5 mg Documented by: Clonazepam (Klonopin) 0.5 mg PO 4X/DAY PRN PRN PRN Reason: ANXIETY Last Admin: 04/17/20 17:54 Dose: 0.5 mg Documented by: Cyclobenzaprine HCl (Cyclobenzaprine Hcl) 5 mg PO BID PRN PRN PRN Reason: SPASMS Duloxetine HCl (Cymbalta) 60 mg PO DAILY [facility] Last Admin: 04/17/20 08:13 Dose: 60 mg Documented by: Enoxaparin Sodium (Lovenox) 105 mg SC Q12 [facility] Last Admin: 04/17/20 21:50 Dose: 105 mg Documented by: Ergocalciferol (Vitamin D) 50,000 unit PO VAUGHN [facility] Last Admin: 04/17/20 08:13 Dose: 50,000 unit Documented by: Furosemide (Lasix) 40 mg PO DINNER [facility] Last Admin: 04/17/20 17:44 Dose: 40 mg Documented by: Furosemide (Lasix) 80 mg PO BREAKFAST [facility] Last Admin: 04/17/20 07:49 Dose: 80 mg Documented by: Gabapentin (Neurontin) 300 mg PO TIDCM [facility] Last Admin: 04/17/20 17:44 Dose: 300 mg Documented by: Gabapentin (Neurontin) 600 mg PO QHS [facility] Last Admin: 04/17/20 21:50 Dose: 600 mg Documented by: Guaifenesin (Mucinex) 1,200 mg PO BID [facility] Last Admin: 04/17/20 21:50 Dose: 1,200 mg Documented by: Hydromorphone HCl (Dilaudid Inj) 0.5 mg IV Q3H PRN PRN PRN Reason: Pain Score 6-10/10 Last Admin: 04/17/20 20:32 Dose: 0.5 mg Documented by: Aztreonam 2 gm/ Sodium (Chloride) 100 mls @ 150 mls/hr IV Q8 [facility] Last Infusion: 04/18/20 06:40 Dose: Infused Documented by: Azithromycin 500 mg/ Dextrose 255 mls @ 250 mls/hr IV Q24 [facility] Last Infusion: 04/17/20 10:49 Dose: Infused Documented by: Sodium Chloride () 250 mls @ 15 mls/hr IV .[id number] PRN PRN Reason: Saline Flush Last Infusion: 04/18/20 06:41 Dose: 15 mls/hr Documented by: Ondansetron HCl (Zofran) 4 mg IV Q8H PRN PRN PRN Reason: NAUSEA/VOMITING Oxycodone HCl (Oxyir) 5 mg PO Q4H PRN PRN PRN Reason: Pain Score 4-5/10 Last Admin: 04/18/20 04:30 Dose: 5 mg Documented by: Potassium Chloride (K-Dur) 20 meq PO BIDCM [facility] Last Admin: 04/17/20 17:44 Dose: 20 meq Documented by: Multivit/Folic Acid/Iron (Prenatabs Fa) 1 tablet PO DAILY [facility] Last Admin: 04/17/20 08:13 Dose: 1 tablet Documented by: Sodium Chloride () 10 - 40 ml IV UD PRN PRN Reason: SALINE FLUSH Last Admin: 04/18/20 06:01 Dose: 10 ml Documented by: Warfarin Sodium (Jantoven) 10 mg PO Fr@1700 [facility] Last Admin: 04/15/20 17:25 Dose: 10 mg Documented by: Warfarin Sodium (Coumadin (Pbkc)) 7.5 mg PO SuMoTuWeThSa@1700 [facility] Last Admin: 04/17/20 17:46 Dose: 7.5 mg Documented by: Warfarin Sodium (Jantoven) 5 mg PO SuMoTuWeThSa@1700 [facility] Last Admin: 04/17/20 17:48 Dose: 5 mg Documented by: Medical Necessity - Tobacco Use Smoking Status: Current every day smoker Assessment/Plan All Active Problems Left hip pain (Acute) This is a 60 years old female patient presented to the emergency room because of recurrent intractable left hip pain as well as productive cough, shortness of breath and fever and she was found to have worsening multilobar airspace disease consistent with worsening pneumonia on CTA chest and she was admitted for treatment. #1 Acute bilateral worsening community-acquired pneumonia: Remained on IV azithromycin and aztreonam. She remained afebrile, leukocytosis resolved. Her symptoms continue to improve but still having productive cough with thick sputum. She had recent history of pneumonia that was treated as outpatient with Levaquin. Pneumococcal and Legionella antigen were negative. Blood culture showed no growth in 48 hours. Sputum culture revealed staph species, final is pending. Plan to continue same treatment, awaiting sputum culture final results, ambulate, encourage incentive spirometer. #2 intractable recurrent left hip pain: Left hip pain is getting better, has been able to ambulate. She is on OxyIR PRN. Extensive work-up done as below and showed no fractures. It is of unclear etiology, could be due to arthritis and degenerative changes. Multiple x-rays and CT scan left hip done and showed no fractures, revealed degenerative changes. Orthopedic surgery consulted, stated that there is no fracture, no plan for interventions. MRI lumbar spine revealed mild spondylitic L2-L3 thecal sac stenosis, otherwise unremarkable. #3 COPD/chronic respiratory failure: She is on bronchodilators and IV antibiotics. Today, she has been on 2-3 L of oxygen, feeling better. She is on home oxygen at 2 to 3 L. continue bronchodilators, wean off oxygen as tolerated. #4 chronic anemia: Hemoglobin has been anywhere between 9 to 11 g/dL. Today's hemoglobin is 9 g/dL. Hemoglobin and hematocrit are stable at baseline. #5 history of protein C deficiency/chronic DVTs/status post IVC filter: INR still subtherapeutic at 1.6. She is on Coumadin and subcu Lovenox twice daily for bridging. Continue same treatment, recheck INR tomorrow morning. #6 chronic pain syndrome/fibromyalgia: Currently, her pain is stable. She is on morphine pump implanted, continue amitriptyline, gabapentin and tramadol, IV Dilaudid PRN as above as well as OxyIR PRN. I spoke with Dr. Walker and he stated that her morphine pump has enough morphine in it for the few next months. #7 anxiety/depression/personality disorder: Continue Klonopin, Adderall. #8 hypertension: Blood pressure stable, continue Lasix. #9 history of esophageal cancer: Status post treatment, in remission. #10 DVT prophylaxis: On subcu Lovenox twice daily and Coumadin, INR is 1.6. This note was generated with [employer] software. It may contain incorrect words, spelling, and punctuation that were not noted in checking the note before signing. Inpatient E&M: 36766 Subs Hosp L2
[2020-04-18] MEDS: Prenatal Vits Tablet 1 TABLET PO (08:34)
[2020-04-18] MEDS: Gabapentin 300 MG Capsule PO ×3 (08:34→16:31)
[2020-04-18] MEDS: Furosemide 80 MG Tablet PO (08:34)
[2020-04-18] MEDS: DULoxetine Hcl 60 MG Capsule PO (08:34)
[2020-04-18] MEDS: guaiFENesin 1,200 MG Tablet 1200 MG PO ×2 (08:34→21:22)
[2020-04-18] MEDS: HYDROmorphone 0.5 MG/0.5 ML SYRINGE IV (08:39)
[2020-04-18] MEDS: Enoxaparin 120 MG/0.8 ML Syringe 105 MG SC ×2 (10:41→21:23)
[2020-04-18] MEDS: Furosemide 40 MG Tablet PO (16:31)
[2020-04-18] MEDS: Amitriptyline 100 MG Tablet 200 MG PO (21:22)
[2020-04-18] MEDS: Gabapentin 600 MG Tablet PO (21:22)
[2020-04-19 04:30] VITALS: BP 115/62; PULSE 94; RESP 18; TEMP 36.7; O2SAT 94
[2020-04-19] MEDS: oxyCODONE 5 MG Tablet PO (04:38)
[2020-04-19 05:54] LABS: Hemoglobin 9.5 g/dL (12.0-15.0)
[2020-04-19 06:04] LABS: Prothrombin Time (Protime)PT. 22.4 SECONDS (11.7-14.9)
[2020-04-19] MEDS: Ipratropium/Albuterol Sulfate 3 ML AMPUL.NEB INHALATION (07:08)
[2020-04-19 07:34] VITALS: BP 109/62; PULSE 84; RESP 16; TEMP 36.9; O2SAT 94
[2020-04-19] MEDS: Gabapentin 300 MG Capsule PO (07:50)
[2020-04-19] MEDS: Furosemide 80 MG Tablet PO (07:50)
--- NOTE | 2020-04-19 08:07 | DCINST_ITS ---
- Discharge Diagnoses Current Active Problems: Current Active and Chronic Problems Left hip pain (Acute) You will use the following diet at home:: Regular Your food should be the consistency of: Regular Discharge Activity: Return to Normal Activity Weight Bearing Status: Weight bearing as tolerated Call your doctor if you observe: Fever of 101 or Higher, Shortness of breath, Dizziness, Fainting spells, Chest pain, Increased palpitations (irregular heartbeat), Uncontrolled pain Allergies/Adverse Reactions: Allergies celecoxib Allergy (Verified 04/15/20 00:40) Swelling of arms/legs naproxen Allergy (Verified 04/15/20 00:40) Swelling arms/legs Penicillins Allergy (Verified 04/15/20 00:40) Hives/facial swelling pregabalin Allergy (Verified 04/15/20 00:40) Swelling arms/swelling sertraline Allergy (Verified 04/15/20 00:40) Swelling Medications to take at Discharge Amitriptyline HCl [Elavil] 200 mg PO QHS 04/26/14 Gabapentin [Neurontin] 300 mg PO TIDCM 04/26/14 Clonazepam [Klonopin] 0.5 mg PO 4X/DAY PRN 12/13/14 Furosemide [Lasix] 80 mg PO BREAKFAST 02/04/16 Furosemide [Lasix] 40 mg PO DINNER 06/12/17 Dextroamphetamine/Amphetamine [Adderall 30 mg Tablet] 30 mg PO DAILY 08/09/17 Cyclobenzaprine HCl 5 mg PO BID PRN 12/15/19 Gabapentin [Neurontin] 600 mg PO QHS 12/15/19 Potassium Chloride [Klor-Con M20] 20 meq PO BID 12/15/19 Acetaminophen [Tylenol Tablet] 650 mg PO Q6H PRN PRN tab 12/16/19 Budesonide Aerosol [Pulmicort Respules] 0.5 mg INHALATION BID 04/11/20 Duloxetine HCl 60 mg PO DAILY 04/11/20 Ergocalciferol [Vitamin D] 50,000 unit PO VAUGHN 04/11/20 Ipratropium/Albuterol Sulfate [Iprat-Albut 0.5-3(2.5) mg/3 ml] 3 ml IH 4X/DAY 04/11/20 No122/Iron/Folic Acid [ Multi Tablet] 1 ea PO DAILY 04/11/20 Tramadol HCl [Ultram] 50 mg PO 4X/DAY 04/11/20 Vitamin A 10,000 unit PO DAILY 04/11/20 Warfarin [Coumadin] 10 mg PO FR 04/11/20 Warfarin [Coumadin] 12.5 mg PO SUMOTUWETHSA 04/11/20 Doxycycline 100 mg PO BID #20 cap 04/19/20 Oxycodone [Oxyir] 5 mg PO Q8H PRN PRN #14 tab 04/19/20 The following prescriptions were given: Doxycycline 100 mg PO BID #20 cap Transmission Status: Pending to [email or web address] #30 Oxycodone [Oxyir] 5 mg PO Q8H PRN PRN #14 tab PRN Reason: Pain Score 4-5/10 Transmission Status: Sent to [email or web address] #[facility] Primary Care Physician: Carson Stephenson MD [Primary Care Provider] - Please follow up with your Primary Care Physician in: 1 week. Test Results: Test results from this visit will be discussed in further detail at your follow- up appointment, if applicable.
--- NOTE | 2020-04-19 11:22 | DS.PCM_ITS ---
Discharge Date and Diagnosis Date of Admission: 04/15/20 Date of Discharge: 04/19/20 - Primary Discharge Diagnosis Acute Problems: #1 acute bilateral worsening MSSA community-acquired pneumonia. #2 intractable recurrent left hip pain with frequent admissions. #3 history of protein C deficiency/chronic DVTs/status post IVC filter, with subtherapeutic INR. 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) Chronic respiratory failure with hypoxia (Chronic) History of esophageal cancer (Chronic) Chronic upper back pain (Chronic) History of IBS (Chronic) Anxiety and depression (Chronic) Histrionic personality disorder (Chronic) RSD lower limb (Chronic) COPD (chronic obstructive pulmonary disease) (Chronic) History of deep venous thrombosis or pulmonary embolus (Chronic) on xarelto IVC filter protein C deficiency Protein C deficiency (Chronic) History of recurrent pneumonia (Chronic) DVT of proximal lower limb (Chronic) Lung mass (Chronic) Kidney stones (Chronic) Hospital Course and Treatment Imaging Results: Clinical Impression(s) from Imaging Studies Chest X-Ray 04/15/20 01:16 IMPRESSION: Chronic interestitial changes. No radiographic evidence of acute cardiopulmonary disease. Chronic changes to the right lung base with chronic elevation of the right hemidiaphragm at 0311 Reported and signed by: Dawit Cid MD Electronically Signed: Dawit Cid MD at 3:10 EDT Tel , Service support , Chest CTA 04/15/20 04:12 IMPRESSION: No pulmonary embolism, aortic aneurysm, or aortic dissection. Worsening multi lobar airspace disease consistent with worsening pneumonia. No pulmonary embolism. Hepatomegaly. Individualized dose optimization techniques were used for this CT. at 0516 Reported and signed by: Dawit Cid MD Electronically Signed: Dawit Cid MD at 5:15 EDT Tel , Service support , Lumbar Spine X-Ray 04/15/20 21:00 IMPRESSION: Chronic degenerative disc disease and facet arthropathy to a similar degree of severity at the previous study of July 08, 2019. at 7002 Reported and signed by: Dawit Cid MD Electronically Signed: Dawit Cid MD at 23:57 EDT Tel , Service support , Lumbar Spine MRI 04/16/20 09:22 IMPRESSION: 1. Mild spondylotic L2-L3 thecal sac stenosis. 2. Elevated BMI. Electronically Signed: Marajg Tianna, at 16:59 EDT Tel , Service support , Dr. Norris, orthopedic surgery. Operations: None Procedures: None Summary of Care Provided: Patient seen and examined on the day of discharge and the bed to be stable to be discharged home. Her breathing has been improving every day and she remains at her baseline of oxygen at 3 L. Left hip pain has been manageable and she has been ambulating. Her vital signs are stable. The patient is a 60 year old F presented to the emergency room because of recurrent intractable left hip pain as well as productive cough shortness of breath and fever at home. She was found to have worsening multilobar airspace disease on CTA chest consistent with worsening pneumonia. Patient had a recent history of pneumonia as outpatient that was treated with Levaquin which was completed. CTA chest showed no PE or dissection, revealed worsening multilobar airspace disease consistent with worsening pneumonia. Patient was treated with IV azithromycin and aztreonam. Pneumococcal and Legionella antigen were negative. Sputum culture revealed MSSA. Blood culture showed no growth in 48 hours. Patient had an x-ray done of her left hip again and showed no acute fractures. She continued to have intractable left hip pain. Orthopedic surgery consulted and recommended MRI of the lumbar spine to rule out radiculopathy. Lumbar spine MRI reveals mild spondylitic L2-L3 thecal sac stenosis which cannot explain her persistent left hip pain. There was no fractures on the x-ray of the lumbar spine and pelvis. Patient mentioned that her morphine pump may be running out of morphine. I spoke with Dr. Walker who stated that her morphine pump is still having enough medication for the next few months at least. Her left hip pain was treated with IV Dilaudid and OxyIR PRN. With IV antibiotics her symptoms of shortness of breath and productive cough with hemoptysis improved, she had no more hemoptysis. Patient had a history of protein C defici ency and has been on Coumadin and her INR was subtherapeutic. She was started on therapeutic Lovenox twice daily along with Coumadin for bridging and on the day of discharge, her INR was 2 which is therapeutic. Patient was able to ambulate and she did well. She states that she can go home and she refused even to talk about placement to [facility] facility. Patient discharged home in a stable medical condition, discharged on doxycycline milligram p.o. twice daily for 10 days, discharged on OxyIR PRN for pain, continued on Coumadin, INR on discharge was 2, continued on her previous home medications including home oxygen, recommended physical therapy as outpatient which was already set up for the patient, recommended follow-up with PCP in 1 week. - Physical Exam Vitals/I&O's: Vital Signs Temp Pulse Resp BP Pulse Ox 98.5 F 84 16 109/62 94 04/19/20 07:34 04/19/20 07:34 04/19/20 07:34 04/19/20 07:34 04/19/20 07:34 Oxygen Flow Rate (L/min) 4 Oxygen Delivery Method Nasal Cannula Weight: 224 lb 13.944 oz Body Mass Index (BMI) 38.6 Intake and Output for Last 24 Hours 04/17/20 04/18/20 04/19/20 23:59 23:59 23:59 Intake Total 748.50 / 748.50 2621 / 2621 262.5 / 262.5 Output Total 2500 / 3100 600 / 600 Balance 748.50 / 748.50 121 / -479 -337.5 / -337.5 General: Alert, Oriented x3, Cooperative, No apparent distress HEENT: Atraumatic, PERRLA, EOMI, Normocephalic Oral: Moist Mucosa, No Gingival or Mucosal Lesions/ Ulcerations Neck: Supple, No JVD, Negative Carotid Bruits, Trachea Midline, Thyroid Normal Size and Texture Lungs: Diminished, Rales, Wheezes, - - Diminished with sounds bilateral, occasional wheezes, Rales. Cardiovascular: Regular rate, Regular Rhythm, Normal S1, Normal S2, PMI Normal Abdomen: Bowel Sounds Present, Soft, Non Tender, Non-Distended, No Hepato- splenomegaly Extremities: No clubbing, No cyanosis, No edema Skin: No rashes, No breakdown Lymphatic: No Cervical, Supraclavicular, or Inguinal Adenopathy Neurological: Cranial nerves II-XII grossly intact, Neuro grossly intact Psych/Mental Status: Normal Affect, Appropriate Microbiology Past 72 Hours 04/16/20 04:58 Sputum, Expectorated/Coughed Gram Stain - Final 04/16/20 04:58 Sputum, Expectorated/Coughed Respiratory Culture - Final Staphylococcus aureus 04/15/20 04:15 Blood Culture (Wb) - Left Hand Blood Culture - Preliminary No growth in 48 hours. 04/15/20 05:20 Blood Culture (Wb) - Anticubital Right Blood Culture - Preliminary No growth in 48 hours. Laboratory Results 04/19/20 05:40: Hgb 9.5 L, Hct 32.0 L 04/19/20 05:40: PT 22.4 H, INR 2.0 Discharge Activity: Return to Normal Activity Weight Bearing Status: Weight bearing as tolerated Call your doctor if you observe: Fever of 101 or Higher, Shortness of breath, Dizziness, Fainting spells, Chest pain, Increased palpitations (irregular heartbeat), Uncontrolled pain Home Medications: Medications to take at Discharge Amitriptyline HCl [Elavil] 200 mg PO QHS 04/26/14 Gabapentin [Neurontin] 300 mg PO TIDCM 04/26/14 Clonazepam [Klonopin] 0.5 mg PO 4X/DAY PRN 12/13/14 Furosemide [Lasix] 80 mg PO BREAKFAST 02/04/16 Furosemide [Lasix] 40 mg PO DINNER 06/12/17 Dextroamphetamine/Amphetamine [Adderall 30 mg Tablet] 30 mg PO DAILY 08/09/17 Cyclobenzaprine HCl 5 mg PO BID PRN 12/15/19 Gabapentin [Neurontin] 600 mg PO QHS 12/15/19 Potassium Chloride [Klor-Con M20] 20 meq PO BID 12/15/19 Acetaminophen [Tylenol Tablet] 650 mg PO Q6H PRN PRN tab 12/16/19 Budesonide Aerosol [Pulmicort Respules] 0.5 mg INHALATION BID 04/11/20 Duloxetine HCl 60 mg PO DAILY 04/11/20 Ergocalciferol [Vitamin D] 50,000 unit PO VAUGHN 04/11/20 Ipratropium/Albuterol Sulfate [Iprat-Albut 0.5-3(2.5) mg/3 ml] 3 ml IH 4X/DAY 04/11/20 No122/Iron/Folic Acid [ Multi Tablet] 1 ea PO DAILY 04/11/20 Tramadol HCl [Ultram] 50 mg PO 4X/DAY 04/11/20 Vitamin A 10,000 unit PO DAILY 04/11/20 Warfarin [Coumadin] 10 mg PO FR 04/11/20 Warfarin [Coumadin] 12.5 mg PO SUMOTUWETHSA 04/11/20 Doxycycline 100 mg PO BID #20 cap 04/19/20 Oxycodone [Oxyir] 5 mg PO Q8H PRN PRN #14 tab 04/19/20 Following Prescriptions Were Given to Patient: Doxycycline 100 mg PO BID #20 cap Transmission Status: Received by [facility] #30 Oxycodone [Oxyir] 5 mg PO Q8H PRN PRN #14 tab PRN Reason: Pain Score 4-5/10 Transmission Status: Received by [facility] #30 Primary Care Physician: Carson Stephenson MD [Primary Care Provider] - Please follow up with your Primary Care Physician in: 1 week. Disposition: Home Minutes spent on discharge:: 32 Patient Condition:: Stable Medical Necessity - Tobacco Use Smoking Status: Current every day smoker Meaningful Use Info Meaningful Use Diagnoses (Choose all that apply): None applicable Inpatient E&M: 10989 Disch Hosp
--- NOTE | 2020-04-20 15:07 | CASEMGMT ---
CAROILNA DE LOS SANTOS Discharge Follow-Up Phone Call. Lace: 14 Strata: 4 Discharge Date: 04/19/20 Adm Dx: Intractable Lt Hip Pain Call to pt to inquire about how she has been doing since being discharged from the hospital. Pt states she is doing better, stating she is walking around some and that she is still having some pain, but it is improving. She states she was able to bulk picker the prescriptions: atb's and Oxyir, and has been taking her medications as prescribed. She states she has been taking her breathing treatments, is able to bring up some sputum, and it is tape transferrer in color than it had been. She states she has a phone appt with her PCP/Dr Stephenson today at 4 PM. She denies having any questions or concerns. CAROLINA DE LOS SANTOS thanked pt for choosing [facility]. Kulwant MORTENSEN RN, CM
--- NOTE | 2020-04-24 17:52 | PCA ---
PATIENT CAME AND PICKED UP [employer] AT 1750 THAT THIS PATIENT HAS LEFT HERE
== END 2020-04-19 09:26 | disposition home or self-care (01) | DRG 178 ==
LOC: ED 01:36 → MS3 07:13
PROVIDERS: Admitting Provider Hospitalist; Emergency Provider Emergency Medicine; PCP Family Medicine; Visit Provider Hospitalist
DX: J15.211 Pneumonia due to Methicillin susceptible Staphylococcus aureus (principal); J44.0 Chronic obstructive pulmonary disease with (acute) lower respiratory infection; D68.59 Other primary thrombophilia; G90.529 Complex regional pain syndrome I of unspecified lower limb; J96.11 Chronic respiratory failure with hypoxia; M25.552 Pain in left hip; Z86.718 Personal history of other venous thrombosis and embolism; Z95.828 Presence of other vascular implants and grafts; D64.9 Anemia, unspecified; I10 Essential (primary) hypertension; Z87.01 Personal history of pneumonia (recurrent); Z85.01 Personal history of malignant neoplasm of esophagus; K58.9 Irritable bowel syndrome, unspecified; F41.9 Anxiety disorder, unspecified; F32.9 Major depressive disorder, single episode, unspecified; Z87.442 Personal history of urinary calculi; Z79.899 Other long term (current) drug therapy; F17.200 Nicotine dependence, unspecified, uncomplicated; F60.4 Histrionic personality disorder; M79.7 Fibromyalgia; G89.4 Chronic pain syndrome; Z97.8 Presence of other specified devices; N80.9 Endometriosis, unspecified; M51.16 Intervertebral disc disorders with radiculopathy, lumbar region; M48.061 Spinal stenosis, lumbar region without neurogenic claudication; Z79.01 Long term (current) use of anticoagulants; G62.9 Polyneuropathy, unspecified
CPT/HCPCS: 36415; 71045; 71275; 72100; 72148; 73502; 73700; 80048; 81001; 83605; 85014; 85018; 85025; 85610; 87040; 87070; 87077; 87186; 87205; 87449; 87635; 94640; 96361; 96374; 96375; 96376; 97162; 97166; 97802; 99218; 99251; 99284; 99285; 99406; C9803; J7030; J7040; J7050; Q9967; A4216; G0378; G0463; J2405; U0003

== ENCOUNTER → 2020-05-04 | Outpatient (CLI) | payer MEDICARE, SELFPAY ==
[2020-04-15 06:02] VITALS: BMI 38.6
[2020-05-04 16:00] LABS: International Normalized Ratio 1.7; Prothrombin Time (Protime)PT. 19.6 SECONDS (11.7-14.9)
== END | disposition home or self-care (01) ==
LOC: LABSPEC 15:24
PROVIDERS: PCP Family Medicine; Visit Provider Family Medicine
DX: D68.59 Other primary thrombophilia (principal); Z86.718 Personal history of other venous thrombosis and embolism; Z79.01 Long term (current) use of anticoagulants
CPT/HCPCS: 85610

== ENCOUNTER → 2020-06-09 09:17 | Outpatient (CLI) | payer MEDICARE, SELFPAY ==
[2020-04-15 06:02] VITALS: BMI 38.6
--- NOTE | 2020-06-09 08:30 | RAD_ITS ---
PROCEDURE: Fluoroscopic guided Hip Injection DATE: 06/09/2020. INDICATION: Female, 60 years old. Chronic hip pain. PHYSICIAN: Robinson Sharma M.D. MEDICATIONS: 80 mg of KENALOG and 3 cc of 0.5% MARCAINE. 2% Lidocaine administered subcutaneously for local anesthesia. ACCESS SITE: Left hip. NEEDLE: 22-gauge spinal needle. FLUOROSCOPY TIME (if supplied): (0:33) minutes/seconds FINDINGS: The risks, benefits, and alternatives to the procedure were explained to the patient. The specific risks of bleeding, infection, and neurovascular injury were detailed and accepted. Witnessed informed consent was obtained. A 22-gauge spinal needle was positioned under radiograph fluoroscopic localization. Approximately 2 cc of [id number] instilled for localization purposes. Medication was then injected. The patient tolerated the procedure well without any immediate complications. RAD/Inj/Asp Paul Jt Should/Hip/Knee IMPRESSION: 1. Successful fluoroscopic guided hip injection. Electronically Signed: Robinson Sharma, at 8:16 EST , Service support ,
== END ==
PROVIDERS: PCP Family Medicine; Referring Provider Orthopaedic Surgery; Visit Provider Orthopaedic Surgery
DX: M25.552 Pain in left hip (principal); M16.10 Unilateral primary osteoarthritis, unspecified hip
CPT/HCPCS: 20610; 77002; Q9967

== ENCOUNTER 2020-09-14 16:36 | Emergency (ER) | payer MEDICARE, SELFPAY ==
[2020-04-15 06:02] VITALS: BMI 38.6
[2020-09-14] VITALS (11 sets, daily range): BP systolic 121–140; BP diastolic 66–91; PULSE 86–97; RESP 16–18; TEMP 36.7–37.1; O2SAT 94–98; BMI 38.1
--- NOTE | 2020-09-14 17:01 | EKG12_ITS ---
Test Reason : SOB Blood Pressure : / mmHG Vent. Rate : 088 BPM Atrial Rate : 088 BPM P-R Int : 150 ms QRS Dur : 086 ms QT Int : 378 ms P-R-T Axes : 026 006 027 degrees QTc Int : 457 ms Normal sinus rhythm Normal ECG Confirmed by FAB CASTAÑEDA, ALE ([id number]), slot editor GAUDENCIO YOUNG ([id number]) on 09/16/2020 11:09:11 AM Referred By: LUL Confirmed By:ALE SANON MD
--- NOTE | 2020-09-14 17:02 | ED.DCSUM_ITS ---
History of Present Illness Chief Complaint: Shortness of Breath Narrative: This patient is a 60-year-old female who has been ill for about 2 to 3 days. She complains of fever to 102. She complains of increased shortness of breath from baseline. She is on home oxygen 2 to 3 L. She has not had increase her oxygen requirement. She also complains of increased productive cough with green blood-tinged sputum. She states this is typical of when she has had pneumonia. She states my lungs hurt and complains of diffuse chest pain across the entire chest. She did have some nausea but attributes this to some Tylenol she had taken. She also developed diarrhea this morning. She is on warfarin due to history of protein C deficiency. Past Medical History - Allergies and Home Meds Allergies/Adverse Reactions: Allergies celecoxib Allergy (Verified 09/14/20 16:39) Swelling of arms/legs naproxen Allergy (Verified 09/14/20 16:39) Swelling arms/legs Penicillins Allergy (Verified 09/14/20 16:39) Hives/facial swelling pregabalin Allergy (Verified 09/14/20 16:39) Swelling arms/swelling sertraline Allergy (Verified 09/14/20 16:39) Swelling Primary Care Physician: Carson Stephenson MD [Primary Care Provider] - Past Medical History: - - COPD on home O2, RSD, hypertension Surgical History: appendectomy, cholecystectomy, hysterectomy, tonsillectomy, - - LEFt leg hardware from fracture. Pain pump implanted. Smoking Status: Former smoker - Family History Maternal Family History: Reports: No pertinent history, - Paternal Family History: Reports: Cancer Review of Systems All systems negative except as indicated General: Reports: Fever Eyes: Denies: Visual changes - bilaterally ENT: Denies: Bilateral ear pain Cardiovascular: Reports: Chest pain Respiratory: Reports: Dyspnea, Cough, Sputum Gastrointestinal: Reports: Nausea, Diarrhea. Denies: Abdominal pain, Vomiting Musculoskeletal: Reports: Myalgias, Arthralgias Skin: Denies: Rash Neurological: Denies: Headache Hematologic: Reports: Easy bruising, Easy bleeding Allergy: Denies: Uticaria Physical Exam Vital Signs/Narrative: Vital Signs Temp Pulse Resp BP Pulse Ox 09/14/20 16:39 98.0 F 89 18 129/66 H 98 09/14/20 16:36 98.0 F 89 18 129/66 H 98 Inital Vital Signs reviewed: Yes General: Well nourished Head: Normocephalic Eyes: EOMI ENT: Moist mucous membranes Neck: Supple Cardiovascular: Regular rate, Regular rhythm Respiratory: - - Bibasilar rales right greater than left, scattered wheezing, no distress able to speak full sentences Abdomen: Soft, Nontender Extremities: Nontender Skin: Normal color Neurological: Alert Psychological: Normal affect Diagnostic/Tx/Re-eval Impressions Chest X-Ray 09/14/20 18:14 IMPRESSION: Bilateral ill-defined opacities, nonspecific finding may be secondary to underlying multifocal pneumonia. Electronically Signed: Anitha Kim MD at 18:44 EST Tel , Service support , Chest CTA 09/14/20 22:01 IMPRESSION: No pulmonary embolus or thoracic aortic dissection or aneurysm. Acute on chronic multifocal airspace disease, similar though slightly less severe when compared to the previous studies. Differential includes chronic recurrent smoldering atypical pneumonia, versus noninfectious interstitial lung disease. Focal atherosclerosis of the left anterior descending coronary artery. The degree of narrowing is not well assessed because of cardiac motion. Electronically Signed: Shayne Mohan MD at 23:18 EST Tel , Service support , 09/14/20 18:14 Chest 1 View (Portable) [RAD] Stat 09/14/20 22:01 CTA Chest W/WO Contrast [CT] Stat 09/14/20 17:30 Mucosa - Nose SARS-CoV-2 Antigen (Rapid) - Final Laboratory Results 09/14/20 09/14/20 09/14/20 18:15 18:15 18:15 WBC 3.9 L RBC 4.18 L Hgb 10.1 L Hct 35.9 L MCV 85.9 MCH 24.2 L MCHC 28.1 L RDW Std Deviation 53.6 H RDW Coeff of Sean 17.1 H Plt Count 285 MPV 9.6 Immature Gran % (Auto) 2.800 H Neut % (Auto) 66.6 Lymph % (Auto) 20.6 [place] % (Auto) 8.5 Eos % (Auto) 1.0 Baso % (Auto) 0.5 Absolute Neuts (auto) 2.6 Absolute Lymphs (auto) 0.80 L Nucleated RBC % 0 PT 31.4 H INR 3.1 D-Dimer Quant (PE/DVT) 0.86 H* Sodium Cancelled Potassium Cancelled Chloride Cancelled Carbon Dioxide Cancelled Anion Gap Cancelled BUN Cancelled Creatinine Cancelled Estim Creat Clear Calc Cancelled Est GFR (MDRD) Af Amer Cancelled Est GFR (MDRD) Non-Af Cancelled BUN/Creatinine Ratio Cancelled Glucose Cancelled Calcium Cancelled COVID-19 (RACHEL) 09/14/20 09/14/20 19:29 21:24 WBC RBC Hgb Hct MCV MCH MCHC RDW Std Deviation RDW Coeff of Sean Plt Count MPV Immature Gran % (Auto) Neut % (Auto) Lymph % (Auto) [place] % (Auto) Eos % (Auto) Baso % (Auto) Absolute Neuts (auto) Absolute Lymphs (auto) Nucleated RBC % PT INR D-Dimer Quant (PE/DVT) Sodium 138 Potassium 3.8 Chloride 100 Carbon Dioxide 36.0 H Anion Gap 2 L BUN 8 Creatinine 0.47 L Estim Creat Clear Calc 111.29 Est GFR (MDRD) Af Amer 175 Est GFR (MDRD) Non-Af 144 BUN/Creatinine Ratio 17.1 Glucose 117 H Calcium 8.8 COVID-19 (RACHEL) Not Detected - Medical Decision Making EKG shows normal sinus rhythm at a rate of 88 with no acute ischemic changes. Labs notable for white blood cell count of 3.9 with 2.8% immature granulocytes. Covid antigen testing was negative. However chest x-ray showed bilateral infiltrates concerning for multifocal pneumonia. Given her clinical presentation chest x-ray findings and leukopenia I was still concerned for Covid so I did send off PCR. This also returned negative. D-dimer was elevated so CTA of the chest was obtained. This does show acute on chronic lung disease. Radiology notes this may be chronic recurrent smoldering atypical pneumonia versus noninfectious interstitial lung disease. 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 She was advised to follow-up with pulmonology. She was given Levaquin here as well as a prescription for the same given that she does have infectious symptoms. She does understand return for new or worsening symptoms. Her vitals are stable. She is on her baseline oxygen. I believe she can be safely follow-up as an outpatient but she was instructed on signs and symptoms to monitor for which should prompt return here to the emergency department. ED Disposition - Plan for ED Patient: Disposition: Home or Assisted Living Diagnosis: Pneumonia Instructions: ED Pneumonia (Adult) Prescriptions: Levofloxacin [Levaquin] 750 mg PO DAILY #6 tab Prescription Printed Referrals: Carson Stephenson MD [Primary Care Provider] -
[2020-09-14] MEDS: Albuterol 2.5 MG/3 ML VIAL.NEB. INHALATION (17:21)
[2020-09-14] MEDS: Ipratropium/Albuterol Sulfate 3 ML AMPUL.NEB INHALATION (17:21)
--- NOTE | 2020-09-14 18:14 | RAD_ITS ---
STUDY: X-RAY CHEST REASON FOR EXAM: Female, 60 years old. INCREASED SOB, COUGH, FEVER, DIARRHEA X 3 DAYS TECHNIQUE: Single frontal view of the chest. COMPARISON: 04/15/2020 FINDINGS: The right hemidiaphragm remains elevated. There are persistent bilateral ill-defined opacities. Normal size heart. Normal mediastinum and roz. Normal visualized pulmonary arteries. There is atherosclerotic calcification of the aortic arch with tortuosity. Normal visualized thoracic spine. Normal visualized ribs, clavicles, and shoulders. There are surgical clips projecting over the left upper abdomen. RAD/Chest 1 View (Portable) IMPRESSION: Bilateral ill-defined opacities, nonspecific finding may be secondary to underlying multifocal pneumonia. Electronically Signed: Anitha Kim MD at 18:44 EST Tel , Service support ,
[2020-09-14 18:27] LABS: Absolute Neutrophil Count 2.6 X10^3/uL (2.0-7.7); Basophil# 0.02 X10^3/uL; Basophil% 0.5 % (0-1); Eosinophil# 0.04 X10^3/uL; Hematocrit 35.9 % (37-47); Hemoglobin 10.1 g/dL (12.0-15.0); Lymphocyte % 20.6 % (19-41); Mean Corp Hgb Conc 28.1 g/dL (32-36); Mean Corpuscular Hgb 24.2 pg (27.0-32.0); Mean Corpuscular Volume 85.9 fL (81-99); Mean Platelet Vol. 9.6 fl (6.2-12.0); Monocyte# 0.33 X10^3/uL; Monocyte% 8.5 % (0-10); NRBC Flagged by Analyzer 0 % (0-5); Neutrophil # 2.58 X10^3/uL (2.7-7.7); Neutrophil % 66.6 % (47-70); Platelet Count 285 K/mm3 (150-450); RBC Distribution Width CV 17.1 % (11.6-14.6); RBC Distribution Width SD 53.6 fl (35.1-43.9); Red Blood Count 4.18 M/mm3 (4.2-5.4); White Blood Count 3.9 K/mm3 (4.4-11.0)
[2020-09-14] MEDS: MethylPREDNISolone 125 MG/2 ML Vial IV (18:28)
[2020-09-14 18:34] LABS: International Normalized Ratio 3.1; Prothrombin Time (Protime)PT. 31.4 SECONDS (11.7-14.9)
[2020-09-14 18:40] LABS: D-Dimer Quantitative (DVT/PE) 0.86 FEU/ug/m (0.27-0.49)
[2020-09-14] MEDS: 0.9% Normal Saline 1,000 ML 999 ML IV (19:46)
[2020-09-14 21:50] LABS: Anion Gap 2 (5-15); BUN 8 mg/dL (7-18); BUN/Creat Ratio 17.1 RATIO (10-20); Calcium,Total 8.8 mg/dL (8.5-10.1); Chloride 100 mmol/L (98-107); Creatinine, Serum 0.47 mg/dL (0.55-1.02); EST Glomerular Filtration Rate 144 mL/min (>60); Est Glom Filt Rate - Afr Amer 175 mL/min (>60); Estimated Creatinine Clearance 111.29 ml/min; Glucose 117 mg/dL (74-106); Potassium 3.8 mmol/L (3.5-5.1); Sodium Level 138 mmol/L (136-145)
--- NOTE | 2020-09-14 22:01 | CT_ITS ---
STUDY: CTA CHEST REASON FOR EXAM: Female, 60 years old. Shortness of breath cough and fever. Elevated d-dimer. RADIATION DOSAGE (If Supplied By Facility): CTDIvol = ( 11.95 ) mGy, DLP = ( 458.92 ) mGycm TECHNIQUE: The examination was performed with the intravenous administration of IV 100mL Isovue-370. Post-processing of the angiographic images was performed, with MIP reconstructed images. Individualized dose optimization techniques were used for this CT. COMPARISON: CTA Chest 04/15/2020 and 12/15/2019. FINDINGS: Heart and great vessels: Heart size normal. No dissection or aneurysm of the thoracic aorta. No pulmonary embolus. No evidence of right heart strain. Calcific atherosclerosis of the LAD, degree of narrowing not well assessed because of cardiac motion. Lungs, pleura: Multifocal faint bilateral groundglass opacities scattered randomly throughout both lungs, with subsegmental atelectasis of a portion of the posterior segment of the right upper lobe. No pneumothorax or pleural effusion. Central airways patent. Calcified granuloma left upper lobe. 5 mm nodule more inferiorly in the left lower lobe. Similar, though slightly worse, findings were seen on the previous CTs. Mild elevation right hemidiaphragm again demonstrated. Mediastinum: No adenopathy or mass or hematoma. Several calcified mediastinal and hilar lymph nodes similar to previous. Osseous:No fracture or acute osseous abnormality. Catheter partially visible lower thoracic spinal canal. Chest wall: No concerning findings. Upper abdomen: No acute findings. Small hiatal hernia contains portion gastric fundus. Status post gastric surgery probably [place]-en-Y gastric bypass. Calcified splenic granulomas. Status post cholecystectomy. CT/CTA Chest W/WO Contrast IMPRESSION: No pulmonary embolus or thoracic aortic dissection or aneurysm. Acute on chronic multifocal airspace disease, similar though slightly less severe when compared to the previous studies. Differential includes chronic recurrent smoldering atypical pneumonia, versus noninfectious interstitial lung disease. Focal atherosclerosis of the left anterior descending coronary artery. The degree of narrowing is not well assessed because of cardiac motion. Electronically Signed: Shayne Mohan MD at 23:18 EST Tel , Service support ,
[2020-09-14] MEDS: levoFLOXacin IV 750 MG/150 ML BAG 100 MG IV (23:31)
[2020-09-15] VITALS: BP 140/77; PULSE 88; RESP 18; O2SAT 94
[2020-09-15] MEDS: traMADol 50 MG Tablet PO (00:02)
[2020-09-15 00:04] VITALS: BP 140/77; PULSE 88; RESP 18; O2SAT 94
== END 2020-09-15 01:27 | disposition home or self-care (01) ==
PROVIDERS: Emergency Provider Emergency Medicine; PCP Family Medicine
DX: J44.0 Chronic obstructive pulmonary disease with (acute) lower respiratory infection (principal); J18.9 Pneumonia, unspecified organism; I10 Essential (primary) hypertension; D68.59 Other primary thrombophilia; G90.50 Complex regional pain syndrome I, unspecified; Z99.81 Dependence on supplemental oxygen; Z79.01 Long term (current) use of anticoagulants; Z79.899 Other long term (current) drug therapy; Z87.891 Personal history of nicotine dependence
CPT/HCPCS: 71045; 71275; 80048; 85025; 85379; 85610; 87426; 87635; 93005; 94640; 96361; 96365; 96374; 99285; J7030; J7050; Q9967; A4216; U0002

== ENCOUNTER → 2021-02-17 | Outpatient (CLI) | payer MEDICARE, SELFPAY ==
[2020-09-14 16:36] VITALS: BMI 38.1
[2021-02-17 11:32] LABS: Prothrombin Time (Protime)PT. 12.5 SECONDS (11.7-14.9)
== END | disposition home or self-care (01) ==
LOC: LABSPEC 11:04
PROVIDERS: PCP Family Medicine; Referring Provider Family Medicine; Visit Provider Family Medicine
DX: Z86.718 Personal history of other venous thrombosis and embolism (principal)
CPT/HCPCS: 85610

== ENCOUNTER 2021-02-23 05:19 | Emergency (ER) | payer MEDICARE, SELFPAY ==
[2020-09-14 16:36] VITALS: BMI 38.1
[2021-02-23 05:20] VITALS: BP 150/91; PULSE 101; RESP 18; TEMP 36.9; O2SAT 93; BMI 38.8
[2021-02-23 05:22] VITALS: O2SAT 95
--- NOTE | 2021-02-23 05:34 | RAD_ITS ---
STUDY: X-RAY CHEST REASON FOR EXAM: Female, 60 years old. Chest pain TECHNIQUE: Single AP portable view of the chest. COMPARISON: September 14, 2020 FINDINGS: There is elevation of the right hemidiaphragm. There is a hazy appearance of the right upper lobe allowing for summation of shadows. Interstitial markings are mildly prominent. There is no demonstrated pleural abnormality. Normal size heart. Normal mediastinum and roz. Normal visualized pulmonary arteries. There is atherosclerotic calcification of the aortic arch with tortuosity. Normal visualized thoracic spine. Normal visualized ribs, clavicles, and shoulders. There is no demonstrated abnormality of the visualized soft tissue structures of the upper abdomen. RAD/Chest 1 View (Portable) IMPRESSION: Chronic elevation of the right hemidiaphragm. Findings suspicious for small right upper lobe infiltrate. Consider pneumonia. Electronically Signed: Shawna Olvera MD at 7:33 EDT Tel , Service support ,
--- NOTE | 2021-02-23 05:34 | EKG12_ITS ---
Test Reason : DYSRHYTHMIA Blood Pressure : / mmHG Vent. Rate : 090 BPM Atrial Rate : 090 BPM P-R Int : 160 ms QRS Dur : 102 ms QT Int : 382 ms P-R-T Axes : 042 007 032 degrees QTc Int : 467 ms Normal sinus rhythm Normal ECG Confirmed by FREDDY CASTAÑEDA, GLEN ([id number]), digital editor AMARILIS LOZANO ([id number]) on 02/27/2021 9:24:39 AM Referred By: SAVANNAH Confirmed By:RYLEE HAYES MD
--- NOTE | 2021-02-23 05:35 | EDS_ITS ---
HPI <Dr. George Martines MD - Last Filed: 02/23/21 07:38> History of Present Illness Chief Complaint: Shortness of Breath Informant: patient Onset/Context/Timing Onset: Today Timing: Intermittent Current Severity: Mild Maximum Severity: Mild Associated Symptoms cough Narrative Narrative: 60-year-old female extensive past medical history including protein C deficiency with prior DVTs. States she is never had a PE. She is chronically short of breath from COPD on home O2 which is her baseline. States that she previously was on Coumadin has been off of it several months were restarted in the last several days. Complaining of hemoptysis now. No chest pain. Denies any fever or chills. Denies any nausea or vomiting. PE Risk Factors: Positive for Prior DVT or PE; Negative for Cancer, OCP + Smoking + > 35, Recent immobilization, Recent surgery and Recent travel Prior similar symptoms: Yes Recent Illness/Hospitalization: No PFSH <Dr. George Martines MD - Last Filed: 02/23/21 07:38> PFSH Medical History COPD (chronic obstructive pulmonary disease) DVT (deep venous thrombosis) On home oxygen therapy Home Medications amitriptyline 200 mg PO QHS 04/26/14 [History Last Taken 09/13/20] gabapentin 300 mg PO TIDCM 04/26/14 [History Last Taken 09/13/20] clonazepam 0.5 mg PO 4X/DAY PRN 12/13/14 [History Last Taken 09/14/20] furosemide 80 mg PO BREAKFAST 02/04/16 [History Last Taken 09/13/20] furosemide [Lasix] 40 mg PO DINNER 06/12/17 [History Last Taken 09/13/20] dextroamphetamine-amphetamine [Adderall] 30 mg PO DAILY 08/09/17 [History Last Taken 09/12/20] cyclobenzaprine 5 mg PO BID PRN 12/15/19 [History Last Taken 09/13/20] gabapentin 600 mg PO QHS 12/15/19 [History Last Taken 09/13/20] budesonide 0.5 mg INHALATION BID 04/11/20 [History Last Taken 09/12/20] duloxetine 60 mg PO DAILY 04/11/20 [History Last Taken 09/13/20] ipratropium-albuterol 3 ml IH 4X/DAY 04/11/20 [History Last Taken 09/12/20] warfarin 12.5 mg PO DAILY 04/11/20 [History Last Taken 09/12/20] azithromycin 500 mg PO DAILY 10 Days #9 tab 02/23/21 [Rx Last Taken Unknown] enoxaparin [Lovenox] 40 mg SUBCUT Q12H 5 Days #4 ml 02/23/21 [Rx Last Taken Unknown] potassium chloride 20 meq PO BID 02/23/21 [History Last Taken Unknown] Allergy/AdvReac Type Severity Reaction Status Date / Time celecoxib Allergy Swelling Verified 02/23/21 05:23 of arms/legs naproxen Allergy Swelling Verified 02/23/21 05:23 arms/legs Penicillins Allergy Hives/facial Verified 02/23/21 05:23 swelling pregabalin Allergy Swelling Verified 02/23/21 05:23 arms/swelling sertraline Allergy Swelling Verified 02/23/21 05:23 Surgical History History of appendectomy History of cholecystectomy Social History Smoking Status: Current every day smoker tobacco type: cigarettes ROS <Dr. George Martines MD - Last Filed: 02/23/21 07:38> ROS ED ROS Narrative Denies recent illness. Chronically short of breath. Review of Systems ROS Unobtainable: Denies due to encephalopathy Constitutional Constitutional ED: Denies chills or fever(s) Eyes Eyes: Denies change in vision ENT ENT ED: Denies ear pain or sore throat Cardiovascular Cardiovascular: Denies chest pain Respiratory/Chest Respiratory/Chest: Reports cough and dyspnea Gastrointestinal Gastrointestinal: Denies abdominal pain, diarrhea, melena, nausea or vomiting Genitourinary Genitourinary ED: Denies dysuria or hematuria Musculoskeletal Musculoskeletal: Denies myalgias Integumentary Denies rash Neurologic Neurologic: Denies headache(s) Psychiatric Psychiatric: Denies depression Endocrine Endocrinology: Denies polyuria Hematologic/Lymphatic Hematologic/Lymphatic: Denies easy bruising Allergic/Immunologic Allergic/Immunologic ED: Denies urticaria EXAM <Dr. George Martines MD - Last Filed: 02/23/21 07:38> Physical Exam Narrative Exam Narrative: Middle-aged female no acute distress pulse ox 93% on her typical 3 L. She does not look septic or toxic. HEENT exam unremarkable. Neck nontender. No JVD. No lymphadenopathy. Lungs clear to auscultation bilaterally. Heart regular rhythm rate about 100 no murmur. Chest were nontender. Abdomen soft nontender normal bowel sounds no peritoneal signs. Patient moving all 4 extremities. Calves are nontender without edema or cords. Neurologically she is awake alert moving all 4 extremities. Const Vital Signs: 02/23/21 05:20 02/23/21 05:22 02/23/21 05:40 Temperature 98.4 F Temperature Source Temporal Pulse Rate 101 H Respiratory Rate 18 Respiratory Effort Short of Breath Blood Pressure 150/91 H Blood Pressure Mean 110 Pulse Ox 93 96 Oxygen Delivery Method Nasal Cannula Nasal Cannula Nasal Cannula Oxygen Flow Rate (L/min) 3 3 3 02/23/21 07:28 02/23/21 09:00 Temperature Temperature Source Pulse Rate 80 84 Respiratory Rate 14 21 H Respiratory Effort Blood Pressure 112/75 116/67 Blood Pressure Mean 87 83 Pulse Ox 99 97 Oxygen Delivery Method Nasal Cannula Nasal Cannula Oxygen Flow Rate (L/min) 4.5 3 Positive well nourished and well developed General Appearance ED: well developed and NAD HEENT Reports moist mucous membranes atraumatic; Negative for trauma or tenderness Eyes PERRL and EOMs intact bilaterally Neck no lymphadenopathy, supple and no meningeal signs General: Negative for tenderness Resp normal respiratory effort and clear to auscultation bilaterally Auscultation: Negative for rales, rhonchi or wheezes Cardio regular rate, regular rhythm, S1 normal heart sound, S2 normal heart sound and no murmurs GI non-tender, non-distended and no masses Auscultation: normoactive bowel sounds Palpation: soft; Negative for tender or guarding Back/Spine no CVA tenderness and normal to inspection Extremity normal to inspection General Extremety ED: Negative for edema or tenderness General Extremity: Negative for edema Neuro oriented x3 Sensorium / Orientation: alert, oriented to person, oriented to place, oriented to time, orientation impaired and confused; Negative for lethargic or stuporous Psych mental status grossly normal Skin Lesions: no lesions Rashes: no rashes <Dr. Killian Muse, DO - Last Filed: 02/23/21 09:07> Physical Exam Const Vital Signs: 02/23/21 05:20 02/23/21 05:22 02/23/21 05:40 Temperature 98.4 F Temperature Source Temporal Pulse Rate 101 H Respiratory Rate 18 Respiratory Effort Short of Breath Blood Pressure 150/91 H Blood Pressure Mean 110 Pulse Ox 93 96 Oxygen Delivery Method Nasal Cannula Nasal Cannula Nasal Cannula Oxygen Flow Rate (L/min) 3 3 3 02/23/21 07:28 02/23/21 09:00 Temperature Temperature Source Pulse Rate 80 84 Respiratory Rate 14 21 H Respiratory Effort Blood Pressure 112/75 116/67 Blood Pressure Mean 87 83 Pulse Ox 99 97 Oxygen Delivery Method Nasal Cannula Nasal Cannula Oxygen Flow Rate (L/min) 4.5 3 MDM <Dr. George Martines MD - Last Filed: 02/23/21 07:38> [facility] MDM Narrative Medical decision making narrative: . Chronically short of breath on home O2 for COPD. She will undergo a work-up for dyspnea. Check her INR since she is on Coumadin.Middle-aged female complaining of hemoptysis. Has a history of protein C deficiency. Lab Data Attestation: I reviewed the patient's lab results. Lab results narrative: BMP unremarkable normal gap. Normal creatinine. High- sensitivity troponin VII. CBC unremarkable. Hemoglobin 11. Normal white count. I had difficulty drawing the labs were still waiting on her PT/INR and D-dimer. Those have been checked out to the morning physician who will evaluate those results and make final disposition. Labs: Laboratory Results - last 24 hr 02/23/21 02/23/21 02/23/21 06:03 06:03 06:03 WBC Cancelled Corrected WBC Cancelled RBC Cancelled Hgb Cancelled Hct Cancelled MCV Cancelled MCH Cancelled MCHC Cancelled RDW Std Deviation Cancelled RDW Coeff of Sean Cancelled Plt Count Cancelled MPV Cancelled Immature Gran % (Auto) Cancelled Neut % (Auto) Cancelled Lymph % (Auto) Cancelled [place] % (Auto) Cancelled Eos % (Auto) Cancelled Baso % (Auto) Cancelled Absolute Neuts (auto) Cancelled Absolute Lymphs (auto) Cancelled Total Counted Cancelled Neutrophils % (Manual) Cancelled Band Neutrophils % Cancelled Lymphocytes % (Manual) Cancelled Monocytes % (Manual) Cancelled Eosinophils % (Manual) Cancelled Basophils % (Manual) Cancelled Metamyelocytes % Cancelled Myelocytes % Cancelled Promyelocytes % Cancelled Blast Cells % Cancelled Plasma Cell % (Manual) Cancelled Other Cells % Cancelled Nucleated RBC % Cancelled Nucleated RBCs/100 WBC Cancelled Differential Comment Cancelled Diff Path Review Cancelled Hypersegmented Neuts Cancelled Atypical Lymphocytes Cancelled Reactive Lymphocytes Cancelled Smudge Cells Cancelled Toxic Granulation Cancelled Toxic Vacuolation Cancelled Dohle Bodies Cancelled Adrián Rods Cancelled Platelet Estimate Cancelled Plt Morphology Comment Cancelled RBC Morphology Cancelled Polychromasia Cancelled Hypochromasia Cancelled Poikilocytosis Cancelled Basophilic Stippling Cancelled Anisocytosis Cancelled Microcytosis Cancelled Macrocytosis Cancelled Spherocytes Cancelled Sickle Cells Cancelled Target Cells Cancelled Tear Drop Cells Cancelled Ovalocytes Cancelled Stomatocytes Cancelled [place] Bodies Cancelled Mi Cells Cancelled Bite Cells Cancelled Crenated Cell Cancelled Acanthocytes (Spur) Cancelled Rouleaux Cancelled Schistocytes Cancelled PT Cancelled INR Cancelled D-Dimer Quant (PE/DVT) Cancelled Sodium 138 Potassium 4.1 Chloride 100 Carbon Dioxide 36.0 H Anion Gap 2 L BUN 10 Creatinine 0.67 Estim Creat Clear Calc 78.07 Est GFR (MDRD) Af Amer 116 Est GFR (MDRD) Non-Af 96 BUN/Creatinine Ratio 15.0 Glucose 95 Calcium 8.0 L Troponin I High Sens 7.8 02/23/21 02/23/21 07:06 07:06 WBC 7.9 Corrected WBC RBC 4.24 Hgb 11.9 L Hct 40.0 MCV 94.3 MCH 28.1 MCHC 29.8 L RDW Std Deviation 58.8 H RDW Coeff of Sean 16.9 H Plt Count 180 MPV 10.6 Immature Gran % (Auto) 0.300 Neut % (Auto) 78.9 H Lymph % (Auto) 12.5 L [place] % (Auto) 6.0 Eos % (Auto) 1.8 Baso % (Auto) 0.5 Absolute Neuts (auto) 6.3 Absolute Lymphs (auto) 0.99 Total Counted Neutrophils % (Manual) Band Neutrophils % Lymphocytes % (Manual) Monocytes % (Manual) Eosinophils % (Manual) Basophils % (Manual) Metamyelocytes % Myelocytes % Promyelocytes % Blast Cells % Plasma Cell % (Manual) Other Cells % Nucleated RBC % 0 Nucleated RBCs/100 WBC Differential Comment Diff Path Review Hypersegmented Neuts Atypical Lymphocytes Reactive Lymphocytes Smudge Cells Toxic Granulation Toxic Vacuolation Dohle Bodies Adrián Rods Platelet Estimate Plt Morphology Comment RBC Morphology Polychromasia Hypochromasia Poikilocytosis Basophilic Stippling Anisocytosis Microcytosis Macrocytosis Spherocytes Sickle Cells Target Cells Tear Drop Cells Ovalocytes Stomatocytes [place] Bodies [place] Cells Bite Cells Crenated Cell Acanthocytes (Spur) Rouleaux Schistocytes PT 19.6 H INR 1.7 D-Dimer Quant (PE/DVT) 1.37 H* Sodium Potassium Chloride Carbon Dioxide Anion Gap BUN Creatinine Estim Creat Clear Calc Est GFR (MDRD) Af Amer Est GFR (MDRD) Non-Af BUN/Creatinine Ratio Glucose Calcium Troponin I High Sens Radiography Chest X-Ray - ED: 1 View, Read by ED Physician, Heart, Lungs, Mediastinum, Bony Structures and Chronic Changes Diagnostic Testing: Radiology Impression Chest X-Ray 02/23/21 05:34 IMPRESSION: Chronic elevation of the right hemidiaphragm. Findings suspicious for small right upper lobe infiltrate. Consider pneumonia. Electronically Signed: Shawna Olvera MD at 7:33 EDT Tel , Service support , Chest x-ray portable 1 view interpreted by myself. Patient has an elevated right hemidiaphragm. There is a density in the lung near the right hilum. Of uncertain etiology this could potentially be an infiltrate or scar tissue etc. Awaiting radiology interpretation. Rhythm Strip Rhythm Strip: Sinus Rhythm Rate: 90 Ectopy: None EKG Initial EKG: Attestation: I personally reviewed and interpreted this EKG as follows: Interpretation: Sinus Rhythm and No Acute Injury Pattern Comments: Normal sinus rhythm rate of 90 no acute signs of HI or ischemia. Prior EKG tracings: not available for review <Dr. Killian Muse, DO - Last Filed: 02/23/21 09:07> [facility] MDM Narrative Medical decision making narrative: Patient signed out to me for follow-up of INR and D-dimer. Patient's D-dimer was elevated at 1.37. Her INR was slightly subtherapeutic at 1.7. There have been multiple attempts to obtain IV access to obtain a CTA however these have failed. Given that on my interpretation of the chest x-ray shows right upper lobe infiltrate she will need to be treated as pneumonia. Patient states that she does get hemoptysis with pneumonia. I discussed this case with Dr. Stephenson and together we decided that we would keep her on her Coumadin and she will take 40 mg of Lovenox twice daily. He requested that her azithromycin be 500 mg daily x10 days. Prescriptions were provided. Patient was given the first dose of each in the ED. She is given return precautions. Impression: 1. Right upper lobe pneumonia 2. Hemoptysis?mild 3. Subtherapeutic INR Lab Data Attestation: I reviewed the patient's lab results. Labs: Laboratory Results - last 24 hr 02/23/21 02/23/21 02/23/21 06:03 06:03 06:03 WBC Cancelled Corrected WBC Cancelled RBC Cancelled Hgb Cancelled Hct Cancelled MCV Cancelled MCH Cancelled MCHC Cancelled RDW Std Deviation Cancelled RDW Coeff of Sean Cancelled Plt Count Cancelled MPV Cancelled Immature Gran % (Auto) Cancelled Neut % (Auto) Cancelled Lymph % (Auto) Cancelled [place] % (Auto) Cancelled Eos % (Auto) Cancelled Baso % (Auto) Cancelled Absolute Neuts (auto) Cancelled Absolute Lymphs (auto) Cancelled Total Counted Cancelled Neutrophils % (Manual) Cancelled Band Neutrophils % Cancelled Lymphocytes % (Manual) Cancelled Monocytes % (Manual) Cancelled Eosinophils % (Manual) Cancelled Basophils % (Manual) Cancelled Metamyelocytes % Cancelled Myelocytes % Cancelled Promyelocytes % Cancelled Blast Cells % Cancelled Plasma Cell % (Manual) Cancelled Other Cells % Cancelled Nucleated RBC % Cancelled Nucleated RBCs/100 WBC Cancelled Differential Comment Cancelled Diff Path Review Cancelled Hypersegmented Neuts Cancelled Atypical Lymphocytes Cancelled Reactive Lymphocytes Cancelled Smudge Cells Cancelled Toxic Granulation Cancelled Toxic Vacuolation Cancelled Dohle Bodies Cancelled Adrián Rods Cancelled Platelet Estimate Cancelled Plt Morphology Comment Cancelled RBC Morphology Cancelled Polychromasia Cancelled Hypochromasia Cancelled Poikilocytosis Cancelled Basophilic Stippling Cancelled Anisocytosis Cancelled Microcytosis Cancelled Macrocytosis Cancelled Spherocytes Cancelled Sickle Cells Cancelled Target Cells Cancelled Tear Drop Cells Cancelled Ovalocytes Cancelled Stomatocytes Cancelled [place] Bodies Cancelled [place] Cells Cancelled Bite Cells Cancelled Crenated Cell Cancelled Acanthocytes (Spur) Cancelled Rouleaux Cancelled Schistocytes Cancelled PT Cancelled INR Cancelled D-Dimer Quant (PE/DVT) Cancelled Sodium 138 Potassium 4.1 Chloride 100 Carbon Dioxide 36.0 H Anion Gap 2 L BUN 10 Creatinine 0.67 Estim Creat Clear Calc 78.07 Est GFR (MDRD) Af Amer 116 Est GFR (MDRD) Non-Af 96 BUN/Creatinine Ratio 15.0 Glucose 95 Calcium 8.0 L Troponin I High Sens 7.8 02/23/21 02/23/21 07:06 07:06 WBC 7.9 Corrected WBC RBC 4.24 Hgb 11.9 L Hct 40.0 MCV 94.3 MCH 28.1 MCHC 29.8 L RDW Std Deviation 58.8 H RDW Coeff of Sean 16.9 H Plt Count 180 MPV 10.6 Immature Gran % (Auto) 0.300 Neut % (Auto) 78.9 H Lymph % (Auto) 12.5 L [place] % (Auto) 6.0 Eos % (Auto) 1.8 Baso % (Auto) 0.5 Absolute Neuts (auto) 6.3 Absolute Lymphs (auto) 0.99 Total Counted Neutrophils % (Manual) Band Neutrophils % Lymphocytes % (Manual) Monocytes % (Manual) Eosinophils % (Manual) Basophils % (Manual) Metamyelocytes % Myelocytes % Promyelocytes % Blast Cells % Plasma Cell % (Manual) Other Cells % Nucleated RBC % 0 Nucleated RBCs/100 WBC Differential Comment Diff Path Review Hypersegmented Neuts Atypical Lymphocytes Reactive Lymphocytes Smudge Cells Toxic Granulation Toxic Vacuolation Dohle Bodies Adrián Rods Platelet Estimate Plt Morphology Comment RBC Morphology Polychromasia Hypochromasia Poikilocytosis Basophilic Stippling Anisocytosis Microcytosis Macrocytosis Spherocytes Sickle Cells Target Cells Tear Drop Cells Ovalocytes Stomatocytes [place] Bodies Mi Cells Bite Cells Crenated Cell Acanthocytes (Spur) Rouleaux Schistocytes PT 19.6 H INR 1.7 D-Dimer Quant (PE/DVT) 1.37 H* Sodium Potassium Chloride Carbon Dioxide Anion Gap BUN Creatinine Estim Creat Clear Calc Est GFR (MDRD) Af Amer Est GFR (MDRD) Non-Af BUN/Creatinine Ratio Glucose Calcium Troponin I High Sens Radiography Diagnostic Testing: Radiology Impression Chest X-Ray 02/23/21 05:34 IMPRESSION: Chronic elevation of the right hemidiaphragm. Findings suspicious for small right upper lobe infiltrate. Consider pneumonia. Electronically Signed: Shawna Olvera MD at 7:33 EDT Tel , Service support , Discharge Plan Triage Chief Complaint: Shortness of Breath ED Provider: Killian Muse Dx/Rx/DC Orders Instructions: ED Pneumonia (Adult) Prescriptions: New enoxaparin [Lovenox] 40 mg/0.4 mL syringe 40 mg subcut Q12H 5 Days Qty: 4 RF: 0 azithromycin 500 mg tablet 500 mg PO DAILY 10 Days Qty: 9 RF: 0 No Action gabapentin 300 MG capsule 300 mg PO TIDCM RF: 0 amitriptyline 100 MG tablet 200 mg PO QHS RF: 0 clonazepam 0.5 MG tablet 0.5 mg PO 4X/DAY PRN (Reason: Anxiety) RF: 0 furosemide 40 MG tablet 80 mg PO BREAKFAST RF: 0 furosemide [Lasix] 40 MG tablet 40 mg PO DINNER RF: 0 dextroamphetamine-amphetamine [Adderall] 30 MG tablet 30 mg PO DAILY RF: 0 gabapentin 300 MG capsule 600 mg PO QHS RF: 0 cyclobenzaprine 5 MG tablet 5 mg PO BID PRN (Reason: Spasms) RF: 0 warfarin 5 MG tablet 12.5 mg PO DAILY RF: 0 ipratropium-albuterol 3 ML solution for nebulization 3 ml IH 4X/DAY RF: 0 budesonide 0.5 MG/2 ML suspension for nebulization 0.5 mg inhalation BID RF: 0 duloxetine 60 MG capsule,delayed release(DR/EC) 60 mg PO DAILY RF: 0 potassium chloride 20 mEq tablet,ER particles/crystals 20 meq PO BID RF: 0 Primary Care Provider: Carson Stephenson Referrals: Carson Stephenson MD [Primary Care Provider] - Activity Restrictions/Additional Instructions: Your INR was low today at 1.7, and your goal should be to keep it between 2 and 3. As discussed with you we will cover you with Lovenox to get your INR to this level. You will have 40 mg twice daily. We will also cover you for pneumonia with azithromycin. I did discuss this with your primary care physician Dr. Stephenson. He will need to follow-up with him closely to recheck your INR.
[2021-02-23 05:40] VITALS: O2SAT 96
[2021-02-23 06:30] LABS: Anion Gap 2 (5-15); BUN 10 mg/dL (7-18); Chloride 100 mmol/L (98-107); Creatinine, Serum 0.67 mg/dL (0.55-1.02); EST Glomerular Filtration Rate 96 mL/min (>60); Est Glom Filt Rate - Afr Amer 116 mL/min (>60); Estimated Creatinine Clearance 78.07 ml/min; Glucose 95 mg/dL (74-106); Potassium 4.1 mmol/L (3.5-5.1); Sodium Level 138 mmol/L (136-145); Troponin-I HS 7.8 pg/mL (3.0-53.7)
[2021-02-23 07:12] LABS: Absolute Lymphocyte Count 0.99 X10^3/uL (0.83-4.51); Absolute Neutrophil Count 6.3 X10^3/uL (2.0-7.7); Basophil# 0.04 X10^3/uL; Basophil% 0.5 % (0-1); Eosinophil# 0.14 X10^3/uL; Eosinophils% 1.8 % (0-5); Hemoglobin 11.9 g/dL (12.0-15.0); Lymphocyte # 0.99 X10^3/ul (0.83-4.51); Lymphocyte % 12.5 % (19-41); Mean Corp Hgb Conc 29.8 g/dL (32-36); Mean Corpuscular Hgb 28.1 pg (27.0-32.0); Mean Corpuscular Volume 94.3 fL (81-99); Mean Platelet Vol. 10.6 fl (6.2-12.0); Monocyte# 0.48 X10^3/uL; NRBC Flagged by Analyzer 0 % (0-5); Neutrophil # 6.27 X10^3/uL (2.7-7.7); Neutrophil % 78.9 % (47-70); Platelet Count 180 K/mm3 (150-450); RBC Distribution Width CV 16.9 % (11.6-14.6); RBC Distribution Width SD 58.8 fl (35.1-43.9); Red Blood Count 4.24 M/mm3 (4.2-5.4); White Blood Count 7.9 K/mm3 (4.4-11.0)
[2021-02-23 07:28] VITALS: BP 112/75; PULSE 80; RESP 14; O2SAT 99
[2021-02-23 07:29] LABS: International Normalized Ratio 1.7; Prothrombin Time (Protime)PT. 19.6 SECONDS (11.7-14.9)
[2021-02-23 07:35] LABS: D-Dimer Quantitative (DVT/PE) 1.37 FEU/ug/m (0.27-0.49)
[2021-02-23] MEDS: Azithromycin 250 MG Tablet 500 MG PO (08:11)
[2021-02-23 09:00] VITALS: BP 116/67; PULSE 84; RESP 21; O2SAT 97
[2021-02-23] MEDS: Enoxaparin 40 MG/0.4 ML Syringe SC (09:03)
== END 2021-02-23 09:11 | disposition home or self-care (01) ==
PROVIDERS: Emergency Medicine; Emergency Provider Student in an Organized Health Care Education/Training Program; PCP Family Medicine
DX: J44.0 Chronic obstructive pulmonary disease with (acute) lower respiratory infection (principal); J18.9 Pneumonia, unspecified organism; R79.1 Abnormal coagulation profile; R04.2 Hemoptysis; D68.59 Other primary thrombophilia; Z86.718 Personal history of other venous thrombosis and embolism; Z99.81 Dependence on supplemental oxygen; Z79.01 Long term (current) use of anticoagulants; Z79.899 Other long term (current) drug therapy; F17.210 Nicotine dependence, cigarettes, uncomplicated
CPT/HCPCS: 36415; 71045; 80048; 84484; 85025; 85379; 85610; 93005; 96372; 99283; A4216

== ENCOUNTER 2021-02-28 20:10 | Emergency (ER) | payer MEDICARE, SELFPAY ==
[2021-02-28] VITALS (7 sets, daily range): BP systolic 115–132; BP diastolic 53–75; PULSE 72–88; RESP 14–20; TEMP 36.6–36.9; O2SAT 93–98; BMI 38.5
--- NOTE | 2021-02-28 20:34 | EDS_ITS ---
HPI History of Present Illness Chief Complaint: Cough Informant: patient Onset/Context/Timing Onset: Weeks (1) Context: gradual Timing: Waxes and wanes Quality: Positive for Dyspnea on exertion and Wheezing Current Severity: Mild Maximum Severity: Moderate Worsened by: Exertion and Coughing Relieved by: Rest, Oxygen and Albuterol Associated Symptoms cough Chest Pain: Positive for None Narrative Narrative: Patient has had cough shortness of breath malaise for the past week maybe a little more. She was seen here about a week ago and diagnosed with pneumonia, put on a azithromycin 10-day course, she is feeling no better and occasionally coughing up small amounts of black/dark sputum no blood. Called her doctor for follow-up, she is going to see them tomorrow but was advised to come here for testing and better antibiotics. [facility] Medical History COPD (chronic obstructive pulmonary disease) DVT (deep venous thrombosis) MRSA (methicillin resistant Staphylococcus aureus) On home oxygen therapy Pneumonia Protein C deficiency RSD (reflex sympathetic dystrophy) Home Medications amitriptyline 200 mg PO QHS 04/26/14 [History Last Taken 09/13/20] gabapentin 300 mg PO TIDCM 04/26/14 [History Last Taken 09/13/20] clonazepam 0.5 mg PO 4X/DAY PRN 12/13/14 [History Last Taken 09/14/20] furosemide 80 mg PO BREAKFAST 02/04/16 [History Last Taken 09/13/20] furosemide [Lasix] 40 mg PO DINNER 06/12/17 [History Last Taken 09/13/20] dextroamphetamine-amphetamine [Adderall] 30 mg PO DAILY 08/09/17 [History Last Taken 09/12/20] cyclobenzaprine 5 mg PO BID PRN 12/15/19 [History Last Taken 09/13/20] gabapentin 600 mg PO QHS 12/15/19 [History Last Taken 09/13/20] budesonide 0.5 mg INHALATION BID 04/11/20 [History Last Taken 09/12/20] duloxetine 60 mg PO DAILY 04/11/20 [History Last Taken 09/13/20] ipratropium-albuterol 3 ml IH 4X/DAY 04/11/20 [History Last Taken 09/12/20] warfarin 12.5 mg PO DAILY 04/11/20 [History Last Taken 09/12/20] azithromycin 500 mg PO DAILY 10 Days #9 tab 02/23/21 [Rx Last Taken Unknown] potassium chloride 20 meq PO BID 02/23/21 [History Last Taken Unknown] methylprednisolone [Medrol (Rui)] See Rx Instructions .ROUTE .COMPLEX #21 tab 02/28/21 [Rx Last Taken Unknown] Allergy/AdvReac Type Severity Reaction Status Date / Time celecoxib Allergy Swelling Verified 02/28/21 20:21 of arms/legs naproxen Allergy Swelling Verified 02/28/21 20:21 arms/legs Penicillins Allergy Hives/facial Verified 02/28/21 20:21 swelling pregabalin Allergy Swelling Verified 02/28/21 20:21 arms/swelling sertraline Allergy Swelling Verified 02/28/21 20:21 Surgical History History of appendectomy History of cholecystectomy Social History Smoking Status: Current every day smoker tobacco type: cigarettes ROS ROS ED Constitutional Constitutional ED: Reports malaise; Denies chills or fever(s) Eyes Eyes: Denies change in vision or diplopia ENT ENT ED: Denies rhinorrhea or sore throat Cardiovascular Cardiovascular: Denies chest pain or palpitations Respiratory/Chest Respiratory/Chest: Reports cough, dyspnea, dyspnea on exertion and sputum Gastrointestinal Gastrointestinal: Denies abdominal pain, diarrhea, nausea or vomiting Genitourinary Genitourinary ED: Denies dysuria or hematuria Musculoskeletal Musculoskeletal: Reports back pain, extremity pain and other Details: Chronic pain, nothing new ; Denies neck pain Integumentary Denies abscess or rash Neurologic Neurologic: Denies headache(s), numbness or weakness Psychiatric Psychiatric: Denies anxiety or suicidal thoughts EXAM Physical Exam Const Vital Signs: 02/28/21 20:11 02/28/21 20:28 02/28/21 20:48 Temperature 98.5 F 98.5 F Temperature Source Temporal Oral Pulse Rate 82 80 88 Respiratory Rate 18 14 20 H Respiratory Effort Respiratory Depth Respiratory Pattern Blood Pressure 132/68 H 127/75 H Blood Pressure Mean 89 92 Pulse Ox 97 97 Oxygen Delivery Method Nasal Cannula Nasal Cannula Oxygen Flow Rate (L/min) 3 2 02/28/21 20:55 02/28/21 20:59 Temperature 98.5 F Temperature Source Temporal Pulse Rate 75 Respiratory Rate 14 Respiratory Effort Short of Breath Respiratory Depth Normal Respiratory Pattern Normal Blood Pressure 124/71 H Blood Pressure Mean 88 Pulse Ox 93 Oxygen Delivery Method Nasal Cannula Nasal Cannula Oxygen Flow Rate (L/min) 2 2 Positive well nourished and well developed General Appearance ED: well developed and NAD HEENT Reports moist mucous membranes normocephalic and atraumatic Eyes PERRL and EOMs intact bilaterally Neck full ROM and supple Resp normal respiratory effort Resp Narrative: Conversive in full sentences Effort and Inspection: Negative for retractions Auscultation: crackles bilateral base and wheezes expiratory wheezes and throughout Cardio regular rate, regular rhythm and no murmurs GI non-tender and non-distended Auscultation: normoactive bowel sounds Palpation: soft Back/Spine no CVA tenderness General Back: other FROM Extremity normal to inspection General Extremety ED: Negative for edema, pulses abnormal or tenderness General Extremity: Negative for edema or pulses abnormal Neuro oriented x3, CN's II-XII intact bilaterally and no sensory deficits noted Sensorium / Orientation: awake and alert Motor Exam: strength 5/5 throughout Skin no rashes or lesions noted and no wounds MDM MDM MDM Narrative Medical decision making narrative: INR is 2.8 therefore the patient can stop using the enoxaparin injections to bridge herself back on the warfarin; I was not able to get a good reason why she needed to do this, but she said she needed an INR to see if she could stop enoxaparin. Her chest x-ray shows improvement in the right upper lobe infiltrate. Therefore my suspicion is that the majority of her symptoms are her COPD at this time. I gave her a covering dose of Rocephin, she is on a azithromycin 5 mg daily for 10 days which should more than cover her. We will also add a prescription for prednisone, she states she does not like the way prednisone makes her feel so we will do half dose of 20 mg/day, she is comfortable with that plan. Lab Data Attestation: I reviewed the patient's lab results. Labs: Laboratory Results - last 24 hr 02/28/21 02/28/21 02/28/21 20:50 20:50 20:50 WBC 3.1 L RBC 4.18 L Hgb 11.8 L Hct 39.5 MCV 94.5 MCH 28.2 MCHC 29.9 L RDW Std Deviation 59.3 H RDW Coeff of Sean 16.9 H Plt Count 233 MPV 10.5 Immature Gran % (Auto) 0.300 Neut % (Auto) 49.0 Lymph % (Auto) 36.8 Coles % (Auto) 9.4 Eos % (Auto) 4.2 Baso % (Auto) 0.3 Absolute Neuts (auto) 1.5 L Absolute Lymphs (auto) 1.14 Nucleated RBC % 0 PT 28.3 H INR 2.8 Sodium 136 Potassium 4.2 Chloride 97 L Carbon Dioxide 37.0 H Anion Gap 2 L BUN 11 Creatinine 0.60 Estim Creat Clear Calc 87.18 Est GFR (MDRD) Af Amer 131 Est GFR (MDRD) Non-Af 108 BUN/Creatinine Ratio 18.3 Glucose 95 Calcium 8.3 L Radiography Diagnostic Testing: Radiology Impression Chest X-Ray 02/28/21 21:40 IMPRESSION: Mild residual increased markings in the right upper lobe. This has improved as compared to prior study. Electronically Signed: Robinson Sharma MD at 22:00 EDT , Service support , Discharge Plan Triage Chief Complaint: Cough ED Provider: Maximus Flowers Dx/Rx/DC Orders Clinical Impression: Warfarin-induced coagulopathy, COPD with exacerbation, Pneumonia Instructions: ED COPD Flare Prescriptions: New methylprednisolone [Medrol (Rui)] 4 mg tablets,dose pack See Rx Instructions .ROUTE .COMPLEX Qty: 21 RF: 0 Continued gabapentin 300 MG capsule 300 mg PO TIDCM RF: 0 amitriptyline 100 MG tablet 200 mg PO QHS RF: 0 clonazepam 0.5 MG tablet 0.5 mg PO 4X/DAY PRN (Reason: Anxiety) RF: 0 furosemide 40 MG tablet 80 mg PO BREAKFAST RF: 0 furosemide [Lasix] 40 MG tablet 40 mg PO DINNER RF: 0 dextroamphetamine-amphetamine [Adderall] 30 MG tablet 30 mg PO DAILY RF: 0 gabapentin 300 MG capsule 600 mg PO QHS RF: 0 cyclobenzaprine 5 MG tablet 5 mg PO BID PRN (Reason: Spasms) RF: 0 warfarin 5 MG tablet 12.5 mg PO DAILY RF: 0 ipratropium-albuterol 3 ML solution for nebulization 3 ml IH 4X/DAY RF: 0 budesonide 0.5 MG/2 ML suspension for nebulization 0.5 mg inhalation BID RF: 0 duloxetine 60 MG capsule,delayed release(DR/EC) 60 mg PO DAILY RF: 0 potassium chloride 20 mEq tablet,ER particles/crystals 20 meq PO BID RF: 0 azithromycin 500 mg tablet 500 mg PO DAILY 10 Days Qty: 9 RF: 0 Discontinued enoxaparin [Lovenox] 40 mg/0.4 mL syringe 40 mg subcut Q12H 5 Days Qty: 4 RF: 0 Primary Care Provider: Carson Stepehnson Referrals: Carson Stephenson MD [Primary Care Provider] - [facility] appointment Disposition Disposition: Home, Self Care
[2021-02-28] MEDS: Ipratropium/Albuterol Sulfate 3 ML AMPUL.NEB INHALATION (20:47)
[2021-02-28 21:02] LABS: Absolute Lymphocyte Count 1.14 X10^3/uL (0.83-4.51); Absolute Neutrophil Count 1.5 X10^3/uL (2.0-7.7); Basophil# 0.01 X10^3/uL; Basophil% 0.3 % (0-1); Eosinophil# 0.13 X10^3/uL; Eosinophils% 4.2 % (0-5); Hematocrit 39.5 % (37-47); Hemoglobin 11.8 g/dL (12.0-15.0); Lymphocyte # 1.14 X10^3/ul (0.83-4.51); Lymphocyte % 36.8 % (19-41); Mean Corp Hgb Conc 29.9 g/dL (32-36); Mean Corpuscular Hgb 28.2 pg (27.0-32.0); Mean Corpuscular Volume 94.5 fL (81-99); Mean Platelet Vol. 10.5 fl (6.2-12.0); Monocyte# 0.29 X10^3/uL; Monocyte% 9.4 % (0-10); NRBC Flagged by Analyzer 0 % (0-5); Neutrophil # 1.52 X10^3/uL (2.7-7.7); Platelet Count 233 K/mm3 (150-450); RBC Distribution Width CV 16.9 % (11.6-14.6); RBC Distribution Width SD 59.3 fl (35.1-43.9); Red Blood Count 4.18 M/mm3 (4.2-5.4); White Blood Count 3.1 K/mm3 (4.4-11.0)
[2021-02-28 21:12] LABS: International Normalized Ratio 2.8; Prothrombin Time (Protime)PT. 28.3 SECONDS (11.7-14.9)
[2021-02-28 21:14] LABS: Anion Gap 2 (5-15); BUN 11 mg/dL (7-18); BUN/Creat Ratio 18.3 RATIO (10-20); Calcium,Total 8.3 mg/dL (8.5-10.1); Chloride 97 mmol/L (98-107); EST Glomerular Filtration Rate 108 mL/min (>60); Est Glom Filt Rate - Afr Amer 131 mL/min (>60); Estimated Creatinine Clearance 87.18 ml/min; Glucose 95 mg/dL (74-106); Potassium 4.2 mmol/L (3.5-5.1); Sodium Level 136 mmol/L (136-145)
--- NOTE | 2021-02-28 21:40 | RAD_ITS ---
STUDY: X-RAY CHEST REASON FOR EXAM: Female, 60 years old. Cough/sob; check progression of pneumonia TECHNIQUE: PA and lateral views of the chest. COMPARISON: Comparison is made with prior study dated 02/23/2021. FINDINGS: Stable elevation of the right hemidiaphragm. Residual patchy infiltrate in the right upper lobe although there has been improvement. Stable scarring at the lung bases. There is no demonstrated pleural abnormality. Normal size heart. Normal mediastinum and roz. Normal visualized pulmonary arteries. There is atherosclerotic calcification of the aortic arch with tortuosity. Normal visualized thoracic spine. Prior right rotator cuff surgery. Surgical clips are seen in the left upper quadrant. RAD/Chest PA and Lateral IMPRESSION: Mild residual increased markings in the right upper lobe. This has improved as compared to prior study. Electronically Signed: Robinson Sharma MD at 22:00 EDT , Service support ,
[2021-02-28] MEDS: Ceftriaxone 1 GM/50 ML BAG IV (22:39)
[2021-02-28] MEDS: MethylPREDNISolone 125 MG/2 ML Vial IV (22:39)
== END 2021-02-28 23:23 | disposition home or self-care (01) ==
PROVIDERS: Emergency Provider Emergency Medicine; PCP Family Medicine
DX: J44.0 Chronic obstructive pulmonary disease with (acute) lower respiratory infection (principal); J44.1 Chronic obstructive pulmonary disease with (acute) exacerbation; J18.9 Pneumonia, unspecified organism; D68.9 Coagulation defect, unspecified; T45.515A Adverse effect of anticoagulants, initial encounter; Y92.9 Unspecified place or not applicable; D68.59 Other primary thrombophilia; G90.50 Complex regional pain syndrome I, unspecified; Z86.14 Personal history of Methicillin resistant Staphylococcus aureus infection; Z86.718 Personal history of other venous thrombosis and embolism; Z87.01 Personal history of pneumonia (recurrent); Z79.01 Long term (current) use of anticoagulants; Z79.899 Other long term (current) drug therapy; F17.210 Nicotine dependence, cigarettes, uncomplicated
CPT/HCPCS: 71046; 80048; 85025; 85610; 94640; 96365; 96375; 99284; J7050; A4216

== ENCOUNTER 2021-03-12 18:41 | Emergency (ER) | payer MEDICARE, SELFPAY ==
[2021-02-28 20:11] VITALS: BMI 38.5
[2021-03-12 18:42] VITALS: BP 116/89; PULSE 101; RESP 18; TEMP 36.9; O2SAT 95; BMI 35.5
[2021-03-12] MEDS: oxyCODONE 5 MG Tablet PO (19:51)
[2021-03-12] MEDS: Clindamycin HCl 150 MG Capsule 300 MG PO (19:52)
[2021-03-12 21:06] VITALS: BP 129/81; PULSE 82; RESP 18; TEMP 36.8; O2SAT 95
[2021-03-12 21:33] LABS: International Normalized Ratio 1.9; Prothrombin Time (Protime)PT. 20.6 SECONDS (11.7-14.9)
--- NOTE | 2021-03-12 22:04 | EX.ED.UPPERE ---
HPI History of Present Illness Chief Complaint: Upper Extremity Injury Informant: patient Onset/Context/Timing Onset: Days Context: Gradual Onset Timing: Continuous Quality of Pain: Aching and Throbbing Current Severity: Moderate Maximum Severity: Severe Narrative Narrative: Patient presents secondary to right thumb pain and swelling. Patient has noted symptoms for the past 3 days. No specific injury. No fever or chills. Patient states that she spoke to a local pharmacist who told her it may be a blood clot in her finger. She is currently on Coumadin. [facility] Medical History COPD (chronic obstructive pulmonary disease) DVT (deep venous thrombosis) MRSA (methicillin resistant Staphylococcus aureus) On home oxygen therapy Pneumonia Protein C deficiency RSD (reflex sympathetic dystrophy) Home Medications amitriptyline 200 mg PO QHS 04/26/14 [History Last Taken 09/13/20] gabapentin 300 mg PO TIDCM 04/26/14 [History Last Taken 09/13/20] clonazepam 0.5 mg PO 4X/DAY PRN 12/13/14 [History Last Taken 09/14/20] furosemide 80 mg PO BREAKFAST 02/04/16 [History Last Taken 09/13/20] furosemide [Lasix] 40 mg PO DINNER 06/12/17 [History Last Taken 09/13/20] dextroamphetamine-amphetamine [Adderall] 30 mg PO DAILY 08/09/17 [History Last Taken 09/12/20] cyclobenzaprine 5 mg PO BID PRN 12/15/19 [History Last Taken 09/13/20] gabapentin 600 mg PO QHS 12/15/19 [History Last Taken 09/13/20] budesonide 0.5 mg INHALATION BID 04/11/20 [History Last Taken 09/12/20] duloxetine 60 mg PO DAILY 04/11/20 [History Last Taken 09/13/20] ipratropium-albuterol 3 ml IH 4X/DAY 04/11/20 [History Last Taken 09/12/20] warfarin 12.5 mg PO DAILY 04/11/20 [History Last Taken 09/12/20] azithromycin 500 mg PO DAILY 10 Days #9 tab 02/23/21 [Rx Last Taken Unknown] potassium chloride 20 meq PO BID 02/23/21 [History Last Taken Unknown] clindamycin HCl 300 mg PO 4X/DAY #80 cap 03/12/21 [Rx Last Taken Unknown] oxycodone-acetaminophen [Percocet] 1 tab PO Q6H PRN 2 Days #7 tab 03/12/21 [Rx Last Taken Unknown] Allergy/AdvReac Type Severity Reaction Status Date / Time celecoxib Allergy Swelling Verified 03/12/21 18:45 of arms/legs naproxen Allergy Swelling Verified 03/12/21 18:45 arms/legs Penicillins Allergy Hives/facial Verified 03/12/21 18:45 swelling pregabalin Allergy Swelling Verified 03/12/21 18:45 arms/swelling sertraline Allergy Swelling Verified 03/12/21 18:45 Surgical History History of appendectomy History of cholecystectomy Social History Smoking Status: Current every day smoker tobacco type: cigarettes ROS ROS ED Constitutional Constitutional ED: Denies chills or fever(s) Eyes Eyes: Denies change in vision ENT ENT ED: Denies sore throat Cardiovascular Cardiovascular: Denies chest pain Respiratory/Chest Respiratory/Chest: Denies cough or dyspnea Gastrointestinal Gastrointestinal: Denies abdominal pain, diarrhea, nausea or vomiting Genitourinary Genitourinary ED: Denies dysuria Musculoskeletal Musculoskeletal: Reports other Details: Right thumb pain radiating up to axilla ; Denies back pain Integumentary Denies rash Neurologic Neurologic: Denies headache(s) or weakness Psychiatric Psychiatric: Denies anxiety or depression Allergic/Immunologic Allergic/Immunologic ED: Denies urticaria EXAM Physical Exam Const Vital Signs: 03/12/21 18:42 03/12/21 21:06 Temperature 98.4 F 98.3 F Temperature Source Temporal Temporal Pulse Rate 101 H 82 Respiratory Rate 18 18 Blood Pressure 116/89 H 129/81 H Blood Pressure Mean 98 97 Pulse Ox 95 95 Oxygen Delivery Method Nasal Cannula Nasal Cannula Oxygen Flow Rate (L/min) 2 2 Positive well nourished and well developed General Appearance ED: well developed HEENT Reports normocephalic and head/scalp atraumatic Eyes PERRL and EOMs intact bilaterally Neck supple Chest Wall inspection of chest normal and palpation of chest normal Resp normal respiratory effort and clear to auscultation bilaterally Cardio regular rate and regular rhythm GI normal to inspection, nondistended, normoactive bowel sounds Palpation: soft Extremity Extremity Narrative: Mild right thumb edema. No significant edema. Fullness noted to the pulp of the distal right thumb concerning for early felon. Slight decreased range of motion noted secondary to swelling. No tenderness with passive extension. Neuro oriented x3 Sensorium / Orientation: alert Psych mental status grossly normal Skin no rashes or lesions noted MDM MDM MDM Narrative Medical decision making narrative: Patient's INR was checked. She is given a dose of oxycodone for pain. Clindamycin p.o. was ordered. Lab Data Attestation: I reviewed the patient's lab results. Labs: Laboratory Results - last 24 hr 03/12/21 21:00 PT 20.6 H INR 1.9 Treatment and Re-Evaluation Comments:: Patient's INR is minimally low at 1.9. She believes it is secondary to her diet as she has been eating more vegetables recently. She will watch this and have her INR rechecked in a week or so. Patient does note some improvement in her pain with increased range of motion and states the pain rating to her axilla is improved. She will be given a prescription for pain medication for the next day and a half as she has an appointment to see her doctor on Saturday. She has seen Dr. Verduzco with orthopedics in the past and will be referred back to him for monitoring of her thumb. Prescription for clindamycin will be provided. Discharge Plan Triage Chief Complaint: Upper Extremity Injury ED Provider: Mely Doyle Dx/Rx/DC Orders Clinical Impression: Felon of finger Prescriptions: New oxycodone-acetaminophen [Percocet] 5-325 mg tablet 1 tab PO Q6H PRN (Reason: pain) 2 Days Qty: 7 RF: 0 clindamycin HCl 150 MG capsule 300 mg PO 4X/DAY Qty: 80 RF: 0 No Action gabapentin 300 MG capsule 300 mg PO TIDCM RF: 0 amitriptyline 100 MG tablet 200 mg PO QHS RF: 0 clonazepam 0.5 MG tablet 0.5 mg PO 4X/DAY PRN (Reason: Anxiety) RF: 0 furosemide 40 MG tablet 80 mg PO BREAKFAST RF: 0 furosemide [Lasix] 40 MG tablet 40 mg PO DINNER RF: 0 dextroamphetamine-amphetamine [Adderall] 30 MG tablet 30 mg PO DAILY RF: 0 gabapentin 300 MG capsule 600 mg PO QHS RF: 0 cyclobenzaprine 5 MG tablet 5 mg PO BID PRN (Reason: Spasms) RF: 0 warfarin 5 MG tablet 12.5 mg PO DAILY RF: 0 ipratropium-albuterol 3 ML solution for nebulization 3 ml IH 4X/DAY RF: 0 budesonide 0.5 MG/2 ML suspension for nebulization 0.5 mg inhalation BID RF: 0 duloxetine 60 MG capsule,delayed release(DR/EC) 60 mg PO DAILY RF: 0 potassium chloride 20 mEq tablet,ER particles/crystals 20 meq PO BID RF: 0 azithromycin 500 mg tablet 500 mg PO DAILY 10 Days Qty: 9 RF: 0 Primary Care Provider: Carson Stephenson Referrals: Maximus Verduzco MD [NON-STAFF] - 1 Week Carson Stephenson MD [Primary Care Provider] - 1 Week Activity Restrictions/Additional Instructions: I believe your thumb pain and swelling is secondary to an early felon. No felon is a infection in the soft tissue space at the end of the finger. At this time I do not find evidence that it needs to be drained today. This may develop over the next several days. Please take antibiotics as prescribed. Follow-up with orthopedics. Disposition Disposition: Home, Self Care Discharge Date/Time: 03/12/21 22:23
[2021-03-12 22:21] VITALS: BP 115/69; PULSE 77; RESP 15; TEMP 36.8; O2SAT 98
== END 2021-03-12 22:23 | disposition home or self-care (01) ==
PROVIDERS: Emergency Provider Emergency Medicine; PCP Family Medicine
DX: L03.011 Cellulitis of right finger (principal); D68.59 Other primary thrombophilia; J44.9 Chronic obstructive pulmonary disease, unspecified; Z87.01 Personal history of pneumonia (recurrent); Z86.14 Personal history of Methicillin resistant Staphylococcus aureus infection; Z86.718 Personal history of other venous thrombosis and embolism; Z79.01 Long term (current) use of anticoagulants; Z79.899 Other long term (current) drug therapy; F17.210 Nicotine dependence, cigarettes, uncomplicated
CPT/HCPCS: 85610; 99283

== ENCOUNTER 2021-03-24 22:54 | Emergency (ER) | payer MEDICARE, SELFPAY ==
[2021-03-24 22:55] VITALS: BP 128/78; PULSE 91; RESP 16; TEMP 37.1; O2SAT 97; BMI 36.0
[2021-03-25 00:28] VITALS: BP 114/65; PULSE 92; RESP 18; O2SAT 94
--- NOTE | 2021-03-25 00:37 | RAD_ITS ---
INDICATION: sob, cough/hemoptysis EXAMINATION/TECHNIQUE: X-RAY - XR Chest 1 View COMPARISON: 02/28/2021 chest x-ray FINDINGS: Chronic asymmetric elevation right hemidiaphragm is again identified. Persistent patchy airspace opacities identified, also within the right hilar region, right upper lobe in the periphery of the left lower lobe. These findings have increased compared to the prior exam 02/28/2021. More specifically, left lateral lung opacity is new. No pneumothorax. No pleural effusion. Heart is normal size. Pulmonary vasculature is normal. Osseous structures notable for anchors right glenoid. Surgical clips seen in the left upper quadrant. RAD/Chest 1 View (Portable) IMPRESSION: Worsening airspace disease with new left lateral lung opacity. Electronically Signed: Jason Duncan DO at 2:00 EDT Tel , Service support ,
--- NOTE | 2021-03-25 00:37 | EKG12_ITS ---
Test Reason : SOB Blood Pressure : / mmHG Vent. Rate : 087 BPM Atrial Rate : 087 BPM P-R Int : 156 ms QRS Dur : 092 ms QT Int : 384 ms P-R-T Axes : 028 -04 026 degrees QTc Int : 462 ms Normal sinus rhythm Normal ECG Confirmed by VADIM CASTAÑEDA, ADRIAN ([id number]), editorial writer AMARILIS LOZANO ([id number]) on 03/28/2021 9:37:33 AM Referred By: BB Confirmed By:ADRIAN FIERRO MD
--- NOTE | 2021-03-25 00:38 | ED.VIS.DYS ---
HPI History of Present Illness Chief Complaint: Cough Narrative Narrative: Several days of increased dyspnea compared with normal, she has increased her oxygen from 2-3 L of home oxygen to 3.5 and is keeping above 90%. She was sick 3-4 weeks ago, she did improve after a steroid taper and antibiotics. She has had changes in sputum production, some black tarry sputum, some green, along with some blood. She is on warfarin because of protein C deficiency. She has some mild swelling in her legs that is no worse than usual. Same RSD pain as usual. Subjective fevers. States she had 1 Covid vaccination injection back in September, and she does not know what brand it was, she does know that she did not go back for a second injection, and she is unsure if she was supposed to or not. She denies exposure to recent Covid positive patient that she knows of. [facility] Medical History COPD (chronic obstructive pulmonary disease) DVT (deep venous thrombosis) MRSA (methicillin resistant Staphylococcus aureus) On home oxygen therapy Pneumonia Protein C deficiency RSD (reflex sympathetic dystrophy) Home Medications amitriptyline 200 mg PO QHS 04/26/14 [History Last Taken 09/13/20] gabapentin 300 mg PO TIDCM 04/26/14 [History Last Taken 09/13/20] clonazepam 0.5 mg PO 4X/DAY PRN 12/13/14 [History Last Taken 09/14/20] furosemide 80 mg PO BREAKFAST 02/04/16 [History Last Taken 09/13/20] furosemide [Lasix] 40 mg PO DINNER 06/12/17 [History Last Taken 09/13/20] dextroamphetamine-amphetamine [Adderall] 30 mg PO DAILY 08/09/17 [History Last Taken 09/12/20] cyclobenzaprine 5 mg PO BID PRN 12/15/19 [History Last Taken 09/13/20] gabapentin 600 mg PO QHS 12/15/19 [History Last Taken 09/13/20] budesonide 0.5 mg INHALATION BID 04/11/20 [History Last Taken 09/12/20] duloxetine 60 mg PO DAILY 04/11/20 [History Last Taken 09/13/20] ipratropium-albuterol 3 ml IH 4X/DAY 04/11/20 [History Last Taken 09/12/20] warfarin 12.5 mg PO DAILY 04/11/20 [History Last Taken 09/12/20] potassium chloride 20 meq PO BID 02/23/21 [History Last Taken Unknown] doxycycline hyclate 100 mg PO BID #20 cap 03/25/21 [Rx Last Taken Unknown] prednisone 40 mg PO DAILY 5 Days #10 tablet 03/25/21 [Rx Last Taken Unknown] Allergy/AdvReac Type Severity Reaction Status Date / Time celecoxib Allergy Swelling Verified 03/24/21 22:55 of arms/legs naproxen Allergy Swelling Verified 03/24/21 22:55 arms/legs Penicillins Allergy Hives/facial Verified 03/24/21 22:55 swelling pregabalin Allergy Swelling Verified 03/24/21 22:55 arms/swelling sertraline Allergy Swelling Verified 03/24/21 22:55 Surgical History History of appendectomy History of cholecystectomy Social History Smoking Status: Current every day smoker tobacco type: cigarettes ROS ROS ED Constitutional Constitutional ED: Reports body ache(s), chills, fever(s), malaise and subjective Eyes Eyes: Denies change in vision or diplopia ENT ENT ED: Denies rhinorrhea or sore throat Cardiovascular Cardiovascular: Reports orthopnea, pedal edema and other Details: Mild chest wall discomfort with coughing only ; Denies chest pain or palpitations Respiratory/Chest Respiratory/Chest: Reports as per HPI, cough, dyspnea, dyspnea on exertion, hemoptysis and orthopnea Gastrointestinal Gastrointestinal: Denies abdominal pain, diarrhea, nausea or vomiting Genitourinary Genitourinary ED: Denies dysuria or hematuria Musculoskeletal Musculoskeletal: Reports extremity pain; Denies back pain or neck pain Integumentary Denies abscess or rash Neurologic Neurologic: Denies headache(s), paresthesias or weakness Psychiatric Psychiatric: Denies anxiety or suicidal thoughts EXAM Physical Exam Const Vital Signs: 03/24/21 22:55 03/25/21 00:27 03/25/21 00:28 Temperature 98.7 F Temperature Source Temporal Pulse Rate 91 92 Respiratory Rate 16 18 Respiratory Effort Short of Breath Respiratory Depth Normal Respiratory Pattern Normal Blood Pressure 128/78 H 114/65 Blood Pressure Mean 94 81 Pulse Ox 97 94 Oxygen Delivery Method Room Air Nasal Cannula Oxygen Flow Rate (L/min) 3 03/25/21 01:00 03/25/21 01:06 03/25/21 02:17 Temperature 98.7 F Temperature Source Temporal Pulse Rate 88 76 85 Respiratory Rate 18 17 16 Respiratory Effort Respiratory Depth Respiratory Pattern Normal Blood Pressure 111/56 L 120/77 Blood Pressure Mean 74 91 Pulse Ox 91 92 93 Oxygen Delivery Method Nasal Cannula Nasal Cannula Room Air Oxygen Flow Rate (L/min) 3 3 Positive well nourished and well developed General Appearance ED: well developed and NAD HEENT Reports moist mucous membranes normocephalic and atraumatic Eyes PERRL and EOMs intact bilaterally Neck full ROM and supple Resp normal respiratory effort and normal air movement Resp Narrative: Conversive in full sentences Auscultation: rales bilateral base and wheezes expiratory wheezes and lower bilaterally Cardio regular rate, regular rhythm and no murmurs GI non-tender and non-distended Auscultation: normoactive bowel sounds Palpation: soft Back/Spine no CVA tenderness General Back: other FROM Extremity normal to inspection and no calf tenderness General Extremety ED: Yes edema; Negative for pulses abnormal or tenderness General Extremity: edema bilateral lower extremity Details: trace; Negative for pulses abnormal Neuro oriented x3, CN's II-XII intact bilaterally and no sensory deficits noted Sensorium / Orientation: awake and alert Motor Exam: strength 5/5 throughout Skin no rashes or lesions noted and no wounds MDM MDM MDM Narrative Medical decision making narrative: Covid is negative, blood work shows absence of leukocytosis, and normal BNP and troponin. Her INR is 2.4, therapeutic on warfarin. With her chest x-ray showing worsening airspace disease and a left lateral lung opacity, without leukocytosis, and since she has a history of esophageal cancer, I recommend performing a CT for further evaluation which the patient was amenable to. It showed no mass, rather multifocal infiltrates. Patient was placed on a course of a azithromycin that was actually given to her for 10 days I believe, she finished that somewhere around the first of the month which was about 2 weeks ago. Patient wanted to stay in the hospital initially, I discussed with hospitalist, and as we reviewed the chart, I agree that the majority of this does appear to be patchy subsegmental atelectasis and she has a low white blood count with no leftward shift, normal vital signs, she is breathing comfortably, and likely does not need to stay for IV antibiotics. It is reasonable to place her on doxycycline after the dose of Rocephin that she received here, and after discussing with the patient, we agreed to just do a 5-day course of prednisone and see how that goes along with an incentive spirometer that she was given with instructions for use. She is comfortable with this plan. Lab Data Attestation: I reviewed the patient's lab results. Labs: Laboratory Results - last 24 hr 03/25/21 03/25/21 03/25/21 00:55 00:55 00:55 WBC 5.2 RBC 4.02 L Hgb 11.4 L Hct 38.7 MCV 96.3 MCH 28.4 MCHC 29.5 L RDW Std Deviation 58.6 H RDW Coeff of Sean 16.4 H Plt Count 210 MPV 10.6 Immature Gran % (Auto) 0.400 Neut % (Auto) 67.8 Lymph % (Auto) 19.9 [place] % (Auto) 9.6 Eos % (Auto) 1.9 Baso % (Auto) 0.4 Absolute Neuts (auto) 3.6 Absolute Lymphs (auto) 1.04 Nucleated RBC % 0 PT 25.2 H INR 2.4 Sodium 138 Potassium 3.7 Chloride 97 L Carbon Dioxide 40.0 H Anion Gap 1 L BUN 12 Creatinine 0.41 L Estim Creat Clear Calc 126.00 Est GFR (MDRD) Af Amer 203 Est GFR (MDRD) Non-Af 168 BUN/Creatinine Ratio 29.2 H Glucose 84 Calcium 8.6 Troponin I High Sens 4.5 B-Natriuretic Peptide 03/25/21 00:55 WBC RBC Hgb Hct MCV MCH MCHC RDW Std Deviation RDW Coeff of Sean Plt Count MPV Immature Gran % (Auto) Neut % (Auto) Lymph % (Auto) [place] % (Auto) Eos % (Auto) Baso % (Auto) Absolute Neuts (auto) Absolute Lymphs (auto) Nucleated RBC % PT INR Sodium Potassium Chloride Carbon Dioxide Anion Gap BUN Creatinine Estim Creat Clear Calc Est GFR (MDRD) Af Amer Est GFR (MDRD) Non-Af BUN/Creatinine Ratio Glucose Calcium Troponin I High Sens B-Natriuretic Peptide 59.8 Radiography Diagnostic Testing: Radiology Impression Chest X-Ray 03/25/21 00:37 IMPRESSION: Worsening airspace disease with new left lateral lung opacity. Electronically Signed: Jason Duncan DO at 2:00 EDT Tel , Service support , Chest CT 03/25/21 02:08 IMPRESSION: Multifocal bilateral atelectasis, more severe involving the right upper lobe and right lower lobe, progressed in the interval. Foci of groundglass densities bilaterally raising the concern of multifocal pneumonitis, new or progressed in the interval. Electronically Signed: Jenna Nguyen MD at 3:11 EDT , Service support , EKG Initial EKG: Attestation: I personally reviewed and interpreted this EKG as follows: Interpretation: Sinus Rhythm and No Acute Injury Pattern Prior EKG tracings: available for review Prior: Unchanged Discharge Plan Triage Chief Complaint: Cough ED Provider: Maximus Flowers Dx/Rx/DC Orders Clinical Impression: COPD with exacerbation, Chronic respiratory failure with hypoxia, Atelectasis of both lungs Instructions: ED Atelectasis, ED COPD Flare Prescriptions: New doxycycline hyclate 100 mg capsule 100 mg PO BID Qty: 20 RF: 0 prednisone 20 mg tablet 40 mg PO DAILY 5 Days Qty: 10 RF: 0 No Action gabapentin 300 MG capsule 300 mg PO TIDCM RF: 0 amitriptyline 100 MG tablet 200 mg PO QHS RF: 0 clonazepam 0.5 MG tablet 0.5 mg PO 4X/DAY PRN (Reason: Anxiety) RF: 0 furosemide 40 MG tablet 80 mg PO BREAKFAST RF: 0 furosemide [Lasix] 40 MG tablet 40 mg PO DINNER RF: 0 dextroamphetamine-amphetamine [Adderall] 30 MG tablet 30 mg PO DAILY RF: 0 gabapentin 300 MG capsule 600 mg PO QHS RF: 0 cyclobenzaprine 5 MG tablet 5 mg PO BID PRN (Reason: Spasms) RF: 0 warfarin 5 MG tablet 12.5 mg PO DAILY RF: 0 ipratropium-albuterol 3 ML solution for nebulization 3 ml IH 4X/DAY RF: 0 budesonide 0.5 MG/2 ML suspension for nebulization 0.5 mg inhalation BID RF: 0 duloxetine 60 MG capsule,delayed release(DR/EC) 60 mg PO DAILY RF: 0 potassium chloride 20 mEq tablet,ER particles/crystals 20 meq PO BID RF: 0 Primary Care Provider: Carson Stephenson Referrals: Carson Stephenson MD [Primary Care Provider] - 3-5 Days Disposition Disposition: Home, Self Care
[2021-03-25 01:00] VITALS: BP 111/56; PULSE 88; RESP 18; TEMP 37.1; O2SAT 91
[2021-03-25 01:06] VITALS: PULSE 76; RESP 17; O2SAT 92
[2021-03-25] MEDS: Ipratropium/Albuterol Sulfate 3 ML AMPUL.NEB INHALATION (01:08)
[2021-03-25 01:10] LABS: Absolute Lymphocyte Count 1.04 X10^3/uL (0.83-4.51); Absolute Neutrophil Count 3.6 X10^3/uL (2.0-7.7); Basophil# 0.02 X10^3/uL; Basophil% 0.4 % (0-1); Eosinophils% 1.9 % (0-5); Hematocrit 38.7 % (37-47); Hemoglobin 11.4 g/dL (12.0-15.0); Lymphocyte # 1.04 X10^3/ul (0.83-4.51); Lymphocyte % 19.9 % (19-41); Mean Corp Hgb Conc 29.5 g/dL (32-36); Mean Corpuscular Hgb 28.4 pg (27.0-32.0); Mean Corpuscular Volume 96.3 fL (81-99); Mean Platelet Vol. 10.6 fl (6.2-12.0); Monocyte% 9.6 % (0-10); NRBC Flagged by Analyzer 0 % (0-5); Neutrophil # 3.55 X10^3/uL (2.7-7.7); Neutrophil % 67.8 % (47-70); Platelet Count 210 K/mm3 (150-450); RBC Distribution Width CV 16.4 % (11.6-14.6); RBC Distribution Width SD 58.6 fl (35.1-43.9); Red Blood Count 4.02 M/mm3 (4.2-5.4); White Blood Count 5.2 K/mm3 (4.4-11.0)
[2021-03-25 01:35] LABS: Anion Gap 1 (5-15); BUN 12 mg/dL (7-18); BUN/Creat Ratio 29.2 RATIO (10-20); Calcium,Total 8.6 mg/dL (8.5-10.1); Chloride 97 mmol/L (98-107); Creatinine, Serum 0.41 mg/dL (0.55-1.02); EST Glomerular Filtration Rate 168 mL/min (>60); Est Glom Filt Rate - Afr Amer 203 mL/min (>60); Glucose 84 mg/dL (74-106); Potassium 3.7 mmol/L (3.5-5.1); Sodium Level 138 mmol/L (136-145); Troponin-I HS 4.5 pg/mL (3.0-53.7)
[2021-03-25 01:38] LABS: BNP,B-Type NATRIURETIC PEPTIDE 59.8 pg/mL (0-100)
[2021-03-25 01:49] LABS: International Normalized Ratio 2.4; Prothrombin Time (Protime)PT. 25.2 SECONDS (11.7-14.9)
--- NOTE | 2021-03-25 02:08 | CT_ITS ---
STUDY: CT CHEST WITHOUT CONTRAST REASON FOR EXAM: Female, 61 years old. left lung opacity, dyspnea RADIATION DOSAGE (If Supplied By Facility): CTDIvol = ( 17.90 ) mGy, DLP = ( 568.02 ) mGycm TECHNIQUE: Transaxial imaging was performed without the administration of intravenous contrast material. Multiplanar coronal and sagittal images were reformatted. Individualized dose optimization techniques were used for this CT. COMPARISON: 03/26/2020. FINDINGS: There is elevation of the right hemidiaphragm. Extensive multilevel right upper lobe and right lower lobe atelectasis demonstrated multifocal multiple areas of groundglass opacities concerning for multifocal pneumonitis. There are small scattered nodules throughout the bilateral lung bhatti with largest nodule seen along the left posterior subpleural region measuring approximately 6 mm. There are multiple calcified granulomas within the lung bhatti largest measuring 5 mm and likely sequela of previous granulomatous infection. There is lingular atelectasis. Scattered areas of left lower lobe atelectasis is seen with mild groundglass opacities within the left lower lobe noted. There is no demonstrated pleural abnormality. Normal cardiac size with coronary artery calcifications. Calcifications within the mediastinum, likely calcified lymph nodes from previous granulomatous infection. Otherwise unremarkable hilar regions. Normal unenhanced pulmonary arteries. There is atherosclerotic calcification of the aortic arch with tortuosity and elongation of the aortic arch and descending thoracic aorta. There are multi-level degenerative changes of the thoracic spine. Upper abdomen reveals postoperative changes at the GE junction with minimal hiatal hernia. Splenic granulomata are noted. Status post cholecystectomy. CT/Chest without Contrast IMPRESSION: Multifocal bilateral atelectasis, more severe involving the right upper lobe and right lower lobe, progressed in the interval. Foci of groundglass densities bilaterally raising the concern of multifocal pneumonitis, new or progressed in the interval. Electronically Signed: Jenna Nguyen MD at 3:11 EDT , Service support ,
[2021-03-25 02:17] VITALS: BP 120/77; PULSE 85; RESP 16; O2SAT 93
[2021-03-25] MEDS: Ceftriaxone 1 GM/50 ML BAG IV (04:14)
[2021-03-25 04:23] VITALS: BP 107/60; PULSE 88; RESP 16; O2SAT 95
[2021-03-25 04:43] VITALS: BP 112/61; PULSE 79; RESP 17; O2SAT 96
== END 2021-03-25 05:19 | disposition home or self-care (01) ==
PROVIDERS: Emergency Provider Emergency Medicine; PCP Family Medicine
DX: J44.1 Chronic obstructive pulmonary disease with (acute) exacerbation (principal); J96.11 Chronic respiratory failure with hypoxia; J98.11 Atelectasis; D68.59 Other primary thrombophilia; G90.50 Complex regional pain syndrome I, unspecified; Z86.14 Personal history of Methicillin resistant Staphylococcus aureus infection; Z87.01 Personal history of pneumonia (recurrent); Z86.718 Personal history of other venous thrombosis and embolism; Z99.81 Dependence on supplemental oxygen; Z79.01 Long term (current) use of anticoagulants; Z79.899 Other long term (current) drug therapy; F17.210 Nicotine dependence, cigarettes, uncomplicated
CPT/HCPCS: 71045; 71250; 80048; 83880; 84484; 85025; 85610; 87426; 93005; 94640; 96365; 99251; 99285; J7050; A4216; G0463

== ENCOUNTER 2021-05-05 21:25 | Emergency (ER) | payer MEDICARE, SELFPAY ==
[2021-05-05 21:26] VITALS: BP 97/51; PULSE 103; RESP 18; TEMP 36.6; O2SAT 92; BMI 36.0
--- NOTE | 2021-05-05 22:17 | RAD_ITS ---
INDICATION: dyspnea EXAMINATION/TECHNIQUE: X-RAY - XR Chest 1 View COMPARISON: 03/25/2021. FINDINGS: Scattered airspace opacities. Tortuous and calcified thoracic aorta. The heart is not enlarged. Elevation of the right hemidiaphragm. No pleural effusion or pneumothorax. No acute osseous abnormalities. RAD/Chest 1 View (Portable) IMPRESSION: Slight worsening of bilateral airspace opacities concerning for infection. Electronically Signed: Oumar Fraser MD at 23:15 EDT Tel , Service support ,
--- NOTE | 2021-05-05 22:18 | EKG12_ITS ---
Test Reason : DYSRHYTHMIA Blood Pressure : / mmHG Vent. Rate : 085 BPM Atrial Rate : 085 BPM P-R Int : 154 ms QRS Dur : 094 ms QT Int : 376 ms P-R-T Axes : 032 002 026 degrees QTc Int : 447 ms Normal sinus rhythm Normal ECG Confirmed by FAB CASTAÑEDA, ALE ([id number]), newspaper or periodical editor AMARILIS LOZANO ([id number]) on 05/08/2021 11:38:39 AM Referred By: LEONCIO Confirmed By:ALE SANON MD
[2021-05-05 22:39] VITALS: PULSE 92; RESP 20
[2021-05-05] MEDS: Ipratropium/Albuterol Sulfate 3 ML AMPUL.NEB INHALATION (22:39)
[2021-05-05 22:43] LABS: Absolute Lymphocyte Count 0.89 X10^3/uL (0.83-4.51); Absolute Neutrophil Count 5.4 X10^3/uL (2.0-7.7); Basophil# 0.02 X10^3/uL; Basophil% 0.3 % (0-1); Eosinophil# 0.05 X10^3/uL; Eosinophils% 0.7 % (0-5); Hematocrit 42.1 % (37-47); Hemoglobin 12.7 g/dL (12.0-15.0); Lymphocyte # 0.89 X10^3/ul (0.83-4.51); Lymphocyte % 12.4 % (19-41); Mean Corp Hgb Conc 30.2 g/dL (32-36); Mean Corpuscular Hgb 29.4 pg (27.0-32.0); Mean Corpuscular Volume 97.5 fL (81-99); Mean Platelet Vol. 10.5 fl (6.2-12.0); Monocyte# 0.77 X10^3/uL; Monocyte% 10.7 % (0-10); NRBC Flagged by Analyzer 0 % (0-5); Neutrophil # 5.44 X10^3/uL (2.7-7.7); Neutrophil % 75.8 % (47-70); Platelet Count 192 K/mm3 (150-450); RBC Distribution Width CV 15.9 % (11.6-14.6); RBC Distribution Width SD 57.7 fl (35.1-43.9); Red Blood Count 4.32 M/mm3 (4.2-5.4); White Blood Count 7.2 K/mm3 (4.4-11.0)
[2021-05-05 22:55] LABS: Anion Gap 1 (5-15); BUN 10 mg/dL (7-18); Calcium,Total 8.3 mg/dL (8.5-10.1); Chloride 102 mmol/L (98-107); Creatinine, Serum 0.59 mg/dL (0.55-1.02); EST Glomerular Filtration Rate 111 mL/min (>60); Est Glom Filt Rate - Afr Amer 134 mL/min (>60); Estimated Creatinine Clearance 87.56 ml/min; Glucose 95 mg/dL (74-106); Potassium 3.6 mmol/L (3.5-5.1); Sodium Level 139 mmol/L (136-145)
[2021-05-05 22:59] LABS: International Normalized Ratio 4.8
--- NOTE | 2021-05-05 23:24 | ED.VIS.DYS ---
HPI History of Present Illness Chief Complaint: Cough Detail of Chief Complaint: Cough and shortness of breath Informant: patient Narrative Narrative: Patient presents to the emergency department with shortness of breath and cough that mostly started today. Patient states that she slept from last evening till about 4 PM this afternoon which is unusual. Patient states that she has had history of pneumonia and feels like she may have pneumonia again. Cough is productive of some green sputum at times blood-tinged. Patient was last on antibiotics in March. Patient has history of COPD and is normally on anywhere from 2 to 4 L of O2. Patient has had 1 dose of her Covid vaccine. She denies any Covid exposures. She had fever at home up to 102. Patient currently on Coumadin for history of protein C deficiency and history of DVT and PEs. [facility] Medical History COPD (chronic obstructive pulmonary disease) DVT (deep venous thrombosis) MRSA (methicillin resistant Staphylococcus aureus) On home oxygen therapy Pneumonia Protein C deficiency RSD (reflex sympathetic dystrophy) Home Medications amitriptyline 200 mg PO QHS 04/26/14 [History Last Taken 09/13/20] gabapentin 300 mg PO TIDCM 04/26/14 [History Last Taken 09/13/20] clonazepam 0.5 mg PO 4X/DAY PRN 12/13/14 [History Last Taken 09/14/20] furosemide 80 mg PO BREAKFAST 02/04/16 [History Last Taken 09/13/20] furosemide [Lasix] 40 mg PO DINNER 06/12/17 [History Last Taken 09/13/20] dextroamphetamine-amphetamine [Adderall] 30 mg PO DAILY 08/09/17 [History Last Taken 09/12/20] cyclobenzaprine 5 mg PO BID PRN 12/15/19 [History Last Taken 09/13/20] gabapentin 600 mg PO QHS 12/15/19 [History Last Taken 09/13/20] budesonide 0.5 mg INHALATION BID 04/11/20 [History Last Taken 09/12/20] duloxetine 60 mg PO DAILY 04/11/20 [History Last Taken 09/13/20] ipratropium-albuterol 3 ml IH 4X/DAY 04/11/20 [History Last Taken 09/12/20] warfarin 12.5 mg PO DAILY 04/11/20 [History Last Taken 09/12/20] potassium chloride 20 meq PO BID 02/23/21 [History Last Taken Unknown] doxycycline hyclate 100 mg PO BID #20 cap 03/25/21 [Rx Last Taken Unknown] prednisone 40 mg PO DAILY 5 Days #10 tablet 03/25/21 [Rx Last Taken Unknown] levofloxacin 750 mg PO Q24H #10 tab 05/05/21 [Rx Last Taken Unknown] prednisone 20 mg PO BID 3 Days #6 tab 05/05/21 [Rx Last Taken Unknown] Allergy/AdvReac Type Severity Reaction Status Date / Time celecoxib Allergy Swelling Verified 03/24/21 22:55 of arms/legs naproxen Allergy Swelling Verified 03/24/21 22:55 arms/legs Penicillins Allergy Hives/facial Verified 03/24/21 22:55 swelling pregabalin Allergy Swelling Verified 03/24/21 22:55 arms/swelling sertraline Allergy Swelling Verified 03/24/21 22:55 Surgical History History of appendectomy History of cholecystectomy Social History Smoking Status: Current every day smoker tobacco type: cigarettes ROS ROS ED Constitutional Constitutional ED: Reports systems reviewed and no addt'l complaints, except as documented; Denies body ache(s), change in weight or chills Eyes Eyes: Denies acute decrease in peripheral vision, change in vision, double vision or loss of vision ENT ENT ED: Reports none; Denies ear pain, lip swelling, loss taste/smell, neck pain, otalgia or sore throat Cardiovascular Cardiovascular: Reports none; Denies abdominal pain, chest pain with activity, leg edema, lightheadedness, palpitations, rapid heart rate or syncope Respiratory/Chest Respiratory/Chest: Reports none, cough, dyspnea and sputum; Denies change in mental status, dry cough, hemoptysis, shortness of breath at rest or shortness of breath with exertion Gastrointestinal Gastrointestinal: Reports none; Denies abdominal pain, change in stool character, diarrhea, hematemesis, hematochezia, melena, rectal bleeding or vomiting Genitourinary Genitourinary ED: Reports none; Denies abdominal discomfort, anuria, dysuria, genital pain or polyuria Musculoskeletal Musculoskeletal: Reports none; Denies arthralgias, back pain, difficulty walking, extremity pain, muscle weakness or myalgias Integumentary Reports none; Denies abscess or rash Neurologic Neurologic: Reports none; Denies abnormal gait, confusion, focal weakness, frequent falls, headache(s), loss of vision, numbness, paresthesias, radicular pain, vertigo or weakness Psychiatric Psychiatric: Reports systems reviewed and no addt'l complaints, except as documented and none; Denies behavioral changes, confusion, difficulty concentrating, hallucinations, suicidal ideation, tactile hallucinations or visual hallucinations Endocrine Endocrinology: Denies none, cold intolerance, excessive sweating, fatigue or heat intolerance Hematologic/Lymphatic Hematologic/Lymphatic: Reports none; Denies anemia, easy bleeding or easy bruising Allergic/Immunologic Allergic/Immunologic ED: Denies as per HPI, none, lip swelling, mouth swelling, throat swelling, tongue swelling or hives EXAM Physical Exam Const Vital Signs: 05/05/21 21:26 05/05/21 22:39 Temperature 98 F Temperature Source Temporal Pulse Rate 103 H 92 Respiratory Rate 18 20 H Respiratory Pattern Tachypnea Blood Pressure 97/51 L Blood Pressure Mean 66 Pulse Ox 92 Oxygen Delivery Method Nasal Cannula Oxygen Flow Rate (L/min) 2 Positive well nourished and well developed General Appearance ED: well developed and NAD HEENT Reports TM's clear and moist mucous membranes normocephalic and atraumatic; Negative for trauma or tenderness Tympanic Membrane ED: Yes TM's clear Eyes PERRL and EOMs intact bilaterally General Eye ED: Negative for pale conjunctiva or scleral icterus Neck no lymphadenopathy, supple and no JVD General: Negative for tenderness Chest Wall inspection of chest normal and palpation of chest normal Chest: Negative for tenderness Resp normal respiratory effort and clear to auscultation bilaterally Resp Narrative: Diminished breath sounds in the right lower lobe Effort and Inspection: Negative for respiratory distress or pain with movement Auscultation: rhonchi, wheezes and diminished lung sounds Cardio regular rate, regular rhythm, S1 normal heart sound, S2 normal heart sound and no murmurs Peripheral Pulses: pulses 2+ throughout GI normal to inspection, nondistended, normoactive bowel sounds, soft to palpation, non-tender, non-distended and no masses Back/Spine no CVA tenderness and no thoracic nor lumbar tenderness Extremity normal to inspection General Extremety ED: Negative for edema General Extremity: Negative for edema Neuro oriented x3, CN's II-XII intact bilaterally, no sensory deficits noted and gait normal Sensorium / Orientation: awake, alert, oriented to person, oriented to place and oriented to time Motor Exam: strength 5/5 throughout and strength abnormal Psych mental status grossly normal Skin no rashes or lesions noted and no wounds MDM MDM MDM Narrative Medical decision making narrative: IV line established on arrival. Patient was given DuoNeb aerosol as well as Solu-Medrol 125 mg IV. Patient given Levaquin 750 mg IV. Patient noted to have increased markings in both lungs suspicious for infectious process. Patient does not want to be admitted and feels well. She would like to try to go home with antibiotics and she has oxygen at home. We will also start patient on prednisone. Patient's INR was supratherapeutic and she was advised to discontinue her Coumadin for 2 days and have a repeat INR. Patient advised to return if increasing shortness of breath or condition should worsen anyway. Lab Data Attestation: I reviewed the patient's lab results. Labs: Laboratory Results - last 24 hr 05/05/21 05/05/21 05/05/21 22:33 22:33 22:33 WBC 7.2 RBC 4.32 Hgb 12.7 Hct 42.1 MCV 97.5 MCH 29.4 MCHC 30.2 L RDW Std Deviation 57.7 H RDW Coeff of Sean 15.9 H Plt Count 192 MPV 10.5 Immature Gran % (Auto) 0.100 Neut % (Auto) 75.8 H Lymph % (Auto) 12.4 L [place] % (Auto) 10.7 H Eos % (Auto) 0.7 Baso % (Auto) 0.3 Absolute Neuts (auto) 5.4 Absolute Lymphs (auto) 0.89 Nucleated RBC % 0 PT 44.0 H INR 4.8 H* Sodium 139 Potassium 3.6 Chloride 102 Carbon Dioxide 36.0 H Anion Gap 1 L BUN 10 Creatinine 0.59 Estim Creat Clear Calc 87.56 Est GFR (MDRD) Af Amer 134 Est GFR (MDRD) Non-Af 111 BUN/Creatinine Ratio 17.0 Glucose 95 Calcium 8.3 L Radiography Chest X-Ray - ED: 1 View Diagnostic Testing: Radiology Impression Chest X-Ray 05/05/21 22:17 IMPRESSION: Slight worsening of bilateral airspace opacities concerning for infection. Electronically Signed: Oumar Fraser MD at 23:15 EDT Tel , Service support , 1 view chest x-ray obtained interpreted by myself as increased markings in right upper lobe and left lower lobe. Radiology in agreement and had concerned about possible infectious process. Discharge Plan Triage Chief Complaint: Cough ED Provider: Larry Weathers Dx/Rx/DC Orders Clinical Impression: Acute exacerbation of chronic obstructive pulmonary disease, Pneumonia Instructions: ED COPD Flare, ED Pneumonia (Adult) Prescriptions: New levofloxacin 750 mg tablet 750 mg PO Q24H Qty: 10 RF: 0 prednisone 20 mg tablet 20 mg PO BID 3 Days Qty: 6 RF: 0 No Action gabapentin 300 MG capsule 300 mg PO TIDCM RF: 0 amitriptyline 100 MG tablet 200 mg PO QHS RF: 0 clonazepam 0.5 MG tablet 0.5 mg PO 4X/DAY PRN (Reason: Anxiety) RF: 0 furosemide 40 MG tablet 80 mg PO BREAKFAST RF: 0 furosemide [Lasix] 40 MG tablet 40 mg PO DINNER RF: 0 dextroamphetamine-amphetamine [Adderall] 30 MG tablet 30 mg PO DAILY RF: 0 gabapentin 300 MG capsule 600 mg PO QHS RF: 0 cyclobenzaprine 5 MG tablet 5 mg PO BID PRN (Reason: Spasms) RF: 0 warfarin 5 MG tablet 12.5 mg PO DAILY RF: 0 ipratropium-albuterol 3 ML solution for nebulization 3 ml IH 4X/DAY RF: 0 budesonide 0.5 MG/2 ML suspension for nebulization 0.5 mg inhalation BID RF: 0 duloxetine 60 MG capsule,delayed release(DR/EC) 60 mg PO DAILY RF: 0 potassium chloride 20 mEq tablet,ER particles/crystals 20 meq PO BID RF: 0 doxycycline hyclate 100 mg capsule 100 mg PO BID Qty: 20 RF: 0 prednisone 20 mg tablet 40 mg PO DAILY 5 Days Qty: 10 RF: 0 Primary Care Provider: Carson Stephenson Referrals: Carson Stephenson MD [Primary Care Provider] - 3-5 Days Disposition Disposition: Home, Self Care
[2021-05-05] MEDS: MethylPREDNISolone 125 MG/2 ML Vial IV (23:51)
[2021-05-05] MEDS: levoFLOXacin IV 750 MG/150 ML BAG 100 MG IV (23:51)
[2021-05-05 23:54] VITALS: O2SAT 93
[2021-05-05 23:59] VITALS: BP 92/66; PULSE 82; RESP 16; O2SAT 93
[2021-05-06 01:31] VITALS: BP 105/66; PULSE 86; PULSE 88; RESP 16; O2SAT 95
== END 2021-05-06 01:33 | disposition home or self-care (01) ==
PROVIDERS: Emergency Provider Emergency Medicine; PCP Family Medicine
DX: J44.0 Chronic obstructive pulmonary disease with (acute) lower respiratory infection (principal); J18.9 Pneumonia, unspecified organism; J44.1 Chronic obstructive pulmonary disease with (acute) exacerbation; D68.59 Other primary thrombophilia; Z86.14 Personal history of Methicillin resistant Staphylococcus aureus infection; Z87.01 Personal history of pneumonia (recurrent); Z86.718 Personal history of other venous thrombosis and embolism; Z86.711 Personal history of pulmonary embolism; Z79.01 Long term (current) use of anticoagulants; Z79.899 Other long term (current) drug therapy; F17.210 Nicotine dependence, cigarettes, uncomplicated
CPT/HCPCS: 71045; 80048; 85025; 85610; 87040; 87426; 93005; 94640; 96365; 96366; 96375; 99285; J7050

== ENCOUNTER 2021-06-06 06:56 | Emergency (ER) | payer MEDICARE, SELFPAY ==
[2021-06-06 06:58] VITALS: BP 121/68; PULSE 84; RESP 20; TEMP 36.7; O2SAT 92; BMI 34.7
--- NOTE | 2021-06-06 07:07 | ED.RN ---
PT C/O BUGS COMING OUT OF HER EYES. THIS NURSE UNABLE TO SEE ANYTHING
--- NOTE | 2021-06-06 07:21 | EX.ED.DYSGE1 ---
HPI History of Present Illness Chief Complaint: Itching Detail of Chief Complaint: Concern for bugs and worms crawling on her skin Informant: patient Narrative Narrative: Patient presents to the emergency department via EMS from [facility]. Patient states that her was seen last evening in the emergency department for concern about excoriations on his skin and possible bug infestation. He then told her that she had bugs crawling out of her eyes and on her skin which she could not see. Patient then started to have sensations of itching to her eyes but she was not sure if that was just from the suggestion there might be something there or eye twitching. Patient states that she became concerned and comes in for evaluation. Patient denies any other complaints. Patient denies any new medications. Denies significant recent illness she thinks she may have had a fever yesterday up to 101 but none since. She has had minimal cough. Prior similar symptoms: No PFSH PFS Medical History COPD (chronic obstructive pulmonary disease) DVT (deep venous thrombosis) MRSA (methicillin resistant Staphylococcus aureus) On home oxygen therapy Pneumonia Protein C deficiency RSD (reflex sympathetic dystrophy) Home Medications amitriptyline 200 mg PO QHS 04/26/14 [History Last Taken 09/13/20] gabapentin 300 mg PO TIDCM 04/26/14 [History Last Taken 09/13/20] clonazepam 0.5 mg PO 4X/DAY PRN 12/13/14 [History Last Taken 09/14/20] furosemide 80 mg PO BREAKFAST 02/04/16 [History Last Taken 09/13/20] furosemide [Lasix] 40 mg PO DINNER 06/12/17 [History Last Taken 09/13/20] dextroamphetamine-amphetamine [Adderall] 30 mg PO DAILY 08/09/17 [History Last Taken 09/12/20] cyclobenzaprine 5 mg PO BID PRN 12/15/19 [History Last Taken 09/13/20] gabapentin 600 mg PO QHS 12/15/19 [History Last Taken 09/13/20] budesonide 0.5 mg INHALATION BID 04/11/20 [History Last Taken 09/12/20] duloxetine 60 mg PO DAILY 04/11/20 [History Last Taken 09/13/20] ipratropium-albuterol 3 ml IH 4X/DAY 04/11/20 [History Last Taken 09/12/20] warfarin 12.5 mg PO DAILY 04/11/20 [History Last Taken 09/12/20] potassium chloride 20 meq PO BID 02/23/21 [History Last Taken Unknown] doxycycline hyclate 100 mg PO BID #20 cap 03/25/21 [Rx Last Taken Unknown] prednisone 40 mg PO DAILY 5 Days #10 tablet 03/25/21 [Rx Last Taken Unknown] levofloxacin 750 mg PO Q24H #10 tab 05/05/21 [Rx Last Taken Unknown] prednisone 20 mg PO BID 3 Days #6 tab 05/05/21 [Rx Last Taken Unknown] Allergy/AdvReac Type Severity Reaction Status Date / Time celecoxib Allergy Swelling Verified 06/06/21 07:03 of arms/legs naproxen Allergy Swelling Verified 06/06/21 07:03 arms/legs Penicillins Allergy Hives/facial Verified 06/06/21 07:03 swelling pregabalin Allergy Swelling Verified 06/06/21 07:03 arms/swelling sertraline Allergy Swelling Verified 06/06/21 07:03 Surgical History History of appendectomy History of cholecystectomy Social History Smoking Status: Current every day smoker tobacco type: cigarettes ROS ROS ED Constitutional Constitutional ED: Reports systems reviewed and no addt'l complaints, except as documented; Denies body ache(s), change in weight or chills Eyes Eyes: Denies acute decrease in peripheral vision, change in vision, double vision or loss of vision ENT ENT ED: Reports none; Denies ear pain, lip swelling, loss taste/smell, neck pain, otalgia or sore throat Cardiovascular Cardiovascular: Reports none; Denies abdominal pain, chest pain with activity, leg edema, lightheadedness, palpitations, rapid heart rate or syncope Respiratory/Chest Respiratory/Chest: Reports none; Denies change in mental status, dry cough, dyspnea, hemoptysis, shortness of breath at rest or shortness of breath with exertion Gastrointestinal Gastrointestinal: Reports none; Denies abdominal pain, change in stool character, diarrhea, hematemesis, hematochezia, melena, rectal bleeding or vomiting Genitourinary Genitourinary ED: Reports none; Denies abdominal discomfort, anuria, dysuria, genital pain or polyuria Musculoskeletal Musculoskeletal: Reports none; Denies arthralgias, back pain, difficulty walking, extremity pain, muscle weakness or myalgias Integumentary Reports none; Denies abscess or rash Neurologic Neurologic: Reports none; Denies abnormal gait, confusion, focal weakness, frequent falls, headache(s), loss of vision, numbness, paresthesias, radicular pain, vertigo or weakness Psychiatric Psychiatric: Reports systems reviewed and no addt'l complaints, except as documented and none; Denies behavioral changes, confusion, difficulty concentrating, hallucinations, suicidal ideation, tactile hallucinations or visual hallucinations Endocrine Endocrinology: Denies none, cold intolerance, excessive sweating, fatigue or heat intolerance Hematologic/Lymphatic Hematologic/Lymphatic: Reports none; Denies anemia, easy bleeding or easy bruising Allergic/Immunologic Allergic/Immunologic ED: Denies as per HPI, none, lip swelling, mouth swelling, throat swelling, tongue swelling or hives EXAM Physical Exam Const Vital Signs: 06/06/21 06:58 Temperature 98.1 F Temperature Source Temporal Pulse Rate 84 Respiratory Rate 20 H Blood Pressure 121/68 H Blood Pressure Mean 85 Pulse Ox 92 Oxygen Delivery Method Nasal Cannula Oxygen Flow Rate (L/min) 2 Positive well nourished and well developed General Appearance ED: well developed and NAD HEENT Reports TM's clear and moist mucous membranes normocephalic and atraumatic; Negative for trauma or tenderness Tympanic Membrane ED: Yes TM's clear Eyes PERRL and EOMs intact bilaterally General Eye ED: Negative for pale conjunctiva or scleral icterus Neck no lymphadenopathy, supple and no JVD General: Negative for tenderness Chest Wall inspection of chest normal and palpation of chest normal Chest: Negative for tenderness Resp normal respiratory effort and clear to auscultation bilaterally Effort and Inspection: Negative for respiratory distress or pain with movement Auscultation: Negative for rhonchi, wheezes or diminished lung sounds Cardio regular rate, regular rhythm, S1 normal heart sound, S2 normal heart sound and no murmurs Peripheral Pulses: pulses 2+ throughout GI normal to inspection, nondistended, normoactive bowel sounds, soft to palpation, non-tender, non-distended and no masses Back/Spine no CVA tenderness and no thoracic nor lumbar tenderness Extremity normal to inspection General Extremety ED: Negative for edema General Extremity: Negative for edema Neuro oriented x3, CN's II-XII intact bilaterally, no sensory deficits noted and gait normal Sensorium / Orientation: awake, alert, oriented to person, oriented to place and oriented to time Motor Exam: strength 5/5 throughout and strength abnormal Psych mental status grossly normal Skin no rashes or lesions noted and no wounds Skin Narrative: Patient has no excoriations or lesions on her body. I do not appreciate any bugs on her skin. Normal eye exam. MDM MDM MDM Narrative Medical decision making narrative: Patient has a normal exam in the department. I suspect her may be hallucinating. She does state that he does have some psychiatric issues. No further treatment indicated at this time. Patient advised to follow-up with her primary care physician as needed. Discharge Plan Triage Chief Complaint: Itching ED Provider: Larry Weathers Dx/Rx/DC Orders Clinical Impression: Normal exam Instructions: ED Screening Exam Medical Nonurgent Prescriptions: No Action gabapentin 300 MG capsule 300 mg PO TIDCM RF: 0 amitriptyline 100 MG tablet 200 mg PO QHS RF: 0 clonazepam 0.5 MG tablet 0.5 mg PO 4X/DAY PRN (Reason: Anxiety) RF: 0 furosemide 40 MG tablet 80 mg PO BREAKFAST RF: 0 furosemide [Lasix] 40 MG tablet 40 mg PO DINNER RF: 0 dextroamphetamine-amphetamine [Adderall] 30 MG tablet 30 mg PO DAILY RF: 0 gabapentin 300 MG capsule 600 mg PO QHS RF: 0 cyclobenzaprine 5 MG tablet 5 mg PO BID PRN (Reason: Spasms) RF: 0 warfarin 5 MG tablet 12.5 mg PO DAILY RF: 0 ipratropium-albuterol 3 ML solution for nebulization 3 ml IH 4X/DAY RF: 0 budesonide 0.5 MG/2 ML suspension for nebulization 0.5 mg inhalation BID RF: 0 duloxetine 60 MG capsule,delayed release(DR/EC) 60 mg PO DAILY RF: 0 potassium chloride 20 mEq tablet,ER particles/crystals 20 meq PO BID RF: 0 doxycycline hyclate 100 mg capsule 100 mg PO BID Qty: 20 RF: 0 prednisone 20 mg tablet 40 mg PO DAILY 5 Days Qty: 10 RF: 0 levofloxacin 750 mg tablet 750 mg PO Q24H Qty: 10 RF: 0 prednisone 20 mg tablet 20 mg PO BID 3 Days Qty: 6 RF: 0 Primary Care Provider: Carson Stephenson Referrals: Carson Stephenson MD [Primary Care Provider] - As Needed Disposition Disposition: Home, Self Care
== END 2021-06-06 07:38 | disposition home or self-care (01) ==
LOC: ED 07:34
PROVIDERS: Emergency Provider Emergency Medicine; PCP Family Medicine
DX: L29.9 Pruritus, unspecified (principal); J44.9 Chronic obstructive pulmonary disease, unspecified; D68.59 Other primary thrombophilia; G90.50 Complex regional pain syndrome I, unspecified; Z86.14 Personal history of Methicillin resistant Staphylococcus aureus infection; Z87.01 Personal history of pneumonia (recurrent); Z86.718 Personal history of other venous thrombosis and embolism; Z79.01 Long term (current) use of anticoagulants; Z79.899 Other long term (current) drug therapy; F17.210 Nicotine dependence, cigarettes, uncomplicated
CPT/HCPCS: 99284

== ENCOUNTER 2021-06-12 16:39 | Emergency (ER) | payer MEDICARE, SELFPAY ==
[2021-06-12 16:41] VITALS: BP 116/95; PULSE 89; RESP 16; TEMP 36.8; O2SAT 88; BMI 34.3
[2021-06-12 18:20] VITALS: O2SAT 95
--- NOTE | 2021-06-12 18:46 | EDS_ITS ---
HPI History of Present Illness Chief Complaint: Fall Detail of Chief Complaint: Laceration right hand due to fall holding coffee cup Informant: patient Occured/Mechanism Mechanism/Context: Yes blunt trauma Onset/Context/Timing Onset: Hours Context: Onset with activity Timing: Continuous Quality of Pain: Dull Location: Palm left hand over the head of the second metacarpal bone normal Current Severity: Mild Maximum Severity: Moderate Worsened by: Initial fall Relieved by: Nothing Associated Symptoms Associated Symptoms: Negative for Parasthesia, Weakness and Loss of Funtion Narrative Narrative: Patient is a 61-year-old [id number] woman who fell holding a ceramic cup. The cup broke. She sustained a laceration to her hand. She denies paresthesia, anesthesia medics. Last tetanus unknown. She has no other complaints. Tetanus Immunization: Unknown Prior similar symptoms: No Recent Illness/Hospitalization: No PFSH PFS Medical History COPD (chronic obstructive pulmonary disease) DVT (deep venous thrombosis) MRSA (methicillin resistant Staphylococcus aureus) On home oxygen therapy Pneumonia Protein C deficiency RSD (reflex sympathetic dystrophy) Home Medications amitriptyline 200 mg PO QHS 04/26/14 [History Last Taken 09/13/20] gabapentin 300 mg PO TIDCM 04/26/14 [History Last Taken 09/13/20] clonazepam 0.5 mg PO 4X/DAY PRN 12/13/14 [History Last Taken 09/14/20] furosemide 80 mg PO BREAKFAST 02/04/16 [History Last Taken 09/13/20] furosemide [Lasix] 40 mg PO DINNER 06/12/17 [History Last Taken 09/13/20] dextroamphetamine-amphetamine [Adderall] 30 mg PO DAILY 08/09/17 [History Last Taken 09/12/20] cyclobenzaprine 5 mg PO BID PRN 12/15/19 [History Last Taken 09/13/20] gabapentin 600 mg PO QHS 12/15/19 [History Last Taken 09/13/20] budesonide 0.5 mg INHALATION BID 04/11/20 [History Last Taken 09/12/20] duloxetine 60 mg PO DAILY 04/11/20 [History Last Taken 09/13/20] ipratropium-albuterol 3 ml IH 4X/DAY 04/11/20 [History Last Taken 09/12/20] warfarin 12.5 mg PO DAILY 04/11/20 [History Last Taken 09/12/20] potassium chloride 20 meq PO BID 02/23/21 [History Last Taken Unknown] doxycycline hyclate 100 mg PO BID #20 cap 03/25/21 [Rx Last Taken Unknown] prednisone 40 mg PO DAILY 5 Days #10 tablet 03/25/21 [Rx Last Taken Unknown] levofloxacin 750 mg PO Q24H #10 tab 05/05/21 [Rx Last Taken Unknown] prednisone 20 mg PO BID 3 Days #6 tab 05/05/21 [Rx Last Taken Unknown] Allergy/AdvReac Type Severity Reaction Status Date / Time celecoxib Allergy Swelling Verified 06/12/21 16:41 of arms/legs naproxen Allergy Swelling Verified 06/12/21 16:41 arms/legs Penicillins Allergy Hives/facial Verified 06/12/21 16:41 swelling pregabalin Allergy Swelling Verified 06/12/21 16:41 arms/swelling sertraline Allergy Swelling Verified 06/12/21 16:41 Surgical History History of appendectomy History of cholecystectomy Social History (Updated 06/12/21 @ 18:[address] Desmond Cazares MD) household members: none and other Smoking Status: Current every day smoker tobacco type: cigarettes substance use type: does not use ROS ROS ED Constitutional Constitutional ED: Denies chills, fever(s), subjective, sweats or weight loss Eyes Eyes: Denies blurry vision, change in vision or diplopia Cardiovascular Cardiovascular: Denies chest pain Respiratory/Chest Respiratory/Chest: Denies cough or dyspnea Gastrointestinal Gastrointestinal: Denies nausea or vomiting Integumentary Reports other Details: Laceration palm right hand Neurologic Neurologic: Denies paresthesias or weakness Hematologic/Lymphatic Hematologic/Lymphatic: Denies easy bleeding or easy bruising EXAM Physical Exam Const Vital Signs: 06/12/21 16:41 06/12/21 18:20 Temperature 98.2 F Temperature Source Temporal Pulse Rate 89 Respiratory Rate 16 Blood Pressure 116/95 H Blood Pressure Mean 102 Pulse Ox 88 95 Oxygen Delivery Method Room Air Nasal Cannula Oxygen Flow Rate (L/min) 3 Positive well nourished, well developed and obese General Appearance ED: well developed and NAD; Negative for cyanotic or diap horetic Nutritional Appearance: obese HEENT normocephalic and atraumatic Eyes PERRL and EOMs intact bilaterally Neck full ROM and supple General: tenderness Resp normal respiratory effort Cardio regular rate and regular rhythm Extremity full ROM; Negative for normal to inspection Extremity Narrative: There is a laceration volar surface of right hand that is 4.0 cm in length. The flexor digitorum superficialis and flexor digitorum profundus are intact. Normal two-point discrimination. Normal capillary refill. General Extremety ED: Negative for edema General Extremity: Negative for edema Psych mental status grossly normal Skin Lesions: no lesions Rashes: no rashes Trauma: Negative for no lacerations or abrasions MDM MDM MDM Narrative Medical decision making narrative: X-ray was obtained to evaluate for foreign body. Wound will be anesthetized and sutured. Please read procedure note. Tetanus was updated. Procedures Other Procedures Procedure(s): Laceration repair Length of laceration 4.0 cm Patient's wound was anesthetized with 1% lidocaine for local trace. Wound was cleansed with surgeon cleansed and irrigated with normal saline. 7 simple interrupted sutures were placed with good cosmesis hemostasis. Patient complains of severe pain that she could not cooperate to hold her finger still. She has a 1 inch bruise on her medial volar right arm. Patient was informed this is a soft tissue injury. Patient states she sees Dr. Schneider and needs something strong for pain. She was given Tylenol. Discharge Plan Triage Chief Complaint: Fall ED Provider: Desmond Cazares Dx/Rx/DC Orders Clinical Impression: Laceration of hand, right, Contusion of right forearm, initial encounter Instructions: ED Soft Tissue Contusion, ED Laceration Hand with ... Prescriptions: No Action gabapentin 300 MG capsule 300 mg PO TIDCM RF: 0 amitriptyline 100 MG tablet 200 mg PO QHS RF: 0 clonazepam 0.5 MG tablet 0.5 mg PO 4X/DAY PRN (Reason: Anxiety) RF: 0 furosemide 40 MG tablet 80 mg PO BREAKFAST RF: 0 furosemide [Lasix] 40 MG tablet 40 mg PO DINNER RF: 0 dextroamphetamine-amphetamine [Adderall] 30 MG tablet 30 mg PO DAILY RF: 0 gabapentin 300 MG capsule 600 mg PO QHS RF: 0 cyclobenzaprine 5 MG tablet 5 mg PO BID PRN (Reason: Spasms) RF: 0 warfarin 5 MG tablet 12.5 mg PO DAILY RF: 0 ipratropium-albuterol 3 ML solution for nebulization 3 ml IH 4X/DAY RF: 0 budesonide 0.5 MG/2 ML suspension for nebulization 0.5 mg inhalation BID RF: 0 duloxetine 60 MG capsule,delayed release(DR/EC) 60 mg PO DAILY RF: 0 potassium chloride 20 mEq tablet,ER particles/crystals 20 meq PO BID RF: 0 doxycycline hyclate 100 mg capsule 100 mg PO BID Qty: 20 RF: 0 prednisone 20 mg tablet 40 mg PO DAILY 5 Days Qty: 10 RF: 0 levofloxacin 750 mg tablet 750 mg PO Q24H Qty: 10 RF: 0 prednisone 20 mg tablet 20 mg PO BID 3 Days Qty: 6 RF: 0 Primary Care Provider: Carson Stephenson Referrals: Carson Stephenson MD [Primary Care Provider] - 10-14 Days suture removal Disposition Disposition: Home, Self Care
--- NOTE | 2021-06-12 18:55 | RAD_ITS ---
STUDY: X-RAY - RIGHT HAND REASON FOR EXAM: Female, 61 years old. Fall. Right arm pain. Laceration to the right palm from ceramic. TECHNIQUE: 3 view(s) of the hand. COMPARISON: 06/16/2018. FINDINGS: Generalized osteopenia. There is joint space narrowing of the radiocarpal articulation consistent with degenerative arthrosis. Normal distal radioulnar joint. There is a small well-corticated bony fragment along the ulnar styloid. Question remote avulsion fracture. Normal visualized carpal bones. There is degenerative joint disease of the scaphotrapezium / trapezoid articulation. The remainder of the carpal articulations are normal. There is degenerative arthrosis of the carpometacarpal (CMC) articulation of the thumb. Normal second through fifth carpometacarpal joints. Normal metacarpi. There is degenerative arthrosis of the first metacarpophalangeal (MCP) joint. There is degenerative arthrosis of the interphalangeal joint of the thumb with articular joint space narrowing. Normal proximal phalanx of thumb. There appears to be a fracture of the base of the distal phalanx with slight displacement and bony productivity suggesting healed fracture. This was not present on the prior study. Normal metacarpophalangeal joints of the second through fifth fingers. Normal proximal and distal interphalangeal joints of the second through fifth fingers. Normal phalanges of the second through fifth fingers. The soft tissue structures are unremarkable. No foreign body. RAD/Hand Min 3 Views IMPRESSION: 1. Remote fractures of the ulnar styloid and distal phalanx of the first digit. 2. Degenerative changes of the hands and wrists. 3. Normal appearing soft tissues without evidence of foreign body. Electronically Signed: Parth Jarquin DO at 19:21 EDT Tel [phone], Service support ,
[2021-06-12] MEDS: Diphth,Pertuss(Acell),Tet Vac 0.5 ML Vial IM (19:04)
[2021-06-12] MEDS: Acetaminophen 325 MG Tablet 650 MG PO (20:24)
== END 2021-06-12 20:37 | disposition home or self-care (01) ==
PROVIDERS: Emergency Provider Emergency Medicine; PCP Family Medicine
DX: S61.411A Laceration without foreign body of right hand, initial encounter (principal); S50.11XA Contusion of right forearm, initial encounter; W26.8XXA Contact with other sharp object(s), not elsewhere classified, initial encounter; Y93.9 Activity, unspecified; Y92.9 Unspecified place or not applicable; E66.9 Obesity, unspecified; Z68.34 Body mass index [BMI] 34.0-34.9, adult; J44.9 Chronic obstructive pulmonary disease, unspecified; D68.59 Other primary thrombophilia; G90.50 Complex regional pain syndrome I, unspecified; Z86.14 Personal history of Methicillin resistant Staphylococcus aureus infection; Z87.01 Personal history of pneumonia (recurrent); Z86.718 Personal history of other venous thrombosis and embolism; Z79.01 Long term (current) use of anticoagulants; Z79.899 Other long term (current) drug therapy; F17.210 Nicotine dependence, cigarettes, uncomplicated
CPT/HCPCS: 12002; 73130; 90715; 99285

== ENCOUNTER 2021-06-19 17:59 | Emergency (ER) | payer MEDICARE, SELFPAY ==
[2021-06-19 17:59] VITALS: BP 132/79; PULSE 96; RESP 18; TEMP 36.3; O2SAT 93; BMI 36.0
--- NOTE | 2021-06-19 19:54 | RAD_ITS ---
STUDY: XR Knee Complete 4 Views or More 06/19/2021 8:09 PM REASON FOR EXAM: Female, 61 years old. PAIN TECHNIQUE: XR Knee Complete 4 Views or More COMPARISON: None. FINDINGS: Normal visualized distal femur. Normal visualized proximal tibia and fibula. Normal proximal tibiofibular articulation. There are atherosclerotic vascular calcifications. Normal medial femorotibial compartment. Normal lateral femorotibial compartment. There is mild degenerative arthrosis of the patellofemoral articulation. There is a moderate volume joint effusion. The soft tissue structures are unremarkable. RAD/Knee 4 or More Views IMPRESSION: Degenerative arthrosis. There is a moderate volume joint effusion. Electronically Signed: Elan Bryan MD at 20:11 EST , Service support ,
--- NOTE | 2021-06-19 22:02 | EDS_ITS ---
HPI HPI - Fall History of Present Illness Chief Complaint: Fall Informant: patient Occured/Mechanism Occurred: Yesterday Mechanism/Context: Yes same level fall Usually ambulates: Without assistance Pain/Injury Pain Location: lower extremity (Left knee) Quality of Pain: - (Pressure) Worsened by: Ambulation Relieved by: Elevation Associated Symptoms Associated Symptoms: Positive for Weakness; Negative for Parasthesias, Loss of function, Inability to ambulate, Loss of consciousness and Amnesia Narrative Narrative: Patient presents with left knee pain that began after a fall yesterday. Patient states she landed on her left knee yesterday. Patient states she is concerned because she has had prior surgery on her left knee. Patient states her pain feels like a pressure on her knee. Patient states it is better when she elevates her knee. Patient admits to some weakness in her left knee due to the pain. Patient denies any head injury or loss of consciousness. Patient admits to superficial abrasion over the anterior aspect of the left knee. Patient denies any bleeding. Patient denies any other injuries. [facility] Medical History COPD (chronic obstructive pulmonary disease) DVT (deep venous thrombosis) MRSA (methicillin resistant Staphylococcus aureus) On home oxygen therapy Pneumonia Protein C deficiency RSD (reflex sympathetic dystrophy) Home Medications amitriptyline 200 mg PO QHS 04/26/14 [History Last Taken 09/13/20] gabapentin 300 mg PO TIDCM 04/26/14 [History Last Taken 09/13/20] clonazepam 0.5 mg PO 4X/DAY PRN 12/13/14 [History Last Taken 09/14/20] furosemide 80 mg PO DAILY 02/04/16 [History Last Taken 09/13/20] furosemide [Lasix] 40 mg PO DINNER 06/12/17 [History Last Taken 09/13/20] dextroamphetamine-amphetamine [Adderall] 30 mg PO DAILY 08/09/17 [History Last Taken 09/12/20] cyclobenzaprine 5 mg PO BID PRN 12/15/19 [History Last Taken 09/13/20] gabapentin 600 mg PO QHS 12/15/19 [History Last Taken 09/13/20] duloxetine 60 mg PO DAILY 04/11/20 [History Last Taken 09/13/20] ipratropium-albuterol 3 ml IH 4X/DAY 04/11/20 [History Last Taken 09/12/20] potassium chloride 20 meq PO BID 02/23/21 [History Last Taken Unknown] doxycycline hyclate 100 mg PO BID #20 cap 03/25/21 [Rx Last Taken Unknown] hydrocodone-acetaminophen 1 tab PO Q6H PRN PRN 3 Days #10 tablet 06/19/21 [Rx La st Taken Unknown] rivaroxaban [Xarelto] 20 mg PO DAILY 06/19/21 [History Last Taken Unknown] Allergy/AdvReac Type Severity Reaction Status Date / Time celecoxib Allergy Swelling Verified 06/19/21 18:01 of arms/legs naproxen Allergy Swelling Verified 06/19/21 18:01 arms/legs Penicillins Allergy Hives/facial Verified 06/19/21 18:01 swelling pregabalin Allergy Swelling Verified 06/19/21 18:01 arms/swelling sertraline Allergy Swelling Verified 06/19/21 18:01 Surgical History History of appendectomy History of cholecystectomy Social History household members: none and other Smoking Status: Current every day smoker tobacco type: cigarettes substance use type: does not use ROS ROS ED Constitutional Constitutional ED: Denies chills or fever(s) Eyes Eyes: Denies blurry vision or change in vision ENT ENT ED: Denies rhinorrhea or sore throat Cardiovascular Cardiovascular: Denies chest pain or palpitations Respiratory/Chest Respiratory/Chest: Denies cough or dyspnea Gastrointestinal Gastrointestinal: Denies nausea or vomiting Genitourinary Genitourinary ED: Denies dysuria or hematuria Musculoskeletal Musculoskeletal: Reports back pain and neck pain Integumentary Reports Abrasions; Denies abscess or rash Neurologic Neurologic: Denies headache(s) or weakness Allergic/Immunologic Allergic/Immunologic ED: Denies mouth swelling or urticaria EXAM Physical Exam Const Vital Signs: 06/19/21 17:59 06/19/21 21:23 Temperature 97.3 F L Temperature Source Temporal Pulse Rate 96 Respiratory Rate 18 Respiratory Effort Normal Non-Labored Respiratory Depth Normal Respiratory Pattern Normal Blood Pressure 132/79 H Blood Pressure Mean 96 Pulse Ox 93 Oxygen Delivery Method Room Air Room Air Positive well nourished, well developed and obese General Appearance ED: well developed Nutritional Appearance: obese HEENT Reports normocephalic atraumatic Neck full ROM Extremity Extremity Narrative: There is tenderness and edema over the left knee. There is a mild effusion. There is no bony crepitance or step-off. Extensor mechanism is intact. There is no laxity appreciated with varus or valgus testing. There is no laxity with Chandni's test. However, patient was guarding on exam. Pedal pulses are equal bilaterally. Sensation was intact to light touch in all digits. Neuro oriented x3, CN's II-XII intact bilaterally, moves all extremities, no focal motor deficits and no sensory deficits noted Sensorium / Orientation: alert Psych mental status grossly normal MDM MDM MDM Narrative Medical decision making narrative: X-rays of the left knee were obtained. There are 4 views. On my interpretation, there are some degenerative changes. There is no acute fracture. There is a moderate joint effusion. There is no dislocation. Radiologist also interpreted the x-rays and agrees. Patient was advised of the findings. Patient was given a prescription for [place]. Patient was given her first dose here. Patient was instructed to ice and elevate the left knee. Patient was instructed to follow-up with her primary care physician in 3 to 5 days. Patient understood and was agreeable with plan. All questions were answered. Radiography Diagnostic Testing: Clinical Impression(s) from Imaging Studies Knee X-Ray 06/19/21 19:54 IMPRESSION: Degenerative arthrosis. There is a moderate volume joint effusion. Electronically Signed: Elan Bryan MD at 20:11 EST , Service support , Discharge Plan Triage Chief Complaint: Fall ED Provider: Lincoln Melendez Dx/Rx/DC Orders Clinical Impression: Contusion of left knee, initial encounter Instructions: ED Contusion, Lower Extremity Prescriptions: New hydrocodone-acetaminophen [hydrocodone-acetaminophen] 1 TABLET tablet 1 tab PO Q6H PRN PRN (Reason: Pain) 3 Days Qty: 10 RF: 0 No Action gabapentin 300 MG capsule 300 mg PO TIDCM RF: 0 amitriptyline 100 MG tablet 200 mg PO QHS RF: 0 clonazepam 0.5 MG tablet 0.5 mg PO 4X/DAY PRN (Reason: Anxiety) RF: 0 furosemide 40 MG tablet 80 mg PO DAILY RF: 0 furosemide [Lasix] 40 MG tablet 40 mg PO DINNER RF: 0 dextroamphetamine-amphetamine [Adderall] 30 MG tablet 30 mg PO DAILY RF: 0 gabapentin 300 MG capsule 600 mg PO QHS RF: 0 cyclobenzaprine 5 MG tablet 5 mg PO BID PRN (Reason: Spasms) RF: 0 ipratropium-albuterol 3 ML solution for nebulization 3 ml IH 4X/DAY RF: 0 duloxetine 60 MG capsule,delayed release(DR/EC) 60 mg PO DAILY RF: 0 potassium chloride 20 mEq tablet,ER particles/crystals 20 meq PO BID RF: 0 doxycycline hyclate 100 mg capsule 100 mg PO BID Qty: 20 RF: 0 Xarelto 20 mg tablet 20 mg PO DAILY RF: 0 Primary Care Provider: Carson Stephenson Referrals: Carson Stephenson MD [Primary Care Provider] - 3-5 Days Disposition Disposition: Home, Self Care
[2021-06-19] MEDS: HYDROcodone Bitartrate/Apap 5/325 Tablet PO (22:27)
== END 2021-06-19 22:31 | disposition home or self-care (01) ==
PROVIDERS: Emergency Provider Emergency Medicine; PCP Family Medicine
DX: S80.02XA Contusion of left knee, initial encounter (principal); S80.212A Abrasion, left knee, initial encounter; W19.XXXA Unspecified fall, initial encounter; Y93.9 Activity, unspecified; Y92.9 Unspecified place or not applicable; E66.9 Obesity, unspecified; Z68.36 Body mass index [BMI] 36.0-36.9, adult; J44.9 Chronic obstructive pulmonary disease, unspecified; G90.50 Complex regional pain syndrome I, unspecified; D68.59 Other primary thrombophilia; Z86.14 Personal history of Methicillin resistant Staphylococcus aureus infection; Z87.01 Personal history of pneumonia (recurrent); Z86.718 Personal history of other venous thrombosis and embolism; Z79.01 Long term (current) use of anticoagulants; Z79.899 Other long term (current) drug therapy; F17.210 Nicotine dependence, cigarettes, uncomplicated
CPT/HCPCS: 73564; 99281; 99283

== ENCOUNTER 2021-07-05 13:34 | Inpatient (IN) | payer MEDICARE, SELFPAY ==
[2021-07-05] VITALS (12 sets, daily range): BP systolic 91–138; BP diastolic 51–81; PULSE 77–100; RESP 15–32; TEMP 36.6–37.4; O2SAT 76–94; BMI 31.6
--- NOTE | 2021-07-05 14:02 | EKG12_ITS ---
Test Reason : SOB Blood Pressure : / mmHG Vent. Rate : 092 BPM Atrial Rate : 092 BPM P-R Int : 146 ms QRS Dur : 104 ms QT Int : 358 ms P-R-T Axes : 034 009 033 degrees QTc Int : 442 ms Normal sinus rhythm Normal ECG Confirmed by VADIM CASTAÑEDA, ADRIAN ([id number]), editor trade journal AMARILIS LOZANO ([id number]) on 07/07/2021 11:42:18 AM Referred By: PARIS Confirmed By:ADRIAN FIERRO MD
--- NOTE | 2021-07-05 14:03 | EDS_ITS ---
HPI History of Present Illness Chief Complaint: Shortness of Breath Detail of Chief Complaint: Shortness of breath Informant: patient Narrative Narrative: Patient presents to the emergency department complaint of shortness of breath that started yesterday. Patient complains of a cough and states that she feels like she has pneumonia. Patient has history of COPD and normally wears 3 to 4 L of home O2. Patient came to the emergency department without oxygen on and her O2 saturation was in the 60s on arrival. Patient denies any chest pain. She does have history of COPD as well as history of DVT and has been taking her Xarelto regularly. Patient states that she had a Covid vaccine over a year ago the first dose but then got sick and never was able to get the full immunization. She denies any Covid exposures. Patient states that her cough is productive of yellow sputum. She denies fevers. She has had some chills and sweats. [facility] Medical History COPD (chronic obstructive pulmonary disease) DVT (deep venous thrombosis) MRSA (methicillin resistant Staphylococcus aureus) On home oxygen therapy Pneumonia Protein C deficiency RSD (reflex sympathetic dystrophy) Home Medications amitriptyline 200 mg PO QHS 04/26/14 [History Last Taken 09/13/20] gabapentin 300 mg PO TIDCM 04/26/14 [History Last Taken 09/13/20] clonazepam 0.5 mg PO 4X/DAY PRN 12/13/14 [History Last Taken 09/14/20] furosemide 80 mg PO DAILY 02/04/16 [History Last Taken 09/13/20] furosemide [Lasix] 40 mg PO DINNER 06/12/17 [History Last Taken 09/13/20] dextroamphetamine-amphetamine [Adderall] 30 mg PO DAILY 08/09/17 [History Last Taken 09/12/20] cyclobenzaprine 5 mg PO BID PRN 12/15/19 [History Last Taken 09/13/20] gabapentin 600 mg PO QHS 12/15/19 [History Last Taken 09/13/20] duloxetine 60 mg PO DAILY 04/11/20 [History Last Taken 09/13/20] ipratropium-albuterol 3 ml IH 4X/DAY 04/11/20 [History Last Taken 09/12/20] potassium chloride 20 meq PO BID 02/23/21 [History Last Taken Unknown] rivaroxaban [Xarelto] 20 mg PO DAILY 06/19/21 [History Last Taken Unknown] Allergy/AdvReac Type Severity Reaction Status Date / Time celecoxib Allergy Swelling Verified 07/05/21 13:38 of arms/legs naproxen Allergy Swelling Verified 07/05/21 13:38 arms/legs Penicillins Allergy Hives/facial Verified 07/05/21 13:38 swelling pregabalin Allergy Swelling Verified 07/05/21 13:38 arms/swelling sertraline Allergy Swelling Verified 07/05/21 13:38 Surgical History History of appendectomy History of cholecystectomy Social History household members: none and other Smoking Status: Current every day smoker tobacco type: cigarettes substance use type: does not use ROS ROS ED Constitutional Constitutional ED: Reports systems reviewed and no addt'l complaints, except as documented; Denies body ache(s), change in weight or chills Eyes Eyes: Denies acute decrease in peripheral vision, change in vision, double vision or loss of vision ENT ENT ED: Reports none; Denies ear pain, lip swelling, loss taste/smell, neck pain, otalgia or sore throat Cardiovascular Cardiovascular: Reports none; Denies abdominal pain, chest pain with activity, leg edema, lightheadedness, palpitations, rapid heart rate or syncope Respiratory/Chest Respiratory/Chest: Reports none, cough, dyspnea and sputum; Denies change in mental status, dry cough, hemoptysis, shortness of breath at rest or shortness of breath with exertion Gastrointestinal Gastrointestinal: Reports none; Denies abdominal pain, change in stool character, diarrhea, hematemesis, hematochezia, melena, rectal bleeding or vomiting Genitourinary Genitourinary ED: Reports none; Denies abdominal discomfort, anuria, dysuria, genital pain or polyuria Musculoskeletal Musculoskeletal: Reports none; Denies arthralgias, back pain, difficulty walking, extremity pain, muscle weakness or myalgias Integumentary Reports none; Denies abscess or rash Neurologic Neurologic: Reports none; Denies abnormal gait, confusion, focal weakness, frequent falls, headache(s), loss of vision, numbness, paresthesias, radicular pain, vertigo or weakness Psychiatric Psychiatric: Reports systems reviewed and no addt'l complaints, except as documented and none; Denies behavioral changes, confusion, difficulty concentrating, hallucinations, suicidal ideation, tactile hallucinations or visual hallucinations Endocrine Endocrinology: Denies none, cold intolerance, excessive sweating, fatigue or heat intolerance Hematologic/Lymphatic Hematologic/Lymphatic: Reports none; Denies anemia, easy bleeding or easy bruising Allergic/Immunologic Allergic/Immunologic ED: Denies as per HPI, none, lip swelling, mouth swelling, throat swelling, tongue swelling or hives EXAM Physical Exam Const Vital Signs: 07/05/21 13:35 07/05/21 13:41 07/05/21 13:49 Temperature 98.7 F 98.7 F Temperature Source Temporal Temporal Pulse Rate 99 97 Respiratory Rate 16 21 H Respiratory Effort Respiratory Pattern Blood Pressure 138/76 H 125/81 H Blood Pressure Mean 96 95 Pulse Ox 76 93 94 Oxygen Delivery Method Room Air Nasal Cannula Nasal Cannula Oxygen Flow Rate (L/min) 3 3 07/05/21 13:50 07/05/21 14:22 07/05/21 15:05 Temperature Temperature Source Pulse Rate 91 Respiratory Rate 24 H Respiratory Effort Short of Breath Respiratory Pattern Tachypnea Blood Pressure Blood Pressure Mean Pulse Ox 89 Oxygen Delivery Method Nasal Cannula Nasal Cannula Oxygen Flow Rate (L/min) 3 3 07/05/21 15:07 Temperature 98.5 F Temperature Source Oral Pulse Rate 100 Respiratory Rate 32 H Respiratory Effort Respiratory Pattern Blood Pressure 91/60 Blood Pressure Mean 70 Pulse Ox 94 Oxygen Delivery Method Nasal Cannula Oxygen Flow Rate (L/min) 4 Positive well nourished and well developed General Appearance ED: well developed and NAD HEENT Reports TM's clear and moist mucous membranes normocephalic and atraumatic; Negative for trauma or tenderness Tympanic Membrane ED: Yes TM's clear Eyes PERRL and EOMs intact bilaterally General Eye ED: Negative for pale conjunctiva or scleral icterus Neck no lymphadenopathy, supple and no JVD General: Negative for tenderness Chest Wall inspection of chest normal and palpation of chest normal Chest: Negative for tenderness Resp normal respiratory effort and clear to auscultation bilaterally Resp Narrative: Mild tachypnea. No accessory muscle use or retractions. No conversational dyspnea. Effort and Inspection: Negative for respiratory distress or pain with movement Auscultation: rhonchi and wheezes; Negative for diminished lung sounds Cardio regular rate, regular rhythm, S1 normal heart sound, S2 normal heart sound and no murmurs Peripheral Pulses: pulses 2+ throughout GI normal to inspection, nondistended, normoactive bowel sounds, soft to palpation, non-tender, non-distended and no masses Back/Spine no CVA tenderness and no thoracic nor lumbar tenderness Extremity normal to inspection General Extremety ED: Negative for edema General Extremity: Negative for edema Neuro oriented x3, CN's II-XII intact bilaterally, no sensory deficits noted and gait normal Sensorium / Orientation: awake, alert, oriented to person, oriented to place and oriented to time Motor Exam: strength 5/5 throughout and strength abnormal Psych mental status grossly normal Skin no rashes or lesions noted and no wounds MDM MDM MDM Narrative Medical decision making narrative: IV line established on arrival. Patient placed on a safety aide. Patient was ordered DuoNeb aerosol and albuterol aerosols. Patient was started on Levaquin 750 mg IV. Case will be discussed with hospitalist evaluate for admission. I suspect a component of COPD exacerbation and pneumonia. Her rapid Covid test was negative and I will send out a Covid PCR test as well given her neutropenia and chest x-ray findings. Lab Data Attestation: I reviewed the patient's lab results. Labs: Laboratory Results - last 24 hr 07/05/21 07/05/21 07/05/21 14:10 14:10 14:10 WBC 3.3 L RBC 4.29 Hgb 13.1 Hct 41.6 MCV 97.0 MCH 30.5 MCHC 31.5 L RDW Std Deviation 52.1 H RDW Coeff of Sean 14.6 Plt Count 150 MPV 11.6 Immature Gran % (Auto) 0.300 Neut % (Auto) 72.8 H Lymph % (Auto) 16.3 L Cuming % (Auto) 9.4 Eos % (Auto) 0.9 Baso % (Auto) 0.3 Absolute Neuts (auto) 2.4 Absolute Lymphs (auto) 0.54 L Nucleated RBC % 0 Diff Path Review May foll Platelet Estimate ADEQUATE RBC Morphology NORM C+C Sodium 137 Potassium 3.9 Chloride 97 L Carbon Dioxide 36.0 H Anion Gap 4 L BUN 6 L Creatinine 0.58 Estim Creat Clear Calc 92.82 Est GFR (MDRD) Af Amer 135 Est GFR (MDRD) Non-Af 112 BUN/Creatinine Ratio 10.3 Glucose 93 Lactic Acid 0.6 Calcium 8.5 Troponin I High Sens 7 Radiography Chest X-Ray - ED: 1 View Diagnostic Testing: Clinical Impression(s) from Imaging Studies Chest X-Ray 07/05/21 14:50 IMPRESSION: 1. Mixed interval change. Developing bilateral basilar dominant pulmonary infiltrates suggesting infection, including viral causes. 2. Partial clearing of bilateral upper lobe infiltrate on prior x-ray Electronically Signed: Brayan Villagomez MD ([place]) at 15:16 EST , Service support , 1 view chest creatinine interpreted by myself as increased markings both lower lobes. Radiology was in agreement. EKG Initial EKG: Attestation: I personally reviewed and interpreted this EKG as follows: Comments: Sinus rhythm with a ventricular rate of 92 bpm with no acute ST segment changes Discharge Plan Triage Chief Complaint: Shortness of Breath ED Provider: Larry Weathers Dx/Rx/DC Orders Clinical Impression: Pneumonia, Acute exacerbation of chronic obstructive pulmonary disease, Hypoxemia Prescriptions: No Action gabapentin 300 MG capsule 300 mg PO TIDCM RF: 0 amitriptyline 100 MG tablet 200 mg PO QHS RF: 0 clonazepam 0.5 MG tablet 0.5 mg PO 4X/DAY PRN (Reason: Anxiety) RF: 0 furosemide 40 MG tablet 80 mg PO DAILY RF: 0 furosemide [Lasix] 40 MG tablet 40 mg PO DINNER RF: 0 dextroamphetamine-amphetamine [Adderall] 30 MG tablet 30 mg PO DAILY RF: 0 gabapentin 300 MG capsule 600 mg PO QHS RF: 0 cyclobenzaprine 5 MG tablet 5 mg PO BID PRN (Reason: Spasms) RF: 0 ipratropium-albuterol 3 ML solution for nebulization 3 ml IH 4X/DAY RF: 0 duloxetine 60 MG capsule,delayed release(DR/EC) 60 mg PO DAILY RF: 0 potassium chloride 20 mEq tablet,ER particles/crystals 20 meq PO BID RF: 0 Xarelto 20 mg tablet 20 mg PO DAILY RF: 0 Primary Care Provider: Carson Stephenson Referrals: Carson Stephenson MD [Primary Care Provider] - Disposition Disposition: Acute Care Hospital [facility]
[2021-07-05 14:20] LABS: Absolute Lymphocyte Count 0.54 X10^3/uL (0.83-4.51); Absolute Neutrophil Count 2.4 X10^3/uL (2.0-7.7); Basophil# 0.01 X10^3/uL; Basophil% 0.3 % (0-1); Eosinophil# 0.03 X10^3/uL; Eosinophils% 0.9 % (0-5); Hematocrit 41.6 % (37-47); Hemoglobin 13.1 g/dL (12.0-15.0); Lymphocyte # 0.54 X10^3/ul (0.83-4.51); Lymphocyte % 16.3 % (19-41); Mean Corp Hgb Conc 31.5 g/dL (32-36); Mean Corpuscular Hgb 30.5 pg (27.0-32.0); Mean Platelet Vol. 11.6 fl (6.2-12.0); Monocyte# 0.31 X10^3/uL; Monocyte% 9.4 % (0-10); NRBC Flagged by Analyzer 0 % (0-5); Neutrophil # 2.41 X10^3/uL (2.7-7.7); Neutrophil % 72.8 % (47-70); POSITIVE DIFFERENTIAL YES; Platelet Count 150 K/mm3 (150-450); RBC Distribution Width CV 14.6 % (11.6-14.6); RBC Distribution Width SD 52.1 fl (35.1-43.9); Red Blood Count 4.29 M/mm3 (4.2-5.4); White Blood Count 3.3 K/mm3 (4.4-11.0)
[2021-07-05] MEDS: Ipratropium/Albuterol Sulfate 3 ML AMPUL.NEB INHALATION ×2 (14:21→19:30)
[2021-07-05] MEDS: Albuterol 2.5 MG/3 ML VIAL.NEB. INHALATION ×3 (14:21→14:22)
[2021-07-05 14:22] LABS: Differential Indicated SCAN CRITERIA MET
[2021-07-05 14:36] LABS: Anion Gap 4 (5-15); BUN 6 mg/dL (7-18); BUN/Creat Ratio 10.3 RATIO (10-20); Calcium,Total 8.5 mg/dL (8.5-10.1); Chloride 97 mmol/L (98-107); Creatinine, Serum 0.58 mg/dL (0.55-1.02); EST Glomerular Filtration Rate 112 mL/min (>60); Est Glom Filt Rate - Afr Amer 135 mL/min (>60); Estimated Creatinine Clearance 92.82 ml/min; Glucose 93 mg/dL (74-106); Potassium 3.9 mmol/L (3.5-5.1); Sodium Level 137 mmol/L (136-145); Troponin-I HS 7 pg/mL (3.0-54.0)
[2021-07-05 14:38] LABS: Platelet Estimate ADEQUATE (ADEQ); Red Cell Morphology NORM C+C NORMAL (NORM C&C)
[2021-07-05 14:44] LABS: Lactic Acid 0.6 mmol/L (0.4-1.9)
--- NOTE | 2021-07-05 14:50 | RAD_ITS ---
STUDY: X-RAY CHEST REASON FOR EXAM: Female, 61 years old. dyspnea TECHNIQUE: AP COMPARISON: 05/05/2021 FINDINGS: EKG leads project over the chest. Persistent elevation of the right hemidiaphragm. Bilateral upper lobe infiltrates on the prior study (previously right upper lobe dominant) have largely resolved. However, increased ill-defined reticular and groundglass opacities in the bilateral lung bases. Granuloma left upper lobe is stable. There is no demonstrated pleural abnormality. Normal size heart. Normal mediastinum and roz. Normal visualized pulmonary arteries. There is atherosclerotic calcification of the aortic arch with tortuosity. No acute bony process. There is no demonstrated abnormality of the visualized soft tissue structures of the upper abdomen. RAD/Chest 1 View (Portable) IMPRESSION: 1. Mixed interval change. Developing bilateral basilar dominant pulmonary infiltrates suggesting infection, including viral causes. 2. Partial clearing of bilateral upper lobe infiltrate on prior x-ray Electronically Signed: Brayan Villagomez MD ([place]) at 15:16 EST , Service support ,
[2021-07-05] MEDS: MethylPREDNISolone 125 MG/2 ML Vial IV (15:00)
[2021-07-05] MEDS: 0.9% Normal Saline 1,000 ML 150 ML IV (15:00)
--- NOTE | 2021-07-05 16:04 | NURSING ---
MED SURG WHITE PNEUMONIA, COPD EXAC, HYPOXEMIA
--- NOTE | 2021-07-05 16:07 | PCM.HP.STD ---
HPI - General General Date of Admission: 07/05/21 Date of Service: 07/05/21 Chief Complaint: Dyspnea, cough, fever, chills. HPI Narrative The patient is a 61 y/o F w/ PMHx: Tobacco use, Chronic COPD w/ chronic hypoxic respiratory failure (3-4L NC), RSD, Hx VTE/Protein C deficiency currently on xarelto, Anxiety and Depression/ADHD, HTN, HLD, Chronic pain syndrome/Fibromyalgia who presents to the [facility] ED on 07/05/21 with history of onset over the last 24 hours increased fatigue, malaise, cough with productive sputum, fever and chills with pleuritic chest pain, worse with coughing with no recent alteration to sense of taste/smell, nausea, emesis, diarrhea, abdominal pain but no improving prompting ED evaluation. She is currently homeless and living in a [place] [facility] so she notes there are other ill contacts present around her. She notes being vaccinated against COVID. Work-up in the ED included T 98.7, heart rate 99, BP 138/76, respiratory rate 16, initially 76% on room air with improvement to 93% on her chronic 3 L nasal cannula however she did transiently decreased to 89% on 3 L and was bumped up to 4 L with 94%, CBC with a BC 3.3, hemoglobin 13.1, platelet 150 with lymphopenia, BMP with carbon oxide 36 otherwise not marked appearing, lactic acid 0.6, high-sensitivity cardiac troponin 7, rapid Covid antigen negative however Covid PCR is pending given concerns, blood culture pending per ED, chest x-ray with developing by lateral basilar pulmonary infiltrates with partial clearing of bilateral upper lobe infiltrates on prior film. In ED patient ministered normal saline bolus as well as maintenance IV fluids, albuterol/DuoNeb therapy, Levaquin and Solu-Medrol. [facility] Medical History (Updated 07/05/21 @ 16:[address] Elicia Ruano MD) Anxiety and depression Chronic low back pain with sciatica Chronic respiratory failure with hypoxia COPD (chronic obstructive pulmonary disease) DVT (deep venous thrombosis) Fibromyalgia History of IBS MRSA (methicillin resistant Staphylococcus aureus) On home oxygen therapy Pneumonia Protein C deficiency RSD (reflex sympathetic dystrophy) RSD lower limb Home Medications amitriptyline 200 mg PO QHS 04/26/14 [History Last Taken 09/13/20] gabapentin 300 mg PO TIDCM 04/26/14 [History Last Taken 09/13/20] clonazepam 0.5 mg PO 4X/DAY PRN 12/13/14 [History Last Taken 09/14/20] furosemide 80 mg PO DAILY 02/04/16 [History Last Taken 09/13/20] furosemide [Lasix] 40 mg PO DINNER 06/12/17 [History Last Taken 09/13/20] dextroamphetamine-amphetamine [Adderall] 30 mg PO DAILY 08/09/17 [History Last Taken 09/12/20] cyclobenzaprine 5 mg PO BID PRN 12/15/19 [History Last Taken 09/13/20] gabapentin 600 mg PO QHS 12/15/19 [History Last Taken 09/13/20] duloxetine 60 mg PO DAILY 04/11/20 [History Last Taken 09/13/20] ipratropium-albuterol 3 ml IH 4X/DAY 04/11/20 [History Last Taken 09/12/20] potassium chloride 20 meq PO BID 02/23/21 [History Last Taken Unknown] rivaroxaban [Xarelto] 20 mg PO DAILY 06/19/21 [History Last Taken Unknown] Allergy/AdvReac Type Severity Reaction Status Date / Time celecoxib Allergy Swelling Verified 07/05/21 13:38 of arms/legs naproxen Allergy Swelling Verified 07/05/21 13:38 arms/legs Penicillins Allergy Hives/facial Verified 07/05/21 13:38 swelling pregabalin Allergy Swelling Verified 07/05/21 13:38 arms/swelling sertraline Allergy Swelling Verified 07/05/21 13:38 Family History (Updated 07/05/21 @ 16:[address] Elicia Ruano MD) Father Cancer Colon and Lung CA. other (No marked maternal family history including HD, DM, CA.) Surgical History (Updated 07/05/21 @ 16:[address] Elicia Ruano MD) History of appendectomy History of cholecystectomy S/P hysterectomy S/P tonsillectomy and adenoidectomy Social History (Updated 07/05/21 @ 16:[address] Elicia Ruano MD) housing: homeless Smoking Status: Current every day smoker tobacco type: cigarettes Smoking packs per day: 0.5 Smoking cigarettes per day: 10.0 alcohol intake: never substance use type: does not use ROS ROS Narrative Admission Review of Systems: CONSTITUTIONAL: No weight loss, + fever, chills, weakness or fatigue. HEENT: Eyes: No visual loss, blurred vision, double vision or yellow sclerae. Ears, Nose, Throat: No hearing loss, sneezing, congestion, runny nose or sore throat. SKIN: No rash or itching, lesions, wounds. CARDIOVASCULAR: + Pleuritic chest discomfort, worse with coughing. No otherwise chest pressure, palpitations, edema, orthopnea, syncopal events. RESPIRATORY: + shortness of breath, cough with increased sputum, wheezing, No hemoptysis. GASTROINTESTINAL: + anorexia, No nausea, vomiting or diarrhea, abdominal pain, melena, BRBPR. GENITOURINARY: No dysuria, frequency, urgency or retention. NEUROLOGICAL: No headache, dizziness, syncope, paralysis, ataxia, numbness or tingling in the extremities, focal weakness, change in bowel or bladder control, seizure. MUSCULOSKELETAL: + muscle, back pain, joint pain or stiffness. HEMATOLOGIC:+ anemia, bleeding or bruising. LYMPHATICS: No enlarged nodes. No history of splenectomy. PSYCHIATRIC: + history of depression or anxiety. ENDOCRINOLOGIC: No reports of sweating, cold or heat intolerance. No polyuria or polydipsia. ALLERGIES: No history of asthma, hives, eczema or rhinitis. Vital Signs Vital Signs Vital Signs: 07/05/21 13:35 07/05/21 13:41 07/05/21 13:49 Temperature 98.7 F 98.7 F Temperature Source Temporal Temporal Pulse Rate 99 97 Respiratory Rate 16 21 H Respiratory Effort Respiratory Pattern Blood Pressure 138/76 H 125/81 H Blood Pressure Mean 96 95 Pulse Ox 76 93 94 Oxygen Delivery Method Room Air Nasal Cannula Nasal Cannula Oxygen Flow Rate (L/min) 3 3 07/05/21 13:50 07/05/21 14:22 07/05/21 15:05 Temperature Temperature Source Pulse Rate 91 Respiratory Rate 24 H Respiratory Effort Short of Breath Respiratory Pattern Tachypnea Blood Pressure Blood Pressure Mean Pulse Ox 89 Oxygen Delivery Method Nasal Cannula Nasal Cannula Oxygen Flow Rate (L/min) 3 3 07/05/21 15:07 Temperature 98.5 F Temperature Source Oral Pulse Rate 100 Respiratory Rate 32 H Respiratory Effort Respiratory Pattern Blood Pressure 91/60 Blood Pressure Mean 70 Pulse Ox 94 Oxygen Delivery Method Nasal Cannula Oxygen Flow Rate (L/min) 4 Weight Weight: 190 lb Body Mass Index (BMI) 31.6 Physical Exam Narrative Physical Examination: General: Awake, alert, oriented x 3 and cooperative, seated upright in the ED bed, fatigued and ill-appearing, no evidence of respiratory distress. Skin: Normal color, normal turgor, no icterus, no cyanosis. HEENT: AT/NC, EOMI, PERRLA, dry MM, no carotid bruits or JVD noted. Lungs: Significantly diminished, coarse, mildly increased respiratory rate, no evidence of distress, currently no wheezing but very poor air movement. Heart: Mildly tachycardic with regular rhythm; no gallop, rub audible. Abdomen: Soft, NTTP, ND, distant mildly hyperactive BS, no HSM. Extremities: No cyanosis, clubbing, or edema. Neurological: Patient awake, alert, oriented as noted, cognitive function intact; pupils equally reactive to light and accommodation, cranial nerves II-XII grossly normal, moving all 4 extremities, no focal deficits, strength moderately to severely global decrease secondary to acute presentation. Psychiatric: Affect appears fatigued, ill-appearing, no acute evidence of depressive or anxiety feelings. Results Lab / Micro Data Result Diagrams: 07/05/21 14:10 07/05/21 14:10 Labs: Laboratory Results - last 24 hr 07/05/21 14:10: WBC 3.3 L, RBC 4.29, Hgb 13.1, Hct 41.6, MCV 97.0, MCH 30.5, MCHC 31.5 L, RDW Std Deviation 52.1 H, RDW Coeff of Sean 14.6, Plt Count 150, MPV 11.6, Immature Gran % (Auto) 0.300, Neut % (Auto) 72.8 H, Lymph % (Auto) 16.3 L, [place] % (Auto) 9.4, Eos % (Auto) 0.9, Baso % (Auto) 0.3, Absolute Neuts (auto) 2.4, Absolute Lymphs (auto) 0.54 L, Nucleated RBC % 0, Diff Path Review December, Platelet Estimate ADEQUATE, RBC Morphology NORM C+C 07/05/21 14:10: Sodium 137, Potassium 3.9, Chloride 97 L, Carbon Dioxide 36.0 H, Anion Gap 4 L, BUN 6 L, Creatinine 0.58, Estim Creat Clear Calc 92.82, Est GFR (MDRD) Af Amer 135, Est GFR (MDRD) Non-Af 112, BUN/Creatinine Ratio 10.3, Glucose 93, Calcium 8.5, Troponin I High Sens 7 07/05/21 14:10: Lactic Acid 0.6 Micro: Microbiology 07/05/21 15:10 Nasal Secretion SARS-CoV-2 Antigen (Rapid) - Final Radiology Impression Chest X-Ray 07/05/21 14:50 IMPRESSION: 1. Mixed interval change. Developing bilateral basilar dominant pulmonary infiltrates suggesting infection, including viral causes. 2. Partial clearing of bilateral upper lobe infiltrate on prior x-ray Electronically Signed: Brayan Villagomez MD ([place]) at 15:16 EST , Service support , Assessment & Plan Assessment/Plan (1) Pneumonia: QUALIFIERS: Pneumonia type: due to unspecified organism Laterality: bilateral Lung location: unspecified part of lung Qualified Code(s): J18.9 - Pneumonia, unspecified organism (2) COPD exacerbation: PLAN: The patient is a 61 y/o F w/ PMHx: Tobacco use, Chronic COPD w/ chronic hypoxic respiratory failure (3-4L NC), RSD, Hx VTE/Protein C deficiency currently on xarelto, Anxiety and Depression/ADHD, HTN, HLD, Chronic pain syndrome/Fibromyalgia who presents to the [facility] ED on 07/05/21 with history of onset over the last 24 hours increased fatigue, malaise, cough with productive sputum, fever and chills with pleuritic chest pain, worse with coughing with no recent alteration to sense of taste/smell, nausea, emesis, diarrhea, abdominal pain but no improving prompting ED evaluation. #1. Pneumonia, possibly viral, complicated by chronic hypoxic respiratory failure with increased hypoxia above baseline and acute on chronic COPD exacerbation: Covid PCR is pending upon admission. Will admit to SD given stable VS, maintain on oxygen with wean as tolerated to home oxygen supplementation, continue ATC duonebs, PRN albuterol, maintained on IV Rocephin and Vancomycin given prior MRSA history pending MRSA screen, HOB, IS parameters w/ pending sputum cultures and urine antigens, respiratory viral panel and as noted COVID PCR. If COVID PCR positive will transition from IV solumedrol to decadron and initiate also IV remdesivir with COVID lab work-up. Bld cx x 2 obtained in the ED. CM consulted given homeless presentation. #2. Hypertension: Continue home regimen including Lasix with hold parameters as needed, PRN hydralazine. #3. Tobacco Abuse: Encouraged cessation, inpatient consultation per RT, NR if desired. #4. History of VTE/protein C deficiency: Patient status post filter prior, will continue patient home Xarelto regimen. #5. Anxiety and depression/ADHD: We will continue patient home amitriptyline, clonazepam, Adderall, Cymbalta home regimen. #6. Chronic pain syndrome/fibromyalgia: Patient from records prior following w/ pain management, pain pump prior. We will continue patient home gabapentin as well as low-dose Flexeril regimen cautiously given respiratory presentation. #7. DVT prophylaxis: SCDs, continue patient home Xarelto regimen #8. CODE status: Patient KIMBER is her son Rome and living will is currently in place. Discussed CODE status at length including difference between FULL code, DNR-CCA and DNR-CC status. Following discussions about the differences in these status, requested Full Code status. Advanced Care Planning Face to Face Time: 16 minutes. Charges/Coding Visit Charges Inpatient E&M: 05455 Init Hosp L3 Procedures Hospitalists Procedures: 39613 Advncd Care Plan 30 Min
[2021-07-05] MEDS: levoFLOXacin IV 750 MG/150 ML BAG 100 MG IV (16:45)
[2021-07-05] MEDS: clonazePAM 0.5 MG Tablet PO (19:02)
[2021-07-05] MEDS: Furosemide 40 MG Tablet PO (19:02)
[2021-07-05] MEDS: Gabapentin 300 MG Capsule PO (19:03)
[2021-07-05] MEDS: 0.9% Normal Saline 1,000 ML 100 ML IV (19:04)
[2021-07-05 19:14] LABS: Procalcitonin 0.08 ng/mL (0.00-0.09)
[2021-07-05] MEDS: guaiFENesin 10 ML UDC (200MG/10ML) 20 ML PO (20:04)
[2021-07-05] MEDS: Acetaminophen 325 MG Tablet 650 MG PO (20:06)
[2021-07-05] MEDS: Ondansetron 4 MG/2 ML Vial IV (20:06)
[2021-07-05] MEDS: CLARIFY ORDER NOTE (21:56)
[2021-07-05] MEDS: Gabapentin 300 MG Capsule 600 MG PO (23:08)
[2021-07-05] MEDS: Amitriptyline 100 MG Tablet 200 MG PO (23:08)
[2021-07-05] MEDS: Potassium Chloride Oral Tablet 20 MEQ PO (23:08)
--- NOTE | 2021-07-05 23:41 | PHA.PHARE_ITS ---
Consult Pharmacy has been consulted to manage selected antiobiotic: Vancomycin Type of Consult: New start Suspected Infection: Pneumonia Prior Doses of Antibiotics Received/Current Regimen: Medications Vancomycin HCl 1,750 mg/ (Sodium Chloride) 535 mls @ 250 mls/hr IV Q12H DANNA Discontinued Medications Vancomycin HCl 2,000 mg/ (Sodium Chloride) 540 mls @ 250 mls/hr IV X1 ONE Stop: 07/05/21 22:09 Last Admin: 07/05/21 22:23 Dose: Infused Labs: Sodium 137 mmol/L (136-145) 07/05/21 14:10 Potassium 3.9 mmol/L (3.5-5.1) 07/05/21 14:10 Chloride 97 mmol/L (98-107) L 07/05/21 14:10 Carbon Dioxide 36.0 mmol/L (21.0-32.0) H 07/05/21 14:10 Anion Gap 4 (5-15) L 07/05/21 14:10 BUN 6 mg/dL (7-18) L 07/05/21 14:10 Creatinine 0.58 mg/dL (0.55-1.02) 07/05/21 14:10 Est GFR (MDRD) Af Amer 135 mL/min (>60) 07/05/21 14:10 Est GFR (MDRD) Non-Af 112 mL/min (>60) 07/05/21 14:10 BUN/Creatinine Ratio 10.3 RATIO (10-20) 07/05/21 14:10 Glucose 93 mg/dL (74-106) 07/05/21 14:10 Microbiology: Microbiology 07/05/21 22:45 Urine, Clean Catch Legionella Antigen - Final 07/05/21 22:45 Urine, Clean Catch Streptococcus pneumoniae Antigen (M - Final 07/05/21 16:15 Mucosa - Nasopharyngeal Respiratory Panel (PCR) - Final Human [place] Rhinovirus 07/05/21 15:10 Nasal Secretion SARS-CoV-2 Antigen (Rapid) - Final Weight used for dosin.2 kg Estimated Creatinine Clearance: 93 Goal Trough: 15-20 mcg/mL Pharmacy Plan for Drug Dosing: Pharmacy Service will continue to monitor and adjust dosing as required. Follow-Up Labs: Trough Vancomycin Labs to be done on [date and time ordered]: 07/07/21 @0444
[2021-07-06] VITALS (14 sets, daily range): BP systolic 99–123; BP diastolic 55–77; PULSE 75–94; RESP 12–20; TEMP 36.6–37.1; O2SAT 90–95
[2021-07-06 01:01] LABS: M R Staph aureus DNA By PCR Negative (Negative); Probe Check PASS; Specimen Processing Control PASS
--- NOTE | 2021-07-06 06:34 | PN.HOSP_ITS ---
Subjective Subjective Patient overnight with no acute events however this morning per respiratory therapy she has mildly increased respiratory status with increased work of breathing, remains coarse therefore BiPAP trial initiated. Discussed with patient that Covid PCR was negative however she did have a significant respiratory viral panel with positive human [place] pneumo as well as rhinovirus. Patient with ongoing intermittent coughing and wheezing but she does state that she feels mildly improved since initial ED presentation. Patient denies fevers, chills, nausea, emesis, abdominal pain, chest pain or worsened dyspnea. Objective Data Objective Data Vital Signs: Vital Signs Temp Pulse Resp BP Pulse Ox 98.2 F 78 18 123/64 H 92 07/06/21 05:49 07/06/21 05:49 07/06/21 05:49 07/06/21 05:49 07/06/21 05:49 Oxygen Flow Rate (L/min) 4 Oxygen Delivery Method Nasal Cannula Weight: 190 lb 0.615 oz Body Mass Index (BMI) 31.6 Intake & Output: Intake and Output for Last 24 Hours 07/04/21 07/05/21 07/06/21 23:59 23:59 23:59 Intake Total 2750 / 2750 2000 / 2000 Output Total 400 / 400 Balance 2750 / 2750 1600 / 1600 Lab / Micro Data Result Diagrams: 07/06/21 06:30 07/06/21 06:30 Labs: Laboratory Results - last 24 hr 07/05/21 14:10: WBC 3.3 L, RBC 4.29, Hgb 13.1, Hct 41.6, MCV 97.0, MCH 30.5, MCHC 31.5 L, RDW Std Deviation 52.1 H, RDW Coeff of Sean 14.6, Plt Count 150, MPV 11.6, Immature Gran % (Auto) 0.300, Neut % (Auto) 72.8 H, Lymph % (Auto) 16.3 L, [place] % (Auto) 9.4, Eos % (Auto) 0.9, Baso % (Auto) 0.3, Absolute Neuts (auto) 2.4, Absolute Lymphs (auto) 0.54 L, Nucleated RBC % 0, Diff Path Review December, Platelet Estimate ADEQUATE, RBC Morphology NORM C+C 07/05/21 14:10: Sodium 137, Potassium 3.9, Chloride 97 L, Carbon Dioxide 36.0 H, Anion Gap 4 L, BUN 6 L, Creatinine 0.58, Estim Creat Clear Calc 92.82, Est GFR (MDRD) Af Amer 135, Est GFR (MDRD) Non-Af 112, BUN/Creatinine Ratio 10.3, Glucose 93, Calcium 8.5, Troponin I High Sens 7 07/05/21 14:10: Lactic Acid 0.6 07/05/21 16:15: COVID-19 (RACHEL) Not Detected 07/05/21 18:23: Magnesium 2.0 07/05/21 18:23: Procalcitonin 0.08 07/05/21 23:00: MRSA (PCR) Negative Micro: Microbiology 07/05/21 22:45 Urine, Clean Catch Legionella Antigen - Final 07/05/21 22:45 Urine, Clean Catch Streptococcus pneumoniae Antigen (M - Final 07/05/21 16:15 Mucosa - Nasopharyngeal Respiratory Panel (PCR) - Final Human [place] Rhinovirus 07/05/21 15:10 Nasal Secretion SARS-CoV-2 Antigen (Rapid) - Final Radiography Diagnostic Testing: Radiology Impression Chest X-Ray 07/05/21 14:50 IMPRESSION: 1. Mixed interval change. Developing bilateral basilar dominant pulmonary infiltrates suggesting infection, including viral causes. 2. Partial clearing of bilateral upper lobe infiltrate on prior x-ray Electronically Signed: Brayan Villagomez MD ([place]) at 15:16 EST , Service support , Physical Exam Narrative Physical Examination: General: Awake, alert, oriented x 3 and cooperative, seated upright in the MS bed, fatigued and ill-appearing, upon current evaluation mildly increased respiratory rate but no distress noted. Skin: Normal color, normal turgor, no icterus, no cyanosis. HEENT: AT/NC, EOMI, PERRLA, dry MM. Lungs: Continued diffusely diminished, coarse, mildly increased respiratory rate, poor aeration, no obvious current wheezing. Heart: Regular rate with regular rhythm; no gallop, rub audible. Abdomen: Soft, NTTP, ND, distant mildly hyperactive BS. Extremities: No cyanosis, clubbing, or edema. Neurological: Patient awake, alert, oriented as noted, cognitive function intact; pupils equally reactive to light and accommodation, cranial nerves II- XII grossly normal, moving all 4 extremities, no focal deficits, strength moderately to severely global decrease secondary to acute presentation. Psychiatric: Affect appears fatigued, ill-appearing, no acute evidence of depressive or anxiety feelings. Assessment & Plan Assessment/Plan (1) Human metapneumovirus pneumonia: (2) Rhinovirus infection: PLAN: The patient is a 61 y/o F w/ PMHx: Tobacco use, Chronic COPD w/ chronic hypoxic respiratory failure (3-4L NC), RSD, Hx VTE/Protein C deficiency currently on xarelto, Anxiety and Depression/ADHD, HTN, HLD, Chronic pain syndrome/Fibromyalgia who presents to the [facility] ED on 07/05/21 with history of onset over the last 24 hours increased fatigue, malaise, cough with productive sputum, fever and chills with pleuritic chest pain, worse with coughing with no recent alteration to sense of taste/smell, nausea, emesis, diarrhea, abdominal pain but no improving prompting ED evaluation. #1. Acute on chronic hypoxic respiratory failure secondary to Acute on chronic COPD exacerbation secondary to Acute Rhinovirus and Human Metapneumo virus: Covid PCR negative. Admitted to MD, maintain on oxygen with wean as tolerated to home oxygen supplementation, continue ATC duonebs, PRN albuterol, maintained initially on IV Rocephin and Vancomycin given prior MRSA history however given normal procalcitonin with respiratory viral panel with human metapneumovirus as well as rhinovirus will de-escalate off antibiotic therapies, HOB, IS parameters w/ pending sputum cultures, negative urine antigens, positive human [place] pneumo and rhinovirus on respiratory viral panel, Covid PCR negative. Bld cx x 2 obtained in the ED. CM consulted given homeless presentation. Will need oxygenation trial prior to discharge to home. #2. Hypertension: Continue home regimen including Lasix with hold parameters as needed, PRN hydralazine. #3. Tobacco Abuse: Encouraged cessation, inpatient consultation per RT, NR if desired. #4. History of VTE/protein C deficiency: Patient status post filter prior, will continue patient home Xarelto regimen. #5. Anxiety and depression/ADHD: We will continue patient home amitriptyline, clonazepam, Adderall, Cymbalta home regimen. #6. Chronic pain syndrome/fibromyalgia: Patient from records prior following w/ pain management, pain pump prior. We will continue patient home gabapentin as well as low-dose Flexeril regimen cautiously given respiratory presentation. #7. DVT prophylaxis: SCDs, continue patient home Xarelto regimen #8. CODE status: Patient KIMBER is her son Rome and living will is currently in place. Full Code status. Charges/Coding Visit Charges Inpatient E&M: 72369 Subs Hosp L2
[2021-07-06 06:57] LABS: Absolute Lymphocyte Count 0.32 X10^3/uL (0.83-4.51); Absolute Neutrophil Count 1.4 X10^3/uL (2.0-7.7); Hematocrit 40.5 % (37-47); Hemoglobin 12.2 g/dL (12.0-15.0); Lymphocyte # 0.32 X10^3/ul (0.83-4.51); Lymphocyte % 17.3 % (19-41); Mean Corp Hgb Conc 30.1 g/dL (32-36); Mean Corpuscular Hgb 29.9 pg (27.0-32.0); Mean Corpuscular Volume 99.3 fL (81-99); Monocyte% 5.4 % (0-10); NRBC Flagged by Analyzer 0 % (0-5); Neutrophil # 1.43 X10^3/uL (2.7-7.7); Neutrophil % 77.3 % (47-70); POSITIVE DIFFERENTIAL YES; Platelet Count 160 K/mm3 (150-450); RBC Distribution Width CV 14.5 % (11.6-14.6); RBC Distribution Width SD 53.1 fl (35.1-43.9); Red Blood Count 4.08 M/mm3 (4.2-5.4); White Blood Count 1.9 K/mm3 (4.4-11.0)
[2021-07-06 06:59] LABS: Differential Indicated SCAN CRITERIA MET
[2021-07-06 07:18] LABS: ALB/GLOB Ratio 0.7 RATIO (0.9-2.4); AST(SGOT) 16 U/L (15-37); Alanine Aminotransfer ALT/SGPT 11 U/L (13-56); Albumin, Serum 2.5 g/dL (3.2-5.0); Alkaline Phosphatase 71 U/L (45-117); Anion Gap 2 (5-15); BUN 7 mg/dL (7-18); Calcium,Total 8.3 mg/dL (8.5-10.1); Chloride 103 mmol/L (98-107); Creatinine, Serum 0.41 mg/dL (0.55-1.02); EST Glomerular Filtration Rate 168 mL/min (>60); Est Glom Filt Rate - Afr Amer 203 mL/min (>60); Globulin 3.7 g/dL (2.2-4.2); Glucose 143 mg/dL (74-106); Potassium 3.9 mmol/L (3.5-5.1); Protein, Total 6.2 g/dL (6.4-8.2); Sodium Level 141 mmol/L (136-145)
[2021-07-06] MEDS: Ipratropium/Albuterol Sulfate 3 ML AMPUL.NEB INHALATION ×5 (07:22→23:15)
[2021-07-06] MEDS: Gabapentin 300 MG Capsule PO ×3 (08:31→15:57)
[2021-07-06] MEDS: Acetaminophen 325 MG Tablet 650 MG PO (08:56)
[2021-07-06] MEDS: Rivaroxaban 20 MG Tablet PO (08:57)
[2021-07-06] MEDS: Furosemide 80 MG Tablet PO (08:57)
[2021-07-06] MEDS: DULoxetine Hcl 60 MG Capsule PO (08:57)
[2021-07-06] MEDS: guaiFENesin 10 ML UDC (200MG/10ML) 20 ML PO (08:57)
[2021-07-06] MEDS: Potassium Chloride Oral Tablet 20 MEQ PO ×2 (08:58→21:37)
[2021-07-06] MEDS: Albuterol 2.5 MG/3 ML VIAL.NEB. INHALATION (09:27)
[2021-07-06] MEDS: 0.9% Saline Lock 10 ML Syringe IV ×2 (13:29→21:38)
[2021-07-06] MEDS: Furosemide 40 MG Tablet PO (15:56)
[2021-07-06] MEDS: clonazePAM 0.5 MG Tablet PO (17:21)
[2021-07-06] MEDS: Gabapentin 300 MG Capsule 600 MG PO (21:36)
[2021-07-06] MEDS: MELATONIN 3 MG TABLET PO (21:37)
[2021-07-06] MEDS: Amitriptyline 100 MG Tablet 200 MG PO (21:37)
[2021-07-07] VITALS (13 sets, daily range): BP systolic 98–125; BP diastolic 63–83; PULSE 70–96; RESP 12–25; TEMP 36.4–36.9; O2SAT 94–98
[2021-07-07] MEDS: 0.9% Saline Lock 10 ML Syringe IV ×2 (05:54→13:43)
--- NOTE | 2021-07-07 06:29 | CON.PCM.CC_ITS ---
Assessment & Plan Assessment/Plan (1) COPD exacerbation: PLAN: RECOMMENDATIONS: 1. Continue to wean supplemental oxygen to maintain saturations at or above 90%. 2. Continue scheduled bronchodilator therapy. 3. Continue IV steroids. 4. Continue systemic anticoagulation with Xarelto per home regimen. 5. Encourage incentive spirometer use and mobilize patient as tolerated. IMPRESSIONS: 1. Acute on chronic hypoxemic respiratory failure The patient has a self-reported history of COPD of unknown severity along with chronic hypoxemic respiratory failure with a baseline 3 L/min oxygen requirement. She has been in the past followed by Dr. Florez at [facility]. The patient appears to be suffering from a COPD exacerbation precipitated by a combination of rhinovirus and human metapneumovirus upper respiratory infections. Plan to continue current supportive measures including supplemental oxygen to maintain saturations at or above 90% along with scheduled bronchodilators and IV steroids. 2. History of chronic tobacco dependency The patient does continue to smoke cigarettes daily. I personally spent 3 mi nutes discussing the deleterious effects of continued tobacco use with the patient, including modalities which could utilize to achieve a smoke-free lifestyle. Nicotine replacement therapy can be offered to the patient while admitted to the hospital. 3. History of venous thromboembolic disease Continue systemic anticoagulation with Xarelto per home regimen. 4. Anxiety/depression/hypertension/hyperlipidemia/chronic pain syndrome Complicates care, management, recovery and prognosis. Continue home medications as indicated. This note was generated with [employer] dictation software. It may contain incorrect words, spelling, and punctuation that were not noted in checking the note before signing. HPI Consult Data Date of Consult: 07/07/21 HPI Narrative Reason for Consultation: COPD exacerbation HPI Narrative: The patient is a 61-year-old female, with a history as outlined below, who presented to the emergency department on July 05 with cough, shortness of breath, fatigue, fevers and chills. The patient has a self- reported history of COPD of unknown severity. She also reports that she utilizes 3 L/min of supplemental oxygen at her baseline. She has an extensive tobacco abuse history and continues to smoke cigarettes daily. She has been followed in the past by Dr. Florez at [facility]. The patient is currently homeless and [facility] She does report sick contact exposure from several children. On presentation to the emergency department, the patient was noted to be afebrile and hemodynamically stable. She was maintaining appropriate oxygen saturations on 3 L/min via nasal cannula. Initial laboratory evaluation revealed an elevated bicarbonate to 36. Lactate was within normal limits. Coronavirus PCR was negative. MRSA screen was negative. Chest x-ray demonstrated an elevated right hemidiaphragm ill-defined reticular and groundglass opacities were noted in lung bases. Respiratory viral panel was positive for both human metapneumovirus and rhinovirus. The patient was started on scheduled bronchodilators and IV steroids. She was admitted to the medical surgical floor for further management. [facility] Medical History (Updated 07/05/21 @ 22:[address] Zenon Holliday MD) Anxiety and depression Chronic low back pain with sciatica Chronic respiratory failure with hypoxia COPD (chronic obstructive pulmonary disease) DVT (deep venous thrombosis) Fibromyalgia Hearing loss, left History of IBS MRSA (methicillin resistant Staphylococcus aureus) On home oxygen therapy Pneumonia Protein C deficiency RSD (reflex sympathetic dystrophy) RSD lower limb Home Medications amitriptyline 200 mg PO QHS 04/26/14 [History Last Taken 07/04/21] gabapentin 300 mg PO TIDCM 04/26/14 [History Last Taken 07/05/21] clonazepam 0.5 mg PO 4X/DAY PRN 12/13/14 [History Last Taken 07/05/21] furosemide 80 mg PO DAILY 02/04/16 [History Last Taken 07/05/21] furosemide [Lasix] 40 mg PO DINNER 06/12/17 [History Last Taken 07/04/21] dextroamphetamine-amphetamine [Adderall] 30 mg PO DAILY 08/09/17 [History Last Taken 07/05/21] cyclobenzaprine 5 mg PO BID PRN 12/15/19 [History Last Taken 09/13/20] gabapentin 600 mg PO QHS 12/15/19 [History Last Taken 07/04/21] duloxetine 60 mg PO DAILY 04/11/20 [History Last Taken 07/04/21] ipratropium-albuterol 3 ml IH 4X/DAY 04/11/20 [History Last Taken 07/05/21] potassium chloride 20 meq PO BID 02/23/21 [History Last Taken 07/05/21] rivaroxaban [Xarelto] 20 mg PO DAILY 06/19/21 [History Last Taken 07/04/21] Allergy/AdvReac Type Severity Reaction Status Date / Time celecoxib Allergy Swelling Verified 07/05/21 13:38 of arms/legs naproxen Allergy Swelling Verified 07/05/21 13:38 arms/legs Penicillins Allergy Hives/facial Verified 07/05/21 13:38 swelling pregabalin Allergy Swelling Verified 07/05/21 13:38 arms/swelling sertraline Allergy Swelling Verified 07/05/21 13:38 Family History (Updated 07/05/21 @ 16:[address] Elicia Ruano MD) Father Cancer Colon and Lung CA. Family History other Surgical History (Updated 07/05/21 @ 16:[address] Elicia Ruano MD) History of appendectomy History of cholecystectomy S/P hysterectomy S/P tonsillectomy and adenoidectomy Social History (Updated 07/05/21 @ 16:[address] Elicia Ruano MD) housing: homeless Smoking Status: Current every day smoker tobacco type: cigarettes Smoking packs per day: 0.5 Smoking cigarettes per day: 10.0 alcohol intake: never substance use type: does not use ROS Constitutional Constitutional: Reports chills, fatigue, fever(s) and malaise Eyes Eyes: Denies blurry vision or change in vision ENT HEENT: Denies dizziness, dysphagia, nasal congestion or nasal discharge Cardiovascular Cardiovascular: Reports dyspnea; Denies chest pain Respiratory/Chest Respiratory/Chest: Reports cough and dyspnea Gastrointestinal Gastrointestinal: Denies abdominal pain, diarrhea, nausea or vomiting Genitourinary Genitourinary: Denies difficulty urinating Musculoskeletal Musculoskeletal: Denies arthralgias or back pain Integumentary Integumentary: Denies lesions, rash or skin ulcer Neurologic Neurologic: Denies abnormal gait or abnormal speech Psychiatric Psychiatric: Reports anxiety and depression Endocrine Endocrinology: Reports fatigue Hematologic/Lymphatic Hematologic/Lymphatic: Denies easy bleeding or easy bruising Physical Exam Const alert and no apparent distress Constitutional Narrative: Currently receiving an aerosol treatment. General Appearance: cooperative Nutritional Appearance: obese HEENT normocephalic and head/scalp atraumatic Eyes PERRL, EOMs intact bilaterally and conjunctivae normal Neck supple General: trachea midline Chest inspection of chest normal Resp Auscultation: diminished lung sounds; Negative for rales, rhonchi or wheezes Cardio regular rate and regular rhythm GI normal to inspection, nondistended, normoactive bowel sounds Extremity no clubbing, cyanosis or edema Skin no rashes or lesions noted Neuro CN's II-XII intact bilaterally, moves all extremities and no focal motor deficits Psych Mood & Affect: anxious Lab / Micro Data Result Diagrams: 07/06/21 06:30 07/06/21 06:30 Labs: Laboratory Results - last 24 hr 07/06/21 06:30: WBC 1.9 L, RBC 4.08 L, Hgb 12.2, Hct 40.5, MCV 99.3 H, MCH 29.9, MCHC 30.1 L, RDW Std Deviation 53.1 H, RDW Coeff of Sean 14.5, Plt Count 160, MPV 11.0, Immature Gran % (Auto) 0.000, Neut % (Auto) 77.3 H, Lymph % (Auto) 17.3 L, [place] % (Auto) 5.4, Eos % (Auto) 0.0, Baso % (Auto) 0.0, Absolute Neuts (auto) 1 .4 L, Absolute Lymphs (auto) 0.32 L, Nucleated RBC % 0, Diff Path Review December07/06/21 06:30: Sodium 141, Potassium 3.9, Chloride 103, Carbon Dioxide 36.0 H, Anion Gap 2 L, BUN 7, Creatinine 0.41 L, Estim Creat Clear Calc 131.30, Est GFR (MDRD) Af Amer 203, Est GFR (MDRD) Non-Af 168, BUN/Creatinine Ratio 17.0, Glucose 143 H, Calcium 8.3 L, Total Bilirubin 0.20, AST 16, ALT 11 L, Alkaline Phosphatase 71, Total Protein 6.2 L, Albumin 2.5 L, Globulin 3.7, Albumin/Globulin Ratio 0.7 L 07/06/21 23:09: COVID-19 (RACHEL) Not Detected Charges/Coding Visit Charges Inpatient E&M: 35072 Init Hosp L3 Behavior Interventions Behavior Intervention: 36760 Smoking Cessation 3-10 min
--- NOTE | 2021-07-07 06:33 | PN.HOSP_ITS ---
Subjective Subjective Patient notes ongoing cough, fatigue malaise but mildly improved since initial presentation. Discussed with patient that her second Covid testing to be assured was negative. Pulmonary medicine is evaluating the patient concurrently given her underlying respiratory history although they noted that remotely her PFTs did not demonstrate COPD at that time but is been nearly a decade. Per staff patient had been consistently throwing off her BiPAP through the evening. Patient denies fevers, chills, nausea, emesis, abdominal pain, chest pain or worsened dyspnea. Objective Data Objective Data Vital Signs: Vital Signs Temp Pulse Resp BP Pulse Ox 98.4 F 73 15 107/74 94 07/07/21 05:52 07/07/21 05:52 07/07/21 05:52 07/07/21 05:52 07/07/21 05:52 Oxygen Flow Rate (L/min) 6 Oxygen Delivery Method Bi-pap Weight: 190 lb 7.67 oz Body Mass Index (BMI) 31.6 Intake & Output: Intake and Output for Last 24 Hours 07/05/21 07/06/21 07/07/21 23:59 23:59 23:59 Intake Total 2750 / 2750 2900 / 2900 Output Total 400 / 400 Balance 2750 / 2750 2500 / 2500 Lab / Micro Data Result Diagrams: 07/06/21 06:30 07/06/21 06:30 Labs: Laboratory Results - last 24 hr 07/06/21 06:30: WBC 1.9 L, RBC 4.08 L, Hgb 12.2, Hct 40.5, MCV 99.3 H, MCH 29.9, MCHC 30.1 L, RDW Std Deviation 53.1 H, RDW Coeff of Sean 14.5, Plt Count 160, MPV 11.0, Immature Gran % (Auto) 0.000, Neut % (Auto) 77.3 H, Lymph % (Auto) 17.3 L, [place] % (Auto) 5.4, Eos % (Auto) 0.0, Baso % (Auto) 0.0, Absolute Neuts (auto) 1.4 L, Absolute Lymphs (auto) 0.32 L, Nucleated RBC % 0, Diff Path Review December07/06/21 06:30: Sodium 141, Potassium 3.9, Chloride 103, Carbon Dioxide 36.0 H, Anion Gap 2 L, BUN 7, Creatinine 0.41 L, Estim Creat Clear Calc 131.30, Est GFR (MDRD) Af Amer 203, Est GFR (MDRD) Non-Af 168, BUN/Creatinine Ratio 17.0, Glucose 143 H, Calcium 8.3 L, Total Bilirubin 0.20, AST 16, ALT 11 L, Alkaline Phosphatase 71, Total Protein 6.2 L, Albumin 2.5 L, Globulin 3.7, Albumin/Globulin Ratio 0.7 L 07/06/21 23:09: COVID-19 (RACHEL) Not Detected Micro: Microbiology 07/05/21 22:45 Urine, Clean Catch Legionella Antigen - Final 07/05/21 22:45 Urine, Clean Catch Streptococcus pneumoniae Antigen (M - Final 07/05/21 16:15 Mucosa - Nasopharyngeal Respiratory Panel (PCR) - Final Human [place] Rhinovirus 07/05/21 15:10 Nasal Secretion SARS-CoV-2 Antigen (Rapid) - Final Physical Exam Narrative Physical Examination: General: Awake, alert, oriented x 3 and cooperative, seated upright in the MS bed, improved appearance than day prior but still fatigued, no obvious respiratory distress. Skin: Normal color, normal turgor, no icterus, no cyanosis. HEENT: AT/NC, EOMI, PERRLA, mildly improved less dry MM. Lungs: Continued diffusely diminished, mildly coarse bases however improved with coughing, normalized respiratory rate, poor aeration, no rales, wheezing. Heart: Regular rate with regular rhythm; no gallop, rub audible. Abdomen: Soft, NTTP, ND, normalized BS. Extremities: No cyanosis, clubbing, or edema. Neurological: Patient awake, alert, oriented as noted, cognitive function intact; pupils equally reactive to light and accommodation, cranial nerves II- XII grossly normal, moving all 4 extremities, no focal deficits, strength moderately to severely global decrease secondary to acute presentation. Psychiatric: Affect appears fatigued, no acute evidence of depressive or anxiety feelings. Assessment & Plan Assessment/Plan (1) Human metapneumovirus pneumonia: (2) Rhinovirus infection: PLAN: The patient is a 61 y/o F w/ PMHx: Tobacco use, Chronic COPD w/ c hronic hypoxic respiratory failure (3-4L NC), RSD, Hx VTE/Protein C deficiency currently on xarelto, Anxiety and Depression/ADHD, HTN, HLD, Chronic pain syndrome/Fibromyalgia who presents to the [facility] ED on 07/05/21 with history of onset over the last 24 hours increased fatigue, malaise, cough with productive sputum, fever and chills with pleuritic chest pain, worse with coughing with no recent alteration to sense of taste/smell, nausea, emesis, diarrhea, abdominal pain but no improving prompting ED evaluation. #1. Acute on chronic hypoxic respiratory failure secondary to Acute on chronic COPD exacerbation secondary to Acute Rhinovirus and Human Metapneumo virus: Covid PCR negative. Admitted to [place], maintain on oxygen with wean as tolerated to home oxygen supplementation, continue ATC duonebs, PRN albuterol, maintained initially on IV Rocephin and Vancomycin given prior MRSA history however given normal procalcitonin with respiratory viral panel with human metapneumovirus as well as rhinovirus thus de-escalated off antibiotic therapies initial administered, HOB, IS parameters, negative urine antigens, positive human [place] pneumo and rhinovirus on respiratory viral panel, Covid PCR negative, Sputum cx pending. CM consulted given homeless presentation. Pulmonary consulted and chito mmended continued aerosols, steroids, IS with recommendation for follow-up with Dr. Florez upon discharge. #2. Hypertension: Continue home regimen including Lasix with hold parameters as needed, PRN hydralazine. #3. Tobacco Abuse: Encouraged cessation, inpatient consultation per RT, NR if desired. #4. History of VTE/protein C deficiency: Patient status post filter prior, will continue patient home Xarelto regimen. #5. Anxiety and depression/ADHD: We will continue patient home amitriptyline, clonazepam, Adderall, Cymbalta home regimen. #6. Chronic pain syndrome/fibromyalgia: Patient from records prior following w/ pain management, pain pump prior. We will continue patient home gabapentin as well as low-dose Flexeril regimen cautiously given respiratory presentation. #7. DVT prophylaxis: SCDs, continue patient home Xarelto regimen #8. CODE status: Patient KIMBER is her son Rome and living will is currently in place. Full Code status. Charges/Coding Visit Charges Inpatient E&M: 49032 Subs Hosp L2
[2021-07-07] MEDS: Ipratropium/Albuterol Sulfate 3 ML AMPUL.NEB INHALATION ×4 (07:13→20:21)
[2021-07-07] MEDS: Potassium Chloride Oral Tablet 20 MEQ PO ×2 (08:32→21:27)
[2021-07-07] MEDS: Gabapentin 300 MG Capsule PO ×3 (08:32→16:58)
[2021-07-07] MEDS: DULoxetine Hcl 60 MG Capsule PO (08:33)
[2021-07-07] MEDS: Furosemide 80 MG Tablet PO (08:33)
[2021-07-07] MEDS: cycloBENZAPRine HCl 5 MG TABLET PO ×2 (08:33→21:28)
[2021-07-07] MEDS: Acetaminophen 325 MG Tablet 650 MG PO ×2 (08:33→13:43)
[2021-07-07] MEDS: Rivaroxaban 20 MG Tablet PO (08:33)
--- NOTE | 2021-07-07 12:10 | CASEMGMT ---
CAROLINA DE LOS SANTOS Assessment: Face to Face with pt for initial transition planning/care coordination assessment. RN FILIBERTO introduced self and role at [facility], pt voices understanding and consents to assessment. Pt is O x4, drowsy and states she cannot remember some of the answers to the questions at this time. Pt lying in bed with O2 on in no distress. Care providers, pharmacy, and demographics verified/updated. Pt could not remember her phone number. Admitting Dx: PNA, COPD exac, hypoxemia PCP:S[place] Specialists:dm Florez Preferred Pharmacy: [facility] Insurance: [employer] [facility] Prescription Benefit: yes LW/HPOA: Pt has a LW/DPOA on file at [facility]. Pt DPOA is her [employer]. LNOK: Rome Anderson, son Living Arrangements: Pt lives at [address] [place] [address] currently. Pt states she is still but they are looking for a house. Pt states there are no steps to enter and she is I in ADL's. Transportation: Pt drives self and denies concerns with transportation. DME/HHC/SNF: Pt has O2, nebulizer machine and a w/c. Pt does not know the name of the O2 company. Pt denies hx of HHC or SNF stays. Pt states no concerns with going home at time of dc. Pt states no further concerns/needs. CM to follow. Advised pt to ask CM if any further question/concerns/needs arise, voices understanding. Pt Goal: Return to 180 Plan: Return to 180, green sheet on chart in case rx of O2 changes. TC to [facility], spoke with Aarti pt does not receive O2 through [facility]. TC to 180, asked staff member to verify O2 provider per O2 concentrator. Pt provider is [facility]. TC to [facility], spoke with Kadie. She states at last delivery in April, pt was on 2-3 L cont.
[2021-07-07] MEDS: clonazePAM 0.5 MG Tablet PO (13:43)
[2021-07-07] MEDS: guaiFENesin 10 ML UDC (200MG/10ML) 20 ML PO (13:43)
[2021-07-07 15:23] LABS: Pathologist Review Reviewed
[2021-07-07 15:30] LABS: Pathologist Review Reviewed
--- NOTE | 2021-07-07 15:48 | CASEMGMT ---
Social Work Note SW updated that pt is homeless, residing at [facility]. SW in to speak with pt. Pt confirms that she is residing at [facility]. Pt states that she has been at the halfway for a month or two. Pt states that [facility] is helping her to find housing. SW provided pt with additional housing resources. SW asked pt about her . Pt states her is living with his mother and pt cannot live there. Pt denied additional needs or concerns at this time. Malika Landis MEDICAL ASSISTANT OB GYN, JIG OPERATOR
[2021-07-07] MEDS: Furosemide 40 MG Tablet PO (16:58)
[2021-07-07] MEDS: Amitriptyline 100 MG Tablet 200 MG PO (21:28)
[2021-07-07] MEDS: Gabapentin 300 MG Capsule 600 MG PO (21:28)
[2021-07-08] VITALS (13 sets, daily range): BP systolic 111–123; BP diastolic 66–82; PULSE 78–88; RESP 16–20; TEMP 36.5–37; O2SAT 4–96
[2021-07-08] MEDS: 0.9% Saline Lock 10 ML Syringe IV ×3 (05:56→21:35)
--- NOTE | 2021-07-08 06:18 | PN.HOSP_ITS ---
Subjective Subjective Patient with no acute events overnight per self and per nursing report. Patient continues to have difficulty tolerating BiPAP. She does remain hypoxic requiring at least 6 L at rest. Patient evaluated by pulmonary medicine and agreed with continued steroids, bronchodilators, I-S and encouraged continued increase mobilization of patient. From a pulmonary standpoint they noted that if she was 6 L or less with ambulation successfully that she could be considered for discharge. Patient does feel improved since her initial admission but still feels short of breath especially with activity and has ongoing coughing. Patient denies fevers, chills, nausea, emesis, abdominal pain, chest pain. Objective Data Objective Data Vital Signs: Vital Signs Temp Pulse Resp BP Pulse Ox 97.7 F L 79 18 117/66 96 07/08/21 03:34 07/08/21 03:34 07/08/21 03:34 07/08/21 03:34 07/08/21 03:34 Oxygen Flow Rate (L/min) 6 Oxygen Delivery Method Nasal Cannula Weight: 190 lb 7.67 oz Body Mass Index (BMI) 31.6 Intake & Output: Intake and Output for Last 24 Hours 07/06/21 07/07/21 07/08/21 23:59 23:59 23:59 Intake Total 2900 / 2900 1950 / 1950 300 / 300 Output Total 400 / 400 Balance 2500 / 2500 1950 / 1950 300 / 300 Lab / Micro Data Result Diagrams: 07/08/21 05:59 07/08/21 05:59 Labs: Laboratory Results - last 24 hr 07/05/21 14:10: Diff Path Review Reviewed 07/06/21 06:30: Diff Path Review Reviewed Micro: Microbiology 07/05/21 14:10 Blood Culture (Wb) - Anticubital Right Blood Culture - Preliminary No growth in 48 hours. 07/06/21 20:58 Interface Orders Gram Stain - Final 07/05/21 22:45 Urine, Clean Catch Legionella Antigen - Final 07/05/21 22:45 Urine, Clean Catch Streptococcus pneumoniae Antigen (M - Final 07/05/21 16:15 Mucosa - Nasopharyngeal Respiratory Panel (PCR) - Final Human [place] Rhinovirus 07/05/21 15:10 Nasal Secretion SARS-CoV-2 Antigen (Rapid) - Final Physical Exam Narrative Physical Examination: General: Awake, alert, oriented x 3 and cooperative, seated upright in the MS bed, more interactive, less fatigued. Skin: Normal color, normal turgor, no icterus, no cyanosis. HEENT: AT/NC, EOMI, PERRLA, MMM. Lungs: Diminished, coarse bases, occasional end expiratory wheeze, no evidence of any distress at rest. Heart: Regular rate with regular rhythm; no gallop, rub audible. Abdomen: Soft, NTTP, ND, normalized BS. Extremities: No cyanosis, clubbing, or edema. Neurological: Patient awake, alert, oriented as noted, cognitive function intact; pupils equally reactive to light and accommodation, cranial nerves II- XII grossly normal, moving all 4 extremities, no focal deficits, strength improving, moderately globally decreased. Psychiatric: Affect appears less fatigued, no acute evidence of depressive or a nxiety feelings. Assessment & Plan Assessment/Plan (1) Human metapneumovirus pneumonia: (2) Rhinovirus infection: PLAN: The patient is a 61 y/o F w/ PMHx: Tobacco use, Chronic COPD w/ chronic hypoxic respiratory failure (3-4L NC), RSD, Hx VTE/Protein C deficiency currently on xarelto, Anxiety and Depression/ADHD, HTN, HLD, Chronic pain syndrome/Fibromyalgia who presents to the [facility] ED on 07/05/21 with history of onset over the last 24 hours increased fatigue, malaise, cough with productive sputum, fever and chills with pleuritic chest pain, worse with coughing with no recent alteration to sense of taste/smell, nausea, emesis, diarrhea, abdominal pain but no improving prompting ED evaluation. #1. Acute on chronic hypoxic respiratory failure secondary to Acute on chronic COPD exacerbation secondary to Acute Rhinovirus and Human Metapneumo virus: Covid PCR negative. Admitted to [place], maintain on oxygen with wean as tolerated to home oxygen supplementation, continue ATC duonebs, PRN albuterol, maintained initially on IV Rocephin and Vancomycin given prior MRSA history however given normal procalcitonin with respiratory viral panel with human metapneumovirus as well as rhinovirus thus de-escalated off antibiotic therapies initial administered, HOB, IS parameters, negative urine antigens, positive human [place] pneumo and rhinovirus on respiratory viral panel, Covid PCR negative, Sputum cx with no growth. CM consulted given homeless presentation. Pulmonary consulted and recommended continued aerosols, steroids, IS with recommendation for follow- up with Dr. Florez upon discharge. We will plan to discharge patient once patient appropriately ambulating on 6 L or less without significant increased work of breathing or evidence of respiratory distress. Will obtain oxygenation trial this a.m. #2. Hypertension: Continue home regimen including Lasix with hold parameters as needed, PRN hydralazine. #3. Tobacco Abuse: Encouraged cessation, inpatient consultation per RT, NR if desired. #4. History of VTE/protein C deficiency: Patient status post filter prior, will continue patient home Xarelto regimen. #5. Anxiety and depression/ADHD: We will continue patient home amitriptyline, clonazepam, Adderall, Cymbalta home regimen. #6. Chronic pain syndrome/fibromyalgia: Patient from records prior following w/ pain management, pain pump prior. We will continue patient home gabapentin as well as low-dose Flexeril regimen cautiously given respiratory presentation. #7. DVT prophylaxis: SCDs, continue patient home Xarelto regimen. #8. CODE status: Patient HCPOA is her son Rome and living will is currently in place. Full Code status. Charges/Coding Visit Charges Inpatient E&M: 20387 Subs Hosp L2
[2021-07-08 06:34] LABS: Absolute Lymphocyte Count 0.64 X10^3/uL (0.83-4.51); Absolute Neutrophil Count 2.9 X10^3/uL (2.0-7.7); Lymphocyte # 0.64 X10^3/ul (0.83-4.51); Lymphocyte % 17.1 % (19-41); Mean Corpuscular Hgb 30.7 pg (27.0-32.0); Mean Corpuscular Volume 102.3 fL (81-99); Mean Platelet Vol. 11.8 fl (6.2-12.0); Monocyte# 0.22 X10^3/uL; Monocyte% 5.9 % (0-10); NRBC Flagged by Analyzer 0 % (0-5); Neutrophil # 2.87 X10^3/uL (2.7-7.7); Neutrophil % 76.5 % (47-70); Platelet Count 154 K/mm3 (150-450); RBC Distribution Width CV 14.8 % (11.6-14.6); RBC Distribution Width SD 56.5 fl (35.1-43.9); Red Blood Count 3.91 M/mm3 (4.2-5.4); White Blood Count 3.8 K/mm3 (4.4-11.0)
[2021-07-08 06:55] LABS: Anion Gap 2 (5-15); BUN 13 mg/dL (7-18); BUN/Creat Ratio 35.2 RATIO (10-20); Calcium,Total 8.2 mg/dL (8.5-10.1); Chloride 100 mmol/L (98-107); Creatinine, Serum 0.37 mg/dL (0.55-1.02); EST Glomerular Filtration Rate 190 mL/min (>60); Est Glom Filt Rate - Afr Amer 230 mL/min (>60); Glucose 100 mg/dL (74-106); Potassium 4.2 mmol/L (3.5-5.1); Sodium Level 140 mmol/L (136-145)
[2021-07-08] MEDS: Ipratropium/Albuterol Sulfate 3 ML AMPUL.NEB INHALATION ×4 (07:19→19:54)
[2021-07-08] MEDS: Furosemide 80 MG Tablet PO (08:23)
[2021-07-08] MEDS: cycloBENZAPRine HCl 5 MG TABLET PO ×2 (08:23→19:02)
[2021-07-08] MEDS: Rivaroxaban 20 MG Tablet PO (08:23)
[2021-07-08] MEDS: Gabapentin 300 MG Capsule PO ×3 (08:23→15:59)
[2021-07-08] MEDS: DULoxetine Hcl 60 MG Capsule PO (08:23)
[2021-07-08] MEDS: Acetaminophen 325 MG Tablet 650 MG PO ×2 (08:23→19:02)
[2021-07-08] MEDS: Potassium Chloride Oral Tablet 20 MEQ PO ×2 (08:23→21:34)
--- NOTE | 2021-07-08 08:54 | PCM.PN.INT ---
Assessment & Plan Assessment/Plan (1) COPD exacerbation: PLAN: RECOMMENDATIONS: 1. Continue to wean supplemental oxygen to maintain saturations at or above 90%. 2. Continue scheduled bronchodilator therapy. 3. Continue IV steroids. 4. Continue systemic anticoagulation with Xarelto per home regimen. 5. Encourage incentive spirometer use and mobilize patient as tolerated. IMPRESSIONS: 1. Acute on chronic hypoxemic respiratory failure The patient has a self-reported history of COPD of unknown severity along with chronic hypoxemic respiratory failure with a baseline 3 L/min oxygen requirement. She has been in the past followed by Dr. Florez at [facility]. The patient appears to be suffering from a COPD exacerbation precipitated by a combination of rhinovirus and human metapneumovirus upper respiratory infections. Plan to continue current supportive measures including supplemental oxygen to maintain saturations at or above 90% along with scheduled bronchodilators and IV steroids. Likely discussed discharge once patient is able to tolerate ambulation on 6 L or less. 2. History of chronic tobacco dependency The patient does continue to smoke cigarettes daily. Nicotine replacement therapy can be offered to the patient while admitted to the hospital. Patient appears to be precontemplative 3. History of venous thromboembolic disease Continue systemic anticoagulation with Xarelto per home regimen. 4. Anxiety/depression/hypertension/hyperlipidemia/chronic pain syndrome Complicates care, management, recovery and prognosis. Continue home medications as indicated. This note was generated with [employer] dictation software. It may contain incorrect words, spelling, and punctuation that were not noted in checking the note before signing. Subjective Subjective Patient did okay overnight. Patient continues to require increased supplemental oxygen to maintain saturations. Patient reports significant coughing and shortness of breath with exertion. No hemoptysis is been reported. Objective Data Objective Data Vital Signs: Vital Signs Temp Pulse Resp BP Pulse Ox 36.7 C 82 16 123/71 H 94 07/08/21 08:19 07/08/21 08:19 07/08/21 08:19 07/08/21 08:19 07/08/21 08:19 Oxygen Flow Rate (L/min) 6 Oxygen Delivery Method Nasal Cannula Weight: 87.4 kg Body Mass Index (BMI) 31.6 Intake & Output: Intake and Output for Last 24 Hours 07/06/21 07/07/21 07/08/21 23:59 23:59 23:59 Intake Total 2900 / 2900 1950 / 1950 300 / 300 Output Total 400 / 400 Balance 2500 / 2500 1949 300 / 300 Lab / Micro Data Result Diagrams: 07/08/21 05:59 07/08/21 05:59 Labs: Laboratory Results - last 24 hr 07/05/21 14:10: Diff Path Review Reviewed 07/06/21 06:30: Diff Path Review Reviewed 07/08/21 05:59: WBC 3.8 L, RBC 3.91 L, Hgb 12.0, Hct 40.0, MCV 102.3 H, MCH 30.7, MCHC 30.0 L, RDW Std Deviation 56.5 H, RDW Coeff of Sean 14.8 H, Plt Count 154, MPV 11.8, Immature Gran % (Auto) 0.500, Neut % (Auto) 76.5 H, Lymph % (Auto) 17.1 L, [place] % (Auto) 5.9, Eos % (Auto) 0.0, Baso % (Auto) 0.0, Absolute Neuts (auto) 2.9, Absolute Lymphs (auto) 0.64 L, Nucleated RBC % 0 07/08/21 05:59: Sodium 140, Potassium 4.2, Chloride 100, Carbon Dioxide 38.0 H, Anion Gap 2 L, BUN 13, Creatinine 0.37 L, Estim Creat Clear Calc 145.50, Est GFR (MDRD) Af Amer 230, Est GFR (MDRD) Non-Af 190, BUN/Creatinine Ratio 35.2 H, Glucose 100, Calcium 8.2 L Micro: Microbiology 07/06/21 20:58 Interface Orders Gram Stain - Final 07/06/21 20:58 Interface Orders Respiratory Culture - Preliminary Appears to be normal respiratory lisette. Further studies to follow. 07/05/21 14:10 Blood Culture (Wb) - Anticubital Right Blood Culture - Preliminary No growth in 48 hours. 07/05/21 22:45 Urine, Clean Catch Legionella Antigen - Final 07/05/21 22:45 Urine, Clean Catch Streptococcus pneumoniae Antigen (M - Final 07/05/21 16:15 Mucosa - Nasopharyngeal Respiratory Panel (PCR) - Final Human [place] Rhinovirus 07/05/21 15:10 Nasal Secretion SARS-CoV-2 Antigen (Rapid) - Final Physical Exam Const alert and no apparent distress Constitutional Narrative: Currently receiving an aerosol treatment. General Appearance: cooperative Nutritional Appearance: obese HEENT normocephalic and head/scalp atraumatic Eyes PERRL, EOMs intact bilaterally and conjunctivae normal Neck supple General: trachea midline Chest inspection of chest normal Resp Auscultation: wheezes expiratory wheezes and throughout and diminished lung sounds; Negative for rales or rhonchi Cardio regular rate and regular rhythm GI normal to inspection, nondistended, normoactive bowel sounds Extremity no clubbing, cyanosis or edema Skin no rashes or lesions noted Neuro CN's II-XII intact bilaterally, moves all extremities and no focal motor deficits Psych Mood & Affect: anxious Charges/Coding Visit Charges Inpatient E&M: 66191 Subs Hosp L3
[2021-07-08] MEDS: clonazePAM 0.5 MG Tablet PO ×2 (13:09→20:12)
[2021-07-08] MEDS: Furosemide 40 MG Tablet PO (16:00)
[2021-07-08] MEDS: guaiFENesin 10 ML UDC (200MG/10ML) 20 ML PO (20:12)
[2021-07-08] MEDS: Gabapentin 300 MG Capsule 600 MG PO (21:34)
[2021-07-08] MEDS: Amitriptyline 100 MG Tablet 200 MG PO (21:34)
[2021-07-09] VITALS (11 sets, daily range): BP systolic 119–128; BP diastolic 67–81; PULSE 70–114; RESP 16–24; TEMP 36.7–36.8; O2SAT 7–94
[2021-07-09] MEDS: 0.9% Saline Lock 10 ML Syringe IV ×2 (05:13→20:44)
[2021-07-09] MEDS: Acetaminophen 325 MG Tablet 650 MG PO (05:13)
[2021-07-09] MEDS: guaiFENesin 10 ML UDC (200MG/10ML) 20 ML PO ×2 (05:13→17:15)
--- NOTE | 2021-07-09 05:56 | DCINST_ITS ---
Discharge Instructions Diet Discharge Diet: Low fat / Low cholesterol Activity Discharge Activity: Return to Normal Activity and - (Avoid aggressive activity or exposure triggers until re-evaluation by your primary care/pulmonary physician.) Weight Bearing Status: Weight bearing as tolerated Dressing / Incision Call your doctor if you observe: Shortness of breath Follow Up Care Test Results: Test results from this visit will be discussed in further detail at your follow-up appointment, if applicable. Discharge Plan Admission Admit Date/Time: 07/05/21 16:23 Primary Reason for Your Visit: Acute on Chronic Resp Failure 2/2 Acute Rhino/Human Metapneumo viruses Attending Provider: Elicia Ruano Primary Care Provider: Carson Stephenson Consulting Providers: Alex Dinh ; Franck Hurst ; Ayaka Lewis SAFETY DEPOSIT CLERK Instructions Patient Instructions: Discharge Instructions: COPD, ED COPD Flare Additional Instructions / Restrictions: DISCHARGE INSTRUCTIONS: Please complete the steroid taper and continued scheduled duoneb therapies as well as needed albuterol treatments for dyspnea and wheezing. Please follow-up with both your primary care physician and your Pulmonary physician. If you feel your wheezing/coughing/shortness of breath begins to recur with the taper transition to decrease doses immediately call your primary care or hardwood floor installation helper to potentially prolong the taper. Discharge Orders/Prescriptions Prescriptions: New albuterol sulfate 2.5 mg /3 mL (0.083 %) Solution For Nebulization 2.5 mg inhalation Q2H PRN PRN (Reason: Dyspnea, wheezing) Qty: 75 RF: 0 prednisone 10 mg tablet See Rx Instructions .ROUTE .COMPLEX Qty: 30 RF: 0 Mucinex 1,200 mg tablet extended release 12hr 1,200 mg PO Q12H Qty: 20 RF: 0 Continued gabapentin 300 MG capsule 300 mg PO TIDCM RF: 0 amitriptyline 100 MG tablet 200 mg PO QHS RF: 0 clonazepam 0.5 MG tablet 0.5 mg PO 4X/DAY PRN (Reason: Anxiety) RF: 0 furosemide 40 MG tablet 80 mg PO DAILY RF: 0 furosemide [Lasix] 40 MG tablet 40 mg PO DINNER RF: 0 dextroamphetamine-amphetamine [Adderall] 30 MG tablet 30 mg PO DAILY RF: 0 gabapentin 300 MG capsule 600 mg PO QHS RF: 0 cyclobenzaprine 5 MG tablet 5 mg PO BID PRN (Reason: Spasms) RF: 0 ipratropium-albuterol 3 ML solution for nebulization 3 ml IH 4X/DAY RF: 0 duloxetine 60 MG capsule,delayed release(DR/EC) 60 mg PO DAILY RF: 0 potassium chloride 20 mEq tablet,ER particles/crystals 20 meq PO BID RF: 0 Xarelto 20 mg tablet 20 mg PO DAILY RF: 0 Referrals / Follow Up: Carson Stephenson MD [Primary Care Provider] - (Follow-up within 3-5 days to review admission.) Alok Florez MD [NON-STAFF] - (Follow-up within 3-5 days to review admission.) Disposition Disposition (needs filled in before D/C Order can be placed): Home Health Service
[2021-07-09] MEDS: Ipratropium/Albuterol Sulfate 3 ML AMPUL.NEB INHALATION ×4 (08:07→20:25)
[2021-07-09 09:41] LABS: Absolute Lymphocyte Count 0.55 X10^3/uL (0.83-4.51); Absolute Neutrophil Count 2.4 X10^3/uL (2.0-7.7); Basophil# 0.01 X10^3/uL; Basophil% 0.3 % (0-1); Hematocrit 45.3 % (37-47); Hemoglobin 13.8 g/dL (12.0-15.0); Lymphocyte # 0.55 X10^3/ul (0.83-4.51); Mean Corp Hgb Conc 30.5 g/dL (32-36); Mean Corpuscular Hgb 30.5 pg (27.0-32.0); Mean Platelet Vol. 11.7 fl (6.2-12.0); Monocyte# 0.05 X10^3/uL; Monocyte% 1.6 % (0-10); NRBC Flagged by Analyzer 0 % (0-5); Neutrophil # 2.43 X10^3/uL (2.7-7.7); Neutrophil % 79.4 % (47-70); POSITIVE DIFFERENTIAL YES; Platelet Count 188 K/mm3 (150-450); RBC Distribution Width CV 14.3 % (11.6-14.6); RBC Distribution Width SD 53.5 fl (35.1-43.9); Red Blood Count 4.53 M/mm3 (4.2-5.4); White Blood Count 3.1 K/mm3 (4.4-11.0)
[2021-07-09 09:43] LABS: Differential Indicated SCAN CRITERIA MET
--- NOTE | 2021-07-09 09:48 | PN.HOSP_ITS ---
Subjective Subjective Patient overnight with no acute events per self and per nursing report. She has noted that she is been coughing more but feeling improved and had de-escalate down to 4 L nasal cannula. Initially was planning on discharging the patient however with oxygenation ambulation trials prior to discharge patient had incre ased oxygen requirements noting significant hypoxia 87% even on 5+ liters with ambulation. Discussed with pulmonary medicine and plan to continue treating patient inpatient setting until improvement with oxygenation trial. Patient does feel as though she is coughing up more and getting out of her lungs. Patient denies fevers, chills, nausea, emesis, abdominal pain, chest pain. Objective Data Objective Data Vital Signs: Vital Signs Temp Pulse Resp BP Pulse Ox 98.3 F 77 16 123/73 H 87 07/09/21 05:09 07/09/21 08:07 07/09/21 08:07 07/09/21 05:09 07/09/21 08:12 Oxygen Flow Rate (L/min) [ 90 AMBULATING with Oxygen #3] Oxygen Flow Rate (L/min) [ 4 AMBULATING with Oxygen #2] Oxygen Flow Rate (L/min) [At 5 REST with Oxygen] Oxygen Flow Rate (L/min) [ 5 AMBULATING with Oxygen #1] Oxygen Flow Rate (L/min) 5 Oxygen Delivery Method Nasal Cannula Weight: 188 lb 7.924 oz Body Mass Index (BMI) 31.6 Intake & Output: Intake and Output for Last 24 Hours 07/07/21 07/08/21 07/09/21 23:59 23:59 23:59 Intake Total 1949 Balance 1949 Lab / Micro Data Result Diagrams: 07/09/21 08:47 07/08/21 05:59 Labs: Laboratory Results - last 24 hr 07/09/21 08:47: WBC 3.1 L, RBC 4.53, Hgb 13.8, Hct 45.3, MCV 100.0 H, MCH 30.5, MCHC 30.5 L, RDW Std Deviation 53.5 H, RDW Coeff of Sean 14.3, Plt Count 188, MPV 11.7, Immature Gran % (Auto) 0.700, Neut % (Auto) 79.4 H, Lymph % (Auto) 18.0 L, [place] % (Auto) 1.6, Eos % (Auto) 0.0, Baso % (Auto) 0.3, Absolute Neuts (auto) 2.4, Absolute Lymphs (auto) 0.55 L, Nucleated RBC % 0 Micro: Microbiology 07/06/21 20:58 Interface Orders Gram Stain - Final 07/06/21 20:58 Interface Orders Respiratory Culture - Final 07/05/21 14:10 Blood Culture (Wb) - Anticubital Right Blood Culture - Preliminary No growth in 48 hours. 07/05/21 22:45 Urine, Clean Catch Legionella Antigen - Final 07/05/21 22:45 Urine, Clean Catch Streptococcus pneumoniae Antigen (M - Final 07/05/21 16:15 Mucosa - Nasopharyngeal Respiratory Panel (PCR) - Final Human [place] Rhinovirus 07/05/21 15:10 Nasal Secretion SARS-CoV-2 Antigen (Rapid) - Final Physical Exam Narrative Physical Examination: General: Awake, alert, oriented x 3 and cooperative, seated upright in the MS bed, improved appearance. Skin: Normal color, normal turgor, no icterus, no cyanosis. HEENT: AT/NC, EOMI, PERRLA, MMM. Lungs: Remains diffusely diminished, significantly less coarse, prior end expiratory wheezing has lessened, effort has improved, no evidence of distress on evaluation however following patient oxygenation trial did have increased work of breathing per RN report. Heart: Regular rate with regular rhythm; no gallop, rub audible. Abdomen: Soft, NTTP, ND, normalized BS. Extremities: No cyanosis, clubbing, or edema. Neurological: Patient awake, alert, oriented as noted, cognitive function intact; pupils equally reactive to light and accommodation, cranial nerves II- XII grossly normal, moving all 4 extremities, no focal deficits, strength improving, moderately globally decreased. Psychiatric: Affect appears less fatigued, normal, no acute evidence of depressive or anxiety feelings. Assessment & Plan Assessment/Plan (1) Human metapneumovirus pneumonia: (2) Rhinovirus infection: PLAN: The patient is a 61 y/o F w/ PMHx: Tobacco use, Chronic COPD w/ chronic hypoxic respiratory failure (3-4L NC), RSD, Hx VTE/Protein C deficiency currently on xarelto, Anxiety and Depression/ADHD, HTN, HLD, Chronic pain syndrome/Fibromyalgia who presents to the [facility] ED on 07/05/21 with history of onset over the last 24 hours increased fatigue, malaise, cough with productive sputum, fever and chills with pleuritic chest pain, worse with coughing with no recent alteration to sense of taste/smell, nausea, emesis, diarrhea, abdominal pain but no improving prompting ED evaluation. #1. Acute on chronic hypoxic respiratory failure secondary to Acute on chronic COPD exacerbation secondary to Acute Rhinovirus and Human Metapneumo virus: Covid PCR negative. Admitted to [place], maintain on oxygen with wean as tolerated to home oxygen supplementation, continue ATC duonebs, PRN albuterol, maintained initially on IV Rocephin and Vancomycin given prior MRSA history however given normal procalcitonin with respiratory viral panel with human metapneumovirus as well as rhinovirus thus de-escalated off antibiotic therapies initial administered, HOB, IS parameters, negative urine antigens, positive human [place] pneumo and rhinovirus on respiratory viral panel, Covid PCR negative, Sputum cx with no growth. CM consulted given homeless presentation. Pulmonary consulted and recommended continued aerosols, steroids, IS with recommendation for follow- up with Dr. Florez upon discharge. 07/09/2021 had plan potential discharge however oxygenation trial with significantly increased work of breathing and hypoxia at greater than 5 to 6 L therefore plan continued inpatient aerosols and steroids. Once patient is 6 L or less but does not have significant work of breathing will plan discharged home at that time. #2. Hypertension: Continue home regimen including Lasix with hold parameters as needed, PRN hydralazine. #3. Tobacco Abuse: Encouraged cessation, inpatient consultation per RT, NR if desired. #4. History of VTE/protein C deficiency: Patient status post filter prior, will continue patient home Xarelto regimen. #5. Anxiety and depression/ADHD: We will continue patient home amitriptyline, clonazepam, Adderall, Cymbalta home regimen. #6. Chronic pain syndrome/fibromyalgia: Patient from records prior following w/ pain management, pain pump prior. We will continue patient home gabapentin as well as low-dose Flexeril regimen cautiously given respiratory presentation. #7. DVT prophylaxis: SCDs, continue patient home Xarelto regimen. #8. CODE status: Patient KIMBER is her son Rome and living will is currently in place. Full Code status. Charges/Coding Visit Charges Inpatient E&M: 21922 Subs Hosp L2
--- NOTE | 2021-07-09 09:51 | PN.CC_ITS ---
Assessment & Plan Assessment/Plan (1) COPD exacerbation: PLAN: RECOMMENDATIONS: 1. Continue to wean supplemental oxygen to maintain saturations at or above 90%. 2. Continue scheduled bronchodilator therapy. 3. Continue IV steroids. Okay to transition to prednisone at discharge and wean over 12 to 14 days 4. Continue systemic anticoagulation with Xarelto per home regimen. 5. Encourage incentive spirometer use and mobilize patient as tolerated. 6. Patient will need to follow-up with primary heel sander rubber in 2 to 4 weeks to ensure resolution IMPRESSIONS: 1. Acute on chronic hypoxemic respiratory failure The patient has a self-reported history of COPD of unknown severity along with chronic hypoxemic respiratory failure with a baseline 3 L/min oxygen requirement. She has been in the past followed by Dr. Florez at [facility]. The patient appears to be suffering from a COPD exacerbation precipitated by a combination of rhinovirus and human metapneumovirus upper respiratory infections. Plan to continue current supportive measures including supplemental oxygen to maintain saturations at or above 90% along with scheduled bronchodilators and IV steroids. Likely discussed discharge once patient is able to tolerate ambulation on 6 L or less. We will keep IV steroids at the current dosing, but patient could be transition to prednisone on the day of discharge at 40 mg and wean over 12 to 14 days. 2. History of chronic tobacco dependency The patient does continue to smoke cigarettes daily. Nicotine replacement therapy can be offered to the patient while admitted to the hospital. Patient appears to be precontemplative 3. History of venous thromboembolic disease Continue systemic anticoagulation with Xarelto per home regimen. 4. Anxiety/depression/hypertension/hyperlipidemia/chronic pain syndrome Complicates care, management, recovery and prognosis. Continue home medications as indicated. This note was generated with [employer] dictation software. It may contain incorrect words, spelling, and punctuation that were not noted in checking the note before signing. Subjective Subjective Patient did well overnight. No acute issues were reported. Oxygenation had significantly improved, so patient on walking oximetry this morning. Patient is reporting an increased productive cough. No hemoptysis has been reported. Patient does report some reservations secondary to her housing status as it relates to her recovery. Objective Data Objective Data Vital Signs: Vital Signs Temp Pulse Resp BP Pulse Ox 36.8 C 77 16 123/73 H 87 07/09/21 05:09 07/09/21 08:07 07/09/21 08:07 07/09/21 05:09 07/09/21 08:12 Oxygen Flow Rate (L/min) [ 90 AMBULATING with Oxygen #3] Oxygen Flow Rate (L/min) [ 4 AMBULATING with Oxygen #2] Oxygen Flow Rate (L/min) [At 5 REST with Oxygen] Oxygen Flow Rate (L/min) [ 5 AMBULATING with Oxygen #1] Oxygen Flow Rate (L/min) 5 Oxygen Delivery Method Nasal Cannula Weight: 85.5 kg Body Mass Index (BMI) 31.6 Intake & Output: Intake and Output for Last 24 Hours 07/07/21 07/08/21 07/09/21 23:59 23:59 23:59 Intake Total 1949 Balance 1949 Lab / Micro Data Result Diagrams: 07/09/21 08:47 07/08/21 05:59 Labs: Laboratory Results - last 24 hr 07/09/21 08:47: WBC 3.1 L, RBC 4.53, Hgb 13.8, Hct 45.3, MCV 100.0 H, MCH 30.5, MCHC 30.5 L, RDW Std Deviation 53.5 H, RDW Coeff of Sean 14.3, Plt Count 188, MPV 11.7, Immature Gran % (Auto) 0.700, Neut % (Auto) 79.4 H, Lymph % (Auto) 18.0 L, [place] % (Auto) 1.6, Eos % (Auto) 0.0, Baso % (Auto) 0.3, Absolute Neuts (auto) 2.4, Absolute Lymphs (auto) 0.55 L, Nucleated RBC % 0 Micro: Microbiology 07/06/21 20:58 Interface Orders Gram Stain - Final 07/06/21 20:58 Interface Orders Respiratory Culture - Final 07/05/21 14:10 Blood Culture (Wb) - Anticubital Right Blood Culture - Preliminary No growth in 48 hours. 07/05/21 22:45 Urine, Clean Catch Legionella Antigen - Final 07/05/21 22:45 Urine, Clean Catch Streptococcus pneumoniae Antigen (M - Final 07/05/21 16:15 Mucosa - Nasopharyngeal Respiratory Panel (PCR) - Final Human [place] Rhinovirus 07/05/21 15:10 Nasal Secretion SARS-CoV-2 Antigen (Rapid) - Final Physical Exam Const alert and no apparent distress Constitutional Narrative: More interactive compared to yesterday General Appearance: cooperative Nutritional Appearance: obese HEENT normocephalic and head/scalp atraumatic Eyes PERRL, EOMs intact bilaterally and conjunctivae normal Neck supple General: trachea midline Chest inspection of chest normal Resp Auscultation: wheezes expiratory wheezes and throughout and diminished lung sounds; Negative for rales or rhonchi Cardio regular rate and regular rhythm GI normal to inspection, nondistended, normoactive bowel sounds Extremity no clubbing, cyanosis or edema Skin no rashes or lesions noted Neuro CN's II-XII intact bilaterally, moves all extremities and no focal motor deficits Psych Mood & Affect: anxious Charges/Coding Visit Charges Inpatient E&M: 99874 Subs Hosp L2
[2021-07-09] MEDS: DULoxetine Hcl 60 MG Capsule PO (10:23)
[2021-07-09] MEDS: Potassium Chloride Oral Tablet 20 MEQ PO ×2 (10:24→20:44)
[2021-07-09] MEDS: Furosemide 80 MG Tablet PO (10:24)
[2021-07-09] MEDS: Rivaroxaban 20 MG Tablet PO (10:24)
[2021-07-09] MEDS: Gabapentin 300 MG Capsule PO ×3 (10:24→17:15)
[2021-07-09 10:42] LABS: ALB/GLOB Ratio 0.6 RATIO (0.9-2.4); AST(SGOT) 25 U/L (15-37); Alanine Aminotransfer ALT/SGPT 22 U/L (13-56); Albumin, Serum 2.7 g/dL (3.2-5.0); Alkaline Phosphatase 78 U/L (45-117); Anion Gap 4 (5-15); BUN 18 mg/dL (7-18); Calcium,Total 9.2 mg/dL (8.5-10.1); Chloride 94 mmol/L (98-107); Creatinine, Serum 0.82 mg/dL (0.55-1.02); EST Glomerular Filtration Rate 76 mL/min (>60); Est Glom Filt Rate - Afr Amer 92 mL/min (>60); Estimated Creatinine Clearance 65.65 ml/min; Globulin 4.2 g/dL (2.2-4.2); Glucose 271 mg/dL (74-106); Potassium 4.5 mmol/L (3.5-5.1); Protein, Total 6.9 g/dL (6.4-8.2); Sodium Level 137 mmol/L (136-145)
[2021-07-09] MEDS: Furosemide 40 MG Tablet PO (12:34)
[2021-07-09] MEDS: cycloBENZAPRine HCl 5 MG TABLET PO (12:34)
[2021-07-09] MEDS: BENZOCAINE/MENTHOL 1 LOZENGE MUCOUS MEM (17:15)
[2021-07-09] MEDS: Gabapentin 300 MG Capsule 600 MG PO (20:44)
[2021-07-09] MEDS: Amitriptyline 100 MG Tablet 200 MG PO (20:51)
--- NOTE | 2021-07-09 21:00 | NURSING ---
Patient's called for an update. He asked where her phone was and why we took it. Told him this was news to me that her phone was missing and that I would look for it. Looked under her chair, in her bed and bathroom and was not able to find it. called while this nurse was in the room, she asked if he could call back and then asked him if he was mad at her. He also asked for an update on her condition and information such as what date she was admitted, when this nurse told him she had to check he said Yes you check so you can get it right, she gave permission to CAROLINA Abdalla to give him an update. He was updated on admission date, vitals, admission diagnoses and who her physician were while here. He asked about when she would be discharge, he was informed that was up to the physicians once she was done with treatment. is giving patient a hard time about her phone. Says some man called him from her phone.
--- NOTE | 2021-07-09 21:34 | NURSING ---
At beginning of shift, Keisha RN came to this RN about patients on phone and wanting information. This RN went into patients room and asked the patient if it was okay if we could give him information. Patient was distressed looking for her red phone. RT also in room helping patient look for her phone. This RN questioned patient about the phone and informed her that this RN has personally taken care of her for 2 shifts and this RN has never seen this red phone. Patient stated to this RN well you would have not known about it. RN once again asked her if we could speak with her and give him information. Patient stated yes, tell him whatever you want. This RN then relayed the information to her primary RN Keisha. Keisha updated . See note.
[2021-07-10 05:00] VITALS: O2SAT 97
[2021-07-10 06:19] VITALS: BP 113/62; PULSE 76; RESP 18; TEMP 36.7; O2SAT 97
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
[2021-07-10] MEDS: Ipratropium/Albuterol Sulfate 3 ML AMPUL.NEB INHALATION ×2 (07:11→11:01)
[2021-07-10 07:12] VITALS: PULSE 87; RESP 18; O2SAT 94
[2021-07-10 07:23] LABS: Absolute Lymphocyte Count 0.87 X10^3/uL (0.83-4.51); Basophil# 0.01 X10^3/uL; Basophil% 0.2 % (0-1); Hematocrit 41.3 % (37-47); Hemoglobin 12.8 g/dL (12.0-15.0); Lymphocyte # 0.87 X10^3/ul (0.83-4.51); Lymphocyte % 20.8 % (19-41); Mean Corpuscular Hgb 30.4 pg (27.0-32.0); Mean Corpuscular Volume 98.1 fL (81-99); Mean Platelet Vol. 11.3 fl (6.2-12.0); Monocyte# 0.27 X10^3/uL; Monocyte% 6.4 % (0-10); NRBC Flagged by Analyzer 0 % (0-5); Neutrophil # 3.01 X10^3/uL (2.7-7.7); Neutrophil % 71.9 % (47-70); Platelet Count 197 K/mm3 (150-450); RBC Distribution Width CV 14.2 % (11.6-14.6); RBC Distribution Width SD 51.5 fl (35.1-43.9); Red Blood Count 4.21 M/mm3 (4.2-5.4); White Blood Count 4.2 K/mm3 (4.4-11.0)
--- NOTE | 2021-07-10 07:32 | PCM.PN.INT ---
Assessment & Plan Assessment/Plan (1) COPD exacerbation: PLAN: RECOMMENDATIONS: 1. Continue to wean supplemental oxygen to maintain saturations at or above 90%. 2. Continue scheduled bronchodilator therapy. 3. Continue IV steroids. Okay to transition to prednisone at discharge and wean over 12 to 14 days 4. Continue systemic anticoagulation with Xarelto per home regimen. 5. Encourage incentive spirometer use and mobilize patient as tolerated. 6. Patient will need to follow-up with primary farm[facility] in 2 to 4 weeks to ensure resolution IMPRESSIONS: 1. Acute on chronic hypoxemic respiratory failure The patient has a self-reported history of COPD of unknown severity along with chronic hypoxemic respiratory failure with a baseline 3 L/min oxygen requirement. She has been in the past followed by Dr. Florez at [facility]. The patient appears to be suffering from a COPD exacerbation precipitated by a combination of rhinovirus and human metapneumovirus upper respiratory infections. Plan to continue current supportive measures including supplemental oxygen to maintain saturations at or above 90% along with scheduled bronchodilators and IV steroids. Likely discussed discharge once patient is able to tolerate ambulation on 6 L or less. We will keep IV steroids at the current dosing, but patient could be transitioned to prednisone on the day of discharge at 40 mg and wean over 12 to 14 days. Patient should continue incentive spirometer and Acapella until back to baseline respiratory function 2. History of chronic tobacco dependency The patient does continue to smoke cigarettes daily. Nicotine replacement therapy can be offered to the patient while admitted to the hospital. Patient appears to be precontemplative 3. History of venous thromboembolic disease Continue systemic anticoagulation with Xarelto per home regimen. 4. Anxiety/depression/hypertension/hyperlipidemia/chronic pain syndrome Complicates care, management, recovery and prognosis. Continue home medications as indicated. This note was generated with [employer] Access dictation software. It may contain incorrect words, spelling, and punctuation that were not noted in checking the note before signing. Subjective Subjective Patient did okay overnight. Patient continues to report a cough productive of thin white to clear sputum. No hemoptysis is been reported. Objective Data Objective Data Vital Signs: Vital Signs Temp Pulse Resp BP Pulse Ox 36.7 C 87 18 113/62 94 07/10/21 06:19 07/10/21 07:12 07/10/21 07:12 07/10/21 06:19 07/10/21 07:12 Oxygen Flow Rate (L/min) [ 90 AMBULATING with Oxygen #3] Oxygen Flow Rate (L/min) [ 4 AMBULATING with Oxygen #2] Oxygen Flow Rate (L/min) [At 5 REST with Oxygen] Oxygen Flow Rate (L/min) [ 5 AMBULATING with Oxygen #1] Oxygen Flow Rate (L/min) 4 Oxygen Delivery Method Nasal Cannula Weight: 85.7 kg Body Mass Index (BMI) 31.6 Intake & Output: Intake and Output for Last 24 Hours 07/08/21 07/09/21 07/10/21 23:59 23:59 23:59 Intake Total 1949 400 / 400 Balance 1949 400 / 400 Lab / Micro Data Result Diagrams: 07/10/21 05:23 07/09/21 08:47 Labs: Laboratory Results - last 24 hr 07/09/21 08:47: WBC 3.1 L, RBC 4.53, Hgb 13.8, Hct 45.3, MCV 100.0 H, MCH 30.5, MCHC 30.5 L, RDW Std Deviation 53.5 H, RDW Coeff of Sean 14.3, Plt Count 188, MPV 11.7, Immature Gran % (Auto) 0.700, Neut % (Auto) 79.4 H, Lymph % (Auto) 18.0 L, [place] % (Auto) 1.6, Eos % (Auto) 0.0, Baso % (Auto) 0.3, Absolute Neuts (auto) 2.4, Absolute Lymphs (auto) 0.55 L, Nucleated RBC % 0, Diff Path Review December07/09/21 08:47: Sodium 137, Potassium 4.5, Chloride 94 L, Carbon Dioxide 39.0 H, Anion Gap 4 L, BUN 18, Creatinine 0.82, Estim Creat Clear Calc 65.65, Est GFR (MDRD) Af Amer 92, Est GFR (MDRD) Non-Af 76, BUN/Creatinine Ratio 22.0 H, Glucose 271 H, Calcium 9.2, Total Bilirubin 0.30, AST 25, ALT 22, Alkaline Phosphatase 78, Total Protein 6.9, Albumin 2.7 L, Globulin 4.2, Albumin/Globulin Ratio 0.6 L 07/10/21 05:23: WBC 4.2 L, RBC 4.21, Hgb 12.8, Hct 41.3, MCV 98.1, MCH 30.4, MCHC 31.0 L, RDW Std Deviation 51.5 H, RDW Coeff of Sean 14.2, Plt Count 197, MPV 11.3, Immature Gran % (Auto) 0.700, Neut % (Auto) 71.9 H, Lymph % (Auto) 20.8, [place] % (Auto) 6.4, Eos % (Auto) 0.0, Baso % (Auto) 0.2, Absolute Neuts (auto) 3.0, Absolute Lymphs (auto) 0.87, Nucleated RBC % 0 Micro: Microbiology 07/06/21 20:58 Interface Orders Gram Stain - Final 07/06/21 20:58 Interface Orders Respiratory Culture - Final 07/05/21 14:10 Blood Culture (Wb) - Anticubital Right Blood Culture - Preliminary No growth in 48 hours. 07/05/21 22:45 Urine, Clean Catch Legionella Antigen - Final 07/05/21 22:45 Urine, Clean Catch Streptococcus pneumoniae Antigen (M - Final 07/05/21 16:15 Mucosa - Nasopharyngeal Respiratory Panel (PCR) - Final Human [place] Rhinovirus 07/05/21 15:10 Nasal Secretion SARS-CoV-2 Antigen (Rapid) - Final Physical Exam Const alert and no apparent distress Constitutional Narrative: More interactive compared to yesterday General Appearance: cooperative Nutritional Appearance: obese HEENT normocephalic and head/scalp atraumatic Eyes PERRL, EOMs intact bilaterally and conjunctivae normal Neck supple General: trachea midline Chest inspection of chest normal Resp Auscultation: rales bilateral and diminished lung sounds; Negative for rhonchi or wheezes Cardio regular rate and regular rhythm GI normal to inspection, nondistended, normoactive bowel sounds Extremity no clubbing, cyanosis or edema Skin no rashes or lesions noted Neuro CN's II-XII intact bilaterally, moves all extremities and no focal motor deficits Psych Mood & Affect: anxious Charges/Coding Visit Charges Inpatient E&M: 62379 Subs Hosp L2
[2021-07-10] MEDS: Potassium Chloride Oral Tablet 20 MEQ PO (07:46)
[2021-07-10] MEDS: Rivaroxaban 20 MG Tablet PO (07:46)
[2021-07-10] MEDS: Furosemide 80 MG Tablet PO (07:46)
[2021-07-10] MEDS: DULoxetine Hcl 60 MG Capsule PO (07:46)
[2021-07-10] MEDS: cycloBENZAPRine HCl 5 MG TABLET PO (07:46)
[2021-07-10] MEDS: Gabapentin 300 MG Capsule PO ×2 (07:46→11:11)
[2021-07-10 07:50] VITALS: BP 129/78; PULSE 72; RESP 18; TEMP 36.6; O2SAT 93
[2021-07-10 07:54] VITALS: O2SAT 88; O2SAT 90; O2SAT 92
[2021-07-10 07:55] LABS: ALB/GLOB Ratio 0.6 RATIO (0.9-2.4); AST(SGOT) 34 U/L (15-37); Alanine Aminotransfer ALT/SGPT 47 U/L (13-56); Albumin, Serum 2.5 g/dL (3.2-5.0); Alkaline Phosphatase 70 U/L (45-117); Anion Gap 2 (5-15); BUN 18 mg/dL (7-18); Calcium,Total 8.4 mg/dL (8.5-10.1); Chloride 93 mmol/L (98-107); Creatinine, Serum 0.43 mg/dL (0.55-1.02); EST Glomerular Filtration Rate 159 mL/min (>60); Est Glom Filt Rate - Afr Amer 193 mL/min (>60); Estimated Creatinine Clearance 125.19 ml/min; Glucose 86 mg/dL (74-106); Potassium 4.6 mmol/L (3.5-5.1); Protein, Total 6.5 g/dL (6.4-8.2); Sodium Level 137 mmol/L (136-145)
--- NOTE | 2021-07-10 10:27 | NURSING ---
pt phone placed on battery charger. pt stated she does not have her o2 tank. pt stated she can't get it. and she will just go home without o2 and get on the o2 when she gets to the long term.
[2021-07-10] MEDS: clonazePAM 0.5 MG Tablet PO (11:11)
[2021-07-10] MEDS: Acetaminophen 325 MG Tablet 650 MG PO (11:11)
[2021-07-10 11:18] VITALS: PULSE 91; RESP 22
--- NOTE | 2021-07-10 11:26 | NURSING ---
pt stated that her o2 tanks are in a storage unit that her has. she stated he is not alway nice to talk to. she did give permition for us to call her to see if we can get her o2 tanks.
--- NOTE | 2021-07-10 12:19 | CASEMGMT ---
Addendum entered by Gloria Chiu 07/10/21 15:50: Received message that pt would like to speak to this CAROLINA DE LOS SANTOS. TC to him, he states he spoke with patient and that pt is aware of where the O2 tanks are and has access to them and she has a richardson. He wanted this RN CM to be aware. Pt is set up with [facility] tank to go home on and she is aware she needs to order more tanks and will need the empty ones for this to happen. Addendum entered by Gloria Chiu 07/10/21 12:47: Faxed updated script for O2 to [facility] at this time. Addendum entered by Gloria Chiu 07/10/21 12:34: TC to Transportation, spoke with Nabil who states they can transport pt at 4pm today and she needs to be at the main entrance. Asked if they could bring back the O2 tank that pt goes with as it is [facility] property. He states they will bring back to the main entrance. CAROLINA DE LOS SANTOS back into pt room to make aware of the plan and that pt needs to order portable tanks through [facility]. She verbalizes understanding. TC to [facility] at 180. She is aware that pt will be returning at 4pm and states a staff member will be able to take the O2 tank back to the advanced manufacturing vice president for return to [facility]. Original Note: CAROLINA DE LOS SANTOS notified that pt does not have portable O2 tanks. TC to [facility], spoke with rep who states pt, according to their records does have portable tanks. CAROLINA DE LOS SANTOS in to pt room, nurse Mima also in room. Pt states the tank is locked up and she does not have the richardson. Pt stated that was the end of the conversation. TC to [facility], they checked pt room and no portable O2. Then received info from Mima nurse who states pt tanks are in a storage area and her has the richardson. TC to pt , when asked if he could obtain the tanks he states it's not gonna happen and they are empty. TC to [facility] supply again. They are only able to fill tank if pt has old tanks. They deliver to [facility] on Wednesdays and Saturday. They are not able to service pt with O2 this date.
--- NOTE | 2021-07-10 13:14 | NURSING ---
cell phone returned to pt.
--- NOTE | 2021-07-10 14:24 | DS.PCM_ITS ---
Providers Date of Admission: 07/05/21 Primary Care Physician: Dr. Carson Stephenson MD Consultations 07/06/21 18:15 Consult: High School Coordinator / Pulmonary Medicine Routine Consulting Provider: Pulmonary Medicine che[facility] [place] Reason for Consult: Resp failure, COPD exacerbation, HMeta and rhino infection, worsening EMERGENT Consult: Yes MD Notified: Yes Date Notified: 07/07/21 Time Notified: 06:02 Method of Notification: Text Reason For Visit: PNEUMONIA, COPD EXACERBATION, HYPOXEMIA Diagnosis Discharge Diagnosis (1) Human metapneumovirus pneumonia: Status: Acute Code(s): J12.3 - Human metapneumovirus pneumonia (2) Rhinovirus infection: Status: Acute Code(s): B34.8 - Other viral infections of unspecified site Medications at Discharge Home Medications amitriptyline 200 mg PO QHS 04/26/14 gabapentin 300 mg PO TIDCM 04/26/14 clonazepam 0.5 mg PO 4X/DAY PRN 12/13/14 furosemide 80 mg PO DAILY 02/04/16 furosemide [Lasix] 40 mg PO DINNER 06/12/17 dextroamphetamine-amphetamine [Adderall] 30 mg PO DAILY 08/09/17 cyclobenzaprine 5 mg PO BID PRN 12/15/19 gabapentin 600 mg PO QHS 12/15/19 duloxetine 60 mg PO DAILY 04/11/20 ipratropium-albuterol 3 ml IH 4X/DAY 04/11/20 potassium chloride 20 meq PO BID 02/23/21 Xarelto 20 mg PO DAILY 06/19/21 albuterol sulfate 2.5 mg INHALATION Q2H PRN PRN #75 ml 07/09/21 guaifenesin [Mucinex] 1,200 mg PO Q12H #20 tab 07/09/21 prednisone See Rx Instructions .ROUTE .COMPLEX #30 tab 07/09/21 Hospital Course Operations None Procedures EKG Summary of Care Provided Minutes Spent on Discharge: 35 Hospital Course: DISCHARGE NOTE: Discharge Diagnoses: #1. Acute on chronic hypoxic respiratory failure secondary to Acute on chronic COPD exacerbation secondary to Acute Rhinovirus and Human Metapneumo virus #2. Hypertension #3. Tobacco Abuse #4. History of VTE/protein C deficiency #5. Anxiety and depression/ADHD #6. Chronic pain syndrome/fibromyalgia Discharge Summary: The patient is a 61 y/o F w/ PMHx: Tobacco use, Chronic COPD w/ chronic hypoxic respiratory failure (3-4L NC), RSD, Hx VTE/Protein C deficiency currently on xarelto, Anxiety and Depression/ADHD, HTN, HLD, Chronic pain syndrome/Fibromyalgia who presented to the [facility] ED on 07/05/21 with history of onset over the last 24 hours increased fatigue, malaise, cough with productive sputum, fever and chills with pleuritic chest pain, worse with coughing with no recent alteration to sense of taste/smell, nausea, emesis, diarrhea, abdominal pain but no improving prompting ED evaluation. COVID negative upon ED evaluation and repeat PCR. Admitted to [place], maintain on oxygen with wean as tolerated to home oxygen supplementation, continue ATC duonebs, PRN albuterol, maintained initially on IV Rocephin and Vancomycin given prior MRSA history however given normal procalcitonin with respiratory viral panel with human metapneumovirus as well as rhinovirus thus de-escalated off antibiotic therapies initial administered, HOB, IS parameters, negative urine antigens, positive human [place] pneumo and rhinovirus on respiratory viral panel, Sputum cx with no growth. CM consulted given homeless presentation. Pulmonary consulted and recommended continued aerosols, steroids, IS with recommendation for follow-up with Dr. Florez upon discharge. Patient improved and transitioned to her home oxygen usage. Patient discharged to home on continued oxygen with testing prior to discharge, prednisone taper, continued duoneb therapies, PRN albuterol with PCP, Pulmonary recommended follow-up. Patient oxygenation trial performed prior to discharge and remained appropriate at return to home consumption. Initially patient would not let staff/case management/social work have access to be able to obtain her own oxygen however plan of care arranged with patient to be delivered using hospital resources with hospital van to her correction at which point her own items would be accessed. Discharge Time: > 35 Minutes DAY OF DISCHARGE PROGRESS NOTE: Subjective: Patient without acute event overnight per self and nursing report. Patient significantly improved from day prior with decreased oxygen requirements upon repeat oxygenation trial. Patient did have several myriad of complaints including responsive staff, cleanliness of room however she continued to remain very aggressive, swearing frequently and as noted evenly did refused to allow staff to set up her oxygen therapy in an attempt to avoid discharge. Patient denies fever, chills, nausea, emesis, abdominal pain, chest pain or worsened dyspnea. Objective: T 98, heart 72, BP 129/78, respiratory rate 18, 93% on 4 L nasal cannula. Physical Examination: General: Awake, alert, oriented x 3 and cooperative, seated upright in the MS bed, improved appearance, walking about the room initially talking with out any issue, irritable with staff and several complaints made. Skin: Normal color, normal turgor, no icterus, no cyanosis. HEENT: AT/NC, EOMI, PERRLA, MMM. Lungs: Remains diminished, lessen rhonchi, prior expiratory wheezing resolved, no evidence of any respiratory distress even with walking about the room and conversing. Heart: Regular rate with regular rhythm; no gallop, rub audible. Abdomen: Soft, NTTP, ND, normalized BS. Extremities: No cyanosis, clubbing, or edema. Neurological: Patient awake, alert, oriented as noted, cognitive function intact; pupils equally reactive to light and accommodation, cranial nerves II- XII grossly normal, moving all 4 extremities, no focal deficits, strength improving, mildly to moderately globally decreased. Psychiatric: Affect appears irritable, no acute evidence of depressive or anxiety feelings, do suspect underlying psychiatric disease especially with patient maneuvering to avoid the ability to obtain and set up her oxygen as well as treatment of staff. Assessment and Plan: Please see hospital summary above. Weight / BMI Weight Weight: 188 lb 7.924 oz Body Mass Index (BMI) 31.6 ABG / Lab / Microbiology Data Result Diagrams: 07/10/21 05:23 07/10/21 05:23 Laboratory: Laboratory Results - last 24 hr 07/08/21 05:59: WBC 3.8 L, RBC 3.91 L, Hgb 12.0, Hct 40.0, MCV 102.3 H, MCH 30.7, MCHC 30.0 L, RDW Std Deviation 56.5 H, RDW Coeff of Sean 14.8 H, Plt Count 154, MPV 11.8, Immature Gran % (Auto) 0.500, Neut % (Auto) 76.5 H, Lymph % (Auto) 17.1 L, [place] % (Auto) 5.9, Eos % (Auto) 0.0, Baso % (Auto) 0.0, Absolute Neuts (auto) 2.9, Absolute Lymphs (auto) 0.64 L, Nucleated RBC % 0 07/08/21 05:59: Sodium 140, Potassium 4.2, Chloride 100, Carbon Dioxide 38.0 H, Anion Gap 2 L, BUN 13, Creatinine 0.37 L, Estim Creat Clear Calc 145.50, Est GFR (MDRD) Af Amer 230, Est GFR (MDRD) Non-Af 190, BUN/Creatinine Ratio 35.2 H, Glucose 100, Calcium 8.2 L Microbiology: Microbiology 07/06/21 20:58 Interface Orders Gram Stain - Final 07/06/21 20:58 Interface Orders Respiratory Culture - Preliminary Appears to be normal respiratory lisette. Further studies to follow. 07/05/21 14:10 Blood Culture (Wb) - Anticubital Right Blood Culture - Preliminary No growth in 48 hours. 07/05/21 22:45 Urine, Clean Catch Legionella Antigen - Final 07/05/21 22:45 Urine, Clean Catch Streptococcus pneumoniae Antigen (M - Final 07/05/21 16:15 Mucosa - Nasopharyngeal Respiratory Panel (PCR) - Final Human [place] Rhinovirus 07/05/21 15:10 Nasal Secretion SARS-CoV-2 Antigen (Rapid) - Final D/C Instructions Discharge Diet: Low fat / Low cholesterol Weight Bearing Status: Weight bearing as tolerated Call your doctor if you observe: Shortness of breath Meaningful Use Info Meaningful Use Diagnoses (Choose all that apply): None applicable Discharge Plan Admission Admit Date/Time: 07/05/21 16:23 Primary Reason for Your Visit: Acute on Chronic Resp Failure 2/2 Acute Rhino/Human Metapneumo viruses Attending Provider: Elicia Ruano Primary Care Provider: Carson Stephenson Consulting Providers: Alex Dinh ; Franck Hurst ; Ayaka Lewis STRING CUTTER Instructions Patient Instructions: Discharge Instructions: COPD, ED COPD Flare Additional Instructions / Restrictions: DISCHARGE INSTRUCTIONS: Please complete the steroid taper and continued scheduled duoneb therapies as well as needed albuterol treatments for dyspnea and wheezing. Please follow-up with both your primary care physician and your Pulmonary physician. If you feel your wheezing/coughing/shortness of breath begins to recur with the taper transition to decrease doses immediately call your primary care or used car sales manager to potentially prolong the taper. Discharge Orders/Prescriptions Prescriptions: New albuterol sulfate 2.5 mg /3 mL (0.083 %) Solution For Nebulization 2.5 mg inhalation Q2H PRN PRN (Reason: Dyspnea, wheezing) Qty: 75 RF: 0 prednisone 10 mg tablet See Rx Instructions .ROUTE .COMPLEX Qty: 30 RF: 0 Mucinex 1,200 mg tablet extended release 12hr 1,200 mg PO Q12H Qty: 20 RF: 0 Continued gabapentin 300 MG capsule 300 mg PO TIDCM RF: 0 amitriptyline 100 MG tablet 200 mg PO QHS RF: 0 clonazepam 0.5 MG tablet 0.5 mg PO 4X/DAY PRN (Reason: Anxiety) RF: 0 furosemide 40 MG tablet 80 mg PO DAILY RF: 0 furosemide [Lasix] 40 MG tablet 40 mg PO DINNER RF: 0 dextroamphetamine-amphetamine [Adderall] 30 MG tablet 30 mg PO DAILY RF: 0 gabapentin 300 MG capsule 600 mg PO QHS RF: 0 cyclobenzaprine 5 MG tablet 5 mg PO BID PRN (Reason: Spasms) RF: 0 ipratropium-albuterol 3 ML solution for nebulization 3 ml IH 4X/DAY RF: 0 duloxetine 60 MG capsule,delayed release(DR/EC) 60 mg PO DAILY RF: 0 potassium chloride 20 mEq tablet,ER particles/crystals 20 meq PO BID RF: 0 Xarelto 20 mg tablet 20 mg PO DAILY RF: 0 Referrals / Follow Up: Carson Stephenson MD [Primary Care Provider] - (Follow-up within 3-5 days to review admission. Appointment is with Doctor Marnie on Jul.13 @ 10:00 AM Appointment with Doctor Florez on Jul.14 @ 3:30PM) Alok Florez MD [NON-STAFF] - (Follow-up within 3-5 days to review admission.) Disposition Disposition (needs filled in before D/C Order can be placed): Home Health Service Charges/Coding Visit Charges Inpatient E&M: 66451 Disch Hosp
[2021-07-10 15:54] LABS: Pathologist Review Reviewed
== END 2021-07-10 16:00 | disposition home health service (06) | DRG 193 ==
LOC: ED 15:56 → MS3 16:45
PROVIDERS: Internal Medicine Critical Care Medicine; Admitting Provider Family Medicine; Emergency Provider Emergency Medicine; PCP Family Medicine; Visit Provider Family Medicine
DX: J12.3 Human metapneumovirus pneumonia (principal); J96.21 Acute and chronic respiratory failure with hypoxia; J44.0 Chronic obstructive pulmonary disease with (acute) lower respiratory infection; D68.59 Other primary thrombophilia; J44.1 Chronic obstructive pulmonary disease with (acute) exacerbation; B97.89 Other viral agents as the cause of diseases classified elsewhere; I10 Essential (primary) hypertension; M79.7 Fibromyalgia; E78.5 Hyperlipidemia, unspecified; F32.A Depression, unspecified; E66.9 Obesity, unspecified; Z68.31 Body mass index [BMI] 31.0-31.9, adult; F41.9 Anxiety disorder, unspecified; F90.9 Attention-deficit hyperactivity disorder, unspecified type; G89.4 Chronic pain syndrome; Z59.01 Sheltered homelessness; Z86.14 Personal history of Methicillin resistant Staphylococcus aureus infection; Z86.718 Personal history of other venous thrombosis and embolism; Z87.01 Personal history of pneumonia (recurrent); Z99.81 Dependence on supplemental oxygen; Z79.01 Long term (current) use of anticoagulants; Z79.899 Other long term (current) drug therapy; F17.210 Nicotine dependence, cigarettes, uncomplicated
CPT/HCPCS: 36415; 71045; 80048; 80053; 83605; 83735; 84145; 84484; 85025; 87040; 87070; 87205; 87426; 87449; 87633; 87635; 87641; 93005; 94002; 94003; 94640; 94667; 94668; 94762; 99251; 99285; 99406; J7030; J7040; U0005; A4216; G0463; J2405; U0003

== ENCOUNTER 2021-07-11 12:45 | Emergency (ER) | payer MEDICARE, SELFPAY ==
[2021-07-11 13:24] VITALS: BP 114/73; PULSE 91; RESP 20; TEMP 37.1; O2SAT 99; BMI 32.9
--- NOTE | 2021-07-11 13:41 | CM.ED ---
Addendum entered by Sirisha House 07/11/21 20:35: ABIGAIL was advised by that patient's wanted to speak to rn social services and was upset as he had waited 4 hours. ABIGAIL met with patient and her . Patient's said that they thought 10 meds with 90 days supplies were over $100 so they did not get them but they realize it was not that much as there was karissa 3 meds they needed. Patient's stated that he had called the order to [facility]. SW encouraged him to get the Pharmacy items (as it was 5:05pm) and he said that he would. SW advised him to let staff know if there was a issue and he verbalized understanding. Patient said that she is not going back to a snf but going to a hotel with her . Patient said that she needs support due to her oxygen. SW advised patient that was her choice to return to a hotel as opposed to a snf.ABIGAIL updated RN and MD. ABIGAIL was not advised of any issues with patient's medication at discharge. Plan: Discharge to hotel/snf Sirisha House KILO STEELE Addendum entered by Sirisha House 07/11/21 13:50: ABIGAIL met with patient in the ED hallway. Patient gave this magazine writer permission to speak to her. Patient said that she is at the snf as they are homeless. Patient said that her is at his mothers. Patient said that at the snf there is too much walking and it is not safe.. my oxygen level is falling and indicated she is on 2 L but needs a higher level of oxygen. Patient said that the reason she did not get her prescriptions at [facility] was I couldn't get them and indicated that there was issues with transportation. SW asked about the insurance card and patient said that she also does not have an insurance card. Patient said that at the snf they want you to eat and do your own thing.. but I can't keep the oxygen level up high enough to get there. SW asked about the oxygen tanks and patient said they are in a locker. SW asked for clarification and patient said in storage. Patient said that she is at the snf as she is homeless. Patient said I need to be admitted.. I have a fever and I need to be admitted. SW explained that the determination regarding admission is not made by the SW and patient said I know that.. I will talk to the MD then. ABIGAIL updated ferry engineer Beth Original Note: ABIGAIL Note SW received phone call from FILIBERTO Daly. Malika said that patient has active new insurance but did not have the insurance card so could not pickle sorter her prescription card. Patient was discharged home yesterday with Prednisone, Mucinex, and Albuterol. [facility] CAROLINA Daly CM said that she called the contact number for patient this morning and spoke to patient's (per CM [facility]). said that he felt patient would have been fine if she had her prescriptions. Patient has COPD and home oxygen. Per patient did not have her medication and thus she became anxious. ABIGAIL will follow up. Sirisha STEELE
[2021-07-11 16:05] VITALS: O2SAT 97
[2021-07-11] MEDS: Ipratropium/Albuterol Sulfate 3 ML AMPUL.NEB INHALATION (16:07)
[2021-07-11] MEDS: Albuterol 2.5 MG/3 ML VIAL.NEB. INHALATION (16:07)
[2021-07-11 16:10] VITALS: PULSE 90; RESP 19
[2021-07-11] MEDS: clonazePAM 0.5 MG Tablet PO (16:33)
--- NOTE | 2021-07-11 16:45 | RAD_ITS ---
STUDY: X-RAY CHEST REASON FOR EXAM: Female, 61 years old. cough TECHNIQUE: Single AP portable view of the chest. COMPARISON: 07/05/2021 FINDINGS: Patchy alveolar opacities in both lungs consistent with bilateral pneumonia. Elevated right hemidiaphragm which is unchanged. Normal size heart. Normal mediastinum and roz. Normal visualized pulmonary arteries. Normal visualized aortic arch and descending thoracic aorta. Normal visualized thoracic spine. Normal visualized ribs, clavicles, and shoulders. There is no demonstrated abnormality of the visualized soft tissue structures of the upper abdomen. RAD/Chest 1 View (Portable) IMPRESSION: Bilateral patchy pneumonia. Electronically Signed: Leopoldo Godoy MD at 16:55 EST Tel , Service support ,
[2021-07-11 16:46] LABS: Absolute Lymphocyte Count 2.03 X10^3/uL (0.83-4.51); Absolute Neutrophil Count 2.7 X10^3/uL (2.0-7.7); Basophil# 0.02 X10^3/uL; Basophil% 0.4 % (0-1); Eosinophil# 0.09 X10^3/uL; Eosinophils% 1.6 % (0-5); Hematocrit 45.6 % (37-47); Hemoglobin 14.3 g/dL (12.0-15.0); Lymphocyte # 2.03 X10^3/ul (0.83-4.51); Mean Corp Hgb Conc 31.4 g/dL (32-36); Mean Corpuscular Hgb 30.2 pg (27.0-32.0); Mean Corpuscular Volume 96.4 fL (81-99); Mean Platelet Vol. 11.5 fl (6.2-12.0); Monocyte# 0.73 X10^3/uL; Monocyte% 12.9 % (0-10); NRBC Flagged by Analyzer 0 % (0-5); Neutrophil % 47.9 % (47-70); Platelet Count 201 K/mm3 (150-450); RBC Distribution Width SD 49.8 fl (35.1-43.9); Red Blood Count 4.73 M/mm3 (4.2-5.4); White Blood Count 5.6 K/mm3 (4.4-11.0)
[2021-07-11 17:00] LABS: Anion Gap 2 (5-15); BUN 16 mg/dL (7-18); Calcium,Total 8.4 mg/dL (8.5-10.1); Chloride 97 mmol/L (98-107); Creatinine, Serum 0.53 mg/dL (0.55-1.02); EST Glomerular Filtration Rate 124 mL/min (>60); Est Glom Filt Rate - Afr Amer 150 mL/min (>60); Estimated Creatinine Clearance 97.47 ml/min; Glucose 82 mg/dL (74-106); Potassium 4.2 mmol/L (3.5-5.1); Sodium Level 131 mmol/L (136-145)
[2021-07-11] MEDS: MethylPREDNISolone 125 MG/2 ML Vial IV (17:06)
--- NOTE | 2021-07-11 18:01 | ED.VIS.DYS ---
HPI History of Present Illness Chief Complaint: Shortness of Breath Narrative Narrative: Patient with COPD on 2 L nasal cannula at baseline presenting with worsening shortness of breath. Apparently she has human metapneumovirus and rhinovirus. She was recently in the hospital and discharged yesterday. She was living at home and retirement and did not crab picker her medications. She has not had any steroids but has had her albuterol. She also has multiple medications which she did not fill. Apparently there was some problem with the insurance card. This was addressed and patient is able to crab picker her own prescriptions now. [facility] Medical History Anxiety and depression Chronic low back pain with sciatica Chronic respiratory failure with hypoxia COPD (chronic obstructive pulmonary disease) DVT (deep venous thrombosis) Fibromyalgia Hearing loss, left History of IBS MRSA (methicillin resistant Staphylococcus aureus) On home oxygen therapy Pneumonia Protein C deficiency RSD (reflex sympathetic dystrophy) RSD lower limb Home Medications amitriptyline 200 mg PO QHS 04/26/14 [History Last Taken 07/04/21] gabapentin 300 mg PO TIDCM 04/26/14 [History Last Taken 07/05/21] clonazepam 0.5 mg PO 4X/DAY PRN 12/13/14 [History Last Taken 07/05/21] furosemide 80 mg PO DAILY 02/04/16 [History Last Taken 07/05/21] furosemide [Lasix] 40 mg PO DINNER 06/12/17 [History Last Taken 07/04/21] dextroamphetamine-amphetamine [Adderall] 30 mg PO DAILY 08/09/17 [History Last Taken 07/05/21] cyclobenzaprine 5 mg PO BID PRN 12/15/19 [History Last Taken 09/13/20] gabapentin 600 mg PO QHS 12/15/19 [History Last Taken 07/04/21] duloxetine 60 mg PO DAILY 04/11/20 [History Last Taken 07/04/21] ipratropium-albuterol 3 ml IH 4X/DAY 04/11/20 [History Last Taken 07/05/21] potassium chloride 20 meq PO BID 02/23/21 [History Last Taken 07/05/21] Xarelto 20 mg PO DAILY 06/19/21 [History Last Taken 07/04/21] albuterol sulfate 2.5 mg INHALATION Q2H PRN PRN #75 ml 07/09/21 [Rx Last Taken Unknown] guaifenesin [Mucinex] 1,200 mg PO Q12H #20 tab 07/09/21 [Rx Last Taken Unknown] prednisone See Rx Instructions .ROUTE .COMPLEX #30 tab 07/09/21 [Rx Last Taken Unknown] Allergy/AdvReac Type Severity Reaction Status Date / Time celecoxib Allergy Swelling Verified 07/11/21 13:27 of arms/legs naproxen Allergy Swelling Verified 07/11/21 13:27 arms/legs Penicillins Allergy Hives/facial Verified 07/11/21 13:27 swelling pregabalin Allergy Swelling Verified 07/11/21 13:27 arms/swelling sertraline Allergy Swelling Verified 07/11/21 13:27 Family History Father Cancer Colon and Lung CA. Surgical History History of appendectomy History of cholecystectomy S/P hysterectomy S/P tonsillectomy and adenoidectomy Social History housing: homeless Smoking Status: Current every day smoker tobacco type: cigarettes alcohol intake: never substance use type: does not use ROS ROS ED Constitutional Constitutional ED: Denies chills or fever(s) Eyes Eyes: Denies blurry vision or change in vision ENT ENT ED: Denies rhinorrhea or sore throat Cardiovascular Cardiovascular: Denies chest pain or palpitations Respiratory/Chest Respiratory/Chest: Reports cough and dyspnea Gastrointestinal Gastrointestinal: Denies abdominal pain, nausea or vomiting Genitourinary Genitourinary ED: Denies dysuria or hematuria Musculoskeletal Musculoskeletal: Denies arthralgias, myalgias or neck pain Integumentary Denies abscess or rash Neurologic Neurologic: Denies headache(s) or weakness EXAM Physical Exam Const Vital Signs: 07/11/21 13:24 07/11/21 16:05 07/11/21 16:10 Temperature 98.7 F Temperature Source Temporal Pulse Rate 91 90 Respiratory Rate 20 H 19 H Respiratory Effort Respiratory Pattern Tachypnea Blood Pressure 114/73 Blood Pressure Mean 86 Pulse Ox 99 97 Oxygen Delivery Method Nasal Cannula Oxygen Flow Rate (L/min) 2 07/11/21 17:16 Temperature Temperature Source Pulse Rate Respiratory Rate Respiratory Effort Normal Non-Labored Respiratory Pattern Blood Pressure Blood Pressure Mean Pulse Ox Oxygen Delivery Method Oxygen Flow Rate (L/min) Positive well nourished General Appearance ED: NAD; Negative for pallor HEENT Reports moist mucous membranes atraumatic Eyes PERRL and EOMs intact bilaterally Resp normal respiratory effort Auscultation: wheezes scattered wheezes GI non-tender and non-distended Palpation: soft Neuro oriented x3 Sensorium / Orientation: alert Psych mental status grossly normal Thought Process: normal thought process Skin General Skin Exam: Negative for jaundice or pallor MDM MDM MDM Narrative Medical decision making narrative: Basic lab work is within normal limits and unchanged. Chest x-ray interpreted by myself shows patchy bilateral infiltrates which does appear similar if not improved from her chest x-ray previously. Patient is given Solu-Medrol 125 mg IV as well as breathing treatments and feels improved. She states that she was able to get her medications picked up for her. She is going to stay at a hotel tonight. Patient is discharged in stable condition. Impression: 1. COPD exacerbation 2. History of human metapneumovirus 3. History of rhinovirus Lab Data Labs: Laboratory Results - last 24 hr 07/11/21 07/11/21 16:35 16:35 WBC 5.6 RBC 4.73 Hgb 14.3 Hct 45.6 MCV 96.4 MCH 30.2 MCHC 31.4 L RDW Std Deviation 49.8 H RDW Coeff of Sean 14.0 Plt Count 201 MPV 11.5 Immature Gran % (Auto) 1.200 H Neut % (Auto) 47.9 Lymph % (Auto) 36.0 [place] % (Auto) 12.9 H Eos % (Auto) 1.6 Baso % (Auto) 0.4 Absolute Neuts (auto) 2.7 Absolute Lymphs (auto) 2.03 Nucleated RBC % 0 Sodium 131 L Potassium 4.2 Chloride 97 L Carbon Dioxide 32.0 Anion Gap 2 L BUN 16 Creatinine 0.53 L Estim Creat Clear Calc 97.47 Est GFR (MDRD) Af Amer 150 Est GFR (MDRD) Non-Af 124 BUN/Creatinine Ratio 30.0 H Glucose 82 Calcium 8.4 L Radiography Diagnostic Testing: Clinical Impression(s) from Imaging Studies Chest X-Ray 07/11/21 16:45 IMPRESSION: Bilateral patchy pneumonia. Electronically Signed: Leopoldo Godoy MD at 16:55 EST Tel , Service support , Discharge Plan Triage Chief Complaint: Shortness of Breath ED Provider: Killian Muse Dx/Rx/DC Orders Instructions: ED COPD Flare Prescriptions: No Action gabapentin 300 MG capsule 300 mg PO TIDCM RF: 0 amitriptyline 100 MG tablet 200 mg PO QHS RF: 0 clonazepam 0.5 MG tablet 0.5 mg PO 4X/DAY PRN (Reason: Anxiety) RF: 0 furosemide 40 MG tablet 80 mg PO DAILY RF: 0 furosemide [Lasix] 40 MG tablet 40 mg PO DINNER RF: 0 dextroamphetamine-amphetamine [Adderall] 30 MG tablet 30 mg PO DAILY RF: 0 gabapentin 300 MG capsule 600 mg PO QHS RF: 0 cyclobenzaprine 5 MG tablet 5 mg PO BID PRN (Reason: Spasms) RF: 0 ipratropium-albuterol 3 ML solution for nebulization 3 ml IH 4X/DAY RF: 0 duloxetine 60 MG capsule,delayed release(DR/EC) 60 mg PO DAILY RF: 0 potassium chloride 20 mEq tablet,ER particles/crystals 20 meq PO BID RF: 0 Xarelto 20 mg tablet 20 mg PO DAILY RF: 0 albuterol sulfate 2.5 mg /3 mL (0.083 %) Solution For Nebulization 2.5 mg inhalation Q2H PRN PRN (Reason: Dyspnea, wheezing) Qty: 75 RF: 0 prednisone 10 mg tablet See Rx Instructions .ROUTE .COMPLEX Qty: 30 RF: 0 Mucinex 1,200 mg tablet extended release 12hr 1,200 mg PO Q12H Qty: 20 RF: 0 Primary Care Provider: Carson Stephenson Referrals: Carson Stephenson MD [Primary Care Provider] - Disposition Disposition: Home, Self Care
[2021-07-11 19:06] VITALS: PULSE 104; O2SAT 94
== END 2021-07-11 19:39 | disposition home or self-care (01) ==
PROVIDERS: Emergency Provider Student in an Organized Health Care Education/Training Program; PCP Family Medicine
DX: J44.1 Chronic obstructive pulmonary disease with (acute) exacerbation (principal); B97.81 Human metapneumovirus as the cause of diseases classified elsewhere; B97.89 Other viral agents as the cause of diseases classified elsewhere; J96.11 Chronic respiratory failure with hypoxia; F32.A Depression, unspecified; F41.9 Anxiety disorder, unspecified; D68.59 Other primary thrombophilia; G89.29 Other chronic pain; K58.9 Irritable bowel syndrome, unspecified; M79.7 Fibromyalgia; Z86.718 Personal history of other venous thrombosis and embolism; Z86.14 Personal history of Methicillin resistant Staphylococcus aureus infection; Z99.81 Dependence on supplemental oxygen; Z79.01 Long term (current) use of anticoagulants; Z79.899 Other long term (current) drug therapy; F17.210 Nicotine dependence, cigarettes, uncomplicated
CPT/HCPCS: 71045; 80048; 85025; 94640; 96374; 99285; A4216